=== PATIENT | male | born 1945 | race Caucasian/White ===

== ENCOUNTER 2018-11-21 22:42 | Inpatient (IN) | payer OTHER ==
[~2018-11-21] VITALS: Ht 170.2 cm; Wt 66.2 kg
--- NOTE | 2018-11-21 22:09 | Emergency Room Report ---
History of Present Illness General Chief Complaint: General Complaint Source: Patient Present Illness HPI Patient is a a 72-year-old male brought in by EMS after increased generalized weakness. Patient was noted to have increased BUN and creatinine on laboratory testing done by Dr. Alexandra. Patient was noted to have some increased generalized weakness as well as decreased urine output. 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 Patient denies any alcohol intake. He denies prior history of renal disease. Patient denies orthopnea or chest pain but reports having decreased exercise tolerance and dyspnea with minimal exertion. Allergies: Coded Allergies: No Known Allergies (Unverified , 11/21/18) Patient History Past Medical History: see triage record Reviewed Nursing Documentation: PMH: Agreed; PSxH: Agreed Nursing Documentation-PMH Past Medical History: No History, Except For Review of Systems All Other Systems: negative except mentioned in HPI Physical Exam Vital Signs Date Time Temp Pulse Resp B/P (MAP) Pulse Ox O2 Delivery O2 Flow Rate FiO2 11/21/18 21:51 97.3 84 18 156/78 96 General Appearance: alert, GCS 15, mild distress, Chronically Ill Eyes: bilateral eye EOMI ENT: normal pharynx Neck: full range of motion Respiratory: lungs clear, normal breath sounds Cardiovascular #1: regular rate, rhythm, edema Gastrointestinal: distended, mass - suprapubic mass Genitourinary: other - duplicate urethreal meatus with minimal opening Neurologic: alert, oriented x3, responsive, 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 Differential diagnosis include was not limited to obstructive uropathy, renal failure, hyperkalemia, laboratory error among others. Because of complexity of patient's case laboratory testing and imaging studies were ordered. Patient was noted to have markedly distended bladder. Patient initially was noted to have some hydronephrosis on bedside ultrasound. 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 Patient was noted to have large amount of urine in his bladder. Patient's catheter drained approximately [address] Carpenter placed catheter using urethral dilators. Patient's laboratory testing was notable having uremia as well as metabolic acidosis and markedly elevated creatinine. Patient was noted to have hyperkalemia without any definite EKG changes. CT of the abdomen pelvis showed some continued hydroureter and bladder wall thickening which likely represented chronic outflow obstruction patient was discussed with Dr.. Michael Sosa for renal consultation who recommended 60 g of Kayexalate. Patient was given bicarbonate as well as IV calcium gluconate. Dr. Alexandra GI consult. Patient was admitted to Dr. Dane Vasquez. Laboratory Tests Test 11/21/18 22:25 11/22/18 04:45 11/22/18 08:00 White Blood Count 15.2 K/UL (4.8-10.8) H 14.0 K/UL (4.8-10.8) H Red Blood Count 2.93 M/UL (4.70-6.10) L 2.73 M/UL (4.70-6.10) L Hemoglobin 9.2 G/DL (14.2-18.0) L 8.8 G/DL (14.2-18.0) L Hematocrit 26.8 % (42.0-52.0) L 25.1 % (42.0-52.0) L Mean Corpuscular Volume 91 FL (80-99) 92 FL (80-99) Mean Corpuscular Hemoglobin 31.5 PG (27.0-31.0) H 32.2 PG (27.0-31.0) H Mean Corpuscular Hemoglobin Concent 34.5 G/DL (32.0-36.0) 34.9 G/DL (32.0-36.0) Red Cell Distribution Width 10.2 % (11.6-14.8) L 10.4 % (11.6-14.8) L Platelet Count 271 K/UL (150-450) 251 K/UL (150-450) Mean Platelet Volume 5.0 FL (6.5-10.1) L 4.8 FL (6.5-10.1) L Neutrophils (%) (Auto) % (45.0-75.0) % (45.0-75.0) Lymphocytes (%) (Auto) % (20.0-45.0) % (20.0-45.0) Monocytes (%) (Auto) % (1.0-10.0) % (1.0-10.0) Eosinophils (%) (Auto) % (0.0-3.0) % (0.0-3.0) Basophils (%) (Auto) % (0.0-2.0) % (0.0-2.0) Differential Total Cells Counted 100 Neutrophils % (Manual) 85 % (45-75) H Pending Lymphocytes % (Manual) 5 % (20-45) L Pending Monocytes % (Manual) 7 % (1-10) Eosinophils % (Manual) 2 % (0-3) Basophils % (Manual) 1 % (0-2) Band Neutrophils 0 % (0-8) Platelet Estimate Adequate Pending Platelet Morphology Normal Pending Hypochromasia 1+ Anisocytosis 1+ Prothrombin Time 10.8 SEC (9.30-11.50) Prothrombin Time INR 1.0 (0.9-1.1) PTT 28 SEC (23-33) Urine Color Pale yellow Urine Appearance Clear Urine pH 5 (4.5-8.0) Urine Specific [place] 1.010 (1.005-1.035) Urine Protein 2+ (NEGATIVE) H Urine Glucose (UA) Negative (NEGATIVE) Urine Ketones Negative (NEGATIVE) Urine Blood 1+ (NEGATIVE) H Urine Nitrite Negative (NEGATIVE) Urine Bilirubin Negative (NEGATIVE) Urine Urobilinogen Normal MG/DL (0.0-1.0) Urine Leukocyte Esterase 1+ (NEGATIVE) H Urine RBC 0-2 /HPF (0 - 0) H Urine WBC 0-2 /HPF (0 - 0) Urine Squamous Epithelial Cells None /LPF (NONE/OCC) Urine Bacteria None /HPF (NONE) Sodium Level 131 MMOL/L (136-145) L 135 MMOL/L (136-145) L 136 MMOL/L (136-145) Potassium Level 7.0 MMOL/L (3.5-5.1) *H 6.7 MMOL/L (3.5-5.1) *H 6.0 MMOL/L (3.5-5.1) *H Chloride Level 94 MMOL/L (98-107) L 96 MMOL/L (98-107) L 96 MMOL/L (98-107) L Carbon Dioxide Level 17 MMOL/L (21-32) L 22 MMOL/L (21-32) 20 MMOL/L (21-32) L Anion Gap 20 mmol/L (5-15) H 16 mmol/L (5-15) H 20 mmol/L (5-15) H Blood Urea Nitrogen 231 mg/dL (7-18) H 223 mg/dL (7-18) H 230 mg/dL (7-18) H Creatinine 14.0 MG/DL (0.55-1.30) H 14.1 MG/DL (0.55-1.30) H 14.0 MG/DL (0.55-1.30) H Estimate Glomerular Filtration Rate mL/min (>60) mL/min (>60) mL/min (>60) Glucose Level 125 MG/DL (74-106) H 104 MG/DL (74-106) 137 MG/DL (74-106) H Calcium Level 9.6 MG/DL (8.5-10.1) 9.3 MG/DL (8.5-10.1) 9.2 MG/DL (8.5-10.1) Total Bilirubin 0.4 MG/DL (0.2-1.0) 0.4 MG/DL (0.2-1.0) Aspartate Amino Transferase (AST) 10 U/L (15-37) L 10 U/L (15-37) L Alanine Aminotransferase (ALT) 28 U/L (12-78) 33 U/L (12-78) Alkaline Phosphatase 132 U/L (46-116) H 125 U/L (46-116) H Troponin I 0.535 ng/mL (0.000-0.056) 0.581 ng/mL (0.000-0.056) Total Protein 8.0 G/DL (6.4-8.2) 7.0 G/DL (6.4-8.2) Albumin 3.2 G/DL (3.4-5.0) L 2.8 G/DL (3.4-5.0) L Globulin 4.8 g/dL 4.2 g/dL Albumin/Globulin Ratio 0.7 (1.0-2.7) L 0.7 (1.0-2.7) L Thyroid Stimulating Hormone (TSH) 1.941 uiU/mL (0.358-3.740) 1.545 uiU/mL (0.358-3.740) Triglycerides Level 17 MG/DL (30-150) L Cholesterol Level 83 MG/DL (< 200) LDL Cholesterol 58 mg/dL (<100) HDL Cholesterol 30 MG/DL (40-60) L Cholesterol/HDL Ratio 2.8 (3.3-4.4) L EKG Diagnostic Results Rate: normal Rhythm: NSR ST Segments: no acute changes Last Vital Signs Date Time Temp Pulse Resp B/P (MAP) Pulse Ox O2 Delivery O2 Flow Rate FiO2 11/21/18 21:51 97.3 84 18 156/78 96 Status: improved Disposition: ADMITTED INPATIENT Condition: Stable Mauro Card MD Nov 21, 2018 22:09
[2018-11-21 22:18] VITALS: BP 156/78
--- NOTE | 2018-11-21 22:18 | NUR ---
ED Nurse Note: Patient biba RA 42 from home c/o general weakness. PMD called earlier, patient has a hx of renal failure as well
--- NOTE | 2018-11-21 22:45 | NUR ---
ED Nurse Note: Dr. Card made contact with urologist, urologist will come and evaluate patient's urinary sytem as well as collect urine.
[2018-11-21 22:51] LABS: HEMATOCRIT 26.8 % (42.0-52.0); HEMOGLOBIN 9.2 G/DL (14.2-18.0); MEAN CORPUSCULAR VOLUME 91 FL (80-99); PLATELET COUNT 271 K/UL (150-450); RED BLOOD COUNT 2.93 M/UL (4.70-6.10); RED CELL DISTRIBUTION WIDTH 10.2 % (11.6-14.8); WHITE BLOOD COUNT 15.2 K/UL (4.8-10.8)
[2018-11-21 23:17] LABS: ALANINE AMINOTRANSFERASE 28 U/L (12-78); ALBUMIN 3.2 G/DL (3.4-5.0); ALBUMIN/GLOBULIN RATIO 0.7 (1.0-2.7); ALKALINE PHOSPHATASE 132 U/L (46-116); ANION GAP 20 mmol/L (5-15); ASPARTATE AMINO TRANSFERASE 10 U/L (15-37); BILIRUBIN,TOTAL 0.4 MG/DL (0.2-1.0); BLOOD UREA NITROGEN 231 mg/dL (7-18); CALCIUM 9.6 MG/DL (8.5-10.1); CARBON DIOXIDE 17 MMOL/L (21-32); CHLORIDE 94 MMOL/L (98-107); SODIUM 131 MMOL/L (136-145)
--- NOTE | 2018-11-21 23:30 | NUR ---
ED Nurse Notes: telephone report given to AIDA JEFFRIES.
[2018-11-21] MEDS ORDERED: ZOFRAN4 M3 ORAL (23:33)
[2018-11-21] MEDS ORDERED: AMLODIPINE BESYL5 MG ORAL (23:33)
--- NOTE | 2018-11-21 23:40 | NUR ---
ED Nurse Note: CT COMPLETED
--- NOTE | 2018-11-21 23:48 | NUR ---
ED Nurse Note: RECEIVED PHONE CALL FROM LAB. PER ADJUNCT TRAINER, K+ 7.0 AND TROPONIN IS 0.535. INFORMED ERMD, WILL AWAIT FUTHER ORDERS AND CONTINOUSLY MONITOR PT.
[2018-11-21 23:56] LABS: APPEARANCE,URINE CLEAR; BILIRUBIN, URINE NEGATIVE (NEGATIVE); COLOR,URINE PALE YELLOW; GLUCOSE, URINE (UA) NEGATIVE (NEGATIVE); KETONES,URINE NEGATIVE (NEGATIVE); LEUKOCYTE ESTERASE ,URINE 1+ (NEGATIVE); NITRITE,URINE NEGATIVE (NEGATIVE); PH,URINE 5 (4.5-8.0); PROTEIN,URINE 2+ (NEGATIVE); UROBILINOGEN,URINE NORMAL MG/DL (0.0-1.0)
[2018-11-22] MEDS ORDERED: Sodium Polystyrene Sulfonate 15gm Powder ONE (00:10)
[2018-11-22] MEDS ORDERED: Calcium Gluconate 1gm/10ml vial IVP ONE (00:15)
[2018-11-22] MEDS ORDERED: Sodium Polystyrene Sulfonate 15gm Powder ORAL ONE ×2 (00:15→13:30)
[2018-11-22] MEDS ORDERED: Albuterol ud Inhalation HHN ONE (00:15)
[2018-11-22] MEDS ORDERED: Sodium Bicarbonate 50ml Carp IV ONE (00:15)
--- NOTE | 2018-11-22 00:15 | Consultation ---
DATE OF CONSULTATION: 11/21/2018 UROLOGY CONSULTATION: CONSULTING PHYSICIAN: Leonardo Carpenter M.D. ATTENDING/REFERRING PHYSICIAN: Dr. Mauro Card at emergency department. 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 Briefly, the patient is brought to the hospital by EMS with a history of generalized weakness. He was noted to have an extreme increase in his BUN and creatinine on laboratory testing that was done earlier today. He had an ultrasound done, which revealed evidence of hydronephrosis. The patient has some abnormal urethral anatomy. As such, I was asked to evaluate him and pass the Morfin catheter. 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 The patient has had some gradual incontinence developing over the last several months along with lower extremity swelling. PAST MEDICAL HISTORY: Urethral bifurcation, otherwise unremarkable. PAST SURGICAL HISTORY: None. MEDICATIONS: Please see the chart for current medications administration details. ALLERGIES: No known drug allergies. SOCIAL HISTORY: Unremarkable for tobacco, alcohol, or drug abuse. 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 FAMILY HISTORY: Noncontributory. REVIEW OF SYSTEMS: A 14-system review of systems was essentially unremarkable outside what was described above. PHYSICAL EXAMINATION: GENERAL: The patient is an elderly gentleman, awake, alert, oriented x4, pleasant, no obvious distress. HEENT: NC/AT. EOMI. NECK: Supple. Oropharynx clear. CHEST: Within normal limits. ABDOMEN: Soft, nontender, nondistended. EXTREMITIES: Warm, well perfused. No cyanosis, clubbing, or edema. BACK: No CVA tenderness to percussion. NEUROLOGIC: Grossly nonfocal. GENITOURINARY: Reveals a circumcised male phallus. There are 2 apparent openings on the coronal glans of the urethra, 1 appears to be a distal plate and the other appears to be the true opening. This is quite small in caliber measuring approximately 2 mm in size. There are bilateral descended testes and cord structures with no masses or tenderness to palpation. LABORATORY DATA: White blood cell count 15.2, hematocrit 26.8, platelets 271. PT 10.8, INR 1, PTT 28. Chemistry panel pending. DIAGNOSTIC IMAGING: Renal ultrasound with evidence of hydronephrosis bilaterally. CT scan of the abdomen pelvis ordered and pending. 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 Physical exam reveals a distal urethral plate and small opening as well as a more proximal opening, which appeared to be true urethra. Laboratory data is notable for evidence of renal failure and an updated chemistry panel is pending. Diagnostic imaging reveals hydronephrosis. Today at the bedside, I dilated the patient's urethra gently with no sounds from 12 to 14-Welsh on the proximal opening. Despite the small size, it was fairly elastic and dilated easily. As this was done, it did not appear that there was any distal stricture beyond the meatus. I was then able to pass a 14-Welsh catheter with some difficulty in the patient's bladder. This returned clear yellow urine output. It was inflated and left to gravity drainage. Thank you for allowing me to participate in the care of this nice gentleman. Please do not hesitate to contact me with any questions that you may further have regarding his care. I will be happy to see him with you as needed. Leonardo Carpenter M.D. DR: ARETHA JOB#: [id number] CC:
--- NOTE | 2018-11-22 00:46 | NUR ---
ED Nurse Note: pt transferred with lauren rn and neil emt, pt is on gambling monitor, pt is aox4, vss stable, pt johnson emptied, pt has all belongings daughter is bedside. pt on room air. 100%
--- NOTE | 2018-11-22 01:00 | NUR ---
NURSE NOTES: Received pt. from ED via kel[facility]. Pt. transferred to bed without any incident. [place] pt. to unit, room, and hospital policies. Received report from AIDA Orozco. phototypesetting equipment monitor is in placed, IV site is intact, asymptomatic and patent. Belongings list checked and accounted. Bed is in the lowest position and locked. Call light within reach. No acute distress noted at this time. Will call Dr. Vasquez for admission orders.
[2018-11-22 01:05] VITALS: BP 149/68
--- NOTE | 2018-11-22 03:00 | NUR ---
NURSE NOTES: Received admission orders from Dr. Vasquez. Will note and carry out.
[2018-11-22 04:00] VITALS: BP 139/73
--- NOTE | 2018-11-22 06:30 | NUR ---
NURSE NOTES: Contacted Dr. Sosa for a nephrology consult. Awaiting call back.
[2018-11-22 07:18] LABS: HEMATOCRIT 25.1 % (42.0-52.0); HEMOGLOBIN 8.8 G/DL (14.2-18.0); MEAN CORPUSCULAR VOLUME 92 FL (80-99); PLATELET COUNT 251 K/UL (150-450); RED BLOOD COUNT 2.73 M/UL (4.70-6.10); RED CELL DISTRIBUTION WIDTH 10.4 % (11.6-14.8)
[2018-11-22 07:21] LABS: ALANINE AMINOTRANSFERASE 33 U/L (12-78); ALBUMIN 2.8 G/DL (3.4-5.0); ALBUMIN/GLOBULIN RATIO 0.7 (1.0-2.7); ALKALINE PHOSPHATASE 125 U/L (46-116); ANION GAP 16 mmol/L (5-15); ASPARTATE AMINO TRANSFERASE 10 U/L (15-37); BILIRUBIN,TOTAL 0.4 MG/DL (0.2-1.0); BLOOD UREA NITROGEN 223 mg/dL (7-18); CALCIUM 9.3 MG/DL (8.5-10.1); CARBON DIOXIDE 22 MMOL/L (21-32); CHLORIDE 96 MMOL/L (98-107); CHOLESTEROL 83 MG/DL (< 200); CREATININE 14.1 MG/DL (0.55-1.30); HDL CHOLESTEROL 30 MG/DL (40-60); SODIUM 135 MMOL/L (136-145)
[2018-11-22 07:24] LABS: POTASSIUM 6.7 MMOL/L (3.5-5.1)
[2018-11-22 07:41] LABS: TRIGLYCERIDES 17 MG/DL (30-150)
--- NOTE | 2018-11-22 07:45 | NUR ---
NURSE NOTES: Received patient from AIDA Fenton in bed resting,patient is weak, eat 95% of breakfast, daughter at bedside, denies any pain. No s/s of acute distress noted. Dr. Stokes is with patient. Emptied 1400cc from f/c output is reddish in color. Dr aware. Bed is in lowest position. Call light is within reach. Will continue with the plan of care.
[2018-11-22 08:00] VITALS: BP 146/66
--- NOTE | 2018-11-22 08:33 | NUR ---
HAND-OFF: Report given to AIDA Sandoval.
--- NOTE | 2018-11-22 09:27 | NUR ---
NURSE NOTES: Lab called Troponin is 0.581, aware
[2018-11-22 09:34] LABS: ANION GAP 20 mmol/L (5-15); BLOOD UREA NITROGEN 230 mg/dL (7-18); CALCIUM 9.2 MG/DL (8.5-10.1); CARBON DIOXIDE 20 MMOL/L (21-32); CHLORIDE 96 MMOL/L (98-107); SODIUM 136 MMOL/L (136-145)
--- NOTE | 2018-11-22 09:38 | NUR ---
NURSE NOTES: Lab, Dyn called potassium is 6.0, aware
[2018-11-22] MEDS: Heparin 5000 units/ml inj SUBQ SCH ×2 (09:52→20:42)
--- NOTE | 2018-11-22 10:32 | Diagnostic Imaging Report ---
Indication: Abdominal pain, abnormal renal function tests, lower extremity swelling Technique: Spiral acquisitions obtained through the abdomen and pelvis. No oral contrast utilized, per emergency room physician request No IV contrast utilized, per referring physician request.. Multiplanar reconstructions were generated. Total dose length product 733.93 mGycm. CTDIvol(s) 14.56 mGy. Dose reduction achieved using automated exposure control Comparison: None Findings: There is a right inguinal hernia which appears to be a direct inguinal hernia. The edge of the cecum protrudes into it. This does not appear to result in any strangulation or obstruction, however. The appendix is not definitely identified, but no findings to suggest acute appendicitis are evident. No small bowel distention. No free or loculated intraperitoneal gas or fluid is evident. Distal esophagus, stomach, duodenum are unremarkable. There is moderate to severe right hydronephrosis. There is also moderate to severe right hydroureter, which extends all the way to the ureterovesical junction. There is mild left hydronephrosis and moderate left hydroureter which extends all the way to the ureterovesical junction. The bladder contains a Morfin catheter. Gas bubbles within the bladder are likely related to the Morfin catheterization. The bladder is partially decompressed. The bladder is equivocally somewhat thick walled, although this may be an artifact of lack of distention. The prostate is somewhat enlarged. Lack of IV contrast limits assessment of the renal parenchyma. There is a 1 cm cyst in the left renal interpolar region. No renal or ureteral calculi demonstrated. Lack of IV contrast limits assessment of the solid organs. The liver, gallbladder, bile ducts, pancreas, spleen, adrenals are unremarkable. No retroperitoneal or mesenteric mass or adenopathy. No pelvic mass or adenopathy. The subcutaneous fat is diffusely edematous. The included lung bases demonstrate basilar atelectatic changes. A small air cyst is seen at the left lung base. The heart is enlarged. There is a pectus excavatum deformity which may exaggerate the apparent cardiomegaly, however. The bones demonstrate bilateral L5 spondylolysis, grade 1-2 L5 on S1 spondylolisthesis. Impression: Bilateral hydronephrosis, with hydroureter extending to the ureterovesical junctions, no definite obstructive lesion. Possibly on the basis of chronic bladder outlet obstruction. Morfin catheter within partially decompressed bladder apparent bladder wall thickening, possibly exaggerated by under distention, but raises possibility of cystitis Direct right inguinal hernia, containing the edge of the cecum. 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 The CT scanner at [facility] is accredited by the [employer] and the scans are performed using protocols designed to limit radiation exposure to as low as reasonably achievable to attain images of sufficient resolution adequate for diagnostic evaluation.
--- NOTE | 2018-11-22 11:42 | NUR ---
CASE MANAGEMENT:REVIEW 72 YR OLD MALE BIBA FROM HOME CC; GENERALIZED WEAKNESS SI: ACUTE RENAL FAILURE 97.4 84 18 156/78 96% ON RA WBC+15.2 K+7.0 BUN+231 CR+14.0 TROPONIN(+) 0.535 IS: CT ABD/PELVIS IV CA GLUC ALBUTEROL HHN IV NAHCO3 KAYEXALATE PO : TO TELEMETRY INTERQUAL CRITERIA MET
[2018-11-22 12:00] VITALS: BP 124/64
--- NOTE | 2018-11-22 12:06 | NUR ---
*-* NO INSURANCE INFORMATION IN THE BAR UNABLE TO SEND CLINICALS AND REVIEWS *-*
--- NOTE | 2018-11-22 14:35 | Diagnostic Imaging Report ---
APPROVED REPORT CPT Code: 93525 Present Symptoms Shortness of breath Comments: Screening BILATERAL: Imaging reveals a patent deep venous system bilaterally. There is no evidence of thrombus within the common femoral, superficial femoral, popliteal or tibial segments. The greater saphenous veins are within normal limits. Doppler indicates normal spontaneous flow within these segments.
--- NOTE | 2018-11-22 14:40 | Consultation ---
Consult Note Assessment/Plan Renal consult dictated # [id number] Michael Sosa MD Nov 22, 2018 14:40
--- NOTE | 2018-11-22 15:44 | General Progress Note ---
Assessment/Plan Assessment/Plan Assessment - Anemia - Chronic renal failure - Obstructive uropathy - b/l edema - Duplex negative - Pelvic mass - distended bladder - resolved with johnson - diarrhea Recommendations - Renal diet - follow labs - Fernanda exalate - Monitor labs - check stool OB, Cx - defer GI procedures at this time Subjective Allergies: Coded Allergies: No Known Allergies (Unverified , 11/21/18) Objective Last 24 Hour Vital Signs Date Time Temp Pulse Resp B/P (MAP) Pulse Ox O2 Delivery O2 Flow Rate FiO2 11/22/18 12:00 80 11/22/18 12:00 98.2 80 18 124/64 (84) 97 11/22/18 09:49 89 146/65 11/22/18 09:00 Room Air 11/22/18 08:00 85 11/22/18 08:00 98.6 85 18 146/66 (92) 96 11/22/18 04:00 97.7 73 16 139/73 (95) 97 11/22/18 04:00 78 11/22/18 03:58 Room Air 21 11/22/18 03:58 Room Air 21 11/22/18 03:58 77 20 Room Air 21 11/22/18 01:18 Room Air 11/22/18 01:05 98.1 86 17 149/68 (95) 96 11/22/18 01:05 86 11/22/18 00:46 97.3 89 16 149/74 100 Room Air 11/21/18 22:18 97.3 84 18 156/78 96 11/21/18 22:18 84 18 11/21/18 21:51 97.3 84 18 156/78 96 Intake and Output 11/21/18 11/22/18 19:00 07:00 Intake Total 580 ml Output Total 2040 ml Balance -1460 ml Intake Oral 580 ml Output Urine Total 2040 ml Laboratory Tests 11/21/18 22:25: White Blood Count 15.2H, Red Blood Count 2.93L, Hemoglobin 9.2L, Hematocrit 26.8L, Mean Corpuscular Volume 91, Mean Corpuscular Hemoglobin 31.5H, Mean Corpuscular Hemoglobin Concent 34.5, Red Cell Distribution Width 10.2L, Platelet Count 271, Mean Platelet Volume 5.0L, Neutrophils (%) (Auto) , Lymphocytes (%) (Auto) , Monocytes (%) (Auto) , Eosinophils (%) (Auto) , Basophils (%) (Auto) , Differential Total Cells Counted 100, Neutrophils % ( Manual) 85H, Lymphocytes % (Manual) 5L, Monocytes % (Manual) 7, Eosinophils % ( Manual) 2, Basophils % (Manual) 1, Band Neutrophils 0, Platelet Estimate Adequate, Platelet Morphology Normal, Hypochromasia 1+, Anisocytosis 1+, Prothrombin Time 10.8, Prothromb Time International Ratio 1.0, Activated Partial Thromboplast Time 28, Urine Color Pale yellow, Urine Appearance Clear, Urine pH 5, Urine Specific [place] 1.010, Urine Protein 2+H, Urine Glucose (UA) Negative, Urine Ketones Negative, Urine Blood 1+H, Urine Nitrite Negative, Urine Bilirubin Negative, Urine Urobilinogen Normal, Urine Leukocyte Esterase 1+ H, Urine RBC 0-2H, Urine WBC 0-2, Urine Squamous Epithelial Cells None, Urine Bacteria None, Sodium Level 131L, Potassium Level 7.0*H, Chloride Level 94L, Carbon Dioxide Level 17L, Anion Gap 20H, Blood Urea Nitrogen 231H, Creatinine 14.0H, Estimat Glomerular Filtration Rate , Glucose Level 125H, Calcium Level 9.6, Total Bilirubin 0.4, Aspartate Amino Transf (AST/SGOT) 10L, Alanine Aminotransferase (ALT/SGPT) 28, Alkaline Phosphatase 132H, Troponin I 0.535H, Total Protein 8.0, Albumin 3.2L, Globulin 4.8, Albumin/Globulin Ratio 0.7L, Thyroid Stimulating Hormone (TSH) 1.941 11/22/18 04:45: White Blood Count 14.0H, Red Blood Count 2.73L, Hemoglobin 8.8L, Hematocrit 25.1L, Mean Corpuscular Volume 92, Mean Corpuscular Hemoglobin 32.2H, Mean Corpuscular Hemoglobin Concent 34.9, Red Cell Distribution Width 10.4L, Platelet Count 251, Mean Platelet Volume 4.8L, Neutrophils (%) (Auto) , Lymphocytes (%) (Auto) , Monocytes (%) (Auto) , Eosinophils (%) (Auto) , Basophils (%) (Auto) , Differential Total Cells Counted 100, Neutrophils % ( Manual) 91H, Lymphocytes % (Manual) 6L, Monocytes % (Manual) 3, Eosinophils % ( Manual) 0, Basophils % (Manual) 0, Band Neutrophils 0, Platelet Estimate Adequate, Platelet Morphology Normal, Sodium Level 135L, Potassium Level 6.7*H, Chloride Level 96L, Carbon Dioxide Level 22, Anion Gap 16H, Blood Urea Nitrogen 223H, Creatinine 14.1H, Estimat Glomerular Filtration Rate , Glucose Level 104, Calcium Level 9.3, Total Bilirubin 0.4, Aspartate Amino Transf (AST/SGOT) 10L, Alanine Aminotransferase (ALT/SGPT) 33, Alkaline Phosphatase 125H, Total Protein 7.0, Albumin 2.8L, Globulin 4.2, Albumin/Globulin Ratio 0.7L, Thyroid Stimulating Hormone (TSH) 1.545, Red Blood Cell Morphology Normal, Triglycerides Level 17L, Cholesterol Level 83, LDL Cholesterol 58, HDL Cholesterol 30L, Cholesterol/HDL Ratio 2.8L 11/22/18 08:00: Sodium Level 136, Potassium Level 6.0*H, Chloride Level 96L, Carbon Dioxide Level 20L, Anion Gap 20H, Blood Urea Nitrogen 230H, Creatinine 14.0H, Estimat Glomerular Filtration Rate , Glucose Level 137H, Calcium Level 9.2, Troponin I 0.581H Height (Feet): 5 Height (Inches): 8.00 Weight (Pounds): 170 Yasir Alexandra MD Nov 22, 2018 15:44
[2018-11-22 16:00] VITALS: BP 123/56
--- NOTE | 2018-11-22 16:20 | Cardiology Report ---
APPROVED REPORT EXAM: Two-dimensional and M-mode echocardiogram with Doppler and color Doppler. INDICATION Hypertension/HCVD M-Mode DIMENSIONS IVSd0.9 (0.7-1.1cm)Left Atrium (MM)3.6 (1.6-4.0cm) LVDd5.0 (3.5-5.6cm)Aortic Root3.4 (2.0-3.7cm) PWd1.1 (0.7-1.1cm)Aortic Cusp Exc.2.3 (1.5-2.0cm) LVDs2.9 (2.5-4.0cm) PWs1.2 cm Normal left ventricular chamber size, systolic function and wall motion. Left ventricular ejection fraction estimated to be 65-70 %. Borderline mild left ventricular hypertrophy by 2D. Anterior Echo-free space, may be due to pericardial fat or effusion. Mild bi-atrial enlargement. Right ventricular chamber size is within normal limits. Focal aortic valve sclerosis with adequate cusp excursion. Thickened mitral valve leaflets with normal excursion. Mitral annulus and aortic root calcification. Pulmonic valve not well visualized. Normal tricuspid valve structure. IVC measured at 2.3 cm with slight physiologic collapse, suggestive of increased RA pressure. A color flow and spectral Doppler study was performed and revealed: Mild aortic regurgitation. Trace mitral regurgitation. Mitral diastolic velocities suggest normal left ventricular relaxation. Trace tricuspid regurgitation. Tricuspid systolic velocities suggests peak right ventricular systolic pressure of 21 mmHg Pulmonic regurgitation present.
--- NOTE | 2018-11-22 16:30 | Cardiac Electrophysiology PN ---
Subjective Subjective [id number] Objective Last 24 Hour Vital Signs Date Time Temp Pulse Resp B/P (MAP) Pulse Ox O2 Delivery O2 Flow Rate FiO2 11/22/18 12:00 80 11/22/18 12:00 98.2 80 18 124/64 (84) 97 11/22/18 09:49 89 146/65 11/22/18 09:00 Room Air 11/22/18 08:00 85 11/22/18 08:00 98.6 85 18 146/66 (92) 96 11/22/18 04:00 97.7 73 16 139/73 (95) 97 11/22/18 04:00 78 11/22/18 03:58 Room Air 21 11/22/18 03:58 Room Air 21 11/22/18 03:58 77 20 Room Air 21 11/22/18 01:18 Room Air 11/22/18 01:05 98.1 86 17 149/68 (95) 96 11/22/18 01:05 86 11/22/18 00:46 97.3 89 16 149/74 100 Room Air 11/21/18 22:18 97.3 84 18 156/78 96 11/21/18 22:18 84 18 11/21/18 21:51 97.3 84 18 156/78 96 Intake and Output 11/21/18 11/22/18 19:00 07:00 Intake Total 580 ml Output Total 2040 ml Balance -1460 ml Intake Oral 580 ml Output Urine Total 2040 ml Laboratory Tests Test 11/21/18 22:25 11/22/18 04:45 11/22/18 08:00 White Blood Count 15.2 K/UL (4.8-10.8) H 14.0 K/UL (4.8-10.8) H Red Blood Count 2.93 M/UL (4.70-6.10) L 2.73 M/UL (4.70-6.10) L Hemoglobin 9.2 G/DL (14.2-18.0) L 8.8 G/DL (14.2-18.0) L Hematocrit 26.8 % (42.0-52.0) L 25.1 % (42.0-52.0) L Mean Corpuscular Volume 91 FL (80-99) 92 FL (80-99) Mean Corpuscular Hemoglobin 31.5 PG (27.0-31.0) H 32.2 PG (27.0-31.0) H Mean Corpuscular Hemoglobin Concent 34.5 G/DL (32.0-36.0) 34.9 G/DL (32.0-36.0) Red Cell Distribution Width 10.2 % (11.6-14.8) L 10.4 % (11.6-14.8) L Platelet Count 271 K/UL (150-450) 251 K/UL (150-450) Mean Platelet Volume 5.0 FL (6.5-10.1) L 4.8 FL (6.5-10.1) L Neutrophils (%) (Auto) % (45.0-75.0) % (45.0-75.0) Lymphocytes (%) (Auto) % (20.0-45.0) % (20.0-45.0) Monocytes (%) (Auto) % (1.0-10.0) % (1.0-10.0) Eosinophils (%) (Auto) % (0.0-3.0) % (0.0-3.0) Basophils (%) (Auto) % (0.0-2.0) % (0.0-2.0) Differential Total Cells Counted 100 100 Neutrophils % (Manual) 85 % (45-75) H 91 % (45-75) H Lymphocytes % (Manual) 5 % (20-45) L 6 % (20-45) L Monocytes % (Manual) 7 % (1-10) 3 % (1-10) Eosinophils % (Manual) 2 % (0-3) 0 % (0-3) Basophils % (Manual) 1 % (0-2) 0 % (0-2) Band Neutrophils 0 % (0-8) 0 % (0-8) Platelet Estimate Adequate Adequate Platelet Morphology Normal Normal Hypochromasia 1+ Anisocytosis 1+ Prothrombin Time 10.8 SEC (9.30-11.50) Prothromb Time International Ratio 1.0 (0.9-1.1) Activated Partial Thromboplast Time 28 SEC (23-33) Urine Color Pale yellow Urine Appearance Clear Urine pH 5 (4.5-8.0) Urine Specific [place] 1.010 (1.005-1.035) Urine Protein 2+ (NEGATIVE) H Urine Glucose (UA) Negative (NEGATIVE) Urine Ketones Negative (NEGATIVE) Urine Blood 1+ (NEGATIVE) H Urine Nitrite Negative (NEGATIVE) Urine Bilirubin Negative (NEGATIVE) Urine Urobilinogen Normal MG/DL (0.0-1.0) Urine Leukocyte Esterase 1+ (NEGATIVE) H Urine RBC 0-2 /HPF (0 - 0) H Urine WBC 0-2 /HPF (0 - 0) Urine Squamous Epithelial Cells None /LPF (NONE/OCC) Urine Bacteria None /HPF (NONE) Sodium Level 131 MMOL/L (136-145) L 135 MMOL/L (136-145) L 136 MMOL/L (136-145) Potassium Level 7.0 MMOL/L (3.5-5.1) *H 6.7 MMOL/L (3.5-5.1) *H 6.0 MMOL/L (3.5-5.1) *H Chloride Level 94 MMOL/L (98-107) L 96 MMOL/L (98-107) L 96 MMOL/L (98-107) L Carbon Dioxide Level 17 MMOL/L (21-32) L 22 MMOL/L (21-32) 20 MMOL/L (21-32) L Anion Gap 20 mmol/L (5-15) H 16 mmol/L (5-15) H 20 mmol/L (5-15) H Blood Urea Nitrogen 231 mg/dL (7-18) H 223 mg/dL (7-18) H 230 mg/dL (7-18) H Creatinine 14.0 MG/DL (0.55-1.30) H 14.1 MG/DL (0.55-1.30) H 14.0 MG/DL (0.55-1.30) H Estimat Glomerular Filtration Rate mL/min (>60) mL/min (>60) mL/min (>60) Glucose Level 125 MG/DL (74-106) H 104 MG/DL (74-106) 137 MG/DL (74-106) H Calcium Level 9.6 MG/DL (8.5-10.1) 9.3 MG/DL (8.5-10.1) 9.2 MG/DL (8.5-10.1) Total Bilirubin 0.4 MG/DL (0.2-1.0) 0.4 MG/DL (0.2-1.0) Aspartate Amino Transf (AST/SGOT) 10 U/L (15-37) L 10 U/L (15-37) L Alanine Aminotransferase (ALT/SGPT) 28 U/L (12-78) 33 U/L (12-78) Alkaline Phosphatase 132 U/L (46-116) H 125 U/L (46-116) H Troponin I 0.535 ng/mL (0.000-0.056) 0.581 ng/mL (0.000-0.056) Total Protein 8.0 G/DL (6.4-8.2) 7.0 G/DL (6.4-8.2) Albumin 3.2 G/DL (3.4-5.0) L 2.8 G/DL (3.4-5.0) L Globulin 4.8 g/dL 4.2 g/dL Albumin/Globulin Ratio 0.7 (1.0-2.7) L 0.7 (1.0-2.7) L Thyroid Stimulating Hormone (TSH) 1.941 uiU/mL (0.358-3.740) 1.545 uiU/mL (0.358-3.740) Red Blood Cell Morphology Normal Triglycerides Level 17 MG/DL (30-150) L Cholesterol Level 83 MG/DL (< 200) LDL Cholesterol 58 mg/dL (<100) HDL Cholesterol 30 MG/DL (40-60) L Cholesterol/HDL Ratio 2.8 (3.3-4.4) L David Guerra MD Nov 22, 2018 16:30
--- NOTE | 2018-11-22 17:22 | Cardiology Report ---
APPROVED REPORT EKG Measurement Heart [id number] ND [id number] Normal sinus rhythm Incomplete right bundle branch block Borderline ECG
--- NOTE | 2018-11-22 18:00 | NUR ---
NURSE NOTES: Patient complain of constipation, called Dr. Vasquez for order, awaiting call back.
--- NOTE | 2018-11-22 19:44 | NUR ---
HAND-OFF: Report given to AIDA Ramos.Endorsed plan of care.
[2018-11-22 20:00] VITALS: BP 126/65
--- NOTE | 2018-11-22 20:06 | NUR ---
NURSE NOTES: RECEIVED PATIENT RESTING IN BED AND READING BOOK, NO COMPLAINTS OF PAIN AT THIS TIME. FALL PRECAUTIONS IN PLACE: CALL LIGHT AND BEDSIDE TABLE WITHIN REACH, BED IN LOW POSITION AND BED ALARM ON. DAUGHTER AT BEDSIDE. PLAN OF CARE REVIEWED.
[2018-11-22] MEDS: Metoprolol 25mg tab ORAL SCH (20:41)
--- NOTE | 2018-11-22 21:00 | Consultation ---
DATE OF CONSULTATION: 11/22/2018 NEPHROLOGY CONSULTATION CONSULTING PHYSICIAN: Michael Sosa M.D. REFERRING PHYSICIAN: 1. Dane Vasquez M.D. 2. Hakan Melara M.D. REASON FOR CONSULTATION: Renal failure. 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 Alexandra for abnormal blood test showing significant kidney disease and hyperkalemia. The patient states that he has had problems with urination for many years. He states that he had to put pressure on his bladder to urinate initially and he would then able to urinate, but he never saw a urologist. Also, he is not sure when his last blood test was, may be about two years ago, he was told that his kidney function was normal. He was seen here in the emergency room and was found to have a BUN of 231 with creatinine of 14 with potassium of 7. The patient was found to be in retention. Urologist was called to put a Morfin catheter. Apparently, there was some anatomical abnormality due to urethra with bifurcation, but urologist was able to put a Morfin catheter. The patient had about two liters of urine in his bladder. since then, he has maintained with good urine output. His BUN and creatinine, however, did not improve. His BUN is 223 and creatinine 14.1 as of today and the repeat later was again BUN of 230 and creatinine of 14. Anyway, the patient was given some Kayexalate in the emergency room over 60 g and this morning the potassium was 6.7 and the repeat is 6.0. The patient did not have any EKG changes and so it was decided not to start the patient on dialysis yet. In addition to abnormal blood test, the patient has had symptoms recently including increased leg swelling, difficulty with ambulation, getting short of breath even with light activity, and having palpitations. PAST MEDICAL HISTORY: The patient has had hypertensions, unclear how it was controlled. The patient says that at some point, he was taking medication and then his blood pressure would be okay and he would not take any medications. He denies history of diabetes. He denies any history of heart problems, lung disease, or GI issues. MEDICATIONS ON ADMISSION: The patient was taking amlodipine 5 mg daily and Zofran 4 mg p.r.n. p.o. SOCIAL HISTORY: Remote history of smoking. No history of alcohol abuse. 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 ALLERGIES: No known drug allergies. REVIEW OF SYSTEMS: As above. PHYSICAL EXAMINATION: GENERAL: The patient is a pleasant male, in no acute distress. VITAL SIGNS: Blood pressure is 124/64, pulse is 80, respirations 18, and temperature 98.2 degrees. HEENT: Pale conjunctivae. Anicteric sclerae. NECK: Supple. LUNGS: Clear to auscultation. HEART: S1 and S2 without murmurs or rubs. ABDOMEN: Soft and nontender. EXTREMITIES: Bilateral pedal edema. LABORATORY FINDINGS: The latest chemistry panel shows a sodium of 136, potassium 6, chloride 96, CO2 20, BUN is 230, creatinine 14, blood sugar is 137, and calcium is 9.2. Troponin is elevated at 0.58. CBC shows WBC of 14,000 hematocrit is 25.1, hemoglobin is 8.8, and platelets 251,000. The UA is unremarkable except the 2+ protein. ASSESSMENT: This is a 72-year-old white male, who was admitted with advanced renal failure. He was found to have hyperkalemia as well. He had urine obstruction and after Morfin, there was large amount of urine in the bladder, so certainly the patient has some obstructive uropathy. Because, he has had problems with urination over years and because of the abnormal urethral anatomy, I am assuming that he has had chronic obstruction for many years until he was completely decompensated recently. The good news is he is still making good amount of urine and I would be surprised that his BUN and creatinine stay at these levels, however, very likely the patient has some chronic damage to the kidneys because of the long episode of obstruction. His hyperkalemia has improved with relief of obstruction also with additional Kayexalate, although the potassium is still high. He is also anemic, which very likely is related to his chronic kidney disease. Iron deficiency needs to be ruled out. PLAN: At this point, I would repeat a chemistry panel to see if the BUN and creatinine are coming down. I would hold off on dialysis. Iron panel will be ordered with a.m. labs. The patient will need to be on erythropoietin. Renal ultrasound will be ordered to make sure the patient has two kidneys, also to evaluate the hydronephrosis, also to look at the echogenicity of the kidneys. The PTH will be ordered to make sure the patient does not have any secondary hyperparathyroidism from chronic kidney disease. I had a long discussion with the patient and told him that probably he will have some chronic kidney disease left, but we may be able to avoid dialysis at this point. Thank you very much, Dr. Vasquez and Dr. Melara, for this consultation. Michael Sosa M.D. DR: ONIEL JOB#: [id number] CC: AVERY
--- NOTE | 2018-11-22 22:45 | Consultation ---
DATE OF CONSULTATION: 11/22/2018 CARDIOLOGY CONSULTATION CONSULTING PHYSICIAN: David Guerra M.D. REFERRING PHYSICIAN: Dane Vasquez M.D. REASON FOR CONSULTATION: Bilateral lower extremity edema, shortness of breath, rule out congestive heart failure. HISTORY OF PRESENT ILLNESS: The patient is a 72-year-old gentleman with history of renal failure in the setting of urinary incontinence and some hydronephrosis on ultrasound, was brought to the hospital by paramedics for generalized weakness, shortness of breath, and severe bilateral lower extremity edema as well as extreme increase in BUN and creatinine on laboratory testing that was done earlier. Ultrasound also showed evidence of hydronephrosis. The patient also had severe hyperkalemia. The patient underwent Morfin catheter placement by Dr. Carpenter. The patient has history of congenital urethral malformation. Cardiology consultation was obtained for further evaluation and management. REVIEW OF SYSTEMS: Negative other than what was mentioned in history of present illness. PAST MEDICAL HISTORY: 1. Hypertension. 2. History of chronic renal failure. 3. The patient denies any prior myocardial infarction, coronary artery disease, or congestive heart failure. FAMILY HISTORY: Noncontributory. SOCIAL HISTORY: He lives at home. Does not smoke or drink alcohol. PHYSICAL EXAMINATION: VITAL SIGNS: Blood pressure 124/64, pulse 80, respirations 18, and temperature 98.2 degrees. HEAD AND NECK: Shows no JVD. LUNGS: Clear. CARDIOVASCULAR: Regular S1 and S2 with no gallop or murmur. ABDOMEN: Soft. EXTREMITIES: Bilateral 3+ pitting edema. GENITOURINARY: Morfin in place with bloody drainage. LABORATORY DATA: White count 14, hemoglobin 8.8, hematocrit 25.1, and platelet count 251. Sodium is 136, potassium initially was 7 went down to 6, BUN 230, creatinine 14, and glucose 137. Troponin 0.53, 0.581. ASSESSMENT AND PLAN: 1. Troponin leak. The levels are nonspecific and flat. The patient does not have any chest pain. This is due to the patient's renal failure with creatinine of 14. EKG shows sinus rhythm with no acute ST-T wave abnormalities. He also underwent an echocardiogram that showed ejection fraction of 65%. the patient's swelling and shortness of breath is likely acute renal failure. I will keep the patient on a small dose of aspirin and beta-agueda and discontinue amlodipine that potentially can worsen his lower extremity edema. Lower extremity duplex showed no evidence of DVT. 2. Hyperkalemia. Potassium was 7 and is down to 6. The patient is on sodium bicarbonate and Kayexalate. Further evaluation by Dr. Sosa. The patient may need hemodialysis. 3. Acute on chronic renal failure. Further evaluation by Dr. Sosa. Thank you very much for allowing me to participate in the care of this patient. Please do not hesitate to contact me for any questions regarding my evaluation. David Guerra M.D. DR: BABATUNDE JOB#: [id number] CC:
[2018-11-23] VITALS (7 sets, daily range): BP systolic 118–135; BP diastolic 60–74
--- NOTE | 2018-11-23 | History and Physical Report ---
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 The patient has not been feeling well over the past week. He had laboratories done in his office revealing acute renal failure with a potassium of 7. He was advised to call 911, which brought him to the emergency room here at [facility]. He had an ultrasound done, which revealed evidence of hydronephrosis. Urology was called by the ER physician. He was seen by Dr. Carpenter from Urology, who evaluated the patient and passed a Morfin catheter. In the interim, the patient was treated for his acute hyperkalemia in the emergency room and was admitted to a monitored bed. Renal consultation was requested from Dr. Michael Sosa. PAST MEDICAL HISTORY: Includes a history of inguinal hernia that has not required repair. He has a history of bifurcated urethra and history of hypertension. No hyperlipidemia or diabetes. No previous renal problems. He denies any prostate problems. MEDICATIONS: Please see his reconciled med list. ALLERGIES: None known. SOCIAL HISTORY: He does not smoke. Does not drink any alcohol. Does not use any drugs. 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 FAMILY HISTORY: Noncontributory. REVIEW OF SYSTEMS: A 12-point review of systems reviewed. Negative except for above. He has complained of nausea, episodes of retching over the past week. Feeling weak and fatigued. Decreased urination, which has been going on over the past month he states. He has had decreased appetite as well. PHYSICAL EXAMINATION: GENERAL: He is well developed and well nourished. Currently, in no apparent distress. Seen in the room. CONSTITUTIONAL: Blood pressure is 124/64, temperature 98.2, pulse 80, and saturations 96 to 97 percent on room air. HEENT: Head is normocephalic and atraumatic. Pupils reactive to light. NECK: Supple. LUNGS: Clear. HEART: Regular rate and rhythm. ABDOMEN: Soft. Positive bowel sounds. EXTREMITIES: No clubbing, cyanosis, or edema. He does have a Morfin catheter. PSYCH: Normal mood and affect. NEUROLOGIC: He is alert and oriented. Moves all extremities. LABORATORY DATA: Labs reveal a white count of 15.2, hemoglobin 9.2, hematocrit 26.8, and platelet count 271,000. Repeat laboratories this morning reveal a white count of 14, hemoglobin 8.8, and platelet count 251,000. His initial laboratories revealed a sodium 131, potassium 7.0, BUN of 231, creatinine of 14, and glucose 125. AST of 10 and alkaline phosphatase 132. Troponin 0.535. Total protein 8.0. Albumin 3.2. TSH was normal. His follow-up laboratories after treatment with Kayexalate and catheter reveals a sodium 136, potassium 6.0, BUN of 230, and creatinine 14. His troponin has gone up to 0.581. Urine reveals 2+ protein, 1+ blood, 1+ leukocyte esterase, 0 to 2 rbc, and 0 to [address] of the abdomen and pelvis reveals a right inguinal hernia, which appears to be a direct inguinal hernia. Cecum protrudes out. It did not appear to be strangulated or obstructive. Appendix is not identified. No gas or free intraperitoneal air. There is posymqei-uk-khzclp right hydronephrosis and also uqfclpkw-qt-vwyewm right hydroureter, which extends all the way through the ureterovesicular junction. There is mild left hydroureteronephrosis and moderate left hydroureter that extends all the way to the ureteral vesicular junction. Bladder has been decompressed after the Morfin catheter was placed. It is equivocally somewhat thick walled. The prostate is somewhat enlarged. The heart is enlarged although the patient has pectus excavatum deformity, which may exaggerate apparent cardiomegaly. He has subcutaneous fat which is diffusely edematous. They included lung bases demonstrate basilar atelectatic changes. The bones demonstrate bilateral L5 spondylosis grade 1 LS on S1 spondylolisthesis. In impression, there was no obstructive lesion. He does have bilateral hydro with hydroureter extending through to the vesicular junction. ASSESSMENT AND PLAN: The patient is a pleasant 72-year-old gentleman, who presents with acute renal failure with hyperkalemia, uremic type symptoms, had hydronephrosis severe, and required urological intervention with Morfin placement. His potassium has gone down a little still. BUN and creatinine are still quite elevated. He has been seen by Dr. Sosa. We will monitor for now. Per discussion with Dr. Sosa, hold off on dialysis. He is also anemic. We will check stools for occult blood, iron panel, ferritin, B12, and folic acid. He also has a leukocytosis, which has decreased slightly. We will monitor for now. He is afebrile likely reactive. Although if he does have a fever, we will initiate a fever workup. The patient should be on DVT and ulcer prophylaxis. Dane Vasquez M.D. DR: CATALINA JOB#: [id number] CC:
--- NOTE | 2018-11-23 04:30 | Consultation ---
DATE OF CONSULTATION: 11/22/2018 NOTE: "VERY POOR AUDIO QUALITY" GASTROENTEROLOGY CONSULTATION CONSULTING PHYSICIAN: Yasir Alexandra M.D. REFERRING PHYSICIAN: Dane Vasquez M.D. CHIEF COMPLAINT: I was asked to see this patient by Dr. Dane Vasquez for ongoing GI issues including anemia, diarrhea, and weight loss. 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 He had his blood tested later on in the evening, he was found to be in renal failure with hyperkalemia and therefore, he was sent to the emergency room where he has been admitted. His potassium on admission was 7, but it is better today although somewhat normal. His creatinine seemed to be elevated. During the examination process yesterday, he was found to have a pelvic mass, but after placement of Morfin catheter, there was significant amount of urinary drainage and this mass appeared to be a distended bladder. A CT scan of the abdomen and pelvis was done showing no evidence of a pelvic mass. PAST MEDICAL HISTORY: History of hypertension and history of Meniere disease. PAST SURGICAL HISTORY: Status post basal cell carcinoma removal from skin, history of tonsillectomy, history of undescended testicle surgery at age 9, and history of right knee surgery. MEDICATIONS: Norvasc 5 mg p.o. daily. ALLERGIES: No known drug allergies. FAMILY HISTORY: Positive for breast cancer in mother and sister, coronary artery disease in father and maternal uncle, and Graves disease in mother. 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 He is . He has two children. He is a previous smoker, but stopped in 1979. He drinks 1 to 2 alcoholic beverages nightly, but he discontinued this a few months ago. REVIEW OF SYSTEMS: Otherwise negative. PHYSICAL EXAMINATION: GENERAL: A pleasant elderly white man seen in his room with the daughter at bedside. HEENT: Normocephalic and atraumatic. Sclerae anicteric. Oropharynx clear. NECK: Supple. The patient appeared to be somewhat cachectic. CHEST: Clear to auscultation. CARDIOVASCULAR: Revealed regular rate. ABDOMEN: Soft with good bowel sounds. No pelvic masses were palpable today. EXTREMITIES: Revealed 2 to 3+ edema bilaterally. NEUROLOGIC: Grossly nonfocal. LABORATORY DATA: Noted. ASSESSMENT: This patient presents with anemia and some loose stools on admission who has renal failure which is most likely chronic given the degree of hyperkalemia. The patient's stools have been checked for cultures and ova and parasites as well as occult blood, so the patient's laboratories should be followed very closely. We will have the patient on renal diet and Kayexalate to be given as needed. The patient should undergo endoscopy and colonoscopy earlier today, but I will defer this until the patient's other medical problems have been stabilized. His us is negative at this time for blood clots and his legs should be elevated to help him return of the increased fluid back into circulation. RECOMMENDATIONS: Per above discussion and per orders written in the chart. Thank you for asking me to participate in the care of this patient. Yasir Alexandra M.D. DR: LORNE JOB#: [id number] CC: AVERY
--- NOTE | 2018-11-23 05:21 | NUR ---
NURSE NOTES: FLUSHED F/C WITH 100 NS Q 4 HRS ORDERED ( THREE TIMES DURING SHIFT). F/C DRAINING RED COLOR URINE WITH SMALL CLOTS AT TIMES. PATIENT DENIES PAIN. WILL CONTINUE TO MONITOR.
--- NOTE | 2018-11-23 07:14 | NUR ---
HAND-OFF: Report given to AIDA ZARCO. PATIENT ASLEEP, NO SIGNS OF DISTRESS NOTED.
--- NOTE | 2018-11-23 07:16 | NUR ---
NURSE NOTES: Received patient from AIDA Gaytan in bed sleeping. No s/s of pain noted. No s/s of acute distress noted. Noted f/c intact and draining to gravity with bloody urine, no clots noted. Bed is in lowest position. Call light is within reach. Will continue with the plan of care.
--- NOTE | 2018-11-23 07:34 | NUR ---
CASE MANAGEMENT:REVIEW 11/23/18 SI: ACUTE RENAL FAILURE EVALUATE FOR HYDRONEPHROSIS 98.2 75 18 130/60 100% ON RA YESTERDAY K+6.0...KAYEXALATE GIVEN IS: PROCRIT SQ MWF LOPRESSOR PO Q12 HEPARIN SQ Q12 : TELEMETRY STATUS PLAN PT EVAL F/U ON PENDING LABS FOR TODAY F/U ON RENAL ULTRASOUND
[2018-11-23 08:22] LABS: HEMATOCRIT 26.9 % (42.0-52.0); HEMOGLOBIN 9.2 G/DL (14.2-18.0); MEAN CORPUSCULAR VOLUME 93 FL (80-99); PLATELET COUNT 272 K/UL (150-450); RED CELL DISTRIBUTION WIDTH 10.4 % (11.6-14.8); WHITE BLOOD COUNT 13.6 K/UL (4.8-10.8)
[2018-11-23] MEDS: Metoprolol 25mg tab ORAL SCH ×2 (08:26→21:00)
[2018-11-23] MEDS: Heparin 5000 units/ml inj SUBQ SCH ×2 (08:27→20:59)
[2018-11-23] MEDS: Lactulose 20gm/30ml UDC ORAL SCH ×2 (09:05→18:31)
[2018-11-23 09:17] LABS: ANION GAP 20 mmol/L (5-15); BLOOD UREA NITROGEN 205 mg/dL (7-18); CALCIUM 8.5 MG/DL (8.5-10.1); CARBON DIOXIDE 22 MMOL/L (21-32); CHLORIDE 95 MMOL/L (98-107); CREATININE 12.1 MG/DL (0.55-1.30); PHOSPHORUS 9.2 MG/DL (2.5-4.9); POTASSIUM 4.1 MMOL/L (3.5-5.1); SODIUM 137 MMOL/L (136-145)
--- NOTE | 2018-11-23 10:05 | NUR ---
NURSE NOTES: Patient passed out for about less than 2 seconds, elevated patient's legs, rapid respond called. Patient awoken, became alert and oriented x3 to name, place, and situation. Rapid respond cancelled. Patient was helped move back in the bed, daughter at bedside. Patient is in stable condition. Will notify Dr. Vasquez. Will continue to monitor.
--- NOTE | 2018-11-23 10:06 | NUR ---
Vitals taken BP 132/70, HR 66, R 18, Blood sugar 154. Will continue to monitor
--- NOTE | 2018-11-23 10:18 | Diagnostic Imaging Report ---
Indication: Acute renal failure. Hematuria Technique: Grayscale and duplex Doppler imaging of the kidneys performed. Comparison: None Findings: There is severe hydronephrosis in the right kidney and moderate hydronephrosis in the left kidney probably on the basis of a markedly distended urinary bladder which has a estimated volume of 800 cc on this examination. There is a Morfin catheter present within the bladder lumen. The Morfin catheter is either clamped or nonfunctioning and should be evaluated clinically. The bladder wall is moderately thick likely indicative of chronic cystitis. The right kidney measures 12.9 cm. The left kidney measures 11.3 cm. IMPRESSION: Severe right hydronephrosis and moderate left hydronephrosis likely on the basis of bladder outlet obstruction despite presence of a Morfin catheter. Clinical evaluation is needed.
--- NOTE | 2018-11-23 10:22 | NUR ---
NURSE NOTES: Called Dr. Vasquez and left message with Ms. Maldonado explained what had happened to patient. Awaiting call back.
--- NOTE | 2018-11-23 10:56 | NUR ---
REHAB MED PT NOTE CONSULT RECEIVE, JAY COMPLETED, PATIENT WILL BENEFIT FROM SKILLED PT DURING STAY FOR RETURN TO OF. RECOMMEND HOME WITH SUPERVISION VS SNF. PLAN OF CARE INITIATED. BRUNO LENZ PT DPT Addendum: 11/23/18 at 1056 by BRUNO LENZ PT Amended: Links added.
--- NOTE | 2018-11-23 11:29 | NUR ---
NURSE NOTES: Called Dr. Guerra and left message, awaiting call back.
--- NOTE | 2018-11-23 15:49 | Cardiac Electrophysiology PN ---
Assessment/Plan Assessment/Plan 1. Troponin leak. The levels are nonspecific and flat 0.5, 0.5, 0.2. The patient does not have any chest pain. This is due to the patient's renal failure with creatinine of 14. EKG shows sinus rhythm with no acute ST-T wave abnormalities. Echocardiogram that showed ejection fraction of 65%. On aspirin and beta-agueda Lower extremity duplex showed no evidence of DVT. 2. Hyperkalemia. Potassium was 7 and is down to 4.1. The patient is on sodium bicarbonate and Kayexalate. Further evaluation by Dr. Sosa. The patient may need hemodialysis. 3. Acute on chronic renal failure. Further evaluation by Dr. Sosa. 4. Syncope. ? etiology. Nl EF. No . BP and HR stable. ? Neuro eval 5. High PSA Fu Dr Antonio PETERSON RN and daughter Subjective Subjective Had a syncopal episode while sitting in chair that was witnessed by RN. BP was normal and was in NSR with negative orthostasis. Daughter at bedside Objective Last 24 Hour Vital Signs Date Time Temp Pulse Resp B/P (MAP) Pulse Ox O2 Delivery O2 Flow Rate FiO2 11/23/18 12:00 66 11/23/18 12:00 97.9 66 18 118/68 (85) 96 11/23/18 10:06 66 18 132/70 (90) 96 11/23/18 09:00 Room Air 11/23/18 08:26 79 135/66 11/23/18 08:00 97.7 79 18 135/66 (89) 97 11/23/18 08:00 79 11/23/18 04:00 98.2 78 18 130/60 (83) 100 11/23/18 04:00 75 11/23/18 00:00 97.9 75 18 123/65 (84) 95 11/23/18 00:00 76 11/22/18 21:00 Room Air 11/22/18 20:41 87 126/65 11/22/18 20:00 98.4 87 18 126/65 (85) 96 11/22/18 20:00 84 11/22/18 16:00 78 11/22/18 16:00 98.0 84 18 123/56 (78) 96 Intake and Output 11/22/18 11/23/18 19:00 07:00 Intake Total 240 ml 240 ml Output Total 2800 ml 3900 ml Balance -2560 ml -3660 ml Intake Oral 240 ml 240 ml Output Urine Total 2800 ml 3900 ml Laboratory Tests Test 11/23/18 06:34 White Blood Count 13.6 K/UL (4.8-10.8) H Red Blood Count 2.90 M/UL (4.70-6.10) L Hemoglobin 9.2 G/DL (14.2-18.0) L Hematocrit 26.9 % (42.0-52.0) L Mean Corpuscular Volume 93 FL (80-99) Mean Corpuscular Hemoglobin 31.7 PG (27.0-31.0) H Mean Corpuscular Hemoglobin Concent 34.2 G/DL (32.0-36.0) Red Cell Distribution Width 10.4 % (11.6-14.8) L Platelet Count 272 K/UL (150-450) Mean Platelet Volume 4.9 FL (6.5-10.1) L Neutrophils (%) (Auto) % (45.0-75.0) Lymphocytes (%) (Auto) % (20.0-45.0) Monocytes (%) (Auto) % (1.0-10.0) Eosinophils (%) (Auto) % (0.0-3.0) Basophils (%) (Auto) % (0.0-2.0) Differential Total Cells Counted 100 Neutrophils % (Manual) 92 % (45-75) H Lymphocytes % (Manual) 0 % (20-45) L Monocytes % (Manual) 5 % (1-10) Eosinophils % (Manual) 2 % (0-3) Basophils % (Manual) 1 % (0-2) Band Neutrophils 0 % (0-8) Platelet Estimate Adequate Platelet Morphology Normal Red Blood Cell Morphology Normal Sodium Level 137 MMOL/L (136-145) Potassium Level 4.1 MMOL/L (3.5-5.1) Chloride Level 95 MMOL/L (98-107) L Carbon Dioxide Level 22 MMOL/L (21-32) Anion Gap 20 mmol/L (5-15) H Blood Urea Nitrogen 205 mg/dL (7-18) H Creatinine 12.1 MG/DL (0.55-1.30) H Estimat Glomerular Filtration Rate mL/min (>60) Glucose Level 93 MG/DL (74-106) Hemoglobin A1c 5.6 % (4.3-6.0) Calcium Level 8.5 MG/DL (8.5-10.1) Calcium (Send out) Pending Phosphorus Level 9.2 MG/DL (2.5-4.9) H Troponin I 0.285 ng/mL (0.000-0.056) Pro-B-Type Natriuretic Peptide 2413 pg/mL (0-125) H Prostate Specific Antigen 10.09 ng/mL (0.13-4.0) H Vitamin D 25-Hydroxy Pending 25-Hydroxy Vitamin D2 Pending 25-Hydroxy Vitamin D3 Pending Parathyroid Hormone (Intact) Pending Objective HEAD AND NECK: No JVD. LUNGS: Clear. CARDIOVASCULAR: Regular S1 and S2 with no gallop or murmur. ABDOMEN: Soft. EXTREMITIES: Bilateral 3+ pitting edema. GENITOURINARY: Morfin in place with bloody drainage. David Guerra MD Nov 23, 2018 15:49
--- NOTE | 2018-11-23 17:19 | Cardiology Report ---
APPROVED REPORT EKG Measurement Heart [id number] Normal sinus rhythm Incomplete right bundle branch block Borderline ECG
[2018-11-23] MEDS ORDERED: Meclizine 25mg tab ORAL PRN (18:15)
[2018-11-23] MEDS ORDERED: Isovue-300 100ml vial INJ PRN (18:15)
--- NOTE | 2018-11-23 19:04 | Nephrology Progress Note ---
Assessment/Plan Problem List: (1) Acute on chronic renal failure Assessment: polyuric (2) Urinary retention (3) Hyperkalemia (4) Metabolic acidosis (5) Uremia Plan HD tomorrow PRN Zofran follow labs start IVF discussed with Dr Vasquez and RN Subjective Subjective pt was confused earlier now severe nausea Objective Objective Last 24 Hour Vital Signs Date Time Temp Pulse Resp B/P (MAP) Pulse Ox O2 Delivery O2 Flow Rate FiO2 11/23/18 16:00 69 11/23/18 16:00 97.3 69 18 128/69 (88) 98 11/23/18 12:00 66 11/23/18 12:00 97.9 66 18 118/68 (85) 96 11/23/18 10:06 66 18 132/70 (90) 96 11/23/18 09:00 Room Air 11/23/18 08:26 79 135/66 11/23/18 08:00 97.7 79 18 135/66 (89) 97 11/23/18 08:00 79 11/23/18 04:00 98.2 78 18 130/60 (83) 100 11/23/18 04:00 75 11/23/18 00:00 97.9 75 18 123/65 (84) 95 11/23/18 00:00 76 11/22/18 21:00 Room Air 11/22/18 20:41 87 126/65 11/22/18 20:00 98.4 87 18 126/65 (85) 96 11/22/18 20:00 84 Intake and Output 11/22/18 11/23/18 18:59 06:59 Intake Total 240 ml 240 ml Output Total 2800 ml 3900 ml Balance -2560 ml -3660 ml Intake Oral 240 ml 240 ml Output Urine Total 2800 ml 3900 ml Laboratory Tests 11/23/18 06:34: White Blood Count 13.6H, Red Blood Count 2.90L, Hemoglobin 9.2L, Hematocrit 26.9L, Mean Corpuscular Volume 93, Mean Corpuscular Hemoglobin 31.7H, Mean Corpuscular Hemoglobin Concent 34.2, Red Cell Distribution Width 10.4L, Platelet Count 272, Mean Platelet Volume 4.9L, Neutrophils (%) (Auto) , Lymphocytes (%) (Auto) , Monocytes (%) (Auto) , Eosinophils (%) (Auto) , Basophils (%) (Auto) , Differential Total Cells Counted 100, Neutrophils % ( Manual) 92H, Lymphocytes % (Manual) 0L, Monocytes % (Manual) 5, Eosinophils % ( Manual) 2, Basophils % (Manual) 1, Band Neutrophils 0, Platelet Estimate Adequate, Platelet Morphology Normal, Red Blood Cell Morphology Normal, Sodium Level 137, Potassium Level 4.1, Chloride Level 95L, Carbon Dioxide Level 22, Anion Gap 20H, Blood Urea Nitrogen 205H, Creatinine 12.1H, Estimat Glomerular Filtration Rate , Glucose Level 93, Hemoglobin A1c 5.6, Calcium Level 8.5, Calcium (Send out) [Pending], Phosphorus Level 9.2H, Troponin I 0.285H, Pro-B- Type Natriuretic Peptide 2413H, Prostate Specific Antigen 10.09H, Vitamin D 25- Hydroxy [Pending], 25-Hydroxy Vitamin D2 [Pending], 25-Hydroxy Vitamin D3 [ Pending], Parathyroid Hormone (Intact) [Pending] Height (Feet): 5 Height (Inches): 8.00 Weight (Pounds): 160 Cardiovascular: normal rate Respiratory/Chest: lungs clear Extremities: other - no edema Michael Sosa MD Nov 23, 2018 19:04
--- NOTE | 2018-11-23 19:51 | NUR ---
HAND-OFF: Report given to AIDA Sagastume.Patient is in stable condition.
--- NOTE | 2018-11-23 19:52 | NUR ---
NURSE NOTES: Received report from AIDA Sandoval. Patient in bed awake with no signs of acute distress. AOx4. Respiration even and non labored on room air. No SOB noted. Vitals stable. Bed in lowest position. Call light within reach. All needs attended and met. Will continue plan of care.
[2018-11-23] MEDS: EPOETIN ALFA 2000 UNIT/ML SUBQ SCH (20:59)
[2018-11-23] MEDS ORDERED: Epogen (for ESRD on dialysis) SUBQ SCH (21:00)
[2018-11-23] MEDS: Epoetin Alfa(ESRD on dialysis)3000 units/ml vial SUBQ SCH (21:00)
--- NOTE | 2018-11-23 21:22 | General Progress Note ---
Assessment/Plan Assessment/Plan acute renal failure hyperkalemia obstructive uropathy bph elevated troponin ho htn anemia has johnson, urology fup bun/creatine still high consider dialysis dw Dr Ian Guerra check echo cosider stress testing bp controlled monitor hgb dvt and ulcer prophylaxis Subjective Allergies: Coded Allergies: No Known Allergies (Unverified , 11/21/18) Subjective seen in am feels better no chest pain or sob, no n/v no abodminal pain hasnt had bm Objective Last 24 Hour Vital Signs Date Time Temp Pulse Resp B/P (MAP) Pulse Ox O2 Delivery O2 Flow Rate FiO2 11/23/18 21:00 69 133/74 11/23/18 16:00 69 11/23/18 16:00 97.3 69 18 128/69 (88) 98 11/23/18 12:00 66 11/23/18 12:00 97.9 66 18 118/68 (85) 96 11/23/18 10:06 66 18 132/70 (90) 96 11/23/18 09:00 Room Air 11/23/18 08:26 79 135/66 11/23/18 08:00 97.7 79 18 135/66 (89) 97 11/23/18 08:00 79 11/23/18 04:00 98.2 78 18 130/60 (83) 100 11/23/18 04:00 75 11/23/18 00:00 97.9 75 18 123/65 (84) 95 11/23/18 00:00 76 Intake and Output 11/22/18 11/23/18 18:59 06:59 Intake Total 240 ml 240 ml Output Total 2800 ml 3900 ml Balance -2560 ml -3660 ml Intake Oral 240 ml 240 ml Output Urine Total 2800 ml 3900 ml Laboratory Tests 11/23/18 06:34: White Blood Count 13.6H, Red Blood Count 2.90L, Hemoglobin 9.2L, Hematocrit 26.9L, Mean Corpuscular Volume 93, Mean Corpuscular Hemoglobin 31.7H, Mean Corpuscular Hemoglobin Concent 34.2, Red Cell Distribution Width 10.4L, Platelet Count 272, Mean Platelet Volume 4.9L, Neutrophils (%) (Auto) , Lymphocytes (%) (Auto) , Monocytes (%) (Auto) , Eosinophils (%) (Auto) , Basophils (%) (Auto) , Differential Total Cells Counted 100, Neutrophils % ( Manual) 92H, Lymphocytes % (Manual) 0L, Monocytes % (Manual) 5, Eosinophils % ( Manual) 2, Basophils % (Manual) 1, Band Neutrophils 0, Platelet Estimate Adequate, Platelet Morphology Normal, Red Blood Cell Morphology Normal, Sodium Level 137, Potassium Level 4.1, Chloride Level 95L, Carbon Dioxide Level 22, Anion Gap 20H, Blood Urea Nitrogen 205H, Creatinine 12.1H, Estimat Glomerular Filtration Rate , Glucose Level 93, Hemoglobin A1c 5.6, Calcium Level 8.5, Calcium (Send out) [Pending], Phosphorus Level 9.2H, Troponin I 0.285H, Pro-B- Type Natriuretic Peptide 2413H, Prostate Specific Antigen 10.09H, Vitamin D 25- Hydroxy [Pending], 25-Hydroxy Vitamin D2 [Pending], 25-Hydroxy Vitamin D3 [ Pending], Parathyroid Hormone (Intact) [Pending] Height (Feet): 5 Height (Inches): 8.00 Weight (Pounds): 160 General Appearance: WD/WN, no apparent distress Neck: supple Cardiovascular: normal rate Respiratory/Chest: lungs clear Abdomen: soft Dane Vasquez MD Nov 23, 2018 21:22
--- NOTE | 2018-11-23 22:16 | General Progress Note ---
Assessment/Plan Assessment/Plan Assessment - Anemia - Renal failure - Obstructive uropathy - b/l edema - Duplex negative - PSA =10, ? CAP Recommendations - Renal diet - follow labs - check OB - await urology input Subjective Allergies: Coded Allergies: No Known Allergies (Unverified , 11/21/18) Subjective Feels better nausea improved less dizzy Objective Last 24 Hour Vital Signs Date Time Temp Pulse Resp B/P (MAP) Pulse Ox O2 Delivery O2 Flow Rate FiO2 11/23/18 21:00 69 133/74 11/23/18 16:00 69 11/23/18 16:00 97.3 69 18 128/69 (88) 98 11/23/18 12:00 66 11/23/18 12:00 97.9 66 18 118/68 (85) 96 11/23/18 10:06 66 18 132/70 (90) 96 11/23/18 09:00 Room Air 11/23/18 08:26 79 135/66 11/23/18 08:00 97.7 79 18 135/66 (89) 97 11/23/18 08:00 79 11/23/18 04:00 98.2 78 18 130/60 (83) 100 11/23/18 04:00 75 11/23/18 00:00 97.9 75 18 123/65 (84) 95 11/23/18 00:00 76 Intake and Output 11/22/18 11/23/18 18:59 06:59 Intake Total 240 ml 240 ml Output Total 2800 ml 3900 ml Balance -2560 ml -3660 ml Intake Oral 240 ml 240 ml Output Urine Total 2800 ml 3900 ml Laboratory Tests 11/23/18 06:34: White Blood Count 13.6H, Red Blood Count 2.90L, Hemoglobin 9.2L, Hematocrit 26.9L, Mean Corpuscular Volume 93, Mean Corpuscular Hemoglobin 31.7H, Mean Corpuscular Hemoglobin Concent 34.2, Red Cell Distribution Width 10.4L, Platelet Count 272, Mean Platelet Volume 4.9L, Neutrophils (%) (Auto) , Lymphocytes (%) (Auto) , Monocytes (%) (Auto) , Eosinophils (%) (Auto) , Basophils (%) (Auto) , Differential Total Cells Counted 100, Neutrophils % ( Manual) 92H, Lymphocytes % (Manual) 0L, Monocytes % (Manual) 5, Eosinophils % ( Manual) 2, Basophils % (Manual) 1, Band Neutrophils 0, Platelet Estimate Adequate, Platelet Morphology Normal, Red Blood Cell Morphology Normal, Sodium Level 137, Potassium Level 4.1, Chloride Level 95L, Carbon Dioxide Level 22, Anion Gap 20H, Blood Urea Nitrogen 205H, Creatinine 12.1H, Estimat Glomerular Filtration Rate , Glucose Level 93, Hemoglobin A1c 5.6, Calcium Level 8.5, Calcium (Send out) [Pending], Phosphorus Level 9.2H, Troponin I 0.285H, Pro-B- Type Natriuretic Peptide 2413H, Prostate Specific Antigen 10.09H, Vitamin D 25- Hydroxy [Pending], 25-Hydroxy Vitamin D2 [Pending], 25-Hydroxy Vitamin D3 [ Pending], Parathyroid Hormone (Intact) [Pending] Height (Feet): 5 Height (Inches): 8.00 Weight (Pounds): 160 Objective WDWN NCAT supple CTA RRR Abd soft (++) edema Yasir Alexandra MD Nov 23, 2018 22:16
[2018-11-24] VITALS (10 sets, daily range): BP systolic 114–138; BP diastolic 68–79
[2018-11-24] MEDS ORDERED: Heparin Sod 1000 units/ml 10ml IV PRN (06:00)
[2018-11-24 06:27] LABS: HEMATOCRIT 25.3 % (42.0-52.0); HEMOGLOBIN 8.7 G/DL (14.2-18.0); MEAN CORPUSCULAR VOLUME 93 FL (80-99); PLATELET COUNT 275 K/UL (150-450); RED BLOOD COUNT 2.73 M/UL (4.70-6.10); RED CELL DISTRIBUTION WIDTH 10.2 % (11.6-14.8); WHITE BLOOD COUNT 15.3 K/UL (4.8-10.8)
[2018-11-24] MEDS: Heparin 5000 units/ml inj SUBQ SCH ×3 (07:22→21:46)
[2018-11-24 07:29] LABS: ANION GAP 16 mmol/L (5-15); BLOOD UREA NITROGEN 173 mg/dL (7-18); CALCIUM 8.5 MG/DL (8.5-10.1); CARBON DIOXIDE 24 MMOL/L (21-32); CHLORIDE 99 MMOL/L (98-107); CREATININE 10.1 MG/DL (0.55-1.30); FERRITIN 487 NG/ML (8-388); POTASSIUM 3.1 MMOL/L (3.5-5.1); SODIUM 139 MMOL/L (136-145)
--- NOTE | 2018-11-24 07:43 | NUR ---
HAND-OFF: Report given to AIDA Siddiqui. Patient is stable. No signs of acute distress noted. All needs attended and met.
--- NOTE | 2018-11-24 07:59 | NUR ---
NURSE NOTES: received pt in bed resting comfortably. pt in stable condition, safety precaution in place. will make rounds hourly.
[2018-11-24 08:12] LABS: IRON 119 ug/dL (50-175)
[2018-11-24] MEDS: Lactulose 20gm/30ml UDC ORAL SCH ×2 (09:31→17:45)
[2018-11-24] MEDS: Metoprolol 25mg tab ORAL SCH ×2 (09:32→21:47)
--- NOTE | 2018-11-24 11:04 | Consultation ---
Consult Note Consult Note NEUROLOGY CONSULTATION: Full note dictated #[id number] 72 y/o, RH, CM with PH of HTN for ~ 20 years, motion sickness, paroxysmal positional vertigo, and a near syncopal episode ~ 1 year ago. He has been feeling unwell for ~ 1-2 months. He did some lab tests recently and they revealed he was in renal failure. He thus presented to the [facility] ER on 11/22/18 and was hospitalized. On 11/23/18 he was feeling light headed while sitting up and then suddenly passed out for a brief period of time and had some body jerking. ON EXAM: Mild memory problems. Brisk DTRs with loss of ankle jerks. Unable to sit stand or walk due to postural lightheadedness. IMPRESSION: Light headedness due to electrolyte and fluid imbalance. Episode yesterday was most probably a Matias-Anthony attack. 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 REC: Correct fluid and electrolyte imbalances. ROM exercises in bed and slowly increase activity. EEG. Brain Imaging not available on EMR with try to locate. Janak Chandra M.D., M.S.P.H. Janak Chandra MD Nov 24, 2018 11:03
--- NOTE | 2018-11-24 11:12 | NUR ---
*-* INSURANCE *-* ALL CLINICALS,REVIEWS AND INTERQUAL FAXED TO: ANATOLIY HENDRICKS:NORMA P:[phone] F:[phone] REF# [id number]
--- NOTE | 2018-11-24 11:14 | NUR ---
CASE MANAGEMENT:REVIEW 11/24/18 SI: AC/CHR RENAL FAILURE METABOLIC ACIDOSIS. AMS 98.4 76 20 138/73 97% ON RA WBC+15.6 H/H-8.7/25.3 BUN+173 CR+10.1 TROPONIN(+) 0.195 IS: PROCRIT SQ MWF IVF@75/HR LACTULOSE PO BID LOPRESSOR PO Q12 HEPARIN SQ Q12 : TELEMETRY DCP: PATIENT IS FROM HOME PLAN: EEG DIALYSIS
--- NOTE | 2018-11-24 11:51 | Diagnostic Imaging Report ---
Indications: Syncopal episode, dizziness, vertigo Technique: Spiral acquisitions obtained through the brain. Angled axial and coronal 5 x 5 mm slices were reconstructed. Total dose length product 1428.87 mGycm. CTDI vol(s) 70.38 mGy. Dose reduction achieved using automated exposure control Comparison: None. Findings: There is minimal age-related enlargement of the ventricles and extra-axial CSF spaces. No acute intracranial hemorrhage or edema, mass effect, nor midline shift. Normal moore-white differentiation. Visualized orbits and sinuses are unremarkable. The calvarium is intact. Impression: Negative This agrees with the preliminary interpretation provided overnight by [facility] teleradiology service. The CT scanner at [facility] is accredited by the [employer] and the scans are performed using protocols designed to limit radiation exposure to as low as reasonably achievable to attain images of sufficient resolution adequate for diagnostic evaluation.
--- NOTE | 2018-11-24 11:56 | Diagnostic Imaging Report ---
APPROVED REPORT CPT Code: 85773 Vascular Symptoms Syncope Doppler Spectral Velocity Analysis RightLeft carotid arteries. ECA - Imaging reveals irregular plaque in the external carotid artery. The Doppler signal indicates the degree of stenosis is mild (30-40%) in the external carotid artery. LEFT SIDE: CCA/ICA/ECA- Imaging reveals no significant plaque within the extracranial left carotid arteries. The Doppler spectral flow analysis is within normal limits throughout the left extracranial carotid arteries. VERTEBRAL/SUBCLAVIAN- The vertebral and subclavian arteries are within normal limits, bilaterally.
--- NOTE | 2018-11-24 12:37 | Nephrology Progress Note ---
Assessment/Plan Problem List: (1) Acute on chronic renal failure Assessment: polyuric (2) Urinary retention (3) Hyperkalemia (4) Metabolic acidosis (5) Uremia Plan HD today PRN Zofran follow labs cont IVF Subjective Subjective looks better today Objective Objective Last 24 Hour Vital Signs Date Time Temp Pulse Resp B/P (MAP) Pulse Ox O2 Delivery O2 Flow Rate FiO2 11/24/18 09:32 76 138/73 11/24/18 09:00 Room Air 11/24/18 08:00 98.4 76 20 138/73 (94) 97 11/24/18 04:00 73 11/24/18 04:00 98.2 60 18 127/76 (93) 97 11/24/18 00:00 65 11/24/18 00:00 98.0 65 16 130/72 (91) 97 11/23/18 21:00 69 133/74 11/23/18 21:00 Room Air 11/23/18 20:00 69 11/23/18 20:00 97.9 69 19 133/74 (93) 98 11/23/18 16:00 69 11/23/18 16:00 97.3 69 18 128/69 (88) 98 Intake and Output 11/23/18 11/24/18 19:00 07:00 Intake Total 957.25 ml Output Total 3400 ml 600 ml Balance -3400 ml 357.25 ml IV Total 957.25 ml Output Urine Total 3400 ml 600 ml # Voids 1 # Bowel Movements 1 1 Laboratory Tests 11/23/18 22:00: Stool Occult Blood [Pending] 11/24/18 05:50: White Blood Count 15.3H, Red Blood Count 2.73L, Hemoglobin 8.7L, Hematocrit 25.3L, Mean Corpuscular Volume 93, Mean Corpuscular Hemoglobin 31.9H, Mean Corpuscular Hemoglobin Concent 34.4, Red Cell Distribution Width 10.2L, Platelet Count 275, Mean Platelet Volume 4.9L, Neutrophils (%) (Auto) , Lymphocytes (%) (Auto) , Monocytes (%) (Auto) , Eosinophils (%) (Auto) , Basophils (%) (Auto) , Differential Total Cells Counted 100, Neutrophils % ( Manual) 95H, Lymphocytes % (Manual) 3L, Monocytes % (Manual) 1, Eosinophils % ( Manual) 1, Basophils % (Manual) 0, Band Neutrophils 0, Platelet Estimate Adequate, Platelet Morphology Normal, Hypochromasia 1+, Sodium Level 139, Potassium Level 3.1L, Chloride Level 99, Carbon Dioxide Level 24, Anion Gap 16H , Blood Urea Nitrogen 173H, Creatinine 10.1H, Estimat Glomerular Filtration Rate , Glucose Level 98, Hemoglobin A1c 6.1H, Calcium Level 8.5, Iron Level 119 , Ferritin 487H, Troponin I 0.195H, Pro-B-Type Natriuretic Peptide 1278H, Vitamin B12 Level 1394H, Vitamin D 25-Hydroxy [Pending], 25-Hydroxy Vitamin D2 [ Pending], 25-Hydroxy Vitamin D3 [Pending], Folate 25.3, Thyroid Stimulating Hormone (TSH) 1.419, Rapid Plasma Reagin [Pending] Height (Feet): 5 Height (Inches): 8.00 Weight (Pounds): 160 Cardiovascular: normal rate Respiratory/Chest: lungs clear Abdomen: soft Extremities: moderate edema Michael Sosa MD Nov 24, 2018 12:37
--- NOTE | 2018-11-24 14:00 | NUR ---
RD ASSESSMENT & RECOMMENDATIONS SEE CARE ACTIVITY FOR COMPLETE ASSESSMENT DAILY ESTIMATED NEEDS: Needs based on ARF on CKD + HD/ 72.7kg 25-30 kcals/kg 6016-4748 total kcals 1.2-1.8 g protein/kg 87-131 g total protein 20-22 mL/kg 0790-4739 total fluid mLs NUTRITION DIAGNOSIS: Altered nutrition related lab values R/T ARF on CKD as evidenced by elev BUN (231->173), elev creat (14-10.1), critically elev K upon adm (7.0*-> 3.0 now low), elev phos (9.2), elev BNP (1278). CURRENT DIET: LOW POTASSIUM DIET PO DIET RECOMMENDATIONS: RENAL diet ADDITIONAL RECOMMENDATIONS: * Standing wt post HD for accurate dry CBW * Renal diet education provided on 11/24/18. * Consider phos binders w/ meals * Rec check f/up phos level * Monitor BGs closely, need for carb controlled diet- A1C=6.1
[2018-11-24] MEDS ORDERED: Heparin Sod 1000 units/ml 10ml INJ SCH (14:53)
[2018-11-24] MEDS ORDERED: Lidocaine 1% Plain 30 ml INJ PRN (15:00)
[2018-11-24] MEDS ORDERED: Heparin1,000 units/500ml Premix(Conc:2 units/ml) INJ PRN (15:00)
--- NOTE | 2018-11-24 15:16 | Pre-Procedure Note/Attestation ---
Pre-Procedure Note/Attestation Complete Prior to Procedure Planned Procedure: not applicable Procedure Narrative: Dialysis catheter Indications for Procedure Pre-Operative Diagnosis: renal failure Attestation I attest that I discussed the nature of the procedure; its benefits; risks and complications; and alternatives (and the risks and benefits of such alternatives ), prior to the procedure, with the patient (or the patient's legal business office representative). I attest that, if there was a reasonable possibility of needing a blood transfusion, the patient (or the patient's legal business office representative) was given the [facility] standardized written summary, pursuant to the Hemant Pajaro Blood Safety Act ([place] Health and Safety Code # 1645, as amended). I attest that I re-evaluated the patient just prior to the surgery and that there has been no change in the patient's H&P, except as documented below: Michael Jarvis MD Nov 24, 2018 15:16
--- NOTE | 2018-11-24 15:27 | NUR ---
NURSE NOTES: potassium 3.1 DR. Vasquez made aware. waiting for call back
--- NOTE | 2018-11-24 15:37 | Brief Operative Note ---
Immediate Post Operative Note Operative Note Pre-op Diagnosis: renal failure Procedure: R IJV Cecil Post-op Diagnosis: same as pre-op Surgeon: Krista JARVIS Anesthesia: local Specimen: none Complications: none Condition: stable Fluids: none Implant(s) used?: Yes - 15 cm 3 lumen bard trialysis catheter Michael Jarvis MD Nov 24, 2018 15:37
--- NOTE | 2018-11-24 15:45 | Consultation ---
DATE OF CONSULTATION: 11/24/2018 NEUROLOGY CONSULTATION: CONSULTING PHYSICIAN: Janak Chandra M.D. REFERRING PHYSICIAN: Dane Vasquez M.D. 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 For the last month or 2, he has been feeling generally unwell. This problem continued and as a result of that, he had some blood tests done. The results of the blood tests revealed that he was in severe acute renal failure. He was told to present to the emergency room and on 11/22/2018, he presented to the [facility] emergency room and was hospitalized. He had to be catheterized and now has an indwelling Morfin catheter. His fluid and electrolyte imbalances are being corrected at this point in time. Since he has been here, he has been feeling lightheaded. His lightheadedness is minor if he lays flat, but as soon as he sits, he becomes significantly more lightheaded. Yesterday, he was sitting up, became lightheaded and then passed out. After he had passed out, he apparently exhibited some generalized body jerking movements and his daughter was worried that he was having a seizure. He woke up from the episode quite rapidly and the mind was clear when he woke up. He denies any weakness on one side or the other, numbness on one side or the other, problems with speech, problems with language, problems with vision, or problems with his memory. He however feels that the mind is not as sharp as it normally is. PAST MEDICAL HISTORY: Hypertension, motion sickness, paroxysmal positional vertigo, and near syncopal episode approximately 1 year ago. FAMILY HISTORY: Nothing significant with no family history of neurological illness. PERSONAL HISTORY: Home: He lives alone. 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 Habits: He smoked for approximately 10 years in the past, but stopped smoking numerous years ago. Before he started to feel ill, he was consuming approximately 10 alcoholic drinks in a week. He denies the use of any illicit drugs. MEDICATIONS: Present medications include Zofran p.r.n., heparin for DVT prophylaxis, Epogen, meclizine p.r.n., lactulose, metoprolol, Tylenol p.r.n., and Mylanta p.r.n. PHYSICAL EXAMINATION: GENERAL: He is a well-developed, well-nourished, pleasant gentleman, lying in bed, in no acute distress. VITAL SIGNS: Pulse 76/minute, blood pressure 138/73 mmHg, respirations 20/minute, temperature 98.4 degrees Fahrenheit. HEAD: Normocephalic and atraumatic. EENT: Examination benign. NECK: No neck rigidity was observed. NEUROLOGIC EXAMINATION: MENTAL STATUS EXAMINATION: He was awake and alert. He was oriented to person, place, and time. He was able to recall 3/3 words immediately after 1 minute and after 3 minutes. He was able to remember presidents, Trump, but could not remember Obama. He was then able to remember presidents Trujillo Justen through Trujillo senior. His mathematical skills were good. His visuospatial function was preserved. SPEECH: He had no dysarthria. LANGUAGE: He had no aphasia. CRANIAL NERVE EXAMINATION: II: The visual caal were intact on confrontation testing. III, IV & : The external ocular movements were full and the pupils 3 mm in diameter, equal, round, regular, and reactive to light. V: He had normal facial sensations, and the temporales, masseters, and pterygoids functioned normally. VII: He had normal facial expressions and no facial asymmetry. VIII: He was able to hear well bilaterally and had no nystagmus. IX: The palate moved symmetrically on phonation. X: He had no hoarseness of voice. XI: The sternocleidomastoids and trapezii functioned normally. XII: The tongue was in the midline without any fasciculations or atrophy. MOTOR SYSTEM: The tone was normal in all four extremities. Examination of muscle mass revealed no focal wasting. Examination of power revealed G 5/5 power in all muscle groups tested. SENSORY EXAMINATION: He had intact sensations to pinprick, light touch, and graphesthesia. COORDINATION: He performed well on [id number] and ozsn-[id number] testing. REFLEXES: 2+ and bilaterally symmetrical at the biceps, triceps, and brachioradialis. 3+ at both knees, 0 at both ankles. The plantar responses were flexor bilaterally. STANCE & GAIT: Could not be tested because even when he was made to sit up, he felt lightheaded and quite ill. DIAGNOSTIC IMPRESSION: 1. 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 2. Since he has been in the hospital, he has continued to feel unwell and has had lightheadedness whenever he tries to sit up, stand, and walk. On 1 occasion yesterday, he started to feel lightheaded while sitting up, then passed out for brief period of time, and had some generalized body jerking movements. He rapidly regained consciousness following that. 3. On neurological examination, at this time, he does have mild problems with memory, brisk deep tendon reflexes in the upper extremities with pathologically brisk knee jerks and absent ankle jerks, and an inability to sit stand and walk due to postural lightheadedness. 4. Laboratory data obtained thus far have revealed that his WBC count was elevated to 15,300. He was significantly anemic with a hemoglobin of 8.7 G. His chemistry panel revealed that his potassium was low at 3.1. His BUN was elevated at 173 with a creatinine of 10.1. His proBNP was elevated to 1278. His vitamin B12 level was normal at 1394. His folate level was normal at 25.3. His TSH was normal at 1.42. His INR was normal at 1.0. His urinalysis revealed 1+ leukocyte esterase with 2 red blood cells, and 2 white blood cells per high-power field. 5. He tells me that a CT scan of the brain has been done; however, the results are not available on the patient's electronic medical record. 6. The patient's history, neurological examination, and laboratory data are most consistent with lightheadedness due to fluid and electrolyte imbalance. 7. The episode that the patient had yesterday where he felt lightheaded, then passed out, and had some abnormal body jerking movements was most probably a Matias-Anthony attack and most probably unlikely a seizure. 8. The patient does have some mild cognitive dysfunction, which may be due to an ongoing encephalopathic process. RECOMMENDATIONS: 1. Agree with management thus far. 2. Continue to correct the patient's fluid and electrolyte imbalances. 3. The patient was instructed to perform frequent range of motion exercises while in bed and slowly increase his activity and try to get his head up as much as possible. 4. An EEG will be ordered to evaluate the patient for the degree and type of cerebral dysfunction and to exclude ongoing ictal or interictal phenomena. 5. I shall try to access the patient's brain imaging and review it. 6. The patient will be observed closely and depending on how he fares over the next day or so, further recommendations will be given. Thank you for entrusting me with the care of Dr. Greene. I follow him with you. Janak Chandra M.D., M.S.P.H. DR: DOMINIC JOB#: [id number] AVERY
--- NOTE | 2018-11-24 16:23 | Cardiac Electrophysiology PN ---
Assessment/Plan Assessment/Plan 1. Troponin leak. The levels are nonspecific and flat 0.5, 0.5, 0.2. The patient does not have any chest pain. This is due to the patient's renal failure with creatinine of 14. EKG shows sinus rhythm with no acute ST-T wave abnormalities. Echocardiogram that showed ejection fraction of 65%. On aspirin and beta-agueda Lower extremity duplex showed no evidence of DVT. 2. Hyperkalemia. Potassium was 7 and is down to 4.1. The patient is on sodium bicarbonate and Kayexalate. Further evaluation by Dr. Sosa. Getting hemodialysis. 3. Acute on chronic renal failure. Further evaluation by Dr. Sosa. Had Cecil catheter and will be getting HD today 4. Syncope. ? etiology. Nl EF. No . BP and HR stable. ? Neuro eval 5. High PSA Fu Dr Antonio PETERSON RN Subjective Subjective Had Right IJ HD catheter placement and awaiting HD. Objective Last 24 Hour Vital Signs Date Time Temp Pulse Resp B/P (MAP) Pulse Ox O2 Delivery O2 Flow Rate FiO2 11/24/18 15:45 71 18 132/78 (96) 98 11/24/18 15:40 71 18 129/75 (93) 99 11/24/18 15:35 71 18 127/78 (94) 98 11/24/18 15:30 70 18 126/79 (95) 98 11/24/18 14:57 72 18 11/24/18 12:00 97.7 74 20 130/68 (88) 98 11/24/18 09:32 76 138/73 11/24/18 09:00 Room Air 11/24/18 08:00 98.4 76 20 138/73 (94) 97 11/24/18 04:00 73 11/24/18 04:00 98.2 60 18 127/76 (93) 97 11/24/18 00:00 65 11/24/18 00:00 98.0 65 16 130/72 (91) 97 11/23/18 21:00 69 133/74 11/23/18 21:00 Room Air 11/23/18 20:00 69 11/23/18 20:00 97.9 69 19 133/74 (93) 98 Intake and Output 11/23/18 11/24/18 19:00 07:00 Intake Total 957.25 ml Output Total 3400 ml 600 ml Balance -3400 ml 357.25 ml IV Total 957.25 ml Output Urine Total 3400 ml 600 ml # Voids 1 # Bowel Movements 1 1 Laboratory Tests Test 11/23/18 22:00 11/24/18 05:50 Stool Occult Blood Pending White Blood Count 15.3 K/UL (4.8-10.8) H Red Blood Count 2.73 M/UL (4.70-6.10) L Hemoglobin 8.7 G/DL (14.2-18.0) L Hematocrit 25.3 % (42.0-52.0) L Mean Corpuscular Volume 93 FL (80-99) Mean Corpuscular Hemoglobin 31.9 PG (27.0-31.0) H Mean Corpuscular Hemoglobin Concent 34.4 G/DL (32.0-36.0) Red Cell Distribution Width 10.2 % (11.6-14.8) L Platelet Count 275 K/UL (150-450) Mean Platelet Volume 4.9 FL (6.5-10.1) L Neutrophils (%) (Auto) % (45.0-75.0) Lymphocytes (%) (Auto) % (20.0-45.0) Monocytes (%) (Auto) % (1.0-10.0) Eosinophils (%) (Auto) % (0.0-3.0) Basophils (%) (Auto) % (0.0-2.0) Differential Total Cells Counted 100 Neutrophils % (Manual) 95 % (45-75) H Lymphocytes % (Manual) 3 % (20-45) L Monocytes % (Manual) 1 % (1-10) Eosinophils % (Manual) 1 % (0-3) Basophils % (Manual) 0 % (0-2) Band Neutrophils 0 % (0-8) Platelet Estimate Adequate Platelet Morphology Normal Hypochromasia 1+ Sodium Level 139 MMOL/L (136-145) Potassium Level 3.1 MMOL/L (3.5-5.1) L Chloride Level 99 MMOL/L (98-107) Carbon Dioxide Level 24 MMOL/L (21-32) Anion Gap 16 mmol/L (5-15) H Blood Urea Nitrogen 173 mg/dL (7-18) H Creatinine 10.1 MG/DL (0.55-1.30) H Estimat Glomerular Filtration Rate mL/min (>60) Glucose Level 98 MG/DL (74-106) Hemoglobin A1c 6.1 % (4.3-6.0) H Calcium Level 8.5 MG/DL (8.5-10.1) Iron Level 119 ug/dL (50-175) Ferritin 487 NG/ML (8-388) H Troponin I 0.195 ng/mL (0.000-0.056) Pro-B-Type Natriuretic Peptide 1278 pg/mL (0-125) H Vitamin B12 Level 1394 PG/ML (193-986) H Vitamin D 25-Hydroxy Pending 25-Hydroxy Vitamin D2 Pending 25-Hydroxy Vitamin D3 Pending Folate 25.3 NG/ML (8.6-58.9) Thyroid Stimulating Hormone (TSH) 1.419 uiU/mL (0.358-3.740) Rapid Plasma Reagin Pending Objective HEAD AND NECK: No JVD.Right IJ dialysis catheter in place LUNGS: Clear. CARDIOVASCULAR: Regular S1 and S2 with no gallop or murmur. ABDOMEN: Soft. EXTREMITIES: Bilateral 3+ pitting edema. GENITOURINARY: Morfin in place with bloody drainage. David Guerra MD Nov 24, 2018 16:23
--- NOTE | 2018-11-24 17:07 | Diagnostic Imaging Report ---
Indication:Needs dialysis access Technique: Procedural timeout performed. Informed consent obtained prior to commencement of the procedure.. Ultrasound confirms patent compressible right internal jugular vein. Total sterile technique, including sterile probe cover and sterile gel, sterile gloves, hand hygiene, hat, mask, sterile gown, large sterile drape, and preparation with 2% chlorhexidine utilized.Local anesthesia with 1% lidocaine. Under real-time ultrasound guidance, puncture right internal jugular vein using 21-gauge micropuncture needle, passage 0.018 guidewire, insertion 4 Indian micropuncture introducer, passage 0.035 guidewire, over which was passed serial dilators and then a 15 cm long triple-lumen temporary dialysis catheter, under fluoroscopic supervision. Completion stored digital radiograph obtained, demonstrating catheter tip position at the mid superior vena cava The patient tolerated the procedure well, without immediate complication. Fluoroscopy time 23.2 seconds Dose Area Product [id number] mGycm2 Total number of images one Impression: Successful placement of right jugular temporary dialysis catheter, as described.
--- NOTE | 2018-11-24 19:22 | General Progress Note ---
Assessment/Plan Assessment/Plan Assessment - Anemia - Renal failure - Obstructive uropathy - b/l edema - Duplex negative - PSA =10, ? CAP Recommendations - Renal diet - Zofran PRN - RD eval - follow labs - check OB - urology second opinion called - Dr Wise Subjective Allergies: Coded Allergies: No Known Allergies (Unverified , 11/21/18) Subjective Feels better nausea improved had an episode of near syncope last night Objective Last 24 Hour Vital Signs Date Time Temp Pulse Resp B/P (MAP) Pulse Ox O2 Delivery O2 Flow Rate FiO2 11/24/18 16:00 69 11/24/18 15:45 71 18 132/78 (96) 98 11/24/18 15:40 71 18 129/75 (93) 99 11/24/18 15:35 71 18 127/78 (94) 98 11/24/18 15:30 70 18 126/79 (95) 98 11/24/18 14:57 72 18 11/24/18 12:00 72 11/24/18 12:00 97.7 74 20 130/68 (88) 98 11/24/18 09:32 76 138/73 11/24/18 09:00 Room Air 11/24/18 08:00 98.4 76 20 138/73 (94) 97 11/24/18 08:00 76 11/24/18 04:00 73 11/24/18 04:00 98.2 60 18 127/76 (93) 97 11/24/18 00:00 65 11/24/18 00:00 98.0 65 16 130/72 (91) 97 11/23/18 21:00 69 133/74 11/23/18 21:00 Room Air 11/23/18 20:00 69 11/23/18 20:00 97.9 69 19 133/74 (93) 98 Intake and Output 11/23/18 11/24/18 19:00 07:00 Intake Total 957.25 ml Output Total 3400 ml 600 ml Balance -3400 ml 357.25 ml IV Total 957.25 ml Output Urine Total 3400 ml 600 ml # Voids 1 # Bowel Movements 1 1 Laboratory Tests 11/23/18 22:00: Stool Occult Blood [Pending] 11/24/18 05:50: White Blood Count 15.3H, Red Blood Count 2.73L, Hemoglobin 8.7L, Hematocrit 25.3L, Mean Corpuscular Volume 93, Mean Corpuscular Hemoglobin 31.9H, Mean Corpuscular Hemoglobin Concent 34.4, Red Cell Distribution Width 10.2L, Platelet Count 275, Mean Platelet Volume 4.9L, Neutrophils (%) (Auto) , Lymphocytes (%) (Auto) , Monocytes (%) (Auto) , Eosinophils (%) (Auto) , Basophils (%) (Auto) , Differential Total Cells Counted 100, Neutrophils % ( Manual) 95H, Lymphocytes % (Manual) 3L, Monocytes % (Manual) 1, Eosinophils % ( Manual) 1, Basophils % (Manual) 0, Band Neutrophils 0, Platelet Estimate Adequate, Platelet Morphology Normal, Hypochromasia 1+, Sodium Level 139, Potassium Level 3.1L, Chloride Level 99, Carbon Dioxide Level 24, Anion Gap 16H , Blood Urea Nitrogen 173H, Creatinine 10.1H, Estimat Glomerular Filtration Rate , Glucose Level 98, Hemoglobin A1c 6.1H, Calcium Level 8.5, Iron Level 119 , Ferritin 487H, Troponin I 0.195H, Pro-B-Type Natriuretic Peptide 1278H, Vitamin B12 Level 1394H, Vitamin D 25-Hydroxy [Pending], 25-Hydroxy Vitamin D2 [ Pending], 25-Hydroxy Vitamin D3 [Pending], Folate 25.3, Thyroid Stimulating Hormone (TSH) 1.419, Rapid Plasma Reagin [Pending] Height (Feet): 5 Height (Inches): 8.00 Weight (Pounds): 160 Objective WDWN NCAT supple CTA RRR Abd soft (+) edema Yasir Alexandra MD Nov 24, 2018 19:22
--- NOTE | 2018-11-24 19:43 | NUR ---
HAND-OFF: Report given to ELISA PARRA.
[2018-11-24] MEDS: Tamsulosin 0.4mg cap ORAL SCH (23:00)
--- NOTE | 2018-11-24 23:28 | General Progress Note ---
Assessment/Plan Assessment/Plan acute renal failure hyperkalemia obstructive uropathy bph elevated troponin ho htn anemia confustion encephalopathy likiely secondary to uremia vomiting likely secondary to uremia short syncopal episode leukocytosis has johnson, urology fup, janey Stokes who will notify Dr Goldberg bun/creatine still high plan for dialysis today janey Guerra check echo consider stress testing ct of head noted neurolgy evaluation bp controlled monitor labs dvt and ulcer prophylaxis Subjective Allergies: Coded Allergies: No Known Allergies (Unverified , 11/21/18) Subjective seen in am epsidoes of confusion yesterday pos vomiting as well, had short syncopa episode as well today better Objective Last 24 Hour Vital Signs Date Time Temp Pulse Resp B/P (MAP) Pulse Ox O2 Delivery O2 Flow Rate FiO2 11/24/18 21:47 74 114/70 11/24/18 16:00 69 11/24/18 15:45 71 18 132/78 (96) 98 11/24/18 15:40 71 18 129/75 (93) 99 11/24/18 15:35 71 18 127/78 (94) 98 11/24/18 15:30 70 18 126/79 (95) 98 11/24/18 14:57 72 18 11/24/18 12:00 72 11/24/18 12:00 97.7 74 20 130/68 (88) 98 11/24/18 09:32 76 138/73 11/24/18 09:00 Room Air 11/24/18 08:00 98.4 76 20 138/73 (94) 97 11/24/18 08:00 76 11/24/18 04:00 73 11/24/18 04:00 98.2 60 18 127/76 (93) 97 11/24/18 00:00 65 11/24/18 00:00 98.0 65 16 130/72 (91) 97 Intake and Output 11/23/18 11/24/18 19:00 07:00 Intake Total 957.25 ml Output Total 3400 ml 600 ml Balance -3400 ml 357.25 ml IV Total 957.25 ml Output Urine Total 3400 ml 600 ml # Voids 1 # Bowel Movements 1 1 Laboratory Tests 11/24/18 05:50: White Blood Count 15.3H, Red Blood Count 2.73L, Hemoglobin 8.7L, Hematocrit 25.3L, Mean Corpuscular Volume 93, Mean Corpuscular Hemoglobin 31.9H, Mean Corpuscular Hemoglobin Concent 34.4, Red Cell Distribution Width 10.2L, Platelet Count 275, Mean Platelet Volume 4.9L, Neutrophils (%) (Auto) , Lymphocytes (%) (Auto) , Monocytes (%) (Auto) , Eosinophils (%) (Auto) , Basophils (%) (Auto) , Differential Total Cells Counted 100, Neutrophils % ( Manual) 95H, Lymphocytes % (Manual) 3L, Monocytes % (Manual) 1, Eosinophils % ( Manual) 1, Basophils % (Manual) 0, Band Neutrophils 0, Platelet Estimate Adequate, Platelet Morphology Normal, Hypochromasia 1+, Sodium Level 139, Potassium Level 3.1L, Chloride Level 99, Carbon Dioxide Level 24, Anion Gap 16H , Blood Urea Nitrogen 173H, Creatinine 10.1H, Estimat Glomerular Filtration Rate , Glucose Level 98, Hemoglobin A1c 6.1H, Calcium Level 8.5, Iron Level 119 , Ferritin 487H, Troponin I 0.195H, Pro-B-Type Natriuretic Peptide 1278H, Vitamin B12 Level 1394H, Vitamin D 25-Hydroxy [Pending], 25-Hydroxy Vitamin D2 [ Pending], 25-Hydroxy Vitamin D3 [Pending], Folate 25.3, Thyroid Stimulating Hormone (TSH) 1.419, Rapid Plasma Reagin [Pending] Height (Feet): 5 Height (Inches): 8.00 Weight (Pounds): 160 General Appearance: WD/WN, no apparent distress Neck: supple Cardiovascular: regular rhythm Respiratory/Chest: lungs clear Abdomen: soft Dane Vasquez MD Nov 24, 2018 23:28
[2018-11-25] VITALS (7 sets, daily range): BP systolic 113–125; BP diastolic 62–74
--- NOTE | 2018-11-25 00:15 | Consultation ---
DATE OF CONSULTATION: 11/24/2018 CONSULTING PHYSICIAN: Geraldo Wise M.D. REFERRING PHYSICIAN: Yasir Alexandra M.D. REASON FOR CONSULTATION: For evaluation of multiple urologic issues. This is a second opinion urology evaluation. HISTORY OF PRESENT ILLNESS: This is a 72-year-old male. He came to the emergency room three days ago because of weakness. He was noted to be in renal failure. He was noted to be in urinary retention with bilateral hydronephrosis and his kidney failure could be postobstructive. 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 Dr. Carpenter had seen the patient and was able to gently dilate the patient's urethral meatus and a 14-Martiniquais Morfin catheter was placed and has been draining fairly well. There was some mild hematuria noted. The patient's renal function has not improved significantly. He has been on hemodialysis. The patient denies any previous urologic surgery or intervention. PAST MEDICAL HISTORY: Significant for above. No other known history. PAST SURGICAL HISTORY: None. MEDICATIONS: Current medications here in the hospital, the patient is on subcutaneous heparin, Epogen, Antivert, lactulose, metoprolol, Tylenol, and Mylanta. ALLERGIES: No known drug allergies. 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 FAMILY HISTORY: Noncontributory. REVIEW OF SYSTEMS: As above. PHYSICAL EXAMINATION: GENERAL: An elderly male, in no acute distress. VITAL SIGNS: Temperature is 97.7 and blood pressure 130/68. HEENT: Normocephalic. NECK: Supple. ABDOMEN: Soft. GENITOURINARY: Normal-appearing phallus. There is a 14-Martiniquais [address] in place. Urine is slightly blood tinged. RECTAL: Reveals a firm prostate about 30 g. EXTREMITIES: No clubbing or cyanosis. LABORATORY DATA: His admission urinalysis showed 0 to 2 rbc's, 1+ leukocyte esterase, and 2+ protein. His white count is 15.3, hemoglobin 8.7, and platelets 275. BUN at the time of admission was 231. Most recent BUN is 173. His creatinine at the time of admission was 14.0. The most recent one today is 10.1. DIAGNOSTIC IMAGING STUDIES: The patient had a CT scan of the abdomen and pelvis at the time of admission and there was evidence of bilateral hydronephrosis with hydroureter extending to the ureterovesical junction. There appeared to be Morfin catheter in the bladder. There was mention of a direct right inguinal hernia. This was on the . Subsequently, the patient had a renal ultrasound the next day and there was mention of persistent hydronephrosis. IMPRESSION: 1. Urinary retention history. 2. Benign prostatic hypertrophy. 3. Possible neurogenic bladder. 4. Hematuria. 5. Renal failure, which appears to be acute on chronic. 6. Hydronephrosis. 7. Proteinuria. 8. Meatal stenosis and stricture history. 9. Inguinal hernia. PLAN AND DISCUSSION: Again as noted above, Morfin catheter is in place. I did personally hand irrigate the Morfin. Position is satisfactory. It is patent. There is very minimal clots. There is no active bleeding. He does have renal failure, which appears to be obstructive in nature and I presume that this is mostly chronic because it has not improved significantly Morfin catheter drainage. At this time, I would recommend Morfin catheter indwelling and hand irrigated as needed. I will also add tamsulosin and finasteride empirically. The patient is to be dialyzed as needed per Nephrology. Again, I would recommend to keep the Morfin indwelling until his renal function has stabilized at which time we can consider a voiding trial. Thank you for this consultation. Geraldo Wise M.D. DR: ARELIS JOB#: [id number] CC:
[2018-11-25 07:24] LABS: HEMATOCRIT 25.9 % (42.0-52.0); MEAN CORPUSCULAR VOLUME 92 FL (80-99); PLATELET COUNT 268 K/UL (150-450); RED BLOOD COUNT 2.81 M/UL (4.70-6.10); RED CELL DISTRIBUTION WIDTH 10.3 % (11.6-14.8)
--- NOTE | 2018-11-25 07:51 | NUR ---
HAND-OFF: Report given to Nelson PARRA.
[2018-11-25 07:53] LABS: ALANINE AMINOTRANSFERASE 38 U/L (12-78); ALBUMIN 2.3 G/DL (3.4-5.0); ALBUMIN/GLOBULIN RATIO 0.6 (1.0-2.7); ALKALINE PHOSPHATASE 96 U/L (46-116); ANION GAP 13 mmol/L (5-15); ASPARTATE AMINO TRANSFERASE 21 U/L (15-37); BILIRUBIN,TOTAL 0.3 MG/DL (0.2-1.0); BLOOD UREA NITROGEN 97 mg/dL (7-18); CALCIUM 8.1 MG/DL (8.5-10.1); CARBON DIOXIDE 26 MMOL/L (21-32); CHLORIDE 102 MMOL/L (98-107); CREATININE 6.4 MG/DL (0.55-1.30); POTASSIUM 3.4 MMOL/L (3.5-5.1); SODIUM 141 MMOL/L (136-145)
--- NOTE | 2018-11-25 08:00 | NUR ---
NURSE NOTES: Pt awake/alert in bed, breathing easily on room air, denies SOB and denies pain at this time. Vital signs stable with SR @ 75 on monitor. IV access left wrist with NS running at 75 ml/hr. Morfin cath in place, patent and draining clear cesia urine into collection bag at foot of bed. Pt's son is rooming in. Bed left in low position, side rails up x 2 and call light left near pt's hand.
[2018-11-25] MEDS: Heparin 5000 units/ml inj SUBQ SCH ×2 (08:59→20:40)
[2018-11-25] MEDS: Metoprolol 25mg tab ORAL SCH ×2 (08:59→20:34)
[2018-11-25] MEDS: Lactulose 20gm/30ml UDC ORAL SCH ×2 (09:00→18:00)
--- NOTE | 2018-11-25 09:25 | Urology Progress Note ---
Assessment/Plan Assessment/Plan 1. Urinary retention history. 2. Benign prostatic hypertrophy. 3. Possible neurogenic bladder. 4. Hematuria. 5. Renal failure, which appears to be acute on chronic. 6. Hydronephrosis. 7. Proteinuria. 8. Meatal stenosis and stricture history. 9. Inguinal hernia. monitor clinically johnson hand irrigated and do PRN HD per nephrology flomax and proscar added cysto later voiding trial at some point? Subjective Allergies: Coded Allergies: No Known Allergies (Unverified , 11/21/18) Subjective all noted, feels fair Objective Last 24 Hour Vital Signs Date Time Temp Pulse Resp B/P (MAP) Pulse Ox O2 Delivery O2 Flow Rate FiO2 11/25/18 08:59 73 118/71 11/25/18 04:00 73 11/25/18 04:00 98.5 74 18 118/71 (87) 97 11/25/18 00:00 70 11/25/18 00:00 98.2 74 18 123/74 (90) 97 11/24/18 21:47 74 114/70 11/24/18 21:00 Room Air 11/24/18 20:00 98.6 74 18 114/70 (85) 96 11/24/18 20:00 75 11/24/18 16:00 69 11/24/18 15:45 71 18 132/78 (96) 98 11/24/18 15:40 71 18 129/75 (93) 99 11/24/18 15:35 71 18 127/78 (94) 98 11/24/18 15:30 70 18 126/79 (95) 98 11/24/18 14:57 72 18 11/24/18 12:00 72 11/24/18 12:00 97.7 74 20 130/68 (88) 98 11/24/18 09:32 76 138/73 Intake and Output 11/24/18 11/25/18 19:00 07:00 Output Total 0 ml Balance 0 ml Output Urine Total 0 ml # Bowel Movements 1 1 Microbiology Date/Time Source Procedure Growth Status 11/23/18 19:00 Blood Blood Culture - Preliminary Streptococcus Species Resulted Current Medications Medications (Trade) Dose Ordered Sig/Debbie Route PRN Reason Start Time Stop Time Status Last Admin Dose Admin Acetaminophen (Tylenol) 650 mg Q6H PRN ORAL Mild Pain/Temp > 100.5 11/22/18 03:15 12/22/18 03:14 Al Hydroxide/Mg Hydroxide (Mylanta) 30 ml Q6H PRN ORAL GERD 11/22/18 03:15 12/22/18 03:14 Docusate Sodium (Colace) 100 mg TWICE A DAY ORAL 11/25/18 09:00 12/25/18 08:59 Epoetin Tommy (Epoetin Tommy(ESRD on dialysis)) 2,000 unit WED-WED-WED SUBQ 11/23/18 21:00 12/23/18 20:59 11/23/18 20:59 Epoetin Tommy (Epoetin Tommy(ESRD on dialysis)) 3,000 unit WED-WED-WED SUBQ 11/23/18 21:00 12/23/18 20:59 11/23/18 21:00 Finasteride (Proscar) 5 mg DAILY ORAL 11/25/18 09:00 12/25/18 08:59 11/25/18 08:54 Heparin Sodium (Porcine) (Heparin 5000 units/ml) 5,000 units EVERY 12 HOURS SUBQ 11/22/18 09:00 12/22/18 08:59 11/25/18 08:59 Iopamidol (Isovue-300 100ml) 100 ml NOW PRN INJ Radiology Procedure 11/23/18 18:15 11/25/18 18:10 Lactulose (Cephulac) 30 gm BID ORAL 11/23/18 09:00 12/23/18 08:59 11/24/18 09:31 Meclizine HCl (Antivert) 25 mg TIDPRN PRN ORAL for dizziness 11/23/18 18:15 12/23/18 18:14 Metoprolol Tartrate (Lopressor) 25 mg Q12HR ORAL 11/22/18 21:00 12/22/18 20:59 11/25/18 08:59 Ondansetron HCl (Zofran) 4 mg Q6H PRN IVP Nausea & Vomiting 11/24/18 09:30 12/24/18 09:29 11/24/18 14:51 Sodium Chloride 1,000 ml @ 75 mls/hr [id number] IV 11/23/18 18:15 12/23/18 18:14 11/24/18 09:31 Tamsulosin HCl (Flomax) 0.4 mg BEDTIME ORAL 11/24/18 23:00 12/24/18 22:59 11/24/18 23:00 Laboratory Tests 11/25/18 06:00: White Blood Count 16.0H, Red Blood Count 2.81L, Hemoglobin 9.0L, Hematocrit 25.9L, Mean Corpuscular Volume 92, Mean Corpuscular Hemoglobin 32.1H, Mean Corpuscular Hemoglobin Concent 34.7, Red Cell Distribution Width 10.3L, Platelet Count 268, Mean Platelet Volume 5.5L, Neutrophils (%) (Auto) , Lymphocytes (%) (Auto) , Monocytes (%) (Auto) , Eosinophils (%) (Auto) , Basophils (%) (Auto) , Neutrophils % (Manual) [Pending], Lymphocytes % (Manual) [Pending], Platelet Estimate [Pending], Platelet Morphology [Pending], Sodium Level 141, Potassium Level 3.4L, Chloride Level 102, Carbon Dioxide Level 26, Anion Gap 13, Blood Urea Nitrogen 97#H, Creatinine 6.4H, Estimat Glomerular Filtration Rate , Glucose Level 97, Calcium Level 8.1L, Total Bilirubin 0.3, Aspartate Amino Transf (AST/SGOT) 21, Alanine Aminotransferase (ALT/SGPT) 38, Alkaline Phosphatase 96, Troponin I 0.768H, Pro-B-Type Natriuretic Peptide 745H , Total Protein 6.3L, Albumin 2.3L, Globulin 4.0, Albumin/Globulin Ratio 0.6L Height (Feet): 5 Height (Inches): 8.00 Weight (Pounds): 160 Objective exam stable, urine clearing Geraldo Wise MD Nov 25, 2018 09:25
[2018-11-25] MEDS: Docusate 100mg cap ORAL SCH ×2 (09:32→18:05)
--- NOTE | 2018-11-25 12:30 | NUR ---
CASE MANAGEMENT:REVIEW 11/25/18 SI: AC/CHR RENAL FAILURE. BACTEREMIA HYDRONEPHROSIS. BPH. OBSTRUCTIVE UROPATHY 98.5 73 18 118/71 97% ON RA WBC+16.0 BUN+97 CR+6.4 TROPONIN(+) 0.768 IS: PROSCAR PO QD PROCRIT SQ MWF IVF@75/HR LACTULOSE PO BID LOPRESSOR PO Q12 HEPARIN SQ Q12 : TELEMETRY DCP: PATIENT IS FROM HOME PLAN: S/P MALENA MARSHALL PLACED YESTERDAY
--- NOTE | 2018-11-25 13:13 | Diagnostic Imaging Report ---
Indication: Shortness of Technique: One view of the chest Comparison: none Findings: The heart is borderline enlarged. Lungs and pleural spaces are clear. There is a right jugular temporary dialysis catheter in good position. Impression: No acute process Borderline cardiomegaly
--- NOTE | 2018-11-25 14:04 | Cardiac Electrophysiology PN ---
Assessment/Plan Assessment/Plan 1. Troponin leak. The levels are nonspecific and flat 0.5, 0.5, 0.2. Denies any chest pain. This is due to the patient's renal failure with creatinine of 14. EKG shows sinus rhythm with no acute ST-T wave abnormalities. Echocardiogram EF 65%. On aspirin and beta-agueda Lower extremity duplex showed no evidence of DVT. 2. Hyperkalemia. Potassium was 7 and is down to 4.1. The patient is on sodium bicarbonate and Kayexalate. On HD by Dr. Sosa. 3. Acute on chronic renal failure. Further evaluation by Dr. Sosa. Had Cecil catheter getting HD now 4. Syncope. ? etiology. Nl EF. No . BP and HR stable. ? Neuro eval 5. High PSA Fu Dr Antonio PETERSON RN Subjective Subjective Had Right IJ HD catheter placement and had HD yesterday.Another HD pending today Objective Last 24 Hour Vital Signs Date Time Temp Pulse Resp B/P (MAP) Pulse Ox O2 Delivery O2 Flow Rate FiO2 11/25/18 12:50 98.7 77 18 125/62 (83) 97 11/25/18 12:00 97.9 68 18 116/65 (82) 96 11/25/18 11:48 70 11/25/18 08:59 73 118/71 11/25/18 08:00 98.7 77 18 125/62 (83) 97 11/25/18 07:56 82 11/25/18 04:00 73 11/25/18 04:00 98.5 74 18 118/71 (87) 97 11/25/18 00:00 70 11/25/18 00:00 98.2 74 18 123/74 (90) 97 11/24/18 21:47 74 114/70 11/24/18 21:00 Room Air 11/24/18 20:00 98.6 74 18 114/70 (85) 96 11/24/18 20:00 75 11/24/18 16:00 69 11/24/18 15:45 71 18 132/78 (96) 98 11/24/18 15:40 71 18 129/75 (93) 99 11/24/18 15:35 71 18 127/78 (94) 98 11/24/18 15:30 70 18 126/79 (95) 98 11/24/18 14:57 72 18 Intake and Output 11/24/18 11/25/18 19:00 07:00 Output Total 0 ml Balance 0 ml Output Urine Total 0 ml # Bowel Movements 1 1 Laboratory Tests Test 11/25/18 06:00 White Blood Count 16.0 K/UL (4.8-10.8) H Red Blood Count 2.81 M/UL (4.70-6.10) L Hemoglobin 9.0 G/DL (14.2-18.0) L Hematocrit 25.9 % (42.0-52.0) L Mean Corpuscular Volume 92 FL (80-99) Mean Corpuscular Hemoglobin 32.1 PG (27.0-31.0) H Mean Corpuscular Hemoglobin Concent 34.7 G/DL (32.0-36.0) Red Cell Distribution Width 10.3 % (11.6-14.8) L Platelet Count 268 K/UL (150-450) Mean Platelet Volume 5.5 FL (6.5-10.1) L Neutrophils (%) (Auto) % (45.0-75.0) Lymphocytes (%) (Auto) % (20.0-45.0) Monocytes (%) (Auto) % (1.0-10.0) Eosinophils (%) (Auto) % (0.0-3.0) Basophils (%) (Auto) % (0.0-2.0) Differential Total Cells Counted 100 Neutrophils % (Manual) 92 % (45-75) H Lymphocytes % (Manual) 4 % (20-45) L Monocytes % (Manual) 4 % (1-10) Eosinophils % (Manual) 0 % (0-3) Basophils % (Manual) 0 % (0-2) Band Neutrophils 0 % (0-8) Platelet Estimate Adequate Platelet Morphology Normal Red Blood Cell Morphology Normal Sodium Level 141 MMOL/L (136-145) Potassium Level 3.4 MMOL/L (3.5-5.1) L Chloride Level 102 MMOL/L (98-107) Carbon Dioxide Level 26 MMOL/L (21-32) Anion Gap 13 mmol/L (5-15) Blood Urea Nitrogen 97 mg/dL (7-18) #H Creatinine 6.4 MG/DL (0.55-1.30) H Estimat Glomerular Filtration Rate mL/min (>60) Glucose Level 97 MG/DL (74-106) Calcium Level 8.1 MG/DL (8.5-10.1) L Total Bilirubin 0.3 MG/DL (0.2-1.0) Aspartate Amino Transf (AST/SGOT) 21 U/L (15-37) Alanine Aminotransferase (ALT/SGPT) 38 U/L (12-78) Alkaline Phosphatase 96 U/L (46-116) Troponin I 0.768 ng/mL (0.000-0.056) Pro-B-Type Natriuretic Peptide 745 pg/mL (0-125) H Total Protein 6.3 G/DL (6.4-8.2) L Albumin 2.3 G/DL (3.4-5.0) L Globulin 4.0 g/dL Albumin/Globulin Ratio 0.6 (1.0-2.7) L Microbiology Date/Time Source Procedure Growth Status 11/23/18 19:00 Blood Blood Culture - Preliminary Streptococcus Species Resulted 11/23/18 18:45 Blood Blood Culture - Preliminary Streptococcus Species Resulted Objective HEAD AND NECK: No JVD.Right IJ dialysis catheter in place LUNGS: Clear. CARDIOVASCULAR: Regular S1 and S2 with no gallop or murmur. ABDOMEN: Soft. EXTREMITIES: Bilateral 3+ pitting edema. GENITOURINARY: Morfin in place with bloody drainage. David Guerra MD Nov 25, 2018 14:04
--- NOTE | 2018-11-25 15:42 | Neurology Progress Note ---
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 The mind feels significantly clear. He has been less lightheaded but has not sat stood or walked yet. He has had no further episodes of loss of consciousness. His cognitive function seems to have improved. His motor function is also better. He did have hemodialysis yesterday and tolerated it well. He denies any new neurological symptoms. He specifically denies any weakness on one side or the other, numbness on one side or the other, problems with speech problems with language problems with vision problems with memory. Review of Systems Neuro Review of Systems Benign. Objective Physical Exam Last Vital Signs Date Time Temp Pulse Resp B/P (MAP) Pulse Ox O2 Delivery O2 Flow Rate FiO2 11/25/18 12:50 98.7 77 18 125/62 (83) 97 11/24/18 21:00 Room Air 11/22/18 03:58 21 Laboratory Tests Test 11/25/18 06:00 White Blood Count 16.0 K/UL (4.8-10.8) H Red Blood Count 2.81 M/UL (4.70-6.10) L Hemoglobin 9.0 G/DL (14.2-18.0) L Hematocrit 25.9 % (42.0-52.0) L Mean Corpuscular Volume 92 FL (80-99) Mean Corpuscular Hemoglobin 32.1 PG (27.0-31.0) H Mean Corpuscular Hemoglobin Concent 34.7 G/DL (32.0-36.0) Red Cell Distribution Width 10.3 % (11.6-14.8) L Platelet Count 268 K/UL (150-450) Mean Platelet Volume 5.5 FL (6.5-10.1) L Neutrophils (%) (Auto) % (45.0-75.0) Lymphocytes (%) (Auto) % (20.0-45.0) Monocytes (%) (Auto) % (1.0-10.0) Eosinophils (%) (Auto) % (0.0-3.0) Basophils (%) (Auto) % (0.0-2.0) Differential Total Cells Counted 100 Neutrophils % (Manual) 92 % (45-75) H Lymphocytes % (Manual) 4 % (20-45) L Monocytes % (Manual) 4 % (1-10) Eosinophils % (Manual) 0 % (0-3) Basophils % (Manual) 0 % (0-2) Band Neutrophils 0 % (0-8) Platelet Estimate Adequate Platelet Morphology Normal Red Blood Cell Morphology Normal Sodium Level 141 MMOL/L (136-145) Potassium Level 3.4 MMOL/L (3.5-5.1) L Chloride Level 102 MMOL/L (98-107) Carbon Dioxide Level 26 MMOL/L (21-32) Anion Gap 13 mmol/L (5-15) Blood Urea Nitrogen 97 mg/dL (7-18) #H Creatinine 6.4 MG/DL (0.55-1.30) H Estimat Glomerular Filtration Rate mL/min (>60) Glucose Level 97 MG/DL (74-106) Calcium Level 8.1 MG/DL (8.5-10.1) L Total Bilirubin 0.3 MG/DL (0.2-1.0) Aspartate Amino Transf (AST/SGOT) 21 U/L (15-37) Alanine Aminotransferase (ALT/SGPT) 38 U/L (12-78) Alkaline Phosphatase 96 U/L (46-116) Troponin I 0.768 ng/mL (0.000-0.056) Pro-B-Type Natriuretic Peptide 745 pg/mL (0-125) H Total Protein 6.3 G/DL (6.4-8.2) L Albumin 2.3 G/DL (3.4-5.0) L Globulin 4.0 g/dL Albumin/Globulin Ratio 0.6 (1.0-2.7) L Neurologic Exam Objective PHYSICAL EXAMINATION: GENERAL: He is a well-developed, well-nourished, pleasant gentleman, lying in bed, in no acute distress. HEAD: Normocephalic and atraumatic. EENT: Examination benign. NECK: No neck rigidity was observed. NEUROLOGIC EXAMINATION: MENTAL STATUS EXAMINATION: He was awake and alert. He was oriented to person, place, and time. He was able to recall 3/3 words immediately after 1 minute and after 3 minutes on the second trial. He was able to remember presidents, Trump through Trujillo senior. His mathematical skills were good. His visuospatial function was preserved. SPEECH: He had no dysarthria. LANGUAGE: He had no aphasia. CRANIAL NERVE EXAMINATION: II: The visual caal were intact on confrontation testing. III, IV & : The external ocular movements were full and the pupils 3 mm in diameter, equal, round, regular, and reactive to light. V: He had normal facial sensations, and the temporales, masseters, and pterygoids functioned normally. VII: He had normal facial expressions and no facial asymmetry. VIII: He was able to hear well bilaterally and had no nystagmus. IX: The palate moved symmetrically on phonation. X: He had no hoarseness of voice. XI: The sternocleidomastoids and trapezii functioned normally. XII: The tongue was in the midline without any fasciculations or atrophy. MOTOR SYSTEM: The tone was normal in all four extremities. Examination of muscle mass revealed no focal wasting. Examination of power revealed G 5/5 power in all muscle groups tested. SENSORY EXAMINATION: He had intact sensations to pinprick, light touch, and graphesthesia. COORDINATION: He performed well on [id number]-[id number]-vnnn and [id number] testing. REFLEXES: 2+ and bilaterally symmetrical at the biceps, triceps, and brachioradialis. 2++ at both knees, 0 at both ankles. The plantar responses were flexor bilaterally. STANCE: He stood up with support on both sides. GAIT: He took a few steps with support on both sides. Impression/Recommendations Diagnostic Impression 1. 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 2. Since he has been in the hospital, he has continued to feel unwell and has had lightheadedness whenever he tries to sit up, stand, and walk. On 1 occasion on 11/23/18, he started to feel lightheaded while sitting up, then passed out for brief period of time, and had some generalized body jerking movements. He rapidly regained consciousness following that. 3. He feels relatively well. The mind feels significantly clearer. He has been less lightheaded but has not sat stood or walked yet. He has had no further episodes of loss of consciousness. His cognitive function seems to have improved. His motor function is also better. He did have hemodialysis yesterday and tolerated it well. He denies any new neurological symptoms. 4. On neurological examination, at this time, he does have mild problems with memory, brisk deep tendon reflexes in the knees and absent ankle jerks, and needs support to sit stand and walk. 5. Laboratory data on my initial evaluation revealed that his WBC count was elevated to 15,300. He was significantly anemic with a hemoglobin of 8.7 G. His chemistry panel revealed that his potassium was low at 3.1. His BUN was elevated at 173 with a creatinine of 10.1. His proBNP was elevated to 1278. His vitamin B12 level was normal at 1394. His folate level was normal at 25.3. His TSH was normal at 1.42. His INR was normal at 1.0. His urinalysis revealed 1+ leukocyte esterase with 2 red blood cells, and 2 white blood cells per high-power field. 6. The CT of the brain reveals no acute pathology. 7. EEG done on 11/24/2018 revealed triphasic waveforms with an anterior to posterior gradient but normal background and no interictal or ictal phenomena. These findings are consistent with a mild metabolic encephalopathy. 8. The patient's history, neurological examination, laboratory data, imaging studies and EEG are most consistent with lightheadedness due to fluid and electrolyte imbalance. 9. The episode that the patient had 11/23/18 where he felt lightheaded, then passed out, and had some abnormal body jerking movements was most probably a Matias-Anthony attack. 10. The patient does have some mild cognitive dysfunction, which is due to an ongoing metabolic encephalopathic process. Recommendations 1. Agree with management thus far. 2. Continue to correct the patient's fluid and electrolyte imbalances. 3. Frequent range of motion exercises. 4. Out of bed in chair. 5. Observe closely. Janak Chandra M.D., M.S.P.H. Janak Chandra MD Nov 25, 2018 15:42
--- NOTE | 2018-11-25 16:34 | Nephrology Progress Note ---
Assessment/Plan Problem List: (1) Acute on chronic renal failure Assessment: polyuric (2) Urinary retention (3) Hyperkalemia (4) Metabolic acidosis (5) Uremia Plan HD tomorrow follow labs cont IVF Subjective Subjective feels better Objective Objective Last 24 Hour Vital Signs Date Time Temp Pulse Resp B/P (MAP) Pulse Ox O2 Delivery O2 Flow Rate FiO2 11/25/18 12:50 98.7 77 18 125/62 (83) 97 11/25/18 12:00 97.9 68 18 116/65 (82) 96 11/25/18 11:48 70 11/25/18 08:59 73 118/71 11/25/18 08:00 98.7 77 18 125/62 (83) 97 11/25/18 07:56 82 11/25/18 04:00 73 11/25/18 04:00 98.5 74 18 118/71 (87) 97 11/25/18 00:00 70 11/25/18 00:00 98.2 74 18 123/74 (90) 97 11/24/18 21:47 74 114/70 11/24/18 21:00 Room Air 11/24/18 20:00 98.6 74 18 114/70 (85) 96 11/24/18 20:00 75 Intake and Output 11/24/18 11/25/18 19:00 07:00 Output Total 0 ml Balance 0 ml Output Urine Total 0 ml # Bowel Movements 1 1 Laboratory Tests 11/25/18 06:00: White Blood Count 16.0H, Red Blood Count 2.81L, Hemoglobin 9.0L, Hematocrit 25.9L, Mean Corpuscular Volume 92, Mean Corpuscular Hemoglobin 32.1H, Mean Corpuscular Hemoglobin Concent 34.7, Red Cell Distribution Width 10.3L, Platelet Count 268, Mean Platelet Volume 5.5L, Neutrophils (%) (Auto) , Lymphocytes (%) (Auto) , Monocytes (%) (Auto) , Eosinophils (%) (Auto) , Basophils (%) (Auto) , Differential Total Cells Counted 100, Neutrophils % ( Manual) 92H, Lymphocytes % (Manual) 4L, Monocytes % (Manual) 4, Eosinophils % ( Manual) 0, Basophils % (Manual) 0, Band Neutrophils 0, Platelet Estimate Adequate, Platelet Morphology Normal, Red Blood Cell Morphology Normal, Sodium Level 141, Potassium Level 3.4L, Chloride Level 102, Carbon Dioxide Level 26, Anion Gap 13, Blood Urea Nitrogen 97#H, Creatinine 6.4H, Estimat Glomerular Filtration Rate , Glucose Level 97, Calcium Level 8.1L, Total Bilirubin 0.3, Aspartate Amino Transf (AST/SGOT) 21, Alanine Aminotransferase (ALT/SGPT) 38, Alkaline Phosphatase 96, Troponin I 0.768H, Pro-B-Type Natriuretic Peptide 745H , Total Protein 6.3L, Albumin 2.3L, Globulin 4.0, Albumin/Globulin Ratio 0.6L Height (Feet): 5 Height (Inches): 8.00 Weight (Pounds): 160 Cardiovascular: normal rate Respiratory/Chest: lungs clear Extremities: other - n o edema Michael Sosa MD Nov 25, 2018 16:34
[2018-11-25] MEDS ORDERED: Heparin Sod 1000 units/ml 10ml IV PRN (17:00)
--- NOTE | 2018-11-25 19:30 | NUR ---
NURSE NOTES: Received report from AIDA Damon. Patient awake, alert and verbally responsive. No SOB, no acute distress, denies any pain nor any discomfort at this time. IV site on L wrist #18, patent and intact, connected to NS at 75 cc/hr. F/C intact and patent with [id number] output. Son present at bedside. Instructed to press call light for any assistance, verbalized understanding. Will continue plan of care.
--- NOTE | 2018-11-25 20:15 | Electroencephalogram ---
DATE OF PROCEDURE: 11/24/2018 EEG report REQUESTING PHYSICIAN: Dane Vasquez M.D. HISTORY: This EEG was performed on a 72-year-old gentleman with a history of hypertension, motion sickness, an episode of near-syncope, positional vertigo, and recently acute renal failure. The patient had an episode where he lost consciousness for brief period of time associated with some abnormal body jerking movements. The purpose of this EEG was to evaluate the patient for the degree and type of cerebral dysfunction and to exclude ongoing ictal or interictal phenomena. TECHNICAL NOTE: This EEG was performed on a [employer] with electrodes placed on the scalp according to the International 10-20 system. Tgelb-[id number] and fofjx-mx-uvx montages were used. The EEG was technically satisfactory and was performed in the awake, drowsy, and sleep states. OBSERVATIONS: In the best-awake state, the background activity consisted of 8.5-9 Hz posteriorly predominant, well-developed, alpha waveforms, which attenuated on eye opening. Drowsiness was characterized by dissolution of the alpha rhythm and appearance of slowed frequencies in the 6-7 Hz theta range. During drowsiness, a few interspersed triphasic waveforms were also seen. Stage II sleep was characterized by further slowing of the background in the delta and theta range, the presence of vertex waves, and 14 Hz sleep spindles. Hyperventilation was performed for 3 minutes with an adequate effort and produced a normal hyperventilation response. No focal abnormalities or epileptiform discharges were seen. IMPRESSION: This is an abnormal EEG characterized by triphasic waveforms seen in the drowsy state. COMMENT: This study is consistent with mild metabolic encephalopathy. Janak Chandra M.D., M.S.P.H. DR: Velasquez JOB#: [id number] AVERY
[2018-11-25] MEDS: Tamsulosin 0.4mg cap ORAL SCH (20:34)
--- NOTE | 2018-11-25 20:42 | General Progress Note ---
Assessment/Plan Assessment/Plan acute renal failure hyperkalemia obstructive uropathy bph elevated troponin ho htn anemia confustion encephalopathy likiely secondary to uremia vomiting likely secondary to uremia short syncopal episode leukocytosis has johnson, urolgy fup bun/creatine still high got dialyized echo noted consider stress testing ct of head noted neurolgy evaluation appreciated bp controlled monitor labs dvt and ulcer prophylaxis ambulate Subjective Allergies: Coded Allergies: No Known Allergies (Unverified , 11/21/18) Subjective seen in am got dialysis,feel miuch better more alert no chest painor sob Objective Last 24 Hour Vital Signs Date Time Temp Pulse Resp B/P (MAP) Pulse Ox O2 Delivery O2 Flow Rate FiO2 11/25/18 20:34 80 120/62 11/25/18 16:00 77 11/25/18 16:00 98.9 78 19 113/69 (84) 97 11/25/18 12:50 98.7 77 18 125/62 (83) 97 11/25/18 12:00 97.9 68 18 116/65 (82) 96 11/25/18 11:48 70 11/25/18 09:00 Room Air 11/25/18 08:59 73 118/71 11/25/18 08:00 98.7 77 18 125/62 (83) 97 11/25/18 07:56 82 11/25/18 04:00 73 11/25/18 04:00 98.5 74 18 118/71 (87) 97 11/25/18 00:00 70 11/25/18 00:00 98.2 74 18 123/74 (90) 97 11/24/18 21:47 74 114/70 11/24/18 21:00 Room Air Intake and Output 11/24/18 11/25/18 19:00 07:00 Output Total 0 ml Balance 0 ml Output Urine Total 0 ml # Bowel Movements 1 1 Laboratory Tests 11/25/18 06:00: White Blood Count 16.0H, Red Blood Count 2.81L, Hemoglobin 9.0L, Hematocrit 25.9L, Mean Corpuscular Volume 92, Mean Corpuscular Hemoglobin 32.1H, Mean Corpuscular Hemoglobin Concent 34.7, Red Cell Distribution Width 10.3L, Platelet Count 268, Mean Platelet Volume 5.5L, Neutrophils (%) (Auto) , Lymphocytes (%) (Auto) , Monocytes (%) (Auto) , Eosinophils (%) (Auto) , Basophils (%) (Auto) , Differential Total Cells Counted 100, Neutrophils % ( Manual) 92H, Lymphocytes % (Manual) 4L, Monocytes % (Manual) 4, Eosinophils % ( Manual) 0, Basophils % (Manual) 0, Band Neutrophils 0, Platelet Estimate Adequate, Platelet Morphology Normal, Red Blood Cell Morphology Normal, Sodium Level 141, Potassium Level 3.4L, Chloride Level 102, Carbon Dioxide Level 26, Anion Gap 13, Blood Urea Nitrogen 97#H, Creatinine 6.4H, Estimat Glomerular Filtration Rate , Glucose Level 97, Calcium Level 8.1L, Total Bilirubin 0.3, Aspartate Amino Transf (AST/SGOT) 21, Alanine Aminotransferase (ALT/SGPT) 38, Alkaline Phosphatase 96, Troponin I 0.768H, Pro-B-Type Natriuretic Peptide 745H , Total Protein 6.3L, Albumin 2.3L, Globulin 4.0, Albumin/Globulin Ratio 0.6L Height (Feet): 5 Height (Inches): 8.00 Weight (Pounds): 160 General Appearance: no apparent distress Neck: supple Cardiovascular: normal rate Respiratory/Chest: lungs clear Abdomen: normal bowel sounds, soft Objective richt chest dilaysis Dane Malik MD Nov 25, 2018 20:42
[2018-11-25] MEDS: EPOETIN ALFA 2000 UNIT/ML SUBQ SCH (21:03)
[2018-11-25] MEDS: Epoetin Alfa(ESRD on dialysis)3000 units/ml vial SUBQ SCH (21:03)
--- NOTE | 2018-11-25 22:06 | General Progress Note ---
Assessment/Plan Assessment/Plan Assessment - Anemia - Renal failure - Obstructive uropathy - b/l edema - Duplex negative - PSA =10, ? CAP Recommendations - Renal diet - Zofran PRN - RD eval - follow labs - check OB - I will return to see patient Mon Subjective Allergies: Coded Allergies: No Known Allergies (Unverified , 11/21/18) Subjective Feels better nausea improved getting stronger Objective Last 24 Hour Vital Signs Date Time Temp Pulse Resp B/P (MAP) Pulse Ox O2 Delivery O2 Flow Rate FiO2 11/25/18 21:00 Room Air 11/25/18 20:34 80 120/62 11/25/18 20:00 85 11/25/18 20:00 97.9 85 19 120/62 (81) 97 11/25/18 16:00 77 11/25/18 16:00 98.9 78 19 113/69 (84) 97 11/25/18 12:50 98.7 77 18 125/62 (83) 97 11/25/18 12:00 97.9 68 18 116/65 (82) 96 11/25/18 11:48 70 11/25/18 09:00 Room Air 11/25/18 08:59 73 118/71 11/25/18 08:00 98.7 77 18 125/62 (83) 97 11/25/18 07:56 82 11/25/18 04:00 73 11/25/18 04:00 98.5 74 18 118/71 (87) 97 11/25/18 00:00 70 11/25/18 00:00 98.2 74 18 123/74 (90) 97 Intake and Output 11/24/18 11/25/18 19:00 07:00 Output Total 0 ml Balance 0 ml Output Urine Total 0 ml # Bowel Movements 1 1 Laboratory Tests 11/25/18 06:00: White Blood Count 16.0H, Red Blood Count 2.81L, Hemoglobin 9.0L, Hematocrit 25.9L, Mean Corpuscular Volume 92, Mean Corpuscular Hemoglobin 32.1H, Mean Corpuscular Hemoglobin Concent 34.7, Red Cell Distribution Width 10.3L, Platelet Count 268, Mean Platelet Volume 5.5L, Neutrophils (%) (Auto) , Lymphocytes (%) (Auto) , Monocytes (%) (Auto) , Eosinophils (%) (Auto) , Basophils (%) (Auto) , Differential Total Cells Counted 100, Neutrophils % ( Manual) 92H, Lymphocytes % (Manual) 4L, Monocytes % (Manual) 4, Eosinophils % ( Manual) 0, Basophils % (Manual) 0, Band Neutrophils 0, Platelet Estimate Adequate, Platelet Morphology Normal, Red Blood Cell Morphology Normal, Sodium Level 141, Potassium Level 3.4L, Chloride Level 102, Carbon Dioxide Level 26, Anion Gap 13, Blood Urea Nitrogen 97#H, Creatinine 6.4H, Estimat Glomerular Filtration Rate , Glucose Level 97, Calcium Level 8.1L, Total Bilirubin 0.3, Aspartate Amino Transf (AST/SGOT) 21, Alanine Aminotransferase (ALT/SGPT) 38, Alkaline Phosphatase 96, Troponin I 0.768H, Pro-B-Type Natriuretic Peptide 745H , Total Protein 6.3L, Albumin 2.3L, Globulin 4.0, Albumin/Globulin Ratio 0.6L Height (Feet): 5 Height (Inches): 8.00 Weight (Pounds): 160 Objective WDWN NCAT supple CTA RRR Abd soft (+) edema Yasir Alexandra MD Nov 25, 2018 22:06
[2018-11-26] VITALS: BP 115/67
--- NOTE | 2018-11-26 02:14 | NUR ---
NURSE NOTES: Pt asleep, breathing even and unlabored, no s/sx of pain nor any discomfort at this time. Remains sinus rhythm at environmental lawyer. Bed at lowest position, call light within reach. Will continue to monitor.
[2018-11-26 04:00] VITALS: BP 122/65
--- NOTE | 2018-11-26 07:06 | NUR ---
HAND-OFF: Report given to AIDA Rodriguez. Endorsed plan of care. Addendum: 11/26/18 at 0713 by INGRID LLAMAS RN Called [facility], dialysis today confirmed but not sure what time.
--- NOTE | 2018-11-26 07:28 | NUR ---
NURSE NOTES: pt awake alert, no distress. no sob. call light within reach. bed in lowest position, locked johnson patent and intact, yellow urine.
--- NOTE | 2018-11-26 07:48 | General Progress Note ---
Assessment/Plan Assessment/Plan Assessment - Anemia - Renal failure - Obstructive uropathy - b/l edema - Duplex negative - PSA =10, ? CAP Recommendations - Renal diet - Zofran PRN - RD eval - follow labs - OB positive X1 will repeat -protonix daily Subjective Allergies: Coded Allergies: No Known Allergies (Unverified , 11/21/18) Objective Last 24 Hour Vital Signs Date Time Temp Pulse Resp B/P (MAP) Pulse Ox O2 Delivery O2 Flow Rate FiO2 11/26/18 04:00 73 11/26/18 04:00 97.7 73 19 122/65 (84) 97 11/26/18 00:00 74 11/26/18 00:00 98.1 74 19 115/67 (83) 99 11/25/18 21:00 Room Air 11/25/18 20:34 80 120/62 11/25/18 20:00 85 11/25/18 20:00 97.9 85 19 120/62 (81) 97 11/25/18 16:00 77 11/25/18 16:00 98.9 78 19 113/69 (84) 97 11/25/18 12:50 98.7 77 18 125/62 (83) 97 11/25/18 12:00 97.9 68 18 116/65 (82) 96 11/25/18 11:48 70 11/25/18 09:00 Room Air 11/25/18 08:59 73 118/71 11/25/18 08:00 98.7 77 18 125/62 (83) 97 11/25/18 07:56 82 Intake and Output 11/25/18 11/26/18 18:59 06:59 Intake Total 450 ml 1064 ml Output Total 3700 ml 1400 ml Balance -3250 ml -336 ml Intake Oral 450 ml 240 ml IV Total 824 ml Output Urine Total 3700 ml 1400 ml # Bowel Movements 1 Height (Feet): 5 Height (Inches): 8.00 Weight (Pounds): 160 General Appearance: no apparent distress EENT: normal ENT inspection Neck: supple Cardiovascular: normal rate Respiratory/Chest: decreased breath sounds Abdomen: normal bowel sounds, non tender, soft Extremities: non-tender Brian Goldberg MD Nov 26, 2018 07:48
[2018-11-26 08:00] VITALS: BP 132/75
[2018-11-26] MEDS: Docusate 100mg cap ORAL SCH ×2 (08:16→17:08)
[2018-11-26] MEDS: Lactulose 20gm/30ml UDC ORAL SCH (08:16)
[2018-11-26] MEDS: Heparin 5000 units/ml inj SUBQ SCH ×2 (08:16→20:30)
[2018-11-26] MEDS: Metoprolol 25mg tab ORAL SCH ×2 (08:26→20:29)
--- NOTE | 2018-11-26 10:40 | Urology Progress Note ---
Assessment/Plan Assessment/Plan 1. Urinary retention history. 2. Benign prostatic hypertrophy. 3. Possible neurogenic bladder. 4. Hematuria. 5. Renal failure, which appears to be acute on chronic. 6. Hydronephrosis. 7. Proteinuria. 8. Meatal stenosis and stricture history. 9. Inguinal hernia. monitor clinically johnson hand irrigated and do PRN HD per nephrology monitor renal fxn closely flomax and proscar added cysto later voiding trial at some point? d/w pt and his daughter extensively Subjective Allergies: Coded Allergies: No Known Allergies (Unverified , 11/21/18) Subjective all noted, feels fair Objective Last 24 Hour Vital Signs Date Time Temp Pulse Resp B/P (MAP) Pulse Ox O2 Delivery O2 Flow Rate FiO2 11/26/18 08:30 Room Air 11/26/18 08:26 76 132/75 11/26/18 08:00 97.7 76 19 132/75 (94) 97 11/26/18 07:56 77 11/26/18 04:00 73 11/26/18 04:00 97.7 73 19 122/65 (84) 97 11/26/18 00:00 74 11/26/18 00:00 98.1 74 19 115/67 (83) 99 11/25/18 21:00 Room Air 11/25/18 20:34 80 120/62 11/25/18 20:00 85 11/25/18 20:00 97.9 85 19 120/62 (81) 97 11/25/18 16:00 77 11/25/18 16:00 98.9 78 19 113/69 (84) 97 11/25/18 12:50 98.7 77 18 125/62 (83) 97 11/25/18 12:00 97.9 68 18 116/65 (82) 96 11/25/18 11:48 70 Intake and Output 11/25/18 11/26/18 19:00 07:00 Intake Total 450 ml 1139 ml Output Total 3700 ml 1400 ml Balance -3250 ml -261 ml Intake Oral 450 ml 240 ml IV Total 899 ml Output Urine Total 3700 ml 1400 ml # Bowel Movements 1 Microbiology Date/Time Source Procedure Growth Status 11/23/18 19:00 Blood Blood Culture - Final Enterococcus Faecalis Complete Current Medications Medications (Trade) Dose Ordered Sig/Debbie Route PRN Reason Start Time Stop Time Status Last Admin Dose Admin Acetaminophen (Tylenol) 650 mg Q6H PRN ORAL Mild Pain/Temp > 100.5 11/22/18 03:15 12/22/18 03:14 Al Hydroxide/Mg Hydroxide (Mylanta) 30 ml Q6H PRN ORAL GERD 11/22/18 03:15 12/22/18 03:14 Docusate Sodium (Colace) 100 mg TWICE A DAY ORAL 11/25/18 09:00 12/25/18 08:59 11/26/18 08:16 Epoetin Tommy (Epoetin Tommy(ESRD on dialysis)) 2,000 unit WED-WED-WED SUBQ 11/23/18 21:00 12/23/18 20:59 11/25/18 21:03 Epoetin Tommy (Epoetin Tommy(ESRD on dialysis)) 3,000 unit WED- SUBQ 11/23/18 21:00 12/23/18 20:59 11/25/18 21:03 Finasteride (Proscar) 5 mg DAILY ORAL 11/25/18 09:00 12/25/18 08:59 11/26/18 08:16 Heparin Sodium (Porcine) (Heparin 5000 units/ml) 5,000 units EVERY 12 HOURS SUBQ 11/22/18 09:00 12/22/18 08:59 11/25/18 08:59 Heparin Sodium (Porcine) (Heparin Sod 1000 units/ml 10ml) 500 unit ONCE PRN IV for HD use 11/25/18 17:00 11/26/18 18:00 Lactulose (Cephulac) 30 gm BID ORAL 11/23/18 09:00 12/23/18 08:59 11/24/18 09:31 Meclizine HCl (Antivert) 25 mg TIDPRN PRN ORAL for dizziness 11/23/18 18:15 12/23/18 18:14 Metoprolol Tartrate (Lopressor) 25 mg Q12HR ORAL 11/22/18 21:00 12/22/18 20:59 11/25/18 20:34 Ondansetron HCl (Zofran) 4 mg Q6H PRN IVP Nausea & Vomiting 11/24/18 09:30 12/24/18 09:29 11/25/18 20:49 Pantoprazole (Protonix) 40 mg DAILY ORAL 11/26/18 09:00 12/26/18 08:59 11/26/18 08:16 Sodium Chloride 1,000 ml @ 75 mls/hr [id number] IV 11/23/18 18:15 12/23/18 18:14 11/25/18 23:21 Tamsulosin HCl (Flomax) 0.4 mg BEDTIME ORAL 11/24/18 23:00 12/24/18 22:59 11/25/18 20:34 Height (Feet): 5 Height (Inches): 8.00 Weight (Pounds): 160 Objective exam stable, urine clearing Geraldo Wise MD Nov 26, 2018 10:40
[2018-11-26 12:00] VITALS: BP 123/63
[2018-11-26] MEDS: Milk of Magnesia 30ml Ud ORAL PRN ×2 (13:15→21:59)
--- NOTE | 2018-11-26 13:30 | Neurology Progress Note ---
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 The mind is less clear today. He has been less lightheaded when he sits. However when he stood and walked yesterday he felt nauseous. He has had no further episodes of loss of consciousness. His cognitive function seems to have improved. His motor function is also better. He is being prepared for hemodialysis now. He denies any new neurological symptoms. He specifically denies any weakness on one side or the other, numbness on one side or the other, problems with speech problems with language problems with vision problems with memory. Review of Systems Neuro Review of Systems Benign. Objective Physical Exam Last Vital Signs Date Time Temp Pulse Resp B/P (MAP) Pulse Ox O2 Delivery O2 Flow Rate FiO2 11/26/18 12:00 97.7 75 19 123/63 (83) 97 11/26/18 08:30 Room Air 11/22/18 03:58 21 Neurologic Exam Objective PHYSICAL EXAMINATION: GENERAL: He is a well-developed, well-nourished, pleasant gentleman, lying in bed, in no acute distress. HEAD: Normocephalic and atraumatic. EENT: Examination benign. NECK: No neck rigidity was observed. NEUROLOGIC EXAMINATION: MENTAL STATUS EXAMINATION: He was awake and alert. He was oriented to person, place, and time. He was able to recall 3/3 words immediately after 1 minute and after 3 minutes. He was able to remember presidents, Trump through Trujillo senior. His mathematical skills were good. His visuospatial function was preserved. SPEECH: He had no dysarthria. LANGUAGE: He had no aphasia. CRANIAL NERVE EXAMINATION: II: The visual caal were intact on confrontation testing. III, IV & : The external ocular movements were full and the pupils 3 mm in diameter, equal, round, regular, and reactive to light. V: He had normal facial sensations, and the temporales, masseters, and pterygoids functioned normally. VII: He had normal facial expressions and no facial asymmetry. VIII: He was able to hear well bilaterally and had no nystagmus. IX: The palate moved symmetrically on phonation. X: He had no hoarseness of voice. XI: The sternocleidomastoids and trapezii functioned normally. XII: The tongue was in the midline without any fasciculations or atrophy. MOTOR SYSTEM: The tone was normal in all four extremities. Examination of muscle mass revealed no focal wasting. Examination of power revealed G 5/5 power in all muscle groups tested. SENSORY EXAMINATION: He had intact sensations to pinprick, light touch, and graphesthesia. COORDINATION: He performed well on [id number] and [id number]-ug-cdpr testing. REFLEXES: 2+ and bilaterally symmetrical at the biceps, triceps, and brachioradialis. 2++ at both knees, 0 at both ankles. The plantar responses were flexor bilaterally. STANCE & GAIT: Were deferred. Impression/Recommendations Diagnostic Impression 1. Dane Galena is a 72-year-old, right-handed, gentleman, who does have a past history of hypertension, motion sickness, paroxysmal positional vertigo, and a near syncopal episode approximately a year ago who has been feeling unwell for the last 1 to 2 months and was thus hospitalized on 11/22/2018 when laboratory data revealed that he was in renal failure. 2. Since he has been in the hospital, he has continued to feel unwell and has had lightheadedness whenever he tries to sit up, stand, and walk. On 1 occasion on 11/23/18, he started to feel lightheaded while sitting up, then passed out for brief period of time, and had some generalized body jerking movements. He rapidly regained consciousness following that. 3. He feels relatively well. The mind is less clear today. He has been less lightheaded when he sits. However when he stood and walked yesterday he felt nauseous. He has had no further episodes of loss of consciousness. His cognitive function seems to have improved. His motor function is also better. He is being prepared for hemodialysis now. He denies any new neurological symptoms. 4. On neurological examination, at this time, his memory has normalized however he has mils slowing of cerebration. He has brisk deep tendon reflexes at the knees and absent ankle jerks, and needs support to sit stand and walk. 5. Laboratory data on my initial evaluation revealed that his WBC count was elevated to 15,300. He was significantly anemic with a hemoglobin of 8.7 G. His chemistry panel revealed that his potassium was low at 3.1. His BUN was elevated at 173 with a creatinine of 10.1. His proBNP was elevated to 1278. His vitamin B12 level was normal at 1394. His folate level was normal at 25.3. His TSH was normal at 1.42. His INR was normal at 1.0. His urinalysis revealed 1+ leukocyte esterase with 2 red blood cells, and 2 white blood cells per high-power field. 6. The CT of the brain reveals no acute pathology. 7. EEG done on 11/24/2018 revealed triphasic waveforms with an anterior to posterior gradient but normal background and no interictal or ictal phenomena. These findings are consistent with a mild metabolic encephalopathy. 8. The patient's history, neurological examination, laboratory data, imaging studies and EEG are most consistent with lightheadedness due to fluid and electrolyte imbalance. 9. The episode that the patient had 11/23/18 where he felt lightheaded, then passed out, and had some abnormal body jerking movements was most probably a Matias-Anthony attack. 10. The patient does have some mild cognitive dysfunction, which is due to an ongoing metabolic encephalopathic process. Recommendations 1. Agree with management thus far. 2. Continue to correct the patient's fluid and electrolyte imbalances. 3. Frequent range of motion exercises. 4. Out of bed in chair. 5. Mobilize with PT and multiple daily walks. 6. Observe closely. Janak Chandra M.D., M.S.P.H. Janak Chandra MD Nov 26, 2018 13:29
--- NOTE | 2018-11-26 14:33 | NUR ---
PT Note Attempted to see patient for PT tx but patient is currently receiving dialysis.
--- NOTE | 2018-11-26 14:41 | NUR ---
NURSE NOTES: pt awake alert, no distress. caregiver at bedside. call light within reach. bed in lowest position, locked
--- NOTE | 2018-11-26 14:46 | Nephrology Progress Note ---
Assessment/Plan Problem List: (1) Acute on chronic renal failure (2) Urinary retention (3) Hyperkalemia (4) Metabolic acidosis (5) Uremia Plan HD as tolerated follow labs DC IVF Subjective Subjective seen on dialysis Objective Objective Last 24 Hour Vital Signs Date Time Temp Pulse Resp B/P (MAP) Pulse Ox O2 Delivery O2 Flow Rate FiO2 11/26/18 12:00 97.7 75 19 123/63 (83) 97 11/26/18 11:51 72 11/26/18 08:30 Room Air 11/26/18 08:26 76 132/75 11/26/18 08:00 97.7 76 19 132/75 (94) 97 11/26/18 07:56 77 11/26/18 04:00 73 11/26/18 04:00 97.7 73 19 122/65 (84) 97 11/26/18 00:00 74 11/26/18 00:00 98.1 74 19 115/67 (83) 99 11/25/18 21:00 Room Air 11/25/18 20:34 80 120/62 11/25/18 20:00 85 11/25/18 20:00 97.9 85 19 120/62 (81) 97 11/25/18 16:00 77 11/25/18 16:00 98.9 78 19 113/69 (84) 97 Intake and Output 11/25/18 11/26/18 19:00 07:00 Intake Total 450 ml 1139 ml Output Total 3700 ml 1400 ml Balance -3250 ml -261 ml Intake Oral 450 ml 240 ml IV Total 899 ml Output Urine Total 3700 ml 1400 ml # Bowel Movements 1 Height (Feet): 5 Height (Inches): 8.00 Weight (Pounds): 160 Cardiovascular: normal rate Respiratory/Chest: lungs clear Extremities: other - no edema Michael Sosa MD Nov 26, 2018 14:46
--- NOTE | 2018-11-26 15:19 | Cardiac Electrophysiology PN ---
Assessment/Plan Assessment/Plan 1. Troponin leak. The levels are nonspecific and flat 0.5, 0.5, 0.2. Denies any chest pain. This is due to the patient's renal failure with creatinine of 14. EKG shows sinus rhythm with no acute ST-T wave abnormalities. Echocardiogram EF 65%. On aspirin and beta-agueda Lower extremity duplex showed no evidence of DVT. 2. Recurrent atrial flutter on 11/24 and 11/25/18. Both terminated spontaneously On Metoprolol 25 bid. ? group home anticoagulation 3. Hyperkalemia. Potassium was 7 and is down to 4.1. The patient is on sodium bicarbonate and Kayexalate. On HD by Dr. Sosa. 4. Acute on chronic renal failure. Further evaluation by Dr. Sosa. Had Cecil catheter getting second HD now 5. Syncope. ? etiology. Nl EF. No . Could be due to atrial flutter with RVR ? Neuro eval 56. High PSA Fu Dr Antonio PETERSON RN Subjective Subjective Getting another HD today. No CP or SOB. Had transient atrial fib with RVR 150s on 11/25/18 at 3 pm Objective Last 24 Hour Vital Signs Date Time Temp Pulse Resp B/P (MAP) Pulse Ox O2 Delivery O2 Flow Rate FiO2 11/26/18 12:00 97.7 75 19 123/63 (83) 97 11/26/18 11:51 72 11/26/18 08:30 Room Air 11/26/18 08:26 76 132/75 11/26/18 08:00 97.7 76 19 132/75 (94) 97 11/26/18 07:56 77 11/26/18 04:00 73 11/26/18 04:00 97.7 73 19 122/65 (84) 97 11/26/18 00:00 74 11/26/18 00:00 98.1 74 19 115/67 (83) 99 11/25/18 21:00 Room Air 11/25/18 20:34 80 120/62 11/25/18 20:00 85 11/25/18 20:00 97.9 85 19 120/62 (81) 97 11/25/18 16:00 77 11/25/18 16:00 98.9 78 19 113/69 (84) 97 Intake and Output 11/25/18 11/26/18 19:00 07:00 Intake Total 450 ml 1139 ml Output Total 3700 ml 1400 ml Balance -3250 ml -261 ml Intake Oral 450 ml 240 ml IV Total 899 ml Output Urine Total 3700 ml 1400 ml # Bowel Movements 1 Microbiology Date/Time Source Procedure Growth Status 11/23/18 19:00 Blood Blood Culture - Final Enterococcus Faecalis Complete 11/23/18 18:45 Blood Blood Culture - Final Enterococcus Faecalis Complete Objective HEAD AND NECK: No JVD.Right IJ dialysis catheter in place LUNGS: Clear. CARDIOVASCULAR: Regular S1 and S2 with no gallop or murmur. ABDOMEN: Soft. EXTREMITIES: Bilateral 3+ pitting edema. GENITOURINARY: Morfin in place with bloody drainage. David Guerra MD Nov 26, 2018 15:19
[2018-11-26 16:00] VITALS: BP 120/63
[2018-11-26 16:34] LABS: HEMOGLOBIN 9.1 G/DL (14.2-18.0); MEAN CORPUSCULAR VOLUME 92 FL (80-99); PLATELET COUNT 288 K/UL (150-450); RED BLOOD COUNT 2.82 M/UL (4.70-6.10); RED CELL DISTRIBUTION WIDTH 10.2 % (11.6-14.8); WHITE BLOOD COUNT 21.1 K/UL (4.8-10.8)
[2018-11-26 17:26] LABS: ANION GAP 11 mmol/L (5-15); BLOOD UREA NITROGEN 37 mg/dL (7-18); CALCIUM 8.2 MG/DL (8.5-10.1); CARBON DIOXIDE 32 MMOL/L (21-32); CHLORIDE 102 MMOL/L (98-107); CREATININE 2.6 MG/DL (0.55-1.30); POTASSIUM 3.3 MMOL/L (3.5-5.1); SODIUM 145 MMOL/L (136-145)
--- NOTE | 2018-11-26 18:13 | General Progress Note ---
Assessment/Plan Assessment/Plan acute renal failure hyperkalemia obstructive uropathy bph elevated troponin ho htn anemia confustion encephalopathy likiely secondary to uremia vomiting likely secondary to uremia short syncopal episode leukocytosis has johnson, urolgy fup bun/creatine still high getting dialyuzed today echo noted consider stress testing ct of head noted neurolgy evaluation appreciated bp controlled monitor labs dvt and ulcer prophylaxis ambulate PT Subjective Allergies: Coded Allergies: No Known Allergies (Unverified , 11/21/18) Subjective seen in am co felt nauseated pos BM no abdominal pain no chest painor sob, feels weak Objective Last 24 Hour Vital Signs Date Time Temp Pulse Resp B/P (MAP) Pulse Ox O2 Delivery O2 Flow Rate FiO2 11/26/18 16:00 97.7 84 19 120/63 (82) 97 11/26/18 16:00 81 11/26/18 12:00 97.7 75 19 123/63 (83) 97 11/26/18 11:51 72 11/26/18 08:30 Room Air 11/26/18 08:26 76 132/75 11/26/18 08:00 97.7 76 19 132/75 (94) 97 11/26/18 07:56 77 11/26/18 04:00 73 11/26/18 04:00 97.7 73 19 122/65 (84) 97 11/26/18 00:00 74 11/26/18 00:00 98.1 74 19 115/67 (83) 99 11/25/18 21:00 Room Air 11/25/18 20:34 80 120/62 11/25/18 20:00 85 11/25/18 20:00 97.9 85 19 120/62 (81) 97 Intake and Output 11/25/18 11/26/18 19:00 07:00 Intake Total 450 ml 1139 ml Output Total 3700 ml 1400 ml Balance -3250 ml -261 ml Intake Oral 450 ml 240 ml IV Total 899 ml Output Urine Total 3700 ml 1400 ml # Bowel Movements 1 Laboratory Tests 11/26/18 16:15: White Blood Count 21.1H, Red Blood Count 2.82L, Hemoglobin 9.1L, Hematocrit 26.0L, Mean Corpuscular Volume 92, Mean Corpuscular Hemoglobin 32.3H, Mean Corpuscular Hemoglobin Concent 35.1, Red Cell Distribution Width 10.2L, Platelet Count 288, Mean Platelet Volume 5.1L, Neutrophils (%) (Auto) , Lymphocytes (%) (Auto) , Monocytes (%) (Auto) , Eosinophils (%) (Auto) , Basophils (%) (Auto) , Differential Total Cells Counted 100, Neutrophils % ( Manual) 91H, Lymphocytes % (Manual) 2L, Monocytes % (Manual) 5, Eosinophils % ( Manual) 1, Basophils % (Manual) 1, Band Neutrophils 0, Platelet Estimate Adequate, Platelet Morphology Normal, Red Blood Cell Morphology Normal 11/26/18 16:27: Sodium Level 145, Potassium Level 3.3L, Chloride Level 102, Carbon Dioxide Level 32, Anion Gap 11, Blood Urea Nitrogen 37H, Creatinine 2.6#H, Estimat Glomerular Filtration Rate , Glucose Level 97, Calcium Level 8.2L Height (Feet): 5 Height (Inches): 8.00 Weight (Pounds): 160 General Appearance: WD/WN Neck: supple Cardiovascular: normal rate Respiratory/Chest: lungs clear Abdomen: soft Objective right dilaysis Dane Malik MD Nov 26, 2018 18:13
--- NOTE | 2018-11-26 18:30 | NUR ---
NURSE NOTES: paged Dr Pedro shepherd low k level today 3.3 Addendum: 11/26/18 at 1848 by PAYAL PETER RN Dr Vasquez called back re k level, no new orders.
--- NOTE | 2018-11-26 19:15 | NUR ---
HAND-OFF: Report given to CORDELL PARRA.
--- NOTE | 2018-11-26 19:16 | NUR ---
NURSE NOTES: Left msg to Dr Fisher re consult for blood culture results. initially received vanco per pharmacy to dose by Dr Vasquez , but also wanted ID consult
--- NOTE | 2018-11-26 19:17 | NUR ---
received pt from AIDA gutierrez. Addendum: 11/27/18 at 0042 by GUY LEON RN NURSE NOTES: Received pt from AIDA gutierrez.
--- NOTE | 2018-11-26 19:30 | NUR ---
NURSE NOTES: Received report from AIDA Rodriguez. Pt is resting in bed. In no acute distress. Bed in lowest position, call light within reach. Will continue plan of care.
[2018-11-26 20:00] VITALS: BP 106/62
[2018-11-26] MEDS ORDERED: Vancomycin 1.25gm Premix IVPB SCH (20:00)
[2018-11-26] MEDS: Tamsulosin 0.4mg cap ORAL SCH (20:30)
--- NOTE | 2018-11-26 22:45 | Infectious Diseases Prog Note ---
Assessment/Plan Problems: (1) Sepsis due to Enterococcus with acute renal failure and metabolic encephalopathy Assessment & Plan: source most likely tract with obstruction , may need also to rule out GI malignancy (colon CA) . continue vancomycin renally dosed as per pharmacy for now , MAY SWITCH TO DAPTOMYCIN to avoid nephrotoxicity . will obtain blood culture x2. add meropenem empirically to cover for sepsis . recommend MURPHY to rule out endocarditis . may need to remove HD catheter since it was placed after he was bacteremic (2) Hydronephrosis Assessment & Plan: most likely the source of his bacteremia with enterococcus faecalis , with worsening renal failure , suspect enlarged prostate , with elevated PSA rule out prostate CA , recommend oncology work up and possible prostatectomy once clinically stable (3) Acute on chronic renal failure Assessment & Plan: required HD , catheter need to be removed since it was placed while bacteremic , D/W renal and PCP (4) Acute encephalopathy Assessment & Plan: suspect metabolic and toxic , monitor mental status, avoid nephrotoxics , neurology is following , may need MRI of the brain Subjective Allergies: Coded Allergies: No Known Allergies (Unverified , 11/21/18) Objective Vital Signs Last 24 Hour Vital Signs Date Time Temp Pulse Resp B/P (MAP) Pulse Ox O2 Delivery O2 Flow Rate FiO2 11/26/18 20:29 86 122/86 11/26/18 16:00 97.7 84 19 120/63 (82) 97 11/26/18 16:00 81 11/26/18 12:00 97.7 75 19 123/63 (83) 97 11/26/18 11:51 72 11/26/18 08:30 Room Air 11/26/18 08:26 76 132/75 11/26/18 08:00 97.7 76 19 132/75 (94) 97 11/26/18 07:56 77 11/26/18 04:00 73 11/26/18 04:00 97.7 73 19 122/65 (84) 97 11/26/18 00:00 74 11/26/18 00:00 98.1 74 19 115/67 (83) 99 Height (Feet): 5 Height (Inches): 8.00 Weight (Pounds): 160 Laboratory Tests Test 11/26/18 16:15 11/26/18 16:27 White Blood Count 21.1 K/UL (4.8-10.8) H Red Blood Count 2.82 M/UL (4.70-6.10) L Hemoglobin 9.1 G/DL (14.2-18.0) L Hematocrit 26.0 % (42.0-52.0) L Mean Corpuscular Volume 92 FL (80-99) Mean Corpuscular Hemoglobin 32.3 PG (27.0-31.0) H Mean Corpuscular Hemoglobin Concent 35.1 G/DL (32.0-36.0) Red Cell Distribution Width 10.2 % (11.6-14.8) L Platelet Count 288 K/UL (150-450) Mean Platelet Volume 5.1 FL (6.5-10.1) L Neutrophils (%) (Auto) % (45.0-75.0) Lymphocytes (%) (Auto) % (20.0-45.0) Monocytes (%) (Auto) % (1.0-10.0) Eosinophils (%) (Auto) % (0.0-3.0) Basophils (%) (Auto) % (0.0-2.0) Differential Total Cells Counted 100 Neutrophils % (Manual) 91 % (45-75) H Lymphocytes % (Manual) 2 % (20-45) L Monocytes % (Manual) 5 % (1-10) Eosinophils % (Manual) 1 % (0-3) Basophils % (Manual) 1 % (0-2) Band Neutrophils 0 % (0-8) Platelet Estimate Adequate Platelet Morphology Normal Red Blood Cell Morphology Normal Sodium Level 145 MMOL/L (136-145) Potassium Level 3.3 MMOL/L (3.5-5.1) L Chloride Level 102 MMOL/L (98-107) Carbon Dioxide Level 32 MMOL/L (21-32) Anion Gap 11 mmol/L (5-15) Blood Urea Nitrogen 37 mg/dL (7-18) H Creatinine 2.6 MG/DL (0.55-1.30) #H Estimat Glomerular Filtration Rate mL/min (>60) Glucose Level 97 MG/DL (74-106) Calcium Level 8.2 MG/DL (8.5-10.1) L Current Medications Medications (Trade) Dose Ordered Sig/Debbie Route PRN Reason Start Time Stop Time Status Last Admin Dose Admin Acetaminophen (Tylenol) 650 mg Q6H PRN ORAL Mild Pain/Temp > 100.5 11/22/18 03:15 12/22/18 03:14 Al Hydroxide/Mg Hydroxide (Mylanta) 30 ml Q6H PRN ORAL GERD 11/22/18 03:15 12/22/18 03:14 Docusate Sodium (Colace) 100 mg TWICE A DAY ORAL 11/25/18 09:00 12/25/18 08:59 11/26/18 17:08 Epoetin Tommy (Epoetin Tommy(ESRD on dialysis)) 2,000 unit WED-WED-WED SUBQ 11/23/18 21:00 12/23/18 20:59 11/25/18 21:03 Epoetin Tommy (Epoetin Tommy(ESRD on dialysis)) 3,000 unit WED- SUBQ 11/23/18 21:00 12/23/18 20:59 11/25/18 21:03 Finasteride (Proscar) 5 mg DAILY ORAL 11/25/18 09:00 12/25/18 08:59 11/26/18 08:16 Heparin Sodium (Porcine) (Heparin 5000 units/ml) 5,000 units EVERY 12 HOURS SUBQ 11/22/18 09:00 12/22/18 08:59 11/26/18 20:30 Magnesium Hydroxide (Mom) 30 ml BIDPRN PRN ORAL Constipation 11/26/18 12:45 12/26/18 12:44 11/26/18 21:59 Meclizine HCl (Antivert) 25 mg TIDPRN PRN ORAL for dizziness 11/23/18 18:15 12/23/18 18:14 Metoprolol Tartrate (Lopressor) 25 mg Q12HR ORAL 11/22/18 21:00 12/22/18 20:59 11/26/18 20:29 Ondansetron HCl (Zofran) 4 mg Q6H PRN IVP Nausea & Vomiting 11/24/18 09:30 12/24/18 09:29 11/25/18 20:49 Pantoprazole (Protonix) 40 mg DAILY ORAL 11/26/18 09:00 12/26/18 08:59 11/26/18 08:16 Sodium Chloride 1,000 ml @ 75 mls/hr [id number] IV 11/23/18 18:15 12/23/18 18:14 11/26/18 13:15 Tamsulosin HCl (Flomax) 0.4 mg BEDTIME ORAL 11/24/18 23:00 12/24/18 22:59 11/26/18 20:30 Vancomycin HCl (Vanco rx to dose) 1 ea DAILY PRN MISC per rx protocol 11/26/18 18:18 12/26/18 18:17 Mckinley Fisher M.D. Nov 26, 2018 22:45
[2018-11-26] MEDS: Meropenem 500 MG in NS 55 ML IVPB SCH (23:58)
[2018-11-27] VITALS: BP 128/58
[2018-11-27 04:00] VITALS: BP 153/91
--- NOTE | 2018-11-27 07:15 | NUR ---
HAND-OFF: Report given to AIDA Rodriguez.
--- NOTE | 2018-11-27 07:18 | NUR ---
NURSE NOTES: Pt awake alert, no distress. call light within reach. bed in lowest position, locked. will continue to monitor
[2018-11-27 08:00] VITALS: BP 133/70
[2018-11-27] MEDS: Docusate 100mg cap ORAL SCH ×2 (08:11→17:11)
[2018-11-27] MEDS: Metoprolol 25mg tab ORAL SCH ×2 (08:11→21:18)
[2018-11-27] MEDS: Heparin 5000 units/ml inj SUBQ SCH ×2 (08:13→21:13)
[2018-11-27] MEDS ORDERED: Meropenem 500 MG in NS 55 ML IVPB SCH (09:00)
[2018-11-27 09:26] LABS: HEMATOCRIT 25.5 % (42.0-52.0); HEMOGLOBIN 8.7 G/DL (14.2-18.0); MEAN CORPUSCULAR VOLUME 94 FL (80-99); PLATELET COUNT 302 K/UL (150-450); RED BLOOD COUNT 2.72 M/UL (4.70-6.10); RED CELL DISTRIBUTION WIDTH 10.3 % (11.6-14.8); WHITE BLOOD COUNT 19.5 K/UL (4.8-10.8)
[2018-11-27 09:40] LABS: ANION GAP 9 mmol/L (5-15); BLOOD UREA NITROGEN 45 mg/dL (7-18); CALCIUM 8.3 MG/DL (8.5-10.1); CARBON DIOXIDE 30 MMOL/L (21-32); CHLORIDE 101 MMOL/L (98-107); CREATININE 4.1 MG/DL (0.55-1.30); POTASSIUM 4.1 MMOL/L (3.5-5.1); SODIUM 140 MMOL/L (136-145)
--- NOTE | 2018-11-27 09:46 | Urology Progress Note ---
Assessment/Plan Assessment/Plan 1. Urinary retention history. 2. Benign prostatic hypertrophy. 3. Possible neurogenic bladder. 4. Hematuria. 5. Renal failure, which appears to be acute on chronic, improving. 6. Hydronephrosis. 7. Proteinuria. 8. Meatal stenosis and stricture history. 9. Inguinal hernia. monitor clinically johnson hand irrigated and do PRN HD as needed per nephrology monitor renal fxn closely flomax and proscar added cysto later voiding trial at some point? reimage kidneys later d/w pt and his daughter extensively Subjective Allergies: Coded Allergies: No Known Allergies (Unverified , 11/21/18) Subjective all noted, feels fair Objective Last 24 Hour Vital Signs Date Time Temp Pulse Resp B/P (MAP) Pulse Ox O2 Delivery O2 Flow Rate FiO2 11/27/18 09:17 Room Air 11/27/18 08:11 80 133/70 11/27/18 08:00 98.4 80 18 133/70 (91) 97 11/27/18 04:00 82 11/27/18 04:00 98.4 82 18 153/91 (111) 97 11/27/18 00:00 98.9 82 18 128/58 (81) 95 11/27/18 00:00 82 11/26/18 21:00 Room Air 11/26/18 20:29 86 122/86 11/26/18 20:00 89 11/26/18 20:00 101.3 89 18 106/62 (77) 96 11/26/18 16:00 97.7 84 19 120/63 (82) 97 11/26/18 16:00 81 11/26/18 12:00 97.7 75 19 123/63 (83) 97 11/26/18 11:51 72 Intake and Output 11/26/18 11/27/18 18:59 06:59 Intake Total 1650 ml 1823.750 ml Output Total 2400 ml 600 ml Balance -750 ml 1223.750 ml Intake Oral 750 ml IV Total 900 ml 1103.750 ml Other 720 ml Output Urine Total 2400 ml 600 ml Microbiology Date/Time Source Procedure Growth Status 11/23/18 19:00 Blood Blood Culture - Final Enterococcus Faecalis Complete 11/23/18 15:00 Stool Stool Culture - Preliminary NORMAL FECAL JOSESITO. Resulted Current Medications Medications (Trade) Dose Ordered Sig/Debbie Route PRN Reason Start Time Stop Time Status Last Admin Dose Admin Acetaminophen (Tylenol) 650 mg Q6H PRN ORAL Mild Pain/Temp > 100.5 11/22/18 03:15 12/22/18 03:14 Al Hydroxide/Mg Hydroxide (Mylanta) 30 ml Q6H PRN ORAL GERD 11/22/18 03:15 12/22/18 03:14 Docusate Sodium (Colace) 100 mg TWICE A DAY ORAL 11/25/18 09:00 12/25/18 08:59 11/27/18 08:11 Epoetin Tommy (Epoetin Tommy(ESRD on dialysis)) 2,000 unit WED-WED-WED SUBQ 11/23/18 21:00 12/23/18 20:59 11/25/18 21:03 Epoetin Tommy (Epoetin Tommy(ESRD on dialysis)) 3,000 unit WED- SUBQ 11/23/18 21:00 12/23/18 20:59 11/25/18 21:03 Finasteride (Proscar) 5 mg DAILY ORAL 11/25/18 09:00 12/25/18 08:59 11/27/18 08:11 Heparin Sodium (Porcine) (Heparin 5000 units/ml) 5,000 units EVERY 12 HOURS SUBQ 11/22/18 09:00 12/22/18 08:59 11/27/18 08:13 Magnesium Hydroxide (Mom) 30 ml BIDPRN PRN ORAL Constipation 11/26/18 12:45 12/26/18 12:44 11/26/18 21:59 Meclizine HCl (Antivert) 25 mg TIDPRN PRN ORAL for dizziness 11/23/18 18:15 12/23/18 18:14 Meropenem 500 mg/ Sodium Chloride 55 ml @ 110 mls/hr Q12H IVPB 11/26/18 23:00 12/01/18 22:59 11/26/18 23:58 Metoprolol Tartrate (Lopressor) 25 mg Q12HR ORAL 11/22/18 21:00 12/22/18 20:59 11/27/18 08:11 Ondansetron HCl (Zofran) 4 mg Q6H PRN IVP Nausea & Vomiting 11/24/18 09:30 12/24/18 09:29 11/26/18 23:02 Pantoprazole (Protonix) 40 mg DAILY ORAL 11/26/18 09:00 12/26/18 08:59 11/27/18 08:14 Sodium Chloride 1,000 ml @ 75 mls/hr [id number] IV 11/23/18 18:15 12/23/18 18:14 11/27/18 05:56 Tamsulosin HCl (Flomax) 0.4 mg BEDTIME ORAL 11/24/18 23:00 12/24/18 22:59 11/26/18 20:30 Vancomycin HCl (Vanco rx to dose) 1 ea DAILY PRN MISC per rx protocol 11/26/18 18:18 12/26/18 18:17 Laboratory Tests 11/26/18 16:15: White Blood Count 21.1H, Red Blood Count 2.82L, Hemoglobin 9.1L, Hematocrit 26.0L, Mean Corpuscular Volume 92, Mean Corpuscular Hemoglobin 32.3H, Mean Corpuscular Hemoglobin Concent 35.1, Red Cell Distribution Width 10.2L, Platelet Count 288, Mean Platelet Volume 5.1L, Neutrophils (%) (Auto) , Lymphocytes (%) (Auto) , Monocytes (%) (Auto) , Eosinophils (%) (Auto) , Basophils (%) (Auto) , Differential Total Cells Counted 100, Neutrophils % ( Manual) 91H, Lymphocytes % (Manual) 2L, Monocytes % (Manual) 5, Eosinophils % ( Manual) 1, Basophils % (Manual) 1, Band Neutrophils 0, Platelet Estimate Adequate, Platelet Morphology Normal, Red Blood Cell Morphology Normal 11/26/18 16:27: Sodium Level 145, Potassium Level 3.3L, Chloride Level 102, Carbon Dioxide Level 32, Anion Gap 11, Blood Urea Nitrogen 37H, Creatinine 2.6#H, Estimat Glomerular Filtration Rate , Glucose Level 97, Calcium Level 8.2L 11/27/18 08:05: White Blood Count 19.5H, Red Blood Count 2.72L, Hemoglobin 8.7L, Hematocrit 25.5L, Mean Corpuscular Volume 94, Mean Corpuscular Hemoglobin 31.9H, Mean Corpuscular Hemoglobin Concent 33.9, Red Cell Distribution Width 10.3L, Platelet Count 302, Mean Platelet Volume 5.5L, Neutrophils (%) (Auto) , Lymphocytes (%) (Auto) , Monocytes (%) (Auto) , Eosinophils (%) (Auto) , Basophils (%) (Auto) , Neutrophils % (Manual) [Pending], Lymphocytes % (Manual) [Pending], Platelet Estimate [Pending], Sodium Level 140, Potassium Level 4.1, Chloride Level 101, Carbon Dioxide Level 30, Anion Gap 9, Blood Urea Nitrogen 45H, Creatinine 4.1#H, Estimat Glomerular Filtration Rate , Glucose Level 160H, Calcium Level 8.3L, Magnesium Level [Pending] Height (Feet): 5 Height (Inches): 8.00 Weight (Pounds): 160 Objective exam stable, urine clearing Geraldo Wise MD Nov 27, 2018 09:46
--- NOTE | 2018-11-27 09:57 | NUR ---
CASE MANAGEMENT:REVIEW 11/26/2018 SI: AC/CHR RENAL FAILURE. BACTEREMIA HYDRONEPHROSIS. BPH. OBSTRUCTIVE UROPATHY T 101.3 HR 89 RR 18 B/P 106/62 SATS 96% ON RA WBC 21.1 K 3.3 BUN 37 CR 2.6 CA 8.2 IS: PROSCAR PO QD PROCRIT SUBQ MWF IVF@75 mL/HR LACTULOSE PO BID LOPRESSOR PO Q12H HEPARIN SUBQ Q12H : TELEMETRY DCP: PATIENT IS FROM HOME 11/27/2018 SI: AC/CHR RENAL FAILURE. BACTEREMIA HYDRONEPHROSIS. BPH. OBSTRUCTIVE UROPATHY T 98.4 HR 80 RR 18 B/P 133/70 SATS 97% ON RA WBC 19.5 BUN 45 CR 4.1 GLU 160 IS: PROSCAR PO QD PROCRIT SUBQ MWF IVF@75 mL/HR LACTULOSE PO BID LOPRESSOR PO Q12H HEPARIN SUBQ Q12H : TELEMETRY DCP: PATIENT IS FROM HOME
[2018-11-27] MEDS: Meropenem 500 MG in NS 55 ML IVPB SCH ×2 (09:58→22:36)
--- NOTE | 2018-11-27 10:08 | NUR ---
NURSE NOTES: left msg to Dr Sosa re mg level
--- NOTE | 2018-11-27 10:33 | General Progress Note ---
Assessment/Plan Assessment/Plan Assessment - Anemia - Renal failure - Obstructive uropathy - b/l edema - Duplex negative - PSA =10, ? CAP Recommendations - Renal diet - Zofran PRN - RD eval - follow labs - OB positive X1 will repeat -protonix daily Subjective Allergies: Coded Allergies: No Known Allergies (Unverified , 11/21/18) Objective Last 24 Hour Vital Signs Date Time Temp Pulse Resp B/P (MAP) Pulse Ox O2 Delivery O2 Flow Rate FiO2 11/27/18 09:17 Room Air 11/27/18 08:11 80 133/70 11/27/18 08:00 98.4 80 18 133/70 (91) 97 11/27/18 04:00 82 11/27/18 04:00 98.4 82 18 153/91 (111) 97 11/27/18 00:00 98.9 82 18 128/58 (81) 95 11/27/18 00:00 82 11/26/18 21:00 Room Air 11/26/18 20:29 86 122/86 11/26/18 20:00 89 11/26/18 20:00 101.3 89 18 106/62 (77) 96 11/26/18 16:00 97.7 84 19 120/63 (82) 97 11/26/18 16:00 81 11/26/18 12:00 97.7 75 19 123/63 (83) 97 11/26/18 11:51 72 Intake and Output 11/26/18 11/27/18 18:59 06:59 Intake Total 1650 ml 1823.750 ml Output Total 2400 ml 600 ml Balance -750 ml 1223.750 ml Intake Oral 750 ml IV Total 900 ml 1103.750 ml Other 720 ml Output Urine Total 2400 ml 600 ml Laboratory Tests 11/26/18 16:15: White Blood Count 21.1H, Red Blood Count 2.82L, Hemoglobin 9.1L, Hematocrit 26.0L, Mean Corpuscular Volume 92, Mean Corpuscular Hemoglobin 32.3H, Mean Corpuscular Hemoglobin Concent 35.1, Red Cell Distribution Width 10.2L, Platelet Count 288, Mean Platelet Volume 5.1L, Neutrophils (%) (Auto) , Lymphocytes (%) (Auto) , Monocytes (%) (Auto) , Eosinophils (%) (Auto) , Basophils (%) (Auto) , Differential Total Cells Counted 100, Neutrophils % ( Manual) 91H, Lymphocytes % (Manual) 2L, Monocytes % (Manual) 5, Eosinophils % ( Manual) 1, Basophils % (Manual) 1, Band Neutrophils 0, Platelet Estimate Adequate, Platelet Morphology Normal, Red Blood Cell Morphology Normal 11/26/18 16:27: Sodium Level 145, Potassium Level 3.3L, Chloride Level 102, Carbon Dioxide Level 32, Anion Gap 11, Blood Urea Nitrogen 37H, Creatinine 2.6#H, Estimat Glomerular Filtration Rate , Glucose Level 97, Calcium Level 8.2L 11/27/18 08:05: White Blood Count 19.5H, Red Blood Count 2.72L, Hemoglobin 8.7L, Hematocrit 25.5L, Mean Corpuscular Volume 94, Mean Corpuscular Hemoglobin 31.9H, Mean Corpuscular Hemoglobin Concent 33.9, Red Cell Distribution Width 10.3L, Platelet Count 302, Mean Platelet Volume 5.5L, Neutrophils (%) (Auto) , Lymphocytes (%) (Auto) , Monocytes (%) (Auto) , Eosinophils (%) (Auto) , Basophils (%) (Auto) , Differential Total Cells Counted 100, Neutrophils % ( Manual) 89H, Lymphocytes % (Manual) 5L, Monocytes % (Manual) 6, Eosinophils % ( Manual) 0, Basophils % (Manual) 0, Band Neutrophils 0, Platelet Estimate Adequate, Platelet Morphology Normal, Red Blood Cell Morphology Normal, Sodium Level 140, Potassium Level 4.1, Chloride Level 101, Carbon Dioxide Level 30, Anion Gap 9, Blood Urea Nitrogen 45H, Creatinine 4.1#H, Estimat Glomerular Filtration Rate , Glucose Level 160H, Calcium Level 8.3L, Magnesium Level 1.6L Height (Feet): 5 Height (Inches): 8.00 Weight (Pounds): 160 General Appearance: alert EENT: normal ENT inspection Neck: supple Cardiovascular: normal rate Respiratory/Chest: decreased breath sounds Abdomen: normal bowel sounds, non tender, soft Extremities: non-tender Brian Goldberg MD Nov 27, 2018 10:33
[2018-11-27] MEDS ORDERED: Tubing IV Secondary IV ONE (11:25)
--- NOTE | 2018-11-27 11:48 | Nephrology Progress Note ---
Assessment/Plan Problem List: (1) Acute on chronic renal failure (2) Urinary retention (3) Hyperkalemia (4) Metabolic acidosis (5) Uremia (6) Bacteremia due to Enterococcus Plan Dc Catheter abxs Discussed with Dr Vasquez and Dr Fisher follow labs off HD Subjective Subjective feels better Objective Objective Last 24 Hour Vital Signs Date Time Temp Pulse Resp B/P (MAP) Pulse Ox O2 Delivery O2 Flow Rate FiO2 11/27/18 09:17 Room Air 11/27/18 08:11 80 133/70 11/27/18 08:00 98.4 80 18 133/70 (91) 97 11/27/18 07:57 92 11/27/18 04:00 82 11/27/18 04:00 98.4 82 18 153/91 (111) 97 11/27/18 00:00 98.9 82 18 128/58 (81) 95 11/27/18 00:00 82 11/26/18 21:00 Room Air 11/26/18 20:29 86 122/86 11/26/18 20:00 89 11/26/18 20:00 101.3 89 18 106/62 (77) 96 11/26/18 16:00 97.7 84 19 120/63 (82) 97 11/26/18 16:00 81 11/26/18 12:00 97.7 75 19 123/63 (83) 97 11/26/18 11:51 72 Intake and Output 11/26/18 11/27/18 18:59 06:59 Intake Total 1650 ml 1823.750 ml Output Total 2400 ml 600 ml Balance -750 ml 1223.750 ml Intake Oral 750 ml IV Total 900 ml 1103.750 ml Other 720 ml Output Urine Total 2400 ml 600 ml Laboratory Tests 11/26/18 16:15: White Blood Count 21.1H, Red Blood Count 2.82L, Hemoglobin 9.1L, Hematocrit 26.0L, Mean Corpuscular Volume 92, Mean Corpuscular Hemoglobin 32.3H, Mean Corpuscular Hemoglobin Concent 35.1, Red Cell Distribution Width 10.2L, Platelet Count 288, Mean Platelet Volume 5.1L, Neutrophils (%) (Auto) , Lymphocytes (%) (Auto) , Monocytes (%) (Auto) , Eosinophils (%) (Auto) , Basophils (%) (Auto) , Differential Total Cells Counted 100, Neutrophils % ( Manual) 91H, Lymphocytes % (Manual) 2L, Monocytes % (Manual) 5, Eosinophils % ( Manual) 1, Basophils % (Manual) 1, Band Neutrophils 0, Platelet Estimate Adequate, Platelet Morphology Normal, Red Blood Cell Morphology Normal 11/26/18 16:27: Sodium Level 145, Potassium Level 3.3L, Chloride Level 102, Carbon Dioxide Level 32, Anion Gap 11, Blood Urea Nitrogen 37H, Creatinine 2.6#H, Estimat Glomerular Filtration Rate , Glucose Level 97, Calcium Level 8.2L 11/27/18 08:05: White Blood Count 19.5H, Red Blood Count 2.72L, Hemoglobin 8.7L, Hematocrit 25.5L, Mean Corpuscular Volume 94, Mean Corpuscular Hemoglobin 31.9H, Mean Corpuscular Hemoglobin Concent 33.9, Red Cell Distribution Width 10.3L, Platelet Count 302, Mean Platelet Volume 5.5L, Neutrophils (%) (Auto) , Lymphocytes (%) (Auto) , Monocytes (%) (Auto) , Eosinophils (%) (Auto) , Basophils (%) (Auto) , Differential Total Cells Counted 100, Neutrophils % ( Manual) 89H, Lymphocytes % (Manual) 5L, Monocytes % (Manual) 6, Eosinophils % ( Manual) 0, Basophils % (Manual) 0, Band Neutrophils 0, Platelet Estimate Adequate, Platelet Morphology Normal, Red Blood Cell Morphology Normal, Sodium Level 140, Potassium Level 4.1, Chloride Level 101, Carbon Dioxide Level 30, Anion Gap 9, Blood Urea Nitrogen 45H, Creatinine 4.1#H, Estimat Glomerular Filtration Rate , Glucose Level 160H, Calcium Level 8.3L, Magnesium Level 1.6L Height (Feet): 5 Height (Inches): 8.00 Weight (Pounds): 160 Cardiovascular: normal rate Respiratory/Chest: lungs clear Extremities: trace edema Michael Sosa MD Nov 27, 2018 11:48
[2018-11-27 12:00] VITALS: BP 95/51
[2018-11-27 13:19] LABS: ALANINE AMINOTRANSFERASE 114 U/L (12-78); ALBUMIN 2.2 G/DL (3.4-5.0); ALKALINE PHOSPHATASE 124 U/L (46-116); ASPARTATE AMINO TRANSFERASE 61 U/L (15-37); BILIRUBIN,DIRECT < 0.1 MG/DL (0.0-0.3); BILIRUBIN,TOTAL 0.3 MG/DL (0.2-1.0); CREATINE KINASE 39 U/L (26-308)
[2018-11-27] MEDS: DAPTOmycin 700 MG in NS 55 ML IV SCH (14:04)
--- NOTE | 2018-11-27 14:55 | Consultation ---
History of Present Illness General Date patient seen: Nov 26, 2018 Chief Complaint: sepsis, leukocytosis with organs failure Referring physician: carolee flaherty MD Reason for Consultation: sepsis with enterococcus bacteremia Present Illness HPI This is a 72-year-old male with no past medical history Was brought in to [facility] emergency room for generalized weakness patient was noted to have elevated BUN and creatinine on his lab test which was done by his PCP and he had decreased urine output patient was well known to have a urology problem in the past and he had bifid urethra his symptom has been gradually getting worse with the swelling in his lower extremity over the last couple of months no orthopnea or dyspnea no chest pain but decreased exercise tolerance with minimal exertion. Patient was admitted to the hospital and was started on IV fluid for hydration he did not show any improvement in his BUN and creatinine and he continued to retain fluids patient had a hemodialysis catheter placed and he was started on hemodialysis to improve his volume status and to correct his metabolic abnormalities. A blood culture was obtained on November 21 the results of which showed growth of enterococcus faecalis both sets sensitive to vancomycin so he was started on vancomycin renally dosed as per pharmacy by his primary care physician and infectious disease consultation was requested for antibiotics treatment and further management Allergies: Coded Allergies: No Known Allergies (Unverified , 11/21/18) Medication History Scheduled Amlodipine Besylate* (Amlodipine Besylate*), 5 MG ORAL DAILY, (Reported) Scheduled PRN Ondansetron* (Zofran*), 4 MG ORAL Q6H PRN for Nausea & Vomiting, (Reported) Patient History History Provided By: Patient Healthcare decision maker Resuscitation status Full Code Advanced Directive on File Past Medical/Surgical History Past Medical/Surgical History: (1) Urinary retention (2) Prostate enlargement (3) Renal failure, chronic Review of Systems Constitutional: Reports: weakness Eye: Reports: no symptoms ENT: Reports: no symptoms Respiratory: Reports: no symptoms Cardiovascular: Reports: no symptoms Gastrointestinal: Reports: no symptoms Genitourinary: Reports: dysuria, frequency, pain, retention Musculoskeletal: Reports: no symptoms Skin: Reports: no symptoms Psychiatric: Reports: no symptoms Neurological: Reports: no symptoms Endocrine: Reports: no symptoms Hematologic/Lymphatic: Reports: no symptoms Physical Exam General Appearance: WD/WN, no apparent distress, alert, lethargic, cachetic Lines, tubes and drains: dialysis access HEENT: normocephalic, atraumatic, anicteric, mucous membranes moist, PERRL Neck: non-tender, normal alignment, supple, normal inspection Respiratory/Chest: chest wall non-tender, lungs clear, normal breath sounds, no respiratory distress, no accessory muscle use Cardiovascular/Chest: normal peripheral pulses, normal rate, regular rhythm, no gallop/murmur, no JVD Abdomen: normal bowel sounds, non tender, soft, no organomegaly, no mass, abnormal bowel sounds Genitourinary/Rectal: normal genital exam Extremities: normal range of motion, non-tender, normal inspection, no calf tenderness, normal capillary refill Skin Exam: normal pigmentation, warm/dry Neurologic: plate former II-XII grossly normal, no motor/sensory deficits, alert, oriented x 3, responsive Musculoskeletal: normal muscle bulk, no effusion Last 24 Hour Vital Signs Date Time Temp Pulse Resp B/P (MAP) Pulse Ox O2 Delivery O2 Flow Rate FiO2 11/27/18 12:00 99.1 78 18 95/51 (66) 97 11/27/18 11:58 77 11/27/18 09:17 Room Air 11/27/18 08:11 80 133/70 11/27/18 08:00 98.4 80 18 133/70 (91) 97 11/27/18 07:57 92 11/27/18 04:00 82 11/27/18 04:00 98.4 82 18 153/91 (111) 97 11/27/18 00:00 98.9 82 18 128/58 (81) 95 11/27/18 00:00 82 11/26/18 21:00 Room Air 11/26/18 20:29 86 122/86 11/26/18 20:00 89 11/26/18 20:00 101.3 89 18 106/62 (77) 96 11/26/18 16:00 97.7 84 19 120/63 (82) 97 11/26/18 16:00 81 Intake and Output 11/26/18 11/27/18 19:00 07:00 Intake Total 1575 ml 1823.750 ml Output Total 2400 ml 600 ml Balance -825 ml 1223.750 ml Intake Oral 750 ml IV Total 825 ml 1103.750 ml Other 720 ml Output Urine Total 2400 ml 600 ml Laboratory Tests Test 11/26/18 16:15 11/26/18 16:27 11/27/18 08:05 White Blood Count 21.1 K/UL (4.8-10.8) H 19.5 K/UL (4.8-10.8) H Red Blood Count 2.82 M/UL (4.70-6.10) L 2.72 M/UL (4.70-6.10) L Hemoglobin 9.1 G/DL (14.2-18.0) L 8.7 G/DL (14.2-18.0) L Hematocrit 26.0 % (42.0-52.0) L 25.5 % (42.0-52.0) L Mean Corpuscular Volume 92 FL (80-99) 94 FL (80-99) Mean Corpuscular Hemoglobin 32.3 PG (27.0-31.0) H 31.9 PG (27.0-31.0) H Mean Corpuscular Hemoglobin Concent 35.1 G/DL (32.0-36.0) 33.9 G/DL (32.0-36.0) Red Cell Distribution Width 10.2 % (11.6-14.8) L 10.3 % (11.6-14.8) L Platelet Count 288 K/UL (150-450) 302 K/UL (150-450) Mean Platelet Volume 5.1 FL (6.5-10.1) L 5.5 FL (6.5-10.1) L Neutrophils (%) (Auto) % (45.0-75.0) % (45.0-75.0) Lymphocytes (%) (Auto) % (20.0-45.0) % (20.0-45.0) Monocytes (%) (Auto) % (1.0-10.0) % (1.0-10.0) Eosinophils (%) (Auto) % (0.0-3.0) % (0.0-3.0) Basophils (%) (Auto) % (0.0-2.0) % (0.0-2.0) Differential Total Cells Counted 100 100 Neutrophils % (Manual) 91 % (45-75) H 89 % (45-75) H Lymphocytes % (Manual) 2 % (20-45) L 5 % (20-45) L Monocytes % (Manual) 5 % (1-10) 6 % (1-10) Eosinophils % (Manual) 1 % (0-3) 0 % (0-3) Basophils % (Manual) 1 % (0-2) 0 % (0-2) Band Neutrophils 0 % (0-8) 0 % (0-8) Platelet Estimate Adequate Adequate Platelet Morphology Normal Normal Red Blood Cell Morphology Normal Normal Sodium Level 145 MMOL/L (136-145) 140 MMOL/L (136-145) Potassium Level 3.3 MMOL/L (3.5-5.1) L 4.1 MMOL/L (3.5-5.1) Chloride Level 102 MMOL/L (98-107) 101 MMOL/L (98-107) Carbon Dioxide Level 32 MMOL/L (21-32) 30 MMOL/L (21-32) Anion Gap 11 mmol/L (5-15) 9 mmol/L (5-15) Blood Urea Nitrogen 37 mg/dL (7-18) H 45 mg/dL (7-18) H Creatinine 2.6 MG/DL (0.55-1.30) #H 4.1 MG/DL (0.55-1.30) #H Estimat Glomerular Filtration Rate mL/min (>60) mL/min (>60) Glucose Level 97 MG/DL (74-106) 160 MG/DL (74-106) H Calcium Level 8.2 MG/DL (8.5-10.1) L 8.3 MG/DL (8.5-10.1) L Magnesium Level 1.6 MG/DL (1.8-2.4) L Total Bilirubin 0.3 MG/DL (0.2-1.0) Direct Bilirubin < 0.1 MG/DL (0.0-0.3) Aspartate Amino Transf (AST/SGOT) 61 U/L (15-37) H Alanine Aminotransferase (ALT/SGPT) 114 U/L (12-78) H Alkaline Phosphatase 124 U/L (46-116) H Total Creatine Kinase 39 U/L (26-308) Total Protein 6.5 G/DL (6.4-8.2) Albumin 2.2 G/DL (3.4-5.0) L Height (Feet): 5 Height (Inches): 8.00 Weight (Pounds): 160 Medications Current Medications Medications (Trade) Dose Ordered Sig/Debbie Route PRN Reason Start Time Stop Time Status Last Admin Dose Admin Acetaminophen (Tylenol) 650 mg Q6H PRN ORAL Mild Pain/Temp > 100.5 11/22/18 03:15 12/22/18 03:14 Al Hydroxide/Mg Hydroxide (Mylanta) 30 ml Q6H PRN ORAL GERD 11/22/18 03:15 12/22/18 03:14 Daptomycin 700 mg/ Sodium Chloride 55 ml @ 100 mls/hr Q48H IV 11/27/18 14:00 12/04/18 13:59 11/27/18 14:04 Docusate Sodium (Colace) 100 mg TWICE A DAY ORAL 11/25/18 09:00 12/25/18 08:59 11/27/18 08:11 Epoetin Tommy (Epoetin Tommy(ESRD on dialysis)) 2,000 unit WED-WED-WED SUBQ 11/23/18 21:00 12/23/18 20:59 11/25/18 21:03 Epoetin Tommy (Epoetin Tommy(ESRD on dialysis)) 3,000 unit WED-WED-WED SUBQ 11/23/18 21:00 12/23/18 20:59 11/25/18 21:03 Finasteride (Proscar) 5 mg DAILY ORAL 11/25/18 09:00 12/25/18 08:59 11/27/18 08:11 Heparin Sodium (Porcine) (Heparin 5000 units/ml) 5,000 units EVERY 12 HOURS SUBQ 11/22/18 09:00 12/22/18 08:59 11/27/18 08:13 Magnesium Hydroxide (Mom) 30 ml BIDPRN PRN ORAL Constipation 11/26/18 12:45 12/26/18 12:44 11/26/18 21:59 Meclizine HCl (Antivert) 25 mg TIDPRN PRN ORAL for dizziness 11/23/18 18:15 12/23/18 18:14 Meropenem 500 mg/ Sodium Chloride 55 ml @ 110 mls/hr Q12H IVPB 11/26/18 23:00 12/01/18 22:59 11/27/18 09:58 Metoprolol Tartrate (Lopressor) 25 mg Q12HR ORAL 11/22/18 21:00 12/22/18 20:59 11/27/18 08:11 Ondansetron HCl (Zofran) 4 mg Q6H PRN IVP Nausea & Vomiting 11/24/18 09:30 12/24/18 09:29 11/26/18 23:02 Pantoprazole (Protonix) 40 mg DAILY ORAL 11/26/18 09:00 12/26/18 08:59 11/27/18 08:14 Sodium Chloride 1,000 ml @ 75 mls/hr [id number] IV 11/23/18 18:15 12/23/18 18:14 11/27/18 05:56 Tamsulosin HCl (Flomax) 0.4 mg BEDTIME ORAL 11/24/18 23:00 12/24/18 22:59 11/26/18 20:30 Assessment/Plan Problem List: (1) Sepsis due to Enterococcus with acute renal failure and metabolic encephalopathy Assessment & Plan: source most likely tract with obstruction , may need also to rule out GI malignancy (colon CA) . continue vancomycin renally dosed as per pharmacy for now , MAY SWITCH TO DAPTOMYCIN to avoid nephrotoxicity . will obtain blood culture x2. add meropenem empirically to cover for sepsis . recommend MURPHY to rule out endocarditis . may need to remove HD catheter since it was placed after he was bacteremic ICD Codes: A41.81 - Sepsis due to Enterococcus; R65.20 - Severe sepsis without septic shock; G93.41 - Metabolic encephalopathy; N17.9 - Acute kidney failure, unspecified SNOMED: 48302538, 08047072, 454062423, [id number] (2) Hydronephrosis Assessment & Plan: most likely the source of his bacteremia with enterococcus faecalis , with worsening renal failure , suspect enlarged prostate , with elevated PSA rule out prostate CA , recommend oncology work up and possible prostatectomy once clinically stable ICD Codes: N13.30 - Unspecified hydronephrosis SNOMED: 45444846 (3) Acute on chronic renal failure Assessment & Plan: required HD , catheter need to be removed since it was placed while bacteremic , D/W renal and PCP ICD Codes: N17.9 - Acute kidney failure, unspecified; N18.9 - Chronic kidney disease, unspecified SNOMED: 800284752 (4) Acute encephalopathy Assessment & Plan: suspect metabolic and toxic , monitor mental status, avoid nephrotoxics , neurology is following , may need MRI of the brain ICD Codes: G93.40 - Encephalopathy, unspecified SNOMED: 27887312, 636550583 (5) Prostate enlargement Assessment & Plan: with elevated PSA, rule out malignant process, recommend rectal US to evaluate the prostate and for possible biopsy to rule out malignancy . ICD Codes: N40.0 - Benign prostatic hyperplasia without lower urinary tract symptoms SNOMED: 161429987 Mckinley Fisher M.D. Nov 27, 2018 14:55
--- NOTE | 2018-11-27 15:29 | NUR ---
NURSE NOTES: per Dr Sosa isabel cath to be removed by interventional radiology (IR) pt awake alert, aware of need to remove isabel cath no distress no sob. daughter at bedside. call light within reach.
[2018-11-27 16:21] VITALS: BP 106/64
[2018-11-27] MEDS ORDERED: Magnesium Citrate Liq Btl ORAL SCH (17:00)
--- NOTE | 2018-11-27 19:15 | NUR ---
HAND-OFF: Report given to CORDELL PARRA.
--- NOTE | 2018-11-27 19:16 | NUR ---
NURSE NOTES: Received pt from AIDA Rodriguez. Patient awake and resting in bed. IV line intact and patent. Bed in lowest position, call light within reach. Will continue with plan of care.
--- NOTE | 2018-11-27 19:26 | Neurology Progress Note ---
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 The mind is clearer today. He has been less lightheaded when he sits. He was up in the chair for a few hours. He also walked ~ 50 feet today. He has had no further episodes of loss of consciousness. His cognitive function has improved. His motor function is also better. He denies any new neurological symptoms. He specifically denies any weakness on one side or the other, numbness on one side or the other, problems with speech problems with language problems with vision problems with memory. Review of Systems Neuro Review of Systems Benign. Objective Physical Exam Last Vital Signs Date Time Temp Pulse Resp B/P (MAP) Pulse Ox O2 Delivery O2 Flow Rate FiO2 11/27/18 16:21 99.7 80 18 106/64 (78) 97 11/27/18 09:17 Room Air 11/22/18 03:58 21 Laboratory Tests Test 11/27/18 08:05 White Blood Count 19.5 K/UL (4.8-10.8) H Red Blood Count 2.72 M/UL (4.70-6.10) L Hemoglobin 8.7 G/DL (14.2-18.0) L Hematocrit 25.5 % (42.0-52.0) L Mean Corpuscular Volume 94 FL (80-99) Mean Corpuscular Hemoglobin 31.9 PG (27.0-31.0) H Mean Corpuscular Hemoglobin Concent 33.9 G/DL (32.0-36.0) Red Cell Distribution Width 10.3 % (11.6-14.8) L Platelet Count 302 K/UL (150-450) Mean Platelet Volume 5.5 FL (6.5-10.1) L Neutrophils (%) (Auto) % (45.0-75.0) Lymphocytes (%) (Auto) % (20.0-45.0) Monocytes (%) (Auto) % (1.0-10.0) Eosinophils (%) (Auto) % (0.0-3.0) Basophils (%) (Auto) % (0.0-2.0) Differential Total Cells Counted 100 Neutrophils % (Manual) 89 % (45-75) H Lymphocytes % (Manual) 5 % (20-45) L Monocytes % (Manual) 6 % (1-10) Eosinophils % (Manual) 0 % (0-3) Basophils % (Manual) 0 % (0-2) Band Neutrophils 0 % (0-8) Platelet Estimate Adequate Platelet Morphology Normal Red Blood Cell Morphology Normal Sodium Level 140 MMOL/L (136-145) Potassium Level 4.1 MMOL/L (3.5-5.1) Chloride Level 101 MMOL/L (98-107) Carbon Dioxide Level 30 MMOL/L (21-32) Anion Gap 9 mmol/L (5-15) Blood Urea Nitrogen 45 mg/dL (7-18) H Creatinine 4.1 MG/DL (0.55-1.30) #H Estimat Glomerular Filtration Rate mL/min (>60) Glucose Level 160 MG/DL (74-106) H Calcium Level 8.3 MG/DL (8.5-10.1) L Magnesium Level 1.6 MG/DL (1.8-2.4) L Total Bilirubin 0.3 MG/DL (0.2-1.0) Direct Bilirubin < 0.1 MG/DL (0.0-0.3) Aspartate Amino Transf (AST/SGOT) 61 U/L (15-37) H Alanine Aminotransferase (ALT/SGPT) 114 U/L (12-78) H Alkaline Phosphatase 124 U/L (46-116) H Total Creatine Kinase 39 U/L (26-308) Total Protein 6.5 G/DL (6.4-8.2) Albumin 2.2 G/DL (3.4-5.0) L Neurologic Exam Objective PHYSICAL EXAMINATION: GENERAL: He is a well-developed, well-nourished, pleasant gentleman, lying in bed, in no acute distress. HEAD: Normocephalic and atraumatic. EENT: Examination benign. NECK: No neck rigidity was observed. NEUROLOGIC EXAMINATION: MENTAL STATUS EXAMINATION: He was awake and alert. He was oriented to person, place, and time. He was able to recall 3/3 words immediately after 1 minute and after 3 minutes. He was able to remember presidents, Trump through Trujillo senior. His mathematical skills were good. His visuospatial function was preserved. SPEECH: He had no dysarthria. LANGUAGE: He had no aphasia. CRANIAL NERVE EXAMINATION: II: The visual caal were intact on confrontation testing. III, IV & : The external ocular movements were full and the pupils 3 mm in diameter, equal, round, regular, and reactive to light. V: He had normal facial sensations, and the temporales, masseters, and pterygoids functioned normally. VII: He had normal facial expressions and no facial asymmetry. VIII: He was able to hear well bilaterally and had no nystagmus. IX: The palate moved symmetrically on phonation. X: He had no hoarseness of voice. XI: The sternocleidomastoids and trapezii functioned normally. XII: The tongue was in the midline without any fasciculations or atrophy. MOTOR SYSTEM: The tone was normal in all four extremities. Examination of muscle mass revealed no focal wasting. Examination of power revealed G 5/5 power in all muscle groups tested. SENSORY EXAMINATION: He had intact sensations to pinprick, light touch, and graphesthesia. COORDINATION: He performed well on [id number] and [id number] testing. REFLEXES: 2+ and bilaterally symmetrical at the biceps, triceps, and brachioradialis. 2++ at both knees, 0 at both ankles. The plantar responses were flexor bilaterally. STANCE & GAIT: Were deferred. Impression/Recommendations Diagnostic Impression 1. 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 2. Since he has been in the hospital, he has continued to feel unwell and has had lightheadedness whenever he tries to sit up, stand, and walk. On 1 occasion on 11/23/18, he started to feel lightheaded while sitting up, then passed out for brief period of time, and had some generalized body jerking movements. He rapidly regained consciousness following that. 3. He feels relatively well. The mind is clearer today. He has been less lightheaded when he sits. He was up in the chair for a few hours. He also walked ~ 50 feet today. He has had no further episodes of loss of consciousness. His cognitive function has improved. His motor function is also better. He denies any new neurological symptoms. 4. On neurological examination, at this time, his memory has normalized however he has mild slowing of cerebration. He has brisk deep tendon reflexes at the knees and absent ankle jerks, and needs support to sit stand and walk. 5. Laboratory data on my initial evaluation revealed that his WBC count was elevated to 15,300. He was significantly anemic with a hemoglobin of 8.7 G. His chemistry panel revealed that his potassium was low at 3.1. His BUN was elevated at 173 with a creatinine of 10.1. His proBNP was elevated to 1278. His vitamin B12 level was normal at 1394. His folate level was normal at 25.3. His TSH was normal at 1.42. His INR was normal at 1.0. His urinalysis revealed 1+ leukocyte esterase with 2 red blood cells, and 2 white blood cells per high-power field. 6. The CT of the brain reveals no acute pathology. 7. EEG done on 11/24/2018 revealed triphasic waveforms with an anterior to posterior gradient but normal background and no interictal or ictal phenomena. These findings are consistent with a mild metabolic encephalopathy. 8. The patient's history, neurological examination, laboratory data, imaging studies and EEG are most consistent with lightheadedness due to fluid and electrolyte imbalance. 9. The episode that the patient had 11/23/18 where he felt lightheaded, then passed out, and had some abnormal body jerking movements was most probably a Matias-Anthony attack. 10. The patient does have some mild cognitive dysfunction, which is due to an ongoing metabolic encephalopathic process. Recommendations 1. Continue present management. 2. Continue to correct the patient's fluid and electrolyte imbalances. 3. Frequent range of motion exercises. 4. Out of bed in chair. 5. Mobilize with PT and multiple daily walks. 6. Observe closely. Janak Chandra M.D., M.S.P.Sharif. Janak Chandra MD Nov 27, 2018 19:26
[2018-11-27 20:00] VITALS: BP 115/65
[2018-11-27] MEDS: Tamsulosin 0.4mg cap ORAL SCH (21:13)
[2018-11-28] VITALS: BP 114/61
--- NOTE | 2018-11-28 00:08 | General Progress Note ---
Assessment/Plan Assessment/Plan sepsis acute renal failure hyperkalemia obstructive uropathy bph elevated troponin ho htn anemia confustion encephalopathy likiely secondary to uremia resolved vomiting likely secondary to uremia short syncopal episode leukocytosis constiaption abx per ID will likely need dialysis cathter revmoved consider MURPHY dw Dr Fisher and Dr Sosa has johnson, urolgy fup bun/creatine still high echo noted ct of head noted neurolgy evaluation appreciated bp controlled monitor labs dvt and ulcer prophylaxis ambulate PT magcitrate for consitapiton, didnt like lactulose Subjective Allergies: Coded Allergies: No Known Allergies (Unverified , 11/21/18) Subjective this note reflect visit 11/27 with patient seen morro no nausea constipated no abdominal pain no chest painor sob, feels better Objective Last 24 Hour Vital Signs Date Time Temp Pulse Resp B/P (MAP) Pulse Ox O2 Delivery O2 Flow Rate FiO2 11/27/18 21:18 85 117/63 11/27/18 20:00 88 11/27/18 20:00 99.2 88 18 115/65 (82) 97 11/27/18 16:21 99.7 80 18 106/64 (78) 97 11/27/18 15:35 80 11/27/18 12:00 99.1 78 18 95/51 (66) 97 11/27/18 11:58 77 11/27/18 09:17 Room Air 11/27/18 08:11 80 133/70 11/27/18 08:00 98.4 80 18 133/70 (91) 97 11/27/18 07:57 92 11/27/18 04:00 82 11/27/18 04:00 98.4 82 18 153/91 (111) 97 Intake and Output 11/27/18 11/28/18 19:00 07:00 Intake Total 1805 ml Output Total 2300 ml Balance -495 ml Intake Oral 1120 ml IV Total 685 ml Output Urine Total 2300 ml Laboratory Tests 11/27/18 08:05: White Blood Count 19.5H, Red Blood Count 2.72L, Hemoglobin 8.7L, Hematocrit 25.5L, Mean Corpuscular Volume 94, Mean Corpuscular Hemoglobin 31.9H, Mean Corpuscular Hemoglobin Concent 33.9, Red Cell Distribution Width 10.3L, Platelet Count 302, Mean Platelet Volume 5.5L, Neutrophils (%) (Auto) , Lymphocytes (%) (Auto) , Monocytes (%) (Auto) , Eosinophils (%) (Auto) , Basophils (%) (Auto) , Differential Total Cells Counted 100, Neutrophils % ( Manual) 89H, Lymphocytes % (Manual) 5L, Monocytes % (Manual) 6, Eosinophils % ( Manual) 0, Basophils % (Manual) 0, Band Neutrophils 0, Platelet Estimate Adequate, Platelet Morphology Normal, Red Blood Cell Morphology Normal, Sodium Level 140, Potassium Level 4.1, Chloride Level 101, Carbon Dioxide Level 30, Anion Gap 9, Blood Urea Nitrogen 45H, Creatinine 4.1#H, Estimat Glomerular Filtration Rate , Glucose Level 160H, Calcium Level 8.3L, Magnesium Level 1.6L, Total Bilirubin 0.3, Direct Bilirubin < 0.1, Aspartate Amino Transf (AST/SGOT) 61H, Alanine Aminotransferase (ALT/SGPT) 114H, Alkaline Phosphatase 124H, Total Creatine Kinase 39, Total Protein 6.5, Albumin 2.2L Height (Feet): 5 Height (Inches): 8.00 Weight (Pounds): 160 General Appearance: WD/WN, no apparent distress Neck: supple Cardiovascular: normal rate Respiratory/Chest: lungs clear Abdomen: soft Objective right dilaysis Dane Malik MD Nov 28, 2018 00:08
[2018-11-28 04:50] VITALS: BP 125/69
--- NOTE | 2018-11-28 07:20 | NUR ---
HAND-OFF: Report given to AIDA Morejon.
--- NOTE | 2018-11-28 07:59 | NUR ---
NURSE NOTES: Patient sitting in semi-[place]'s position, awake and alert x 4, bed in lowest position, call light within reach, no c/o pain, no SOB, in no apparent distress.
[2018-11-28 08:00] VITALS: BP 127/71
[2018-11-28 08:43] LABS: HEMATOCRIT 23.6 % (42.0-52.0); HEMOGLOBIN 8.1 G/DL (14.2-18.0); MEAN CORPUSCULAR VOLUME 94 FL (80-99); PLATELET COUNT 319 K/UL (150-450); RED BLOOD COUNT 2.51 M/UL (4.70-6.10); RED CELL DISTRIBUTION WIDTH 10.8 % (11.6-14.8)
[2018-11-28] MEDS: Docusate 100mg cap ORAL SCH ×2 (08:51→18:50)
[2018-11-28] MEDS: Metoprolol 25mg tab ORAL SCH ×2 (08:52→21:18)
[2018-11-28 09:00] LABS: ANION GAP 9 mmol/L (5-15); BLOOD UREA NITROGEN 58 mg/dL (7-18); CALCIUM 8.1 MG/DL (8.5-10.1); CARBON DIOXIDE 27 MMOL/L (21-32); CHLORIDE 102 MMOL/L (98-107); CREATININE 4.4 MG/DL (0.55-1.30); POTASSIUM 3.9 MMOL/L (3.5-5.1); SODIUM 138 MMOL/L (136-145)
[2018-11-28] MEDS: Heparin 5000 units/ml inj SUBQ SCH ×2 (09:00→21:00)
--- NOTE | 2018-11-28 09:31 | Urology Progress Note ---
Assessment/Plan Assessment/Plan 1. Urinary retention history. 2. Benign prostatic hypertrophy. 3. Possible neurogenic bladder. 4. Hematuria. 5. Renal failure, which appears to be acute on chronic, improving. 6. Hydronephrosis. 7. Proteinuria. 8. Meatal stenosis and stricture history. 9. Inguinal hernia. monitor clinically johnson hand irrigated and do PRN HD as needed per nephrology monitor renal fxn closely flomax and proscar added cysto later voiding trial at some point? reimage kidneys later Subjective Allergies: Coded Allergies: No Known Allergies (Unverified , 11/21/18) Subjective all noted, feels fair Objective Last 24 Hour Vital Signs Date Time Temp Pulse Resp B/P (MAP) Pulse Ox O2 Delivery O2 Flow Rate FiO2 11/28/18 08:52 80 127/71 11/28/18 08:00 98.0 80 20 127/71 (89) 98 11/28/18 04:50 98.1 75 20 125/69 (87) 98 11/28/18 04:00 75 11/28/18 00:00 75 11/28/18 00:00 98.3 80 20 114/61 (78) 96 11/27/18 21:18 85 117/63 11/27/18 21:00 Room Air 11/27/18 20:00 88 11/27/18 20:00 99.2 88 18 115/65 (82) 97 11/27/18 16:21 99.7 80 18 106/64 (78) 97 11/27/18 15:35 80 11/27/18 12:00 99.1 78 18 95/51 (66) 97 11/27/18 11:58 77 Intake and Output 11/27/18 11/28/18 18:59 06:59 Intake Total 1805 ml 1085.0 ml Output Total 2300 ml 1900 ml Balance -495 ml -815.0 ml Intake Oral 1120 ml 700 ml IV Total 685 ml 385.0 ml Output Urine Total 2300 ml 1900 ml Microbiology Date/Time Source Procedure Growth Status 11/26/18 22:56 Blood Blood Culture - Preliminary NO GROWTH AFTER 24 HOURS Resulted 11/23/18 15:00 Stool Stool Culture - Preliminary NO SALMONELLA,SHIGELLA,OR CAMPYLOBACT... Resulted Current Medications Medications (Trade) Dose Ordered Sig/Debbie Route PRN Reason Start Time Stop Time Status Last Admin Dose Admin Acetaminophen (Tylenol) 650 mg Q6H PRN ORAL Mild Pain/Temp > 100.5 11/22/18 03:15 12/22/18 03:14 Al Hydroxide/Mg Hydroxide (Mylanta) 30 ml Q6H PRN ORAL GERD 11/22/18 03:15 12/22/18 03:14 Daptomycin 700 mg/ Sodium Chloride 55 ml @ 100 mls/hr Q48H IV 11/27/18 14:00 12/04/18 13:59 11/27/18 14:04 Docusate Sodium (Colace) 100 mg TWICE A DAY ORAL 11/25/18 09:00 12/25/18 08:59 11/28/18 08:51 Epoetin Tommy (Epoetin Tommy(ESRD on dialysis)) 2,000 unit WED-WED-WED SUBQ 11/23/18 21:00 12/23/18 20:59 11/25/18 21:03 Epoetin Tommy (Epoetin Tommy(ESRD on dialysis)) 3,000 unit WED- SUBQ 11/23/18 21:00 12/23/18 20:59 11/25/18 21:03 Finasteride (Proscar) 5 mg DAILY ORAL 11/25/18 09:00 12/25/18 08:59 11/28/18 08:52 Heparin Sodium (Porcine) (Heparin 5000 units/ml) 5,000 units EVERY 12 HOURS SUBQ 11/22/18 09:00 12/22/18 08:59 11/27/18 21:13 Magnesium Hydroxide (Mom) 30 ml BIDPRN PRN ORAL Constipation 11/26/18 12:45 12/26/18 12:44 11/26/18 21:59 Meclizine HCl (Antivert) 25 mg TIDPRN PRN ORAL for dizziness 11/23/18 18:15 12/23/18 18:14 Meropenem 500 mg/ Sodium Chloride 55 ml @ 110 mls/hr Q12H IVPB 11/26/18 23:00 12/01/18 22:59 11/27/18 22:36 Metoprolol Tartrate (Lopressor) 25 mg Q12HR ORAL 11/22/18 21:00 12/22/18 20:59 11/28/18 08:52 Ondansetron HCl (Zofran) 4 mg Q6H PRN IVP Nausea & Vomiting 11/24/18 09:30 12/24/18 09:29 11/26/18 23:02 Pantoprazole (Protonix) 40 mg DAILY ORAL 11/26/18 09:00 12/26/18 08:59 11/28/18 08:52 Sodium Chloride 1,000 ml @ 75 mls/hr [id number] IV 11/23/18 18:15 12/23/18 18:14 11/27/18 22:37 Tamsulosin HCl (Flomax) 0.4 mg BEDTIME ORAL 11/24/18 23:00 12/24/18 22:59 11/27/18 21:13 Laboratory Tests 11/28/18 07:15: White Blood Count 17.0H, Red Blood Count 2.51L, Hemoglobin 8.1L, Hematocrit 23.6L, Mean Corpuscular Volume 94, Mean Corpuscular Hemoglobin 32.0H, Mean Corpuscular Hemoglobin Concent 34.1, Red Cell Distribution Width 10.8L, Platelet Count 319, Mean Platelet Volume 5.4L, Neutrophils (%) (Auto) , Lymphocytes (%) (Auto) , Monocytes (%) (Auto) , Eosinophils (%) (Auto) , Basophils (%) (Auto) , Neutrophils % (Manual) [Pending], Lymphocytes % (Manual) [Pending], Platelet Estimate [Pending], Platelet Morphology [Pending], Sodium Level 138, Potassium Level 3.9, Chloride Level 102, Carbon Dioxide Level 27, Anion Gap 9, Blood Urea Nitrogen 58H, Creatinine 4.4H, Estimat Glomerular Filtration Rate , Glucose Level 92, Calcium Level 8.1L, Random Vancomycin Level 10.5 Height (Feet): 5 Height (Inches): 8.00 Weight (Pounds): 160 Objective exam stable, urine clearing, has some debris Geraldo Wise MD Nov 28, 2018 09:31
--- NOTE | 2018-11-28 09:49 | NUR ---
NURSE NOTES: Magnesium citrate removed from patient's bedside.
--- NOTE | 2018-11-28 11:01 | NUR ---
*-* INSURANCE *-* UPDATED CLINICALS AND REVIEW FAXED TO: ANATOLIY HENDRICKS:NORMA P:[phone] F:[phone] REF# [id number]
[2018-11-28] MEDS: Meropenem 500 MG in NS 55 ML IVPB SCH (11:16)
[2018-11-28 12:00] VITALS: BP 107/56
--- NOTE | 2018-11-28 12:20 | Nephrology Progress Note ---
Assessment/Plan Problem List: (1) Acute on chronic renal failure Assessment: S creatinine not much changed. off HD (2) Urinary retention (3) Hyperkalemia Assessment: ok (4) Metabolic acidosis (5) Uremia (6) Bacteremia due to Enterococcus Plan Dc Catheter abxs IVF follow labs off HD Subjective Subjective no nausea today Objective Objective Last 24 Hour Vital Signs Date Time Temp Pulse Resp B/P (MAP) Pulse Ox O2 Delivery O2 Flow Rate FiO2 11/28/18 09:00 Room Air 11/28/18 08:52 80 127/71 11/28/18 08:00 86 11/28/18 08:00 98.0 80 20 127/71 (89) 98 11/28/18 04:50 98.1 75 20 125/69 (87) 98 11/28/18 04:00 75 11/28/18 00:00 75 11/28/18 00:00 98.3 80 20 114/61 (78) 96 11/27/18 21:18 85 117/63 11/27/18 21:00 Room Air 11/27/18 20:00 88 11/27/18 20:00 99.2 88 18 115/65 (82) 97 11/27/18 16:21 99.7 80 18 106/64 (78) 97 11/27/18 15:35 80 Intake and Output 11/27/18 11/28/18 18:59 06:59 Intake Total 1805 ml 1085.0 ml Output Total 2300 ml 1900 ml Balance -495 ml -815.0 ml Intake Oral 1120 ml 700 ml IV Total 685 ml 385.0 ml Output Urine Total 2300 ml 1900 ml Laboratory Tests 11/28/18 07:15: White Blood Count 17.0H, Red Blood Count 2.51L, Hemoglobin 8.1L, Hematocrit 23.6L, Mean Corpuscular Volume 94, Mean Corpuscular Hemoglobin 32.0H, Mean Corpuscular Hemoglobin Concent 34.1, Red Cell Distribution Width 10.8L, Platelet Count 319, Mean Platelet Volume 5.4L, Neutrophils (%) (Auto) , Lymphocytes (%) (Auto) , Monocytes (%) (Auto) , Eosinophils (%) (Auto) , Basophils (%) (Auto) , Neutrophils % (Manual) [Pending], Lymphocytes % (Manual) [Pending], Platelet Estimate [Pending], Platelet Morphology [Pending], Sodium Level 138, Potassium Level 3.9, Chloride Level 102, Carbon Dioxide Level 27, Anion Gap 9, Blood Urea Nitrogen 58H, Creatinine 4.4H, Estimat Glomerular Filtration Rate , Glucose Level 92, Calcium Level 8.1L, Random Vancomycin Level 10.5 Height (Feet): 5 Height (Inches): 8.00 Weight (Pounds): 160 Cardiovascular: normal rate Respiratory/Chest: lungs clear Michael Sosa MD Nov 28, 2018 12:20
--- NOTE | 2018-11-28 15:27 | Infectious Diseases Prog Note ---
Assessment/Plan Problems: (1) Sepsis due to Enterococcus with acute renal failure and metabolic encephalopathy Assessment & Plan: source most likely tract with obstruction , may need also to rule out GI malignancy (colon CA) . continue daptomycin renally dosed as per pharmacy to avoid nephrotoxicity . repeated blood culture x2 on 11/26 is NTD . will stop meropenem empirically . HD catheter to be removed today and tip to be sent for culture , since it was placed after he was bacteremic (2) Hydronephrosis Assessment & Plan: with obstructive uropathy most likely the source of his bacteremia with enterococcus faecalis , with worsening renal failure , suspect enlarged prostate , with elevated PSA, rule out prostate CA , recommend oncology work up and possible prostatectomy once clinically stable (3) Acute on chronic renal failure Assessment & Plan: now improving , required HD , his HD catheter need to be removed since it was placed while bacteremic , avoid nephrotoxicity (4) Acute encephalopathy Assessment & Plan: suspect metabolic and toxic , improving , monitor mental status, avoid nephrotoxics , neurology is following Subjective Constitutional: Reports: no symptoms HEENT: Reports: no symptoms Respiratory: Reports: no symptoms Breasts: Reports: no symptoms Cardiovascular: Reports: no symptoms Gastrointestinal/Abdominal: Reports: no symptoms Genitourinary: Reports: no symptoms Neurologic: Reports: weakness Psychiatric: Reports: no symptoms Skin: Reports: no symptoms Endocrine: Reports: no symptoms Hematologic: Reports: no symptoms Musculoskeletal: Reports: pain, stiffness, other - when he opens his mouth or eat Allergies: Coded Allergies: No Known Allergies (Unverified , 11/21/18) Subjective He was feeling better , no fever or chills no cough or SOB, no diarrhea, has discomfort at the right IJ HD catheter site Objective Vital Signs Last 24 Hour Vital Signs Date Time Temp Pulse Resp B/P (MAP) Pulse Ox O2 Delivery O2 Flow Rate FiO2 11/28/18 09:00 Room Air 11/28/18 08:52 80 127/71 11/28/18 08:00 86 11/28/18 08:00 98.0 80 20 127/71 (89) 98 11/28/18 04:50 98.1 75 20 125/69 (87) 98 11/28/18 04:00 75 11/28/18 00:00 75 11/28/18 00:00 98.3 80 20 114/61 (78) 96 11/27/18 21:18 85 117/63 11/27/18 21:00 Room Air 11/27/18 20:00 88 11/27/18 20:00 99.2 88 18 115/65 (82) 97 11/27/18 16:21 99.7 80 18 106/64 (78) 97 11/27/18 15:35 80 Height (Feet): 5 Height (Inches): 8.00 Weight (Pounds): 160 General Appearance: WD/WN, no acute distress, cachetic HEENT: normocephalic, atraumatic, anicteric, mucous membranes moist, PERRL, pharynx normal, supple, no JVD Respiratory/Chest: chest wall non-tender, lungs clear, normal breath sounds, no respiratory distress, no accessory muscle use Cardiovascular: normal peripheral pulses, normal rate, regular rhythm, no gallop/murmur, no JVD Abdomen: normal bowel sounds, soft, non tender, no organomegaly, non distended , no mass, no scars Extremities: no cyanosis, no clubbing Skin: no rash, no lesions, no ulcers Neurologic/Psychiatric: flight 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-XII grossly normal, no motor/sensory deficits, alert, oriented x 3, responsive Lymphatic: no neck adenopathy, no groin adenopathy Musculoskeletal: normal muscle bulk, no effusion Microbiology Date/Time Source Procedure Growth Status 11/26/18 22:56 Blood Blood Culture - Preliminary NO GROWTH AFTER 24 HOURS Resulted 11/26/18 22:50 Blood Blood Culture - Preliminary NO GROWTH AFTER 24 HOURS Resulted Laboratory Tests Test 11/28/18 07:15 White Blood Count 17.0 K/UL (4.8-10.8) H Red Blood Count 2.51 M/UL (4.70-6.10) L Hemoglobin 8.1 G/DL (14.2-18.0) L Hematocrit 23.6 % (42.0-52.0) L Mean Corpuscular Volume 94 FL (80-99) Mean Corpuscular Hemoglobin 32.0 PG (27.0-31.0) H Mean Corpuscular Hemoglobin Concent 34.1 G/DL (32.0-36.0) Red Cell Distribution Width 10.8 % (11.6-14.8) L Platelet Count 319 K/UL (150-450) Mean Platelet Volume 5.4 FL (6.5-10.1) L Neutrophils (%) (Auto) % (45.0-75.0) Lymphocytes (%) (Auto) % (20.0-45.0) Monocytes (%) (Auto) % (1.0-10.0) Eosinophils (%) (Auto) % (0.0-3.0) Basophils (%) (Auto) % (0.0-2.0) Differential Total Cells Counted 100 Neutrophils % (Manual) 90 % (45-75) H Lymphocytes % (Manual) 4 % (20-45) L Monocytes % (Manual) 5 % (1-10) Eosinophils % (Manual) 1 % (0-3) Basophils % (Manual) 0 % (0-2) Band Neutrophils 0 % (0-8) Platelet Estimate Adequate Platelet Morphology Normal Red Blood Cell Morphology Normal Sodium Level 138 MMOL/L (136-145) Potassium Level 3.9 MMOL/L (3.5-5.1) Chloride Level 102 MMOL/L (98-107) Carbon Dioxide Level 27 MMOL/L (21-32) Anion Gap 9 mmol/L (5-15) Blood Urea Nitrogen 58 mg/dL (7-18) H Creatinine 4.4 MG/DL (0.55-1.30) H Estimat Glomerular Filtration Rate mL/min (>60) Glucose Level 92 MG/DL (74-106) Calcium Level 8.1 MG/DL (8.5-10.1) L Random Vancomycin Level 10.5 ug/mL Current Medications Medications (Trade) Dose Ordered Sig/Debbie Route PRN Reason Start Time Stop Time Status Last Admin Dose Admin Acetaminophen (Tylenol) 650 mg Q6H PRN ORAL Mild Pain/Temp > 100.5 11/22/18 03:15 12/22/18 03:14 Al Hydroxide/Mg Hydroxide (Mylanta) 30 ml Q6H PRN ORAL GERD 11/22/18 03:15 12/22/18 03:14 Bisacodyl (Dulcolax) 10 mg ONCE RECTAL 11/28/18 18:00 11/28/18 20:00 Daptomycin 700 mg/ Sodium Chloride 55 ml @ 100 mls/hr Q48H IV 11/27/18 14:00 12/04/18 13:59 11/27/18 14:04 Docusate Sodium (Colace) 100 mg TWICE A DAY ORAL 11/25/18 09:00 12/25/18 08:59 11/28/18 08:51 Epoetin Tommy (Epoetin Tommy(ESRD on dialysis)) 2,000 unit WED- SUBQ 11/23/18 21:00 12/23/18 20:59 11/25/18 21:03 Epoetin Tommy (Epoetin Tommy(ESRD on dialysis)) 3,000 unit SUBQ 11/23/18 21:00 12/23/18 20:59 11/25/18 21:03 Finasteride (Proscar) 5 mg DAILY ORAL 11/25/18 09:00 12/25/18 08:59 11/28/18 08:52 Heparin Sodium (Porcine) (Heparin 5000 units/ml) 5,000 units EVERY 12 HOURS SUBQ 11/22/18 09:00 12/22/18 08:59 11/27/18 21:13 Magnesium Hydroxide (Mom) 30 ml BIDPRN PRN ORAL Constipation 11/26/18 12:45 12/26/18 12:44 11/26/18 21:59 Meclizine HCl (Antivert) 25 mg TIDPRN PRN ORAL for dizziness 11/23/18 18:15 12/23/18 18:14 Metoprolol Tartrate (Lopressor) 25 mg Q12HR ORAL 11/22/18 21:00 12/22/18 20:59 11/28/18 08:52 Ondansetron HCl (Zofran) 4 mg Q6H PRN IVP Nausea & Vomiting 11/24/18 09:30 12/24/18 09:29 11/26/18 23:02 Pantoprazole (Protonix) 40 mg DAILY ORAL 11/26/18 09:00 12/26/18 08:59 11/28/18 08:52 Sodium Chloride 1,000 ml @ 75 mls/hr [id number] IV 11/23/18 18:15 12/23/18 18:14 11/27/18 22:37 Tamsulosin HCl (Flomax) 0.4 mg BEDTIME ORAL 11/24/18 23:00 12/24/18 22:59 11/27/18 21:13 Mckinley Fisher M.D. Nov 28, 2018 15:27
--- NOTE | 2018-11-28 15:42 | NUR ---
DISCHARGE PLANNING PATIENT HAS BEEN REFERRED TO [facility] PER MD'S ORDER [facility] T: [phone] F: [phone] AWAITING RESPONSE
--- NOTE | 2018-11-28 15:43 | Cardiac Electrophysiology PN ---
Assessment/Plan Assessment/Plan 1. Troponin leak. The levels are nonspecific and flat 0.5, 0.5, 0.2. Denies any chest pain. This is due to the patient's renal failure with creatinine of 14. EKG shows sinus rhythm with no acute ST-T wave abnormalities. Echocardiogram EF 65%. On aspirin and beta-agueda Lower extremity duplex showed no evidence of DVT. 2. Recurrent atrial flutter on 11/24 and 11/25/18. Both terminated spontaneously On Metoprolol 25 bid. ? nursing home anticoagulation 3. Hyperkalemia. Potassium was 7 and is down to 4.1. S/P sodium bicarbonate and Kayexalate. On HD by Dr. Sosa. 4. Acute on chronic renal failure. Further evaluation by Dr. Sosa. Had Cecil catheter for HD. Celine to be removed today. No further 5. Syncope. ? etiology. Nl EF. No . Could be due to atrial flutter with RVR ? Neuro eval 6. High PSA Fu Dr Alvarez 7. Sepsis, source most likely tract , may need also to rule out GI malignancy. On daptomycin. Repeated blood culture x2 on 11/26 is NTD . HD catheter to be removed today and tip to be sent for culture , since it was placed after he was bacteremic per Dr Phillip PETERSON RN Subjective Subjective No CP or SOB. Had transient atrial fib with RVR 150s on 11/25/18 at 3 pm. Objective Last 24 Hour Vital Signs Date Time Temp Pulse Resp B/P (MAP) Pulse Ox O2 Delivery O2 Flow Rate FiO2 11/28/18 09:00 Room Air 11/28/18 08:52 80 127/71 11/28/18 08:00 86 11/28/18 08:00 98.0 80 20 127/71 (89) 98 11/28/18 04:50 98.1 75 20 125/69 (87) 98 11/28/18 04:00 75 11/28/18 00:00 75 11/28/18 00:00 98.3 80 20 114/61 (78) 96 11/27/18 21:18 85 117/63 11/27/18 21:00 Room Air 11/27/18 20:00 88 11/27/18 20:00 99.2 88 18 115/65 (82) 97 11/27/18 16:21 99.7 80 18 106/64 (78) 97 11/27/18 15:35 80 Intake and Output 11/27/18 11/28/18 18:59 06:59 Intake Total 1805 ml 1085.0 ml Output Total 2300 ml 1900 ml Balance -495 ml -815.0 ml Intake Oral 1120 ml 700 ml IV Total 685 ml 385.0 ml Output Urine Total 2300 ml 1900 ml Laboratory Tests Test 11/28/18 07:15 White Blood Count 17.0 K/UL (4.8-10.8) H Red Blood Count 2.51 M/UL (4.70-6.10) L Hemoglobin 8.1 G/DL (14.2-18.0) L Hematocrit 23.6 % (42.0-52.0) L Mean Corpuscular Volume 94 FL (80-99) Mean Corpuscular Hemoglobin 32.0 PG (27.0-31.0) H Mean Corpuscular Hemoglobin Concent 34.1 G/DL (32.0-36.0) Red Cell Distribution Width 10.8 % (11.6-14.8) L Platelet Count 319 K/UL (150-450) Mean Platelet Volume 5.4 FL (6.5-10.1) L Neutrophils (%) (Auto) % (45.0-75.0) Lymphocytes (%) (Auto) % (20.0-45.0) Monocytes (%) (Auto) % (1.0-10.0) Eosinophils (%) (Auto) % (0.0-3.0) Basophils (%) (Auto) % (0.0-2.0) Differential Total Cells Counted 100 Neutrophils % (Manual) 90 % (45-75) H Lymphocytes % (Manual) 4 % (20-45) L Monocytes % (Manual) 5 % (1-10) Eosinophils % (Manual) 1 % (0-3) Basophils % (Manual) 0 % (0-2) Band Neutrophils 0 % (0-8) Platelet Estimate Adequate Platelet Morphology Normal Red Blood Cell Morphology Normal Sodium Level 138 MMOL/L (136-145) Potassium Level 3.9 MMOL/L (3.5-5.1) Chloride Level 102 MMOL/L (98-107) Carbon Dioxide Level 27 MMOL/L (21-32) Anion Gap 9 mmol/L (5-15) Blood Urea Nitrogen 58 mg/dL (7-18) H Creatinine 4.4 MG/DL (0.55-1.30) H Estimat Glomerular Filtration Rate mL/min (>60) Glucose Level 92 MG/DL (74-106) Calcium Level 8.1 MG/DL (8.5-10.1) L Random Vancomycin Level 10.5 ug/mL Microbiology Date/Time Source Procedure Growth Status 11/26/18 22:56 Blood Blood Culture - Preliminary NO GROWTH AFTER 24 HOURS Resulted 11/26/18 22:50 Blood Blood Culture - Preliminary NO GROWTH AFTER 24 HOURS Resulted Objective HEAD AND NECK: No JVD.Right IJ dialysis catheter in place LUNGS: Clear. CARDIOVASCULAR: Regular S1 and S2 with no gallop or murmur. ABDOMEN: Soft. EXTREMITIES: Bilateral 3+ pitting edema. GENITOURINARY: Morfin in place with bloody drainage. David Guerra MD Nov 28, 2018 15:43
--- NOTE | 2018-11-28 15:44 | NUR ---
CASE MANAGEMENT:REVIEW 11/28/18 SI: AC/CHR RENAL FAILURE. BACTEREMIA HYDRONEPHROSIS. BPH. OBSTRUCTIVE UROPATHY 98.0 80 20 127/71 98% ON RA WBC+ 17.0 H/H-8.1/23.6 BUN+58 CR+4.4 IS: DAPTOMYCIN Q48 PROTONIX PO QD PROSCAR PO QD COLACE PO BID FLOMAX PO QHS PROCRIT SQ MWF IVF@75/HR LOPRESSOR PO Q12 : TELEMETRY STATUS PLAN: REFER TO ARU FOR INTENSE REHAB
[2018-11-28 16:00] VITALS: BP 108/55
--- NOTE | 2018-11-28 19:01 | General Progress Note ---
Assessment/Plan Assessment/Plan Assessment - Anemia - Renal failure - Obstructive uropathy - b/l edema - Duplex negative - PSA =10, ? CAP Recommendations - Renal diet - Zofran PRN - RD eval - follow labs - check OB - EGD/Colon - ? at end of stay or as outpatient Subjective Allergies: Coded Allergies: No Known Allergies (Unverified , 11/21/18) Subjective Feels better nausea improved getting stronger Advised needs to undergo EGD/Colon, once all acute issues resolved Objective Last 24 Hour Vital Signs Date Time Temp Pulse Resp B/P (MAP) Pulse Ox O2 Delivery O2 Flow Rate FiO2 11/28/18 16:00 79 11/28/18 16:00 98.1 84 18 108/55 (72) 96 11/28/18 12:00 97.6 79 16 107/56 (73) 97 11/28/18 12:00 77 11/28/18 09:00 Room Air 11/28/18 08:52 80 127/71 11/28/18 08:00 86 11/28/18 08:00 98.0 80 20 127/71 (89) 98 11/28/18 04:50 98.1 75 20 125/69 (87) 98 11/28/18 04:00 75 11/28/18 00:00 75 11/28/18 00:00 98.3 80 20 114/61 (78) 96 11/27/18 21:18 85 117/63 11/27/18 21:00 Room Air 11/27/18 20:00 88 11/27/18 20:00 99.2 88 18 115/65 (82) 97 Intake and Output 11/27/18 11/28/18 19:00 07:00 Intake Total 1805 ml 1610.0 ml Output Total 2300 ml 1900 ml Balance -495 ml -290.0 ml Intake Oral 1120 ml 700 ml IV Total 685 ml 910.0 ml Output Urine Total 2300 ml 1900 ml Laboratory Tests 11/28/18 07:15: White Blood Count 17.0H, Red Blood Count 2.51L, Hemoglobin 8.1L, Hematocrit 23.6L, Mean Corpuscular Volume 94, Mean Corpuscular Hemoglobin 32.0H, Mean Corpuscular Hemoglobin Concent 34.1, Red Cell Distribution Width 10.8L, Platelet Count 319, Mean Platelet Volume 5.4L, Neutrophils (%) (Auto) , Lymphocytes (%) (Auto) , Monocytes (%) (Auto) , Eosinophils (%) (Auto) , Basophils (%) (Auto) , Differential Total Cells Counted 100, Neutrophils % ( Manual) 90H, Lymphocytes % (Manual) 4L, Monocytes % (Manual) 5, Eosinophils % ( Manual) 1, Basophils % (Manual) 0, Band Neutrophils 0, Platelet Estimate Adequate, Platelet Morphology Normal, Red Blood Cell Morphology Normal, Sodium Level 138, Potassium Level 3.9, Chloride Level 102, Carbon Dioxide Level 27, Anion Gap 9, Blood Urea Nitrogen 58H, Creatinine 4.4H, Estimat Glomerular Filtration Rate , Glucose Level 92, Calcium Level 8.1L, Random Vancomycin Level 10.5 Height (Feet): 5 Height (Inches): 8.00 Weight (Pounds): 160 Objective WDWN NCAT supple CTA RRR Abd soft (+) edema Yasir Alexandra MD Nov 28, 2018 19:01
--- NOTE | 2018-11-28 19:20 | NUR ---
HAND-OFF: Report given to Annia Hall RN. Patient in semi-[place]'s position, awake, alert to name, confused, bed in lowest position, call light within reach, nasal cannula in place, purewick in place. Addendum: 11/28/18 at 1933 by SARAH MENSAH RN Error, wrong patient.
--- NOTE | 2018-11-28 19:45 | NUR ---
NURSE NOTES: Report received from AIDA Morejon. Pt A/Ox4. supervisor propellant charge loading shows SR. Pt on RA. O2 saturation WNL. Shows no signs of cardiac or respiratory distress. Pt to be NPO tomorrow after midnight for Abd US. Morfin catheter present and draining appropriately. No skin issues noted. Son at beside. Will continue to monitor and with patients plan of care. Call light within patients reach.
--- NOTE | 2018-11-28 19:51 | NUR ---
NURSE NOTES: Left message on voicemail [phone] regarding removal of right IJ. Called back on extension [phone], voicemail picked up. Notified Jennifer, Charge Nurse. Endorsing Megan Sánchez RN to notify Fiber Technician.
--- NOTE | 2018-11-28 19:51 | NUR ---
HAND-OFF: Report given to Edilia Sánchez. Patient sitting up in bed, awake and alert, on room air, in no apparent distress, bed in lowest position, call light within reach, son at bedside, no c/o pain, no SOB, Morfin catheter in place.
[2018-11-28 20:00] VITALS: BP 120/59
[2018-11-28] MEDS: Epoetin Alfa(ESRD on dialysis)3000 units/ml vial SUBQ SCH (21:16)
[2018-11-28] MEDS: EPOETIN ALFA 2000 UNIT/ML SUBQ SCH (21:17)
[2018-11-28] MEDS: Tamsulosin 0.4mg cap ORAL SCH (21:18)
--- NOTE | 2018-11-28 21:24 | Neurology Progress Note ---
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 He did not have a very productive day today. He only had PT for a few minutes. He is still kept in bed all day. The mind continues to be clearer. He did not walk today. He has had no further episodes of loss of consciousness. His cognitive function has improved. His motor function is also better. He denies any new neurological symptoms. He specifically denies any weakness on one side or the other, numbness on one side or the other, problems with speech problems with language problems with vision problems with memory. Review of Systems Neuro Review of Systems Benign. Objective Physical Exam Last Vital Signs Date Time Temp Pulse Resp B/P (MAP) Pulse Ox O2 Delivery O2 Flow Rate FiO2 11/28/18 16:00 79 11/28/18 16:00 98.1 18 108/55 (72) 96 11/28/18 09:00 Room Air 11/22/18 03:58 21 Laboratory Tests Test 11/28/18 07:15 White Blood Count 17.0 K/UL (4.8-10.8) H Red Blood Count 2.51 M/UL (4.70-6.10) L Hemoglobin 8.1 G/DL (14.2-18.0) L Hematocrit 23.6 % (42.0-52.0) L Mean Corpuscular Volume 94 FL (80-99) Mean Corpuscular Hemoglobin 32.0 PG (27.0-31.0) H Mean Corpuscular Hemoglobin Concent 34.1 G/DL (32.0-36.0) Red Cell Distribution Width 10.8 % (11.6-14.8) L Platelet Count 319 K/UL (150-450) Mean Platelet Volume 5.4 FL (6.5-10.1) L Neutrophils (%) (Auto) % (45.0-75.0) Lymphocytes (%) (Auto) % (20.0-45.0) Monocytes (%) (Auto) % (1.0-10.0) Eosinophils (%) (Auto) % (0.0-3.0) Basophils (%) (Auto) % (0.0-2.0) Differential Total Cells Counted 100 Neutrophils % (Manual) 90 % (45-75) H Lymphocytes % (Manual) 4 % (20-45) L Monocytes % (Manual) 5 % (1-10) Eosinophils % (Manual) 1 % (0-3) Basophils % (Manual) 0 % (0-2) Band Neutrophils 0 % (0-8) Platelet Estimate Adequate Platelet Morphology Normal Red Blood Cell Morphology Normal Sodium Level 138 MMOL/L (136-145) Potassium Level 3.9 MMOL/L (3.5-5.1) Chloride Level 102 MMOL/L (98-107) Carbon Dioxide Level 27 MMOL/L (21-32) Anion Gap 9 mmol/L (5-15) Blood Urea Nitrogen 58 mg/dL (7-18) H Creatinine 4.4 MG/DL (0.55-1.30) H Estimat Glomerular Filtration Rate mL/min (>60) Glucose Level 92 MG/DL (74-106) Calcium Level 8.1 MG/DL (8.5-10.1) L Random Vancomycin Level 10.5 ug/mL Neurologic Exam Objective PHYSICAL EXAMINATION: GENERAL: He is a well-developed, well-nourished, pleasant gentleman, lying in bed, in no acute distress. HEAD: Normocephalic and atraumatic. EENT: Examination benign. NECK: No neck rigidity was observed. NEUROLOGIC EXAMINATION: MENTAL STATUS EXAMINATION: He was awake and alert. He was oriented to person, place, and time. He was able to recall 3/3 words immediately after 1 minute and after 3 minutes. He was able to remember presidents, Trump through Trujillo senior. His mathematical skills were good. His visuospatial function was preserved. SPEECH: He had no dysarthria. LANGUAGE: He had no aphasia. CRANIAL NERVE EXAMINATION: II: The visual caal were intact on confrontation testing. III, IV & : The external ocular movements were full and the pupils 3 mm in diameter, equal, round, regular, and reactive to light. V: He had normal facial sensations, and the temporales, masseters, and pterygoids functioned normally. VII: He had normal facial expressions and no facial asymmetry. VIII: He was able to hear well bilaterally and had no nystagmus. IX: The palate moved symmetrically on phonation. X: He had no hoarseness of voice. XI: The sternocleidomastoids and trapezii functioned normally. XII: The tongue was in the midline without any fasciculations or atrophy. MOTOR SYSTEM: The tone was normal in all four extremities. Examination of muscle mass revealed no focal wasting. Examination of power revealed G 5/5 power in all muscle groups tested. SENSORY EXAMINATION: He had intact sensations to pinprick, light touch, and graphesthesia. COORDINATION: He performed well on xtdext-we-ukyf and zhtj-wt-wivt testing. REFLEXES: 2+ and bilaterally symmetrical at the biceps, triceps, and brachioradialis. 2++ at both knees, 0 at both ankles. The plantar responses were flexor bilaterally. STANCE & GAIT: Were deferred. Impression/Recommendations Diagnostic Impression 1. Dane Jc is a 72-year-old, right-handed, gentleman, who does have a past history of hypertension, motion sickness, paroxysmal positional vertigo, and a near syncopal episode approximately a year ago who has been feeling unwell for the last 1 to 2 months and was thus hospitalized on 11/22/2018 when laboratory data revealed that he was in renal failure. 2. Since he has been in the hospital, he has continued to feel unwell and has had lightheadedness whenever he tries to sit up, stand, and walk. On 1 occasion on 11/23/18, he started to feel lightheaded while sitting up, then passed out for brief period of time, and had some generalized body jerking movements. He rapidly regained consciousness following that. 3. He feels unwell. He did not have a very productive day. He only had PT for a few minutes. He is still kept in bed all day. The mind continues to be clearer. He did not walk today. He has had no further episodes of loss of consciousness. His cognitive function has improved. His motor function is also better. He denies any new neurological symptoms. 4. On neurological examination, at this time, he has mild slowing of cerebration. He has brisk deep tendon reflexes at the knees and absent ankle jerks, and needs support to sit stand and walk. 5. Laboratory data on my initial evaluation revealed that his WBC count was elevated to 15,300. He was significantly anemic with a hemoglobin of 8.7 G. His chemistry panel revealed that his potassium was low at 3.1. His BUN was elevated at 173 with a creatinine of 10.1. His proBNP was elevated to 1278. His vitamin B12 level was normal at 1394. His folate level was normal at 25.3. His TSH was normal at 1.42. His INR was normal at 1.0. His urinalysis revealed 1+ leukocyte esterase with 2 red blood cells, and 2 white blood cells per high-power field. 6. The CT of the brain reveals no acute pathology. 7. EEG done on 11/24/2018 revealed triphasic waveforms with an anterior to posterior gradient but normal background and no interictal or ictal phenomena. These findings are consistent with a mild metabolic encephalopathy. 8. The patient's history, neurological examination, laboratory data, imaging studies and EEG are most consistent with lightheadedness due to fluid and electrolyte imbalance. 9. The episode that the patient had on 11/23/18 where he felt lightheaded, then passed out, and had some abnormal body jerking movements was most probably a Matias-Anthony attack. 10. The patient does have some mild cognitive dysfunction, which is due to an ongoing metabolic encephalopathic process. Recommendations 1. Continue present management. 2. Continue to correct the patient's fluid and electrolyte imbalances. 3. Frequent range of motion exercises - patient instructed. 4. Out of bed in chair for all meals. 5. Mobilize with PT and multiple daily walks. 6. Observe closely. Janak Chandra M.D., M.S.P.H. Janak Chandra MD Nov 28, 2018 21:24
--- NOTE | 2018-11-28 23:38 | General Progress Note ---
Assessment/Plan Assessment/Plan sepsis acute renal failure hyperkalemia obstructive uropathy bph elevated troponin ho htn anemia confustion encephalopathy likiely secondary to uremia resolved vomiting likely secondary to uremia short syncopal episode leukocytosis constiaption abx per ID will likely need dialysis cathter removed to be done today consider MURPHY dw Dr Fisher and Dr Sosa has johnson, urolgy fup making good urine infoley, monitor renal parameters echo noted ct of head noted neurolgy evaluation appreciated bp controlled monitor labs dvt and ulcer prophylaxis ambulate PT stool softners and laxatives Subjective Allergies: Coded Allergies: No Known Allergies (Unverified , 11/21/18) Subjective seen in amm no nausea constipated no abdominal pain no chest painor sob, feels better Objective Last 24 Hour Vital Signs Date Time Temp Pulse Resp B/P (MAP) Pulse Ox O2 Delivery O2 Flow Rate FiO2 11/28/18 21:18 85 120/59 11/28/18 21:00 Room Air 11/28/18 20:00 98.0 85 18 120/59 (79) 96 11/28/18 20:00 83 11/28/18 16:00 79 11/28/18 16:00 98.1 84 18 108/55 (72) 96 11/28/18 12:00 97.6 79 16 107/56 (73) 97 11/28/18 12:00 77 11/28/18 09:00 Room Air 11/28/18 08:52 80 127/71 11/28/18 08:00 86 11/28/18 08:00 98.0 80 20 127/71 (89) 98 11/28/18 04:50 98.1 75 20 125/69 (87) 98 11/28/18 04:00 75 11/28/18 00:00 75 11/28/18 00:00 98.3 80 20 114/61 (78) 96 Intake and Output 11/27/18 11/28/18 19:00 07:00 Intake Total 1805 ml 1610.0 ml Output Total 2300 ml 1900 ml Balance -495 ml -290.0 ml Intake Oral 1120 ml 700 ml IV Total 685 ml 910.0 ml Output Urine Total 2300 ml 1900 ml Laboratory Tests 11/28/18 07:15: White Blood Count 17.0H, Red Blood Count 2.51L, Hemoglobin 8.1L, Hematocrit 23.6L, Mean Corpuscular Volume 94, Mean Corpuscular Hemoglobin 32.0H, Mean Corpuscular Hemoglobin Concent 34.1, Red Cell Distribution Width 10.8L, Platelet Count 319, Mean Platelet Volume 5.4L, Neutrophils (%) (Auto) , Lymphocytes (%) (Auto) , Monocytes (%) (Auto) , Eosinophils (%) (Auto) , Basophils (%) (Auto) , Differential Total Cells Counted 100, Neutrophils % ( Manual) 90H, Lymphocytes % (Manual) 4L, Monocytes % (Manual) 5, Eosinophils % ( Manual) 1, Basophils % (Manual) 0, Band Neutrophils 0, Platelet Estimate Adequate, Platelet Morphology Normal, Red Blood Cell Morphology Normal, Sodium Level 138, Potassium Level 3.9, Chloride Level 102, Carbon Dioxide Level 27, Anion Gap 9, Blood Urea Nitrogen 58H, Creatinine 4.4H, Estimat Glomerular Filtration Rate , Glucose Level 92, Calcium Level 8.1L, Random Vancomycin Level 10.5 Height (Feet): 5 Height (Inches): 8.00 Weight (Pounds): 160 General Appearance: WD/WN, no apparent distress Neck: supple Cardiovascular: normal rate Respiratory/Chest: lungs clear Abdomen: soft Objective right dilaysis Dane Malik MD Nov 28, 2018 23:37
[2018-11-29] VITALS: BP 131/75
[2018-11-29 04:00] VITALS: BP 144/77
[2018-11-29 07:16] LABS: ALANINE AMINOTRANSFERASE 69 U/L (12-78); ALBUMIN 1.9 G/DL (3.4-5.0); ALBUMIN/GLOBULIN RATIO 0.5 (1.0-2.7); ALKALINE PHOSPHATASE 111 U/L (46-116); ANION GAP 9 mmol/L (5-15); ASPARTATE AMINO TRANSFERASE 23 U/L (15-37); BILIRUBIN,TOTAL 0.3 MG/DL (0.2-1.0); BLOOD UREA NITROGEN 60 mg/dL (7-18); CALCIUM 8.3 MG/DL (8.5-10.1); CARBON DIOXIDE 26 MMOL/L (21-32); CHLORIDE 102 MMOL/L (98-107); CREATININE 4.3 MG/DL (0.55-1.30); POTASSIUM 3.8 MMOL/L (3.5-5.1); SODIUM 137 MMOL/L (136-145)
[2018-11-29 07:23] LABS: CREATINE KINASE 35 U/L (26-308)
[2018-11-29 07:34] LABS: % IRON SATURATION 9 % (15-50); IRON 13 ug/dL (50-175); TOTAL IRON BINDING CAPACITY 140 ug/dL (250-450)
--- NOTE | 2018-11-29 07:46 | Urology Progress Note ---
Assessment/Plan Assessment/Plan 1. Urinary retention history. 2. Benign prostatic hypertrophy. 3. Possible neurogenic bladder. 4. Hematuria. 5. Renal failure, which appears to be acute on chronic, improved. 6. Hydronephrosis. 7. Proteinuria. 8. Meatal stenosis and stricture history. 9. Inguinal hernia. monitor clinically johnson hand irrigated and do PRN HD as needed per nephrology monitor renal fxn closely, seems to have stabilized removal of dialysis cath per Dr. Sosa flomax and proscar added cysto later voiding trial at some point? reimage kidneys later Subjective Allergies: Coded Allergies: No Known Allergies (Unverified , 11/21/18) Subjective all noted, feels fair Objective Last 24 Hour Vital Signs Date Time Temp Pulse Resp B/P (MAP) Pulse Ox O2 Delivery O2 Flow Rate FiO2 11/29/18 04:00 97.3 76 18 144/77 (99) 98 11/29/18 04:00 83 11/29/18 00:00 73 11/29/18 00:00 98.9 79 18 131/75 (93) 97 11/28/18 21:18 85 120/59 11/28/18 21:00 Room Air 11/28/18 20:00 98.0 85 18 120/59 (79) 96 11/28/18 20:00 83 11/28/18 16:00 79 11/28/18 16:00 98.1 84 18 108/55 (72) 96 11/28/18 12:00 97.6 79 16 107/56 (73) 97 11/28/18 12:00 77 11/28/18 09:00 Room Air 11/28/18 08:52 80 127/71 11/28/18 08:00 86 11/28/18 08:00 98.0 80 20 127/71 (89) 98 Intake and Output 11/28/18 11/29/18 19:00 07:00 Intake Total 1555 ml 300 ml Output Total 1500 ml 2000 ml Balance 55 ml -1700 ml Intake Oral 600 ml 300 ml IV Total 955 ml Output Urine Total 1500 ml 2000 ml # Bowel Movements 1 Microbiology Date/Time Source Procedure Growth Status 11/26/18 22:56 Blood Blood Culture - Preliminary Gram Positive Cocci Resulted 11/23/18 15:00 Stool Ova and Parasites - Final Complete 11/23/18 15:00 Stool Ova and Parasite Result 1 - Final Complete Current Medications Medications (Trade) Dose Ordered Sig/Debbie Route PRN Reason Start Time Stop Time Status Last Admin Dose Admin Acetaminophen (Tylenol) 650 mg Q6H PRN ORAL Mild Pain/Temp > 100.5 11/22/18 03:15 12/22/18 03:14 Al Hydroxide/Mg Hydroxide (Mylanta) 30 ml Q6H PRN ORAL GERD 11/22/18 03:15 12/22/18 03:14 Daptomycin 700 mg/ Sodium Chloride 55 ml @ 100 mls/hr Q48H IV 11/27/18 14:00 12/04/18 13:59 11/27/18 14:04 Docusate Sodium (Colace) 100 mg TWICE A DAY ORAL 11/25/18 09:00 12/25/18 08:59 11/28/18 18:50 Epoetin Tommy (Epoetin Tommy(ESRD on dialysis)) 2,000 unit WED-WED-WED SUBQ 11/23/18 21:00 12/23/18 20:59 11/28/18 21:17 Epoetin Tommy (Epoetin Tommy(ESRD on dialysis)) 3,000 unit WED-WED-WED SUBQ 11/23/18 21:00 12/23/18 20:59 11/28/18 21:16 Finasteride (Proscar) 5 mg DAILY ORAL 11/25/18 09:00 12/25/18 08:59 11/28/18 08:52 Heparin Sodium (Porcine) (Heparin 5000 units/ml) 5,000 units EVERY 12 HOURS SUBQ 11/22/18 09:00 12/22/18 08:59 11/27/18 21:13 Magnesium Hydroxide (Mom) 30 ml BIDPRN PRN ORAL Constipation 11/26/18 12:45 12/26/18 12:44 11/26/18 21:59 Meclizine HCl (Antivert) 25 mg TIDPRN PRN ORAL for dizziness 11/23/18 18:15 12/23/18 18:14 Metoprolol Tartrate (Lopressor) 25 mg Q12HR ORAL 11/22/18 21:00 12/22/18 20:59 11/28/18 21:18 Ondansetron HCl (Zofran) 4 mg Q6H PRN IVP Nausea & Vomiting 11/24/18 09:30 12/24/18 09:29 11/26/18 23:02 Pantoprazole (Protonix) 40 mg DAILY ORAL 11/26/18 09:00 12/26/18 08:59 11/28/18 08:52 Sodium Chloride 1,000 ml @ 75 mls/hr [id number] IV 11/23/18 18:15 12/23/18 18:14 11/28/18 18:50 Tamsulosin HCl (Flomax) 0.4 mg BEDTIME ORAL 11/24/18 23:00 12/24/18 22:59 11/28/18 21:18 Laboratory Tests 11/29/18 06:15: Sodium Level 137, Potassium Level 3.8, Chloride Level 102, Carbon Dioxide Level 26, Anion Gap 9, Blood Urea Nitrogen 60H, Creatinine 4.3H, Estimat Glomerular Filtration Rate , Glucose Level 97, Calcium Level 8.3L, Iron Level 13L, Total Iron Binding Capacity 140L, Percent Iron Saturation 9L, Unsaturated Iron Binding 127, Total Bilirubin 0.3, Aspartate Amino Transf (AST/SGOT) 23, Alanine Aminotransferase (ALT/SGPT) 69, Alkaline Phosphatase 111, Total Creatine Kinase 35, Total Protein 6.1L, Albumin 1.9L, Globulin 4.2, Albumin/Globulin Ratio 0.5L Height (Feet): 5 Height (Inches): 8.00 Weight (Pounds): 160 Objective exam stable, urine clearing, has some debris Geraldo Wise MD Nov 29, 2018 07:46
[2018-11-29 08:00] VITALS: BP 125/70
--- NOTE | 2018-11-29 08:21 | NUR ---
NURSE NOTES: Left message on voicemail of Dr. Michael Sosa to report that Interventional Radiology does not remove Dallin Catheters; Rebecca, RN, Charge Nurse notified. Rebecca, RN, Charge Nurse is contacting the dialysis company. Will continue to monitor patient.
--- NOTE | 2018-11-29 08:39 | NUR ---
NURSE NOTES: Telephoned Dr. Luis F Worthington to remove right IJ Cecil catheter and he will be in to remove the Cecil catheter.
[2018-11-29] MEDS: Heparin 5000 units/ml inj SUBQ SCH ×2 (09:00→21:37)
[2018-11-29] MEDS: Docusate 100mg cap ORAL SCH ×2 (10:04→18:42)
[2018-11-29] MEDS: Metoprolol 25mg tab ORAL SCH ×2 (10:04→21:34)
--- NOTE | 2018-11-29 10:54 | Diagnostic Imaging Report ---
Indication: Abnormal liver function tests and renal function tests Technique: Haskins-scale and duplex images of the upper abdomen were obtained. Doppler interrogation of the pancreatic and hepatic vessels Comparison: Reference made to renal ultrasound 11/22/2018, abdomen pelvis CT 11/21/2018 Findings: Gallbladder is unremarkable, without stones, wall thickening, nor pericholecystic fluid. Sonographic Olivas's sign is negative. Common bile duct measures 5 mm in diameter. No intrahepatic biliary ductal dilatation. Liver demonstrates normal echogenicity, no focal abnormality. Portal vein and hepatic veins are patent. Pancreas is unremarkable. Spleen is unremarkable. Left kidney measures 9.6 cm in length. Right kidney measures 12.8 cm length. Both kidneys demonstrate normal echogenicity. Right kidney demonstrates mild hydronephrosis. The degree of hydronephrosis is markedly decreased from the previous sonogram right kidney demonstrates multiple small cysts. The left kidney also demonstrates small cysts. . Non-aneurysmal abdominal aorta . The bladder is empty, contains a Morfin catheter Impression: Mild right hydronephrosis, persistent but improved from prior study of 11/22/2018 Empty bladder with Morfin catheter Negative for gallstones or dilated ducts Incidental finding bilateral renal cysts
--- NOTE | 2018-11-29 11:46 | NUR ---
CASE MANAGEMENT:REVIEW 11/29/18 SI: AC/CHR RENAL FAILURE. BACTEREMIA HYDRONEPHROSIS. BPH. OBSTRUCTIVE UROPATHY 97.7 78 18 125/70 96% ON RA BUN+60 CR+4.3 IS: DAPTOMYCIN Q48 PROTONIX PO QD PROSCAR PO QD COLACE PO BID FLOMAX PO QHS PROCRIT SQ MWF IVF@75/HR LOPRESSOR PO Q12 : TELEMETRY STATUS PLAN: DISCHARGE PLANNING PATIENT HAS BEEN REFERRED TO [facility] ~ THEY HAVE ACCEPTED ~ AWAITING AUTH FROM [facility]
--- NOTE | 2018-11-29 11:48 | NUR ---
DISCHARGE PLANNING PATIENT HAS BE[facility] [place] AND THEY HAVE ACCEPTED PENDING AUTHRORIZATION FROM [facility]. LEFT MESSAGE FOR [facility] DETAIL MANAGER AND WAITING FOR A RESPONSE Addendum: 11/29/18 at 1522 by QUIN CORONADO LVN LVN RECEIVED CALL FROM [facility] DETAIL MANAGER WHO STATED SHE IS STILL WORKING ON AUTHORIZATION FOR [facility] AND SHE WILL CALL US TOMORROW WITH A DETERMINATION
[2018-11-29 12:00] VITALS: BP 124/65
--- NOTE | 2018-11-29 12:22 | Consultation ---
History of Present Illness General Date patient seen: Nov 29, 2018 Reason for Hospitalization: General Complaint Present Illness HPI This is a 72-year-old male currently admitted to the [facility] for medical care and management who was identified to have elevated renal function requiring urgent right internal jugular hemodialysis catheter placement and ongoing hemodialysis. Since patient's renal function has improved and he currently does not require ongoing dialysis at this time. Surgery was called to evaluate and assist with removal of catheter and evaluation of site. Patient states that he is having some discomfort in his right jaw when he swallows and this is a new finding. Denies any nausea vomiting fever chills. Patient seen, patient examined, chart reviewed. Allergies: Coded Allergies: No Known Allergies (Unverified , 11/21/18) Medication History Scheduled Amlodipine Besylate* (Amlodipine Besylate*), 5 MG ORAL DAILY, (Reported) Scheduled PRN Ondansetron* (Zofran*), 4 MG ORAL Q6H PRN for Nausea & Vomiting, (Reported) Patient History History Provided By: Patient, Medical Record, PMD Healthcare decision maker Resuscitation status Full Code Advanced Directive on File Past Medical/Surgical History Past Medical/Surgical History: (1) Prostate enlargement (2) Renal failure (3) Renal failure, chronic (4) Prostate enlargement (5) Acute renal failure (6) Hydronephrosis (7) Urinary retention (8) Hyperkalemia (9) Metabolic acidosis (10) Acute on chronic renal failure (11) Uremia (12) Sepsis due to Enterococcus with acute renal failure and metabolic encephalopathy (13) Bacteremia due to Enterococcus (14) Acute encephalopathy (15) Generalized weakness (16) Secondary hyperparathyroidism of renal origin Review of Systems Review of Symptoms General ROS: no weight loss or fever Psychological ROS: no depression or mood changes, no memory loss Ophthalmic ROS: no visual changes or eye irritation ENT ROS: no nasal congestion, hearing loss, dizziness Allergy and Immunology ROS: no allergic symptoms or urticaria Hematological and Lymphatic ROS: no swollen glands, unusual bleeding or bruising Endocrine ROS: no polyuria, polydipsia, weight changes, temperature intolerance Respiratory ROS: no cough, shortness of breath, or wheezing Cardiovascular ROS: no chest pain or dyspnea on exertion Gastrointestinal ROS: denies abdominal pain, bright red blood in stool. Musculoskeletal ROS: no myalgias or arthralgias Neurological ROS: no TIA or stroke symptoms Dermatological ROS: no new or changing skin lesions, rashes or pruritis Physical Exam Physical Exam General appearance: alert, cooperative, no distress, appears stated age Head: Normocephalic, without obvious abnormality, atraumatic Eyes: conjunctivae/corneas clear. PERRL, EOM's intact. Fundi benign Throat: Lips, mucosa, and tongue normal. Teeth and gums normal Neck: supple, symmetrical, trachea midline, no adenopathy, thyroid: not enlarged, symmetric, no tenderness/mass/nodules, no carotid bruit and no JVD Lungs: clear to auscultation bilaterally Heart: regular rate and rhythm, S1, S2 normal, no murmur, click, rub or gallop Abdomen: soft, non-tender. Bowel sounds normal. No masses, no organomegaly Extremities: extremities normal, atraumatic, no cyanosis or edema Pulses: 2+ and symmetric Skin: Skin color, texture, turgor normal. No rashes or lesions Neurologic: Grossly normal Last 24 Hour Vital Signs Date Time Temp Pulse Resp B/P (MAP) Pulse Ox O2 Delivery O2 Flow Rate FiO2 11/29/18 10:04 78 125/70 11/29/18 09:00 Room Air 11/29/18 08:00 97.7 78 18 125/70 (88) 96 11/29/18 08:00 72 11/29/18 04:00 97.3 76 18 144/77 (99) 98 11/29/18 04:00 83 11/29/18 00:00 73 11/29/18 00:00 98.9 79 18 131/75 (93) 97 11/28/18 21:18 85 120/59 11/28/18 21:00 Room Air 11/28/18 20:00 98.0 85 18 120/59 (79) 96 11/28/18 20:00 83 11/28/18 16:00 79 11/28/18 16:00 98.1 84 18 108/55 (72) 96 Intake and Output 11/28/18 11/29/18 18:59 06:59 Intake Total 2080 ml 300 ml Output Total 1500 ml 2000 ml Balance 580 ml -1700 ml Intake Oral 600 ml 300 ml IV Total 1480 ml Output Urine Total 1500 ml 2000 ml # Bowel Movements 1 Laboratory Tests Test 11/29/18 06:15 Sodium Level 137 MMOL/L (136-145) Potassium Level 3.8 MMOL/L (3.5-5.1) Chloride Level 102 MMOL/L (98-107) Carbon Dioxide Level 26 MMOL/L (21-32) Anion Gap 9 mmol/L (5-15) Blood Urea Nitrogen 60 mg/dL (7-18) H Creatinine 4.3 MG/DL (0.55-1.30) H Estimat Glomerular Filtration Rate mL/min (>60) Glucose Level 97 MG/DL (74-106) Calcium Level 8.3 MG/DL (8.5-10.1) L Iron Level 13 ug/dL (50-175) L Total Iron Binding Capacity 140 ug/dL (250-450) L Percent Iron Saturation 9 % (15-50) L Unsaturated Iron Binding 127 ug/dL (112-346) Total Bilirubin 0.3 MG/DL (0.2-1.0) Aspartate Amino Transf (AST/SGOT) 23 U/L (15-37) Alanine Aminotransferase (ALT/SGPT) 69 U/L (12-78) Alkaline Phosphatase 111 U/L (46-116) Total Creatine Kinase 35 U/L (26-308) Total Protein 6.1 G/DL (6.4-8.2) L Albumin 1.9 G/DL (3.4-5.0) L Globulin 4.2 g/dL Albumin/Globulin Ratio 0.5 (1.0-2.7) L Height (Feet): 5 Height (Inches): 8.00 Weight (Pounds): 160 Medications Current Medications Medications (Trade) Dose Ordered Sig/Debbie Route PRN Reason Start Time Stop Time Status Last Admin Dose Admin Acetaminophen (Tylenol) 650 mg Q6H PRN ORAL Mild Pain/Temp > 100.5 11/22/18 03:15 12/22/18 03:14 Al Hydroxide/Mg Hydroxide (Mylanta) 30 ml Q6H PRN ORAL GERD 11/22/18 03:15 12/22/18 03:14 Daptomycin 700 mg/ Sodium Chloride 55 ml @ 100 mls/hr Q48H IV 11/27/18 14:00 12/04/18 13:59 11/27/18 14:04 Docusate Sodium (Colace) 100 mg TWICE A DAY ORAL 11/25/18 09:00 12/25/18 08:59 11/29/18 10:04 Epoetin Tommy (Epoetin Tommy(ESRD on dialysis)) 2,000 unit WED-WED-WED SUBQ 11/23/18 21:00 12/23/18 20:59 11/28/18 21:17 Epoetin Tommy (Epoetin Tommy(ESRD on dialysis)) 3,000 unit WED-WED-WED SUBQ 11/23/18 21:00 12/23/18 20:59 11/28/18 21:16 Finasteride (Proscar) 5 mg DAILY ORAL 11/25/18 09:00 12/25/18 08:59 11/29/18 10:04 Heparin Sodium (Porcine) (Heparin 5000 units/ml) 5,000 units EVERY 12 HOURS SUBQ 11/22/18 09:00 12/22/18 08:59 11/27/18 21:13 Magnesium Hydroxide (Mom) 30 ml BIDPRN PRN ORAL Constipation 11/26/18 12:45 12/26/18 12:44 11/26/18 21:59 Meclizine HCl (Antivert) 25 mg TIDPRN PRN ORAL for dizziness 11/23/18 18:15 12/23/18 18:14 Metoprolol Tartrate (Lopressor) 25 mg Q12HR ORAL 11/22/18 21:00 12/22/18 20:59 11/29/18 10:04 Ondansetron HCl (Zofran) 4 mg Q6H PRN IVP Nausea & Vomiting 11/24/18 09:30 12/24/18 09:29 11/26/18 23:02 Pantoprazole (Protonix) 40 mg DAILY ORAL 11/26/18 09:00 12/26/18 08:59 11/29/18 10:04 Sodium Chloride 1,000 ml @ 75 mls/hr [id number] IV 11/23/18 18:15 12/23/18 18:14 11/29/18 10:05 Tamsulosin HCl (Flomax) 0.4 mg BEDTIME ORAL 11/24/18 23:00 12/24/18 22:59 11/28/18 21:18 Assessment/Plan Problem List: (1) Acute renal failure ICD Codes: N17.9 - Acute kidney failure, unspecified SNOMED: 67212471 (2) Metabolic acidosis ICD Codes: E87.2 - Acidosis SNOMED: 82364179 Assessment/Plan Right IJ HD cath noted. line without signs of infection. Line removed at bedside without complication Pressure held for 10 minutes Dressing applied will monitor. keep dressings for 24-48 hrs will monitor to see if improved swallowing / discomfort thank you Luis F Worthington Nov 29, 2018 12:22
[2018-11-29] MEDS: DAPTOmycin 700 MG in NS 55 ML IV SCH (15:08)
[2018-11-29 16:00] VITALS: BP_SYST 119; BP_SYST 127; BP_DIAS 66; BP_DIAS 74
--- NOTE | 2018-11-29 16:26 | Infectious Diseases Prog Note ---
Assessment/Plan Problems: (1) Sepsis due to Enterococcus with acute renal failure and metabolic encephalopathy Assessment & Plan: source most likely tract with obstruction , may need also to rule out GI malignancy (colon CA) . continue daptomycin renally dosed as per pharmacy for now to avoid nephrotoxicity . repeated blood culture on 11/26 is still positive since he was just started on vancomycin on that day . his HD catheter was removed today since it was placed after he was bacteremic with enterococcus. will repeat another blood culture tomorrow to confirm clearance since his catheter was removed today. will monitor CK level weekly while on daptomycin . will need two weeks of iv antibiotics for his bacteremia (2) Hydronephrosis Assessment & Plan: most likely the source of his bacteremia with enterococcus faecalis , with worsening renal failure , suspect enlarged prostate , with elevated PSA rule out prostate CA , recommend oncology work up with rectal US to rule out prostatic mass , and possible prostatectomy once clinically stable (3) Acute on chronic renal failure Assessment & Plan: improving, now making good urine , required HD , his HD catheter was removed since it was placed while bacteremic . will wait for 48 hours on antibiotics before placing any new catheter if he needs any in the future (4) Acute encephalopathy Assessment & Plan: improving, suspect metabolic and toxic , monitor mental status, avoid nephrotoxics , neurology is following (5) Prostate enlargement Assessment & Plan: with elevated PSA, rule out malignant process, recommend rectal US to evaluate the prostate and for possible biopsy to rule out malignancy . Subjective Constitutional: Reports: no symptoms HEENT: Reports: no symptoms Respiratory: Reports: no symptoms Breasts: Reports: no symptoms Cardiovascular: Reports: no symptoms Gastrointestinal/Abdominal: Reports: no symptoms Genitourinary: Reports: no symptoms Neurologic: Reports: weakness Psychiatric: Reports: no symptoms Skin: Reports: no symptoms Endocrine: Reports: no symptoms Hematologic: Reports: no symptoms Musculoskeletal: Reports: no symptoms Allergies: Coded Allergies: No Known Allergies (Unverified , 11/21/18) Subjective He was feeling better , with less discomfort at the right IJ HD catheter site since it was removed today by surgery. no cough or SOB, no neck pain or hematoma , no fever or chills Objective Vital Signs Last 24 Hour Vital Signs Date Time Temp Pulse Resp B/P (MAP) Pulse Ox O2 Delivery O2 Flow Rate FiO2 11/29/18 12:00 97.8 71 16 124/65 (84) 98 11/29/18 12:00 73 11/29/18 10:04 78 125/70 11/29/18 09:00 Room Air 11/29/18 08:00 97.7 78 18 125/70 (88) 96 11/29/18 08:00 72 11/29/18 04:00 97.3 76 18 144/77 (99) 98 11/29/18 04:00 83 11/29/18 00:00 73 11/29/18 00:00 98.9 79 18 131/75 (93) 97 11/28/18 21:18 85 120/59 11/28/18 21:00 Room Air 11/28/18 20:00 98.0 85 18 120/59 (79) 96 11/28/18 20:00 83 Height (Feet): 5 Height (Inches): 8.00 Weight (Pounds): 160 General Appearance: WD/WN, no acute distress HEENT: normocephalic, atraumatic, anicteric, mucous membranes moist, PERRL, EOMI, pharynx normal, supple, no JVD Respiratory/Chest: chest wall non-tender, lungs clear, normal breath sounds, no respiratory distress, no accessory muscle use Cardiovascular: normal peripheral pulses, normal rate, regular rhythm, no gallop/murmur, no JVD Abdomen: normal bowel sounds, soft, non tender, no organomegaly, non distended , no mass, no scars Extremities: no cyanosis, no clubbing Skin: no rash, no lesions, no ulcers Neurologic/Psychiatric: alert, oriented x 3, responsive Lymphatic: no neck adenopathy, no groin adenopathy Musculoskeletal: normal muscle bulk, no effusion Microbiology Date/Time Source Procedure Growth Status 11/26/18 22:56 Blood Blood Culture - Preliminary Gram Positive Cocci Resulted 11/26/18 22:50 Blood Blood Culture - Preliminary Gram Positive Cocci Resulted Laboratory Tests Test 11/29/18 06:15 Sodium Level 137 MMOL/L (136-145) Potassium Level 3.8 MMOL/L (3.5-5.1) Chloride Level 102 MMOL/L (98-107) Carbon Dioxide Level 26 MMOL/L (21-32) Anion Gap 9 mmol/L (5-15) Blood Urea Nitrogen 60 mg/dL (7-18) H Creatinine 4.3 MG/DL (0.55-1.30) H Estimat Glomerular Filtration Rate mL/min (>60) Glucose Level 97 MG/DL (74-106) Calcium Level 8.3 MG/DL (8.5-10.1) L Iron Level 13 ug/dL (50-175) L Total Iron Binding Capacity 140 ug/dL (250-450) L Percent Iron Saturation 9 % (15-50) L Unsaturated Iron Binding 127 ug/dL (112-346) Total Bilirubin 0.3 MG/DL (0.2-1.0) Aspartate Amino Transf (AST/SGOT) 23 U/L (15-37) Alanine Aminotransferase (ALT/SGPT) 69 U/L (12-78) Alkaline Phosphatase 111 U/L (46-116) Total Creatine Kinase 35 U/L (26-308) Total Protein 6.1 G/DL (6.4-8.2) L Albumin 1.9 G/DL (3.4-5.0) L Globulin 4.2 g/dL Albumin/Globulin Ratio 0.5 (1.0-2.7) L Current Medications Medications (Trade) Dose Ordered Sig/Debbie Route PRN Reason Start Time Stop Time Status Last Admin Dose Admin Acetaminophen (Tylenol) 650 mg Q6H PRN ORAL Mild Pain/Temp > 100.5 11/22/18 03:15 12/22/18 03:14 Al Hydroxide/Mg Hydroxide (Mylanta) 30 ml Q6H PRN ORAL GERD 11/22/18 03:15 12/22/18 03:14 Daptomycin 700 mg/ Sodium Chloride 55 ml @ 100 mls/hr Q48H IV 11/27/18 14:00 12/04/18 13:59 11/29/18 15:08 Docusate Sodium (Colace) 100 mg TWICE A DAY ORAL 11/25/18 09:00 12/25/18 08:59 11/29/18 10:04 Epoetin Tommy (Epoetin Tommy(ESRD on dialysis)) 2,000 unit -WED SUBQ 11/23/18 21:00 12/23/18 20:59 11/28/18 21:17 Epoetin Tommy (Epoetin Tommy(ESRD on dialysis)) 3,000 unit SUBQ 11/23/18 21:00 12/23/18 20:59 11/28/18 21:16 Finasteride (Proscar) 5 mg DAILY ORAL 11/25/18 09:00 12/25/18 08:59 11/29/18 10:04 Heparin Sodium (Porcine) (Heparin 5000 units/ml) 5,000 units EVERY 12 HOURS SUBQ 11/22/18 09:00 12/22/18 08:59 11/27/18 21:13 Magnesium Hydroxide (Mom) 30 ml BIDPRN PRN ORAL Constipation 11/26/18 12:45 12/26/18 12:44 11/26/18 21:59 Meclizine HCl (Antivert) 25 mg TIDPRN PRN ORAL for dizziness 11/23/18 18:15 12/23/18 18:14 Metoprolol Tartrate (Lopressor) 25 mg Q12HR ORAL 11/22/18 21:00 12/22/18 20:59 11/29/18 10:04 Ondansetron HCl (Zofran) 4 mg Q6H PRN IVP Nausea & Vomiting 11/24/18 09:30 12/24/18 09:29 11/26/18 23:02 Pantoprazole (Protonix) 40 mg DAILY ORAL 11/26/18 09:00 12/26/18 08:59 11/29/18 10:04 Sodium Chloride 1,000 ml @ 75 mls/hr [id number] IV 11/23/18 18:15 12/23/18 18:14 11/29/18 10:05 Tamsulosin HCl (Flomax) 0.4 mg BEDTIME ORAL 11/24/18 23:00 12/24/18 22:59 11/28/18 21:18 Mckinley Fisher M.D. Nov 29, 2018 16:26
--- NOTE | 2018-11-29 17:05 | Neurology Progress Note ---
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 He is sitting up in a chair today watching a Movie. His dialysis catheter was removed this morning. His appetite is better. He only had PT for a few minutes. He did not walk today. The mind continues to be clearer. He has had no further episodes of loss of consciousness. His cognitive function has improved. His motor function is also better. He denies any new neurological symptoms. He specifically denies any weakness on one side or the other, numbness on one side or the other, problems with speech problems with language problems with vision problems with memory. Review of Systems Neuro Review of Systems Benign. Objective Physical Exam Last Vital Signs Date Time Temp Pulse Resp B/P (MAP) Pulse Ox O2 Delivery O2 Flow Rate FiO2 11/29/18 16:00 97.1 71 16 127/66 (86) 98 11/29/18 09:00 Room Air 11/22/18 03:58 21 Laboratory Tests Test 11/29/18 06:15 Sodium Level 137 MMOL/L (136-145) Potassium Level 3.8 MMOL/L (3.5-5.1) Chloride Level 102 MMOL/L (98-107) Carbon Dioxide Level 26 MMOL/L (21-32) Anion Gap 9 mmol/L (5-15) Blood Urea Nitrogen 60 mg/dL (7-18) H Creatinine 4.3 MG/DL (0.55-1.30) H Estimat Glomerular Filtration Rate mL/min (>60) Glucose Level 97 MG/DL (74-106) Calcium Level 8.3 MG/DL (8.5-10.1) L Iron Level 13 ug/dL (50-175) L Total Iron Binding Capacity 140 ug/dL (250-450) L Percent Iron Saturation 9 % (15-50) L Unsaturated Iron Binding 127 ug/dL (112-346) Total Bilirubin 0.3 MG/DL (0.2-1.0) Aspartate Amino Transf (AST/SGOT) 23 U/L (15-37) Alanine Aminotransferase (ALT/SGPT) 69 U/L (12-78) Alkaline Phosphatase 111 U/L (46-116) Total Creatine Kinase 35 U/L (26-308) Total Protein 6.1 G/DL (6.4-8.2) L Albumin 1.9 G/DL (3.4-5.0) L Globulin 4.2 g/dL Albumin/Globulin Ratio 0.5 (1.0-2.7) L Neurologic Exam Objective PHYSICAL EXAMINATION: GENERAL: He is a well-developed, well-nourished, pleasant gentleman, lying in bed, in no acute distress. HEAD: Normocephalic and atraumatic. EENT: Examination benign. NECK: No neck rigidity was observed. NEUROLOGIC EXAMINATION: MENTAL STATUS EXAMINATION: He was awake and alert. He was oriented to person, place, and time. He was able to recall 3/3 words immediately after 1 minute and after 3 minutes. He was able to remember presidents, Trump through Trujillo senior. His mathematical skills were good. His visuospatial function was preserved. SPEECH: He had no dysarthria. LANGUAGE: He had no aphasia. CRANIAL NERVE EXAMINATION: II: The visual caal were intact on confrontation testing. III, IV & : The external ocular movements were full and the pupils 3 mm in diameter, equal, round, regular, and reactive to light. V: He had normal facial sensations, and the temporales, masseters, and pterygoids functioned normally. VII: He had normal facial expressions and no facial asymmetry. VIII: He was able to hear well bilaterally and had no nystagmus. IX: The palate moved symmetrically on phonation. X: He had no hoarseness of voice. XI: The sternocleidomastoids and trapezii functioned normally. XII: The tongue was in the midline without any fasciculations or atrophy. MOTOR SYSTEM: The tone was normal in all four extremities. Examination of muscle mass revealed no focal wasting. Examination of power revealed G 5/5 power in all muscle groups tested. SENSORY EXAMINATION: He had intact sensations to pinprick, light touch, and graphesthesia. COORDINATION: He performed well on idnyzh-mc-zurr and rbbx-gj-dgjf testing. REFLEXES: 2+ and bilaterally symmetrical at the biceps, triceps, and brachioradialis. 2++ at both knees, Trace+ at both ankles. The plantar responses were flexor bilaterally. STANCE: He stood up with support on one side. GAIT: He took a few steps with support on one side. Impression/Recommendations Diagnostic Impression 1. 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 2. Since he has been in the hospital, he has continued to feel unwell and has had lightheadedness whenever he tries to sit up, stand, and walk. On 1 occasion on 11/23/18, he started to feel lightheaded while sitting up, then passed out for brief period of time, and had some generalized body jerking movements. He rapidly regained consciousness following that. 3. He feels better today. He is sitting up in a chair watching a Movie. His dialysis catheter was removed this morning. His appetite is better. He only had PT for a few minutes. He did not walk today. The mind continues to be clearer. He has had no further episodes of loss of consciousness. His cognitive function has improved. His motor function is also better. He denies any new neurological symptoms. 4. On neurological examination, at this time, he has mild slowing of cerebration. He has brisk deep tendon reflexes at the knees and trace ankle jerks, and needs support to sit stand and walk. 5. Laboratory data on my initial evaluation revealed that his WBC count was elevated to 15,300. He was significantly anemic with a hemoglobin of 8.7 G. His chemistry panel revealed that his potassium was low at 3.1. His BUN was elevated at 173 with a creatinine of 10.1. His proBNP was elevated to 1278. His vitamin B12 level was normal at 1394. His folate level was normal at 25.3. His TSH was normal at 1.42. His INR was normal at 1.0. His urinalysis revealed 1+ leukocyte esterase with 2 red blood cells, and 2 white blood cells per high-power field. 6. The CT of the brain reveals no acute pathology. 7. EEG done on 11/24/2018 revealed triphasic waveforms with an anterior to posterior gradient but normal background and no interictal or ictal phenomena. These findings are consistent with a mild metabolic encephalopathy. 8. The patient's history, neurological examination, laboratory data, imaging studies and EEG are most consistent with lightheadedness due to fluid and electrolyte imbalance. 9. The episode that the patient had on 11/23/18 where he felt lightheaded, then passed out, and had some abnormal body jerking movements was most probably a Matias-Anthony attack. 10. The patient does have some mild cognitive dysfunction, which is due to an ongoing metabolic encephalopathic process. Recommendations 1. Continue present management. 2. Continue to correct the patient's fluid and electrolyte imbalances. 3. Frequent range of motion exercises - patient instructed. 4. Out of bed in chair for all meals. 5. Mobilize with PT and multiple daily walks. 6. Observe closely. Janak Chandra M.D., M.S.P.H. Janak Chandra MD Nov 29, 2018 17:05
--- NOTE | 2018-11-29 17:53 | Cardiac Electrophysiology PN ---
Assessment/Plan Assessment/Plan 1. Troponin leak. The levels are nonspecific and flat 0.5, 0.5, 0.2. Denies any chest pain. This is due to the patient's renal failure with creatinine of 14. EKG shows sinus rhythm with no acute ST-T wave abnormalities. Echocardiogram EF 65%. On aspirin and beta-agueda Lower extremity duplex showed no evidence of DVT. 2. Recurrent atrial flutter on 11/24 and 11/25/18. Both terminated spontaneously On Metoprolol 25 bid. ? correction anticoagulation 3. Hyperkalemia. Potassium was 7 and is down to 4.1. S/P sodium bicarbonate and Kayexalate. Had HD 4. Acute on chronic renal failure. Further evaluation by Dr. Sosa. Cecil catheter removed . No further HD scheduled 5. Syncope. ? etiology. Nl EF. No . Could be due to atrial flutter with RVR ? Neuro eval 6. High PSA Fu Dr Alvarez 7. Sepsis, source most likely tract , may need also to rule out GI malignancy. On daptomycin. Repeated blood culture x2 on 11/26 is NTD . HD was removed today and tip sent for culture , since it was placed after he was bacteremic per Dr Phillip PETERSON RN Subjective Subjective No CP or SOB. Right IJ dialysis line was removed Objective Last 24 Hour Vital Signs Date Time Temp Pulse Resp B/P (MAP) Pulse Ox O2 Delivery O2 Flow Rate FiO2 11/29/18 16:00 95.7 81 16 119/74 (89) 96 11/29/18 12:00 97.8 71 16 124/65 (84) 98 11/29/18 12:00 73 11/29/18 10:04 78 125/70 11/29/18 09:00 Room Air 11/29/18 08:00 97.7 78 18 125/70 (88) 96 11/29/18 08:00 72 11/29/18 04:00 97.3 76 18 144/77 (99) 98 11/29/18 04:00 83 11/29/18 00:00 73 11/29/18 00:00 98.9 79 18 131/75 (93) 97 11/28/18 21:18 85 120/59 11/28/18 21:00 Room Air 11/28/18 20:00 98.0 85 18 120/59 (79) 96 11/28/18 20:00 83 Intake and Output 11/28/18 11/29/18 18:59 06:59 Intake Total 2080 ml 300 ml Output Total 1500 ml 2000 ml Balance 580 ml -1700 ml Intake Oral 600 ml 300 ml IV Total 1480 ml Output Urine Total 1500 ml 2000 ml # Bowel Movements 1 Laboratory Tests Test 11/29/18 06:15 Sodium Level 137 MMOL/L (136-145) Potassium Level 3.8 MMOL/L (3.5-5.1) Chloride Level 102 MMOL/L (98-107) Carbon Dioxide Level 26 MMOL/L (21-32) Anion Gap 9 mmol/L (5-15) Blood Urea Nitrogen 60 mg/dL (7-18) H Creatinine 4.3 MG/DL (0.55-1.30) H Estimat Glomerular Filtration Rate mL/min (>60) Glucose Level 97 MG/DL (74-106) Calcium Level 8.3 MG/DL (8.5-10.1) L Iron Level 13 ug/dL (50-175) L Total Iron Binding Capacity 140 ug/dL (250-450) L Percent Iron Saturation 9 % (15-50) L Unsaturated Iron Binding 127 ug/dL (112-346) Total Bilirubin 0.3 MG/DL (0.2-1.0) Aspartate Amino Transf (AST/SGOT) 23 U/L (15-37) Alanine Aminotransferase (ALT/SGPT) 69 U/L (12-78) Alkaline Phosphatase 111 U/L (46-116) Total Creatine Kinase 35 U/L (26-308) Total Protein 6.1 G/DL (6.4-8.2) L Albumin 1.9 G/DL (3.4-5.0) L Globulin 4.2 g/dL Albumin/Globulin Ratio 0.5 (1.0-2.7) L Microbiology Date/Time Source Procedure Growth Status 11/26/18 22:56 Blood Blood Culture - Preliminary Gram Positive Cocci Resulted 11/26/18 22:50 Blood Blood Culture - Preliminary Gram Positive Cocci Resulted Objective HEAD AND NECK: No JVD.Right IJ dialysis catheter removed LUNGS: Clear. CARDIOVASCULAR: Regular S1 and S2 with no gallop or murmur. ABDOMEN: Soft. EXTREMITIES: Bilateral 2+ pitting edema. David Guerra MD Nov 29, 2018 17:53
[2018-11-29] MEDS: Milk of Magnesia 30ml Ud ORAL PRN (18:50)
--- NOTE | 2018-11-29 19:09 | Nephrology Progress Note ---
Assessment/Plan Problem List: (1) Acute on chronic renal failure Assessment: S creatinine not much changed. off HD (2) Urinary retention (3) Hyperkalemia Assessment: ok (4) Metabolic acidosis (5) Uremia (6) Bacteremia due to Enterococcus (7) Anemia (8) Iron deficiency Plan catheter was removed abxs IVF follow labs off HD Add IV Iron cont Epogen discussed with dr Vasquez and RN Subjective Subjective catheter was removed Objective Objective Last 24 Hour Vital Signs Date Time Temp Pulse Resp B/P (MAP) Pulse Ox O2 Delivery O2 Flow Rate FiO2 11/29/18 16:00 95.7 81 16 119/74 (89) 96 11/29/18 12:00 97.8 71 16 124/65 (84) 98 11/29/18 12:00 73 11/29/18 10:04 78 125/70 11/29/18 09:00 Room Air 11/29/18 08:00 97.7 78 18 125/70 (88) 96 11/29/18 08:00 72 11/29/18 04:00 97.3 76 18 144/77 (99) 98 11/29/18 04:00 83 11/29/18 00:00 73 11/29/18 00:00 98.9 79 18 131/75 (93) 97 11/28/18 21:18 85 120/59 11/28/18 21:00 Room Air 11/28/18 20:00 98.0 85 18 120/59 (79) 96 11/28/18 20:00 83 Intake and Output 11/28/18 11/29/18 19:00 07:00 Intake Total 1555 ml 300 ml Output Total 1500 ml 2000 ml Balance 55 ml -1700 ml Intake Oral 600 ml 300 ml IV Total 955 ml Output Urine Total 1500 ml 2000 ml # Bowel Movements 1 Laboratory Tests 11/29/18 06:15: Sodium Level 137, Potassium Level 3.8, Chloride Level 102, Carbon Dioxide Level 26, Anion Gap 9, Blood Urea Nitrogen 60H, Creatinine 4.3H, Estimat Glomerular Filtration Rate , Glucose Level 97, Calcium Level 8.3L, Iron Level 13L, Total Iron Binding Capacity 140L, Percent Iron Saturation 9L, Unsaturated Iron Binding 127, Total Bilirubin 0.3, Aspartate Amino Transf (AST/SGOT) 23, Alanine Aminotransferase (ALT/SGPT) 69, Alkaline Phosphatase 111, Total Creatine Kinase 35, Total Protein 6.1L, Albumin 1.9L, Globulin 4.2, Albumin/Globulin Ratio 0.5L Height (Feet): 5 Height (Inches): 8.00 Weight (Pounds): 160 Cardiovascular: normal rate Respiratory/Chest: lungs clear Extremities: trace edema, other Michael Sosa MD Nov 29, 2018 19:09
--- NOTE | 2018-11-29 19:50 | NUR ---
NURSE NOTES: RECEIVED PATIENT RESTING IN BED, EATING DINNER, NO COMPLAINTS OF PAIN AT THIS TIME. FALL PRECAUTIONS IN PLACE: CALL LIGHT AND BEDSIDE TABLE WITHIN REACH, BED IN LOW POSITION. SON AT BEDSIDE. PLAN OF CARE REVIEWED.
--- NOTE | 2018-11-29 19:53 | General Progress Note ---
Assessment/Plan Assessment/Plan Assessment - Anemia - Renal failure - Obstructive uropathy - b/l edema - Duplex negative - PSA =10, ? CAP - abnormal LFT --> now normal Recommendations - Renal diet - Zofran PRN - RD eval - follow labs - check OB --> (+) - EGD/Colon - ? at end of stay or as outpatient Subjective Allergies: Coded Allergies: No Known Allergies (Unverified , 11/21/18) Subjective Feels OK central line removed Advised needs to undergo EGD/Colon, once all acute issues resolved Objective Last 24 Hour Vital Signs Date Time Temp Pulse Resp B/P (MAP) Pulse Ox O2 Delivery O2 Flow Rate FiO2 11/29/18 16:00 95.7 81 16 119/74 (89) 96 11/29/18 12:00 97.8 71 16 124/65 (84) 98 11/29/18 12:00 73 11/29/18 10:04 78 125/70 11/29/18 09:00 Room Air 11/29/18 08:00 97.7 78 18 125/70 (88) 96 11/29/18 08:00 72 11/29/18 04:00 97.3 76 18 144/77 (99) 98 11/29/18 04:00 83 11/29/18 00:00 73 11/29/18 00:00 98.9 79 18 131/75 (93) 97 11/28/18 21:18 85 120/59 11/28/18 21:00 Room Air 11/28/18 20:00 98.0 85 18 120/59 (79) 96 11/28/18 20:00 83 Intake and Output 11/28/18 11/29/18 19:00 07:00 Intake Total 1555 ml 300 ml Output Total 1500 ml 2000 ml Balance 55 ml -1700 ml Intake Oral 600 ml 300 ml IV Total 955 ml Output Urine Total 1500 ml 2000 ml # Bowel Movements 1 Laboratory Tests 11/29/18 06:15: Sodium Level 137, Potassium Level 3.8, Chloride Level 102, Carbon Dioxide Level 26, Anion Gap 9, Blood Urea Nitrogen 60H, Creatinine 4.3H, Estimat Glomerular Filtration Rate , Glucose Level 97, Calcium Level 8.3L, Iron Level 13L, Total Iron Binding Capacity 140L, Percent Iron Saturation 9L, Unsaturated Iron Binding 127, Total Bilirubin 0.3, Aspartate Amino Transf (AST/SGOT) 23, Alanine Aminotransferase (ALT/SGPT) 69, Alkaline Phosphatase 111, Total Creatine Kinase 35, Total Protein 6.1L, Albumin 1.9L, Globulin 4.2, Albumin/Globulin Ratio 0.5L Height (Feet): 5 Height (Inches): 8.00 Weight (Pounds): 160 Objective WDWN NCAT supple CTA RRR Abd soft (+) edema Yasir Alexandra MD Nov 29, 2018 19:53
[2018-11-29 20:00] VITALS: BP 116/58
[2018-11-29] MEDS: Tamsulosin 0.4mg cap ORAL SCH (21:34)
[2018-11-29] MEDS: Iron Sucrose 100 MG in NS 55 ML IV SCH (21:35)
--- NOTE | 2018-11-29 21:59 | General Progress Note ---
Assessment/Plan Assessment/Plan sepsis acute renal failure hyperkalemia obstructive uropathy bph elevated troponin ho htn anemia confustion encephalopathy likiely secondary to uremia resolved vomiting likely secondary to uremia short syncopal episode leukocytosis constiaption abx per ID dw Dr Sosa, dialysis cath stiill there apparently radiology per Dr Sosa doesnt remove them, I have asked Dr Jack Worthington, from General surgery to remove consider MURPHY dw Dr Fisher and Dr Sosa has johnson, urolgy fup making good urine infoley, monitor renal parameters echo noted ct of head noted neurolgy evaluation appreciated bp controlled monitor labs dvt and ulcer prophylaxis ambulate PT stool softners and laxatives ambulate Subjective Allergies: Coded Allergies: No Known Allergies (Unverified , 11/21/18) Subjective seen in am no nausea constipated no abdominal pain no chest pain or sob, ansious still awaiting dialysis cath removal, i did dw Dr Sosa Objective Last 24 Hour Vital Signs Date Time Temp Pulse Resp B/P (MAP) Pulse Ox O2 Delivery O2 Flow Rate FiO2 11/29/18 21:34 74 116/58 11/29/18 16:00 82 11/29/18 16:00 95.7 81 16 119/74 (89) 96 11/29/18 12:00 97.8 71 16 124/65 (84) 98 11/29/18 12:00 73 11/29/18 10:04 78 125/70 11/29/18 09:00 Room Air 11/29/18 08:00 97.7 78 18 125/70 (88) 96 11/29/18 08:00 72 11/29/18 04:00 97.3 76 18 144/77 (99) 98 11/29/18 04:00 83 11/29/18 00:00 73 11/29/18 00:00 98.9 79 18 131/75 (93) 97 Intake and Output 11/28/18 11/29/18 18:59 06:59 Intake Total 2080 ml 300 ml Output Total 1500 ml 2000 ml Balance 580 ml -1700 ml Intake Oral 600 ml 300 ml IV Total 1480 ml Output Urine Total 1500 ml 2000 ml # Bowel Movements 1 Laboratory Tests 11/29/18 06:15: Sodium Level 137, Potassium Level 3.8, Chloride Level 102, Carbon Dioxide Level 26, Anion Gap 9, Blood Urea Nitrogen 60H, Creatinine 4.3H, Estimat Glomerular Filtration Rate , Glucose Level 97, Calcium Level 8.3L, Iron Level 13L, Total Iron Binding Capacity 140L, Percent Iron Saturation 9L, Unsaturated Iron Binding 127, Total Bilirubin 0.3, Aspartate Amino Transf (AST/SGOT) 23, Alanine Aminotransferase (ALT/SGPT) 69, Alkaline Phosphatase 111, Total Creatine Kinase 35, Total Protein 6.1L, Albumin 1.9L, Globulin 4.2, Albumin/Globulin Ratio 0.5L Height (Feet): 5 Height (Inches): 8.00 Weight (Pounds): 160 General Appearance: WD/WN, no apparent distress Neck: supple Cardiovascular: normal rate Respiratory/Chest: lungs clear Objective right dilaysis Dane Malik MD Nov 29, 2018 21:59
[2018-11-30] VITALS: BP 116/68
[2018-11-30 04:00] VITALS: BP 124/72
[2018-11-30 07:33] LABS: BASOPHILS % (AUTO) 0.8 % (0.0-2.0); EOSINOPHILS % (AUTO) 3.6 % (0.0-3.0); HEMATOCRIT 23.8 % (42.0-52.0); LYMPHOCYTES % (AUTO) 5.7 % (20.0-45.0); MEAN CORPUSCULAR VOLUME 93 FL (80-99); MONOCYTES % (AUTO) 8.4 % (1.0-10.0); NEUTROPHILS % (AUTO) 81.5 % (45.0-75.0); PLATELET COUNT 358 K/UL (150-450); RED BLOOD COUNT 2.55 M/UL (4.70-6.10); RED CELL DISTRIBUTION WIDTH 10.6 % (11.6-14.8); WHITE BLOOD COUNT 11.7 K/UL (4.8-10.8)
--- NOTE | 2018-11-30 07:36 | NUR ---
HAND-OFF: Report given to Roberto HALL RN. PATIENT ASLEEP, NO SIGNS OF DISTRESS NOTED.
--- NOTE | 2018-11-30 07:37 | NUR ---
NURSE NOTES: Received patient from [facility] Gay[facility]. Patient VS stable at this time with no sign of acute distress. Patient sleeping at this time. Patient on room air at this time. Patient showing SR on the monitor. Patient has johnson 14 lithuanian at this time for urine retention. Patient has a left wrist 18G PIV that is running NS at 75mL/hr. Patient bed in low position with bed alarm on and call light in reach at this time. [facility] follow up with catalytic case operator [facility].
[2018-11-30 07:46] LABS: ANION GAP 10 mmol/L (5-15); BLOOD UREA NITROGEN 66 mg/dL (7-18); CALCIUM 8.6 MG/DL (8.5-10.1); CARBON DIOXIDE 24 MMOL/L (21-32); CHLORIDE 104 MMOL/L (98-107); CREATININE 4.2 MG/DL (0.55-1.30); SODIUM 138 MMOL/L (136-145)
--- NOTE | 2018-11-30 07:50 | Urology Progress Note ---
Assessment/Plan Assessment/Plan 1. Urinary retention history. 2. Benign prostatic hypertrophy. 3. Possible neurogenic bladder. 4. Hematuria. 5. Renal failure, which appears to be acute on chronic, improved. 6. Hydronephrosis, improved with Johnson. 7. Proteinuria. 8. Meatal stenosis and stricture history. 9. Inguinal hernia. monitor clinically johnson hand irrigated and do PRN off HD for now monitor renal fxn closely, seems to have stabilized flomax and proscar added cysto later voiding trial at some point? Subjective Allergies: Coded Allergies: No Known Allergies (Unverified , 11/21/18) Subjective all noted, feels fair, HD cath removed Objective Last 24 Hour Vital Signs Date Time Temp Pulse Resp B/P (MAP) Pulse Ox O2 Delivery O2 Flow Rate FiO2 11/30/18 04:00 97.7 63 18 124/72 (89) 98 11/30/18 04:00 63 11/30/18 00:00 68 11/30/18 00:00 97.5 69 18 116/68 (84) 97 11/29/18 21:34 74 116/58 11/29/18 21:00 Room Air 11/29/18 20:00 78 11/29/18 20:00 97.9 74 18 116/58 (77) 96 11/29/18 16:00 82 11/29/18 16:00 95.7 81 16 119/74 (89) 96 11/29/18 12:00 97.8 71 16 124/65 (84) 98 11/29/18 12:00 73 11/29/18 10:04 78 125/70 11/29/18 09:00 Room Air 11/29/18 08:00 97.7 78 18 125/70 (88) 96 11/29/18 08:00 72 Intake and Output 11/29/18 11/30/18 19:00 07:00 Intake Total 1277 ml 1005 ml Output Total 2000 ml 900 ml Balance -723 ml 105 ml Intake Oral 360 ml 120 ml IV Total 917 ml 885 ml Output Urine Total 2000 ml 900 ml Microbiology Date/Time Source Procedure Growth Status 11/26/18 22:56 Blood Blood Culture - Final Enterococcus Faecalis Complete 11/23/18 15:00 Stool Ova and Parasites - Final Complete 11/23/18 15:00 Stool Ova and Parasite Result 1 - Final Complete Current Medications Medications (Trade) Dose Ordered Sig/Debbie Route PRN Reason Start Time Stop Time Status Last Admin Dose Admin Acetaminophen (Tylenol) 650 mg Q6H PRN ORAL Mild Pain/Temp > 100.5 11/22/18 03:15 12/22/18 03:14 11/30/18 01:31 Al Hydroxide/Mg Hydroxide (Mylanta) 30 ml Q6H PRN ORAL GERD 11/22/18 03:15 12/22/18 03:14 Daptomycin 700 mg/ Sodium Chloride 55 ml @ 100 mls/hr Q48H IV 11/27/18 14:00 12/04/18 13:59 11/29/18 15:08 Docusate Sodium (Colace) 100 mg TWICE A DAY ORAL 11/25/18 09:00 12/25/18 08:59 11/29/18 18:42 Epoetin Tommy (Epoetin Tommy(ESRD on dialysis)) 2,000 unit WED-WED-WED SUBQ 11/23/18 21:00 12/23/18 20:59 11/28/18 21:17 Epoetin Tommy (Epoetin Tommy(ESRD on dialysis)) 3,000 unit WED-WED-WED SUBQ 11/23/18 21:00 12/23/18 20:59 11/28/18 21:16 Finasteride (Proscar) 5 mg DAILY ORAL 11/25/18 09:00 12/25/18 08:59 11/29/18 10:04 Heparin Sodium (Porcine) (Heparin 5000 units/ml) 5,000 units EVERY 12 HOURS SUBQ 11/22/18 09:00 12/22/18 08:59 11/29/18 21:37 Iron Sucrose 100 mg/Sodium Chloride 60 ml @ 240 mls/hr BEDTIME IV 11/29/18 21:00 12/03/18 21:14 11/29/18 21:35 Magnesium Hydroxide (Mom) 30 ml BIDPRN PRN ORAL Constipation 11/26/18 12:45 12/26/18 12:44 11/29/18 18:50 Meclizine HCl (Antivert) 25 mg TIDPRN PRN ORAL for dizziness 11/23/18 18:15 12/23/18 18:14 Metoprolol Tartrate (Lopressor) 25 mg Q12HR ORAL 11/22/18 21:00 12/22/18 20:59 11/29/18 21:34 Ondansetron HCl (Zofran) 4 mg Q6H PRN IVP Nausea & Vomiting 11/24/18 09:30 12/24/18 09:29 11/26/18 23:02 Pantoprazole (Protonix) 40 mg DAILY ORAL 11/26/18 09:00 12/26/18 08:59 11/29/18 10:04 Sodium Chloride 1,000 ml @ 75 mls/hr [id number] IV 11/23/18 18:15 12/23/18 18:14 11/29/18 21:33 Tamsulosin HCl (Flomax) 0.4 mg BEDTIME ORAL 11/24/18 23:00 12/24/18 22:59 11/29/18 21:34 Laboratory Tests 11/30/18 06:48: White Blood Count 11.7H, Red Blood Count 2.55L, Hemoglobin 8.0L, Hematocrit 23.8L, Mean Corpuscular Volume 93, Mean Corpuscular Hemoglobin 31.4H, Mean Corpuscular Hemoglobin Concent 33.7, Red Cell Distribution Width 10.6L, Platelet Count 358, Mean Platelet Volume 5.2L, Neutrophils (%) (Auto) 81.5H, Lymphocytes (%) (Auto) 5.7L, Monocytes (%) (Auto) 8.4, Eosinophils (%) (Auto) 3.6H, Basophils (%) (Auto) 0.8, Sodium Level 138, Potassium Level 4.0, Chloride Level 104, Carbon Dioxide Level 24, Anion Gap 10, Blood Urea Nitrogen 66H, Creatinine 4.2H, Estimat Glomerular Filtration Rate , Glucose Level 91, Calcium Level 8.6 Height (Feet): 5 Height (Inches): 8.00 Weight (Pounds): 160 Objective exam stable, urine clearing, has some debris abdominal u/s (11/29) noted Geraldo Wise MD Nov 30, 2018 07:50
[2018-11-30 08:00] VITALS: BP 127/68
[2018-11-30] MEDS ORDERED: Bisacodyl EC 5mg tab ORAL PRN ×2 (09:15→14:15)
[2018-11-30] MEDS: Docusate 100mg cap ORAL SCH ×2 (09:22→18:06)
[2018-11-30] MEDS: Metoprolol 25mg tab ORAL SCH ×2 (09:23→21:53)
[2018-11-30] MEDS: Heparin 5000 units/ml inj SUBQ SCH ×2 (09:25→22:01)
[2018-11-30 12:00] VITALS: BP_SYST 119; BP_DIAS 63; BP_DIAS 64
--- NOTE | 2018-11-30 12:30 | NUR ---
NURSE NOTES: Patient sitting up in a chair eating lunch.
--- NOTE | 2018-11-30 13:28 | Surgery Progress Note ---
Surgery Progress Note Subjective Additional Comments no acute events. stable. comfortable. catheter site clean Objective Last 24 Hour Vital Signs Date Time Temp Pulse Resp B/P (MAP) Pulse Ox O2 Delivery O2 Flow Rate FiO2 11/30/18 09:23 68 127/68 11/30/18 04:00 97.7 63 18 124/72 (89) 98 11/30/18 04:00 63 11/30/18 00:00 68 11/30/18 00:00 97.5 69 18 116/68 (84) 97 11/29/18 21:34 74 116/58 11/29/18 21:00 Room Air 11/29/18 20:00 78 11/29/18 20:00 97.9 74 18 116/58 (77) 96 11/29/18 16:00 82 11/29/18 16:00 95.7 81 16 119/74 (89) 96 I&O Intake and Output 11/29/18 11/30/18 19:00 07:00 Intake Total 1277 ml 1005 ml Output Total 2000 ml 900 ml Balance -723 ml 105 ml Intake Oral 360 ml 120 ml IV Total 917 ml 885 ml Output Urine Total 2000 ml 900 ml Dressing: dry Wound: clean Drains: none Cardiovascular: RSR Respiratory: clear Abdomen: soft, present bowel sounds Extremities: no cyanosis Laboratory Tests Test 11/30/18 06:48 White Blood Count 11.7 K/UL (4.8-10.8) H Red Blood Count 2.55 M/UL (4.70-6.10) L Hemoglobin 8.0 G/DL (14.2-18.0) L Hematocrit 23.8 % (42.0-52.0) L Mean Corpuscular Volume 93 FL (80-99) Mean Corpuscular Hemoglobin 31.4 PG (27.0-31.0) H Mean Corpuscular Hemoglobin Concent 33.7 G/DL (32.0-36.0) Red Cell Distribution Width 10.6 % (11.6-14.8) L Platelet Count 358 K/UL (150-450) Mean Platelet Volume 5.2 FL (6.5-10.1) L Neutrophils (%) (Auto) 81.5 % (45.0-75.0) H Lymphocytes (%) (Auto) 5.7 % (20.0-45.0) L Monocytes (%) (Auto) 8.4 % (1.0-10.0) Eosinophils (%) (Auto) 3.6 % (0.0-3.0) H Basophils (%) (Auto) 0.8 % (0.0-2.0) Sodium Level 138 MMOL/L (136-145) Potassium Level 4.0 MMOL/L (3.5-5.1) Chloride Level 104 MMOL/L (98-107) Carbon Dioxide Level 24 MMOL/L (21-32) Anion Gap 10 mmol/L (5-15) Blood Urea Nitrogen 66 mg/dL (7-18) H Creatinine 4.2 MG/DL (0.55-1.30) H Estimat Glomerular Filtration Rate mL/min (>60) Glucose Level 91 MG/DL (74-106) Calcium Level 8.6 MG/DL (8.5-10.1) Plan Problems: (1) Acute renal failure (2) Metabolic acidosis Additional Comments s/p removal of right IJ HD cath stable wound c/d/i no hematoma dressings removed okay to keep open to air will sign off. thank you Luis F Worthington Nov 30, 2018 13:28
--- NOTE | 2018-11-30 14:46 | Nephrology Progress Note ---
Assessment/Plan Problem List: (1) Acute on chronic renal failure Assessment: S creatinine not much changed. off HD (2) Urinary retention (3) Hyperkalemia Assessment: ok (4) Metabolic acidosis (5) Uremia (6) Bacteremia due to Enterococcus (7) Anemia (8) Iron deficiency Plan abxs DC IVF follow labs off HD IV Iron cont Epogen discussed with dr Vasquez and RN Subjective Subjective No nausea weak Objective Objective Last 24 Hour Vital Signs Date Time Temp Pulse Resp B/P (MAP) Pulse Ox O2 Delivery O2 Flow Rate FiO2 11/30/18 09:23 68 127/68 11/30/18 04:00 97.7 63 18 124/72 (89) 98 11/30/18 04:00 63 11/30/18 00:00 68 11/30/18 00:00 97.5 69 18 116/68 (84) 97 11/29/18 21:34 74 116/58 11/29/18 21:00 Room Air 11/29/18 20:00 78 11/29/18 20:00 97.9 74 18 116/58 (77) 96 11/29/18 16:00 82 11/29/18 16:00 95.7 81 16 119/74 (89) 96 Intake and Output 11/29/18 11/30/18 19:00 07:00 Intake Total 1277 ml 1005 ml Output Total 2000 ml 900 ml Balance -723 ml 105 ml Intake Oral 360 ml 120 ml IV Total 917 ml 885 ml Output Urine Total 2000 ml 900 ml Laboratory Tests 11/30/18 06:48: White Blood Count 11.7H, Red Blood Count 2.55L, Hemoglobin 8.0L, Hematocrit 23.8L, Mean Corpuscular Volume 93, Mean Corpuscular Hemoglobin 31.4H, Mean Corpuscular Hemoglobin Concent 33.7, Red Cell Distribution Width 10.6L, Platelet Count 358, Mean Platelet Volume 5.2L, Neutrophils (%) (Auto) 81.5H, Lymphocytes (%) (Auto) 5.7L, Monocytes (%) (Auto) 8.4, Eosinophils (%) (Auto) 3.6H, Basophils (%) (Auto) 0.8, Sodium Level 138, Potassium Level 4.0, Chloride Level 104, Carbon Dioxide Level 24, Anion Gap 10, Blood Urea Nitrogen 66H, Creatinine 4.2H, Estimat Glomerular Filtration Rate , Glucose Level 91, Calcium Level 8.6 Height (Feet): 5 Height (Inches): 8.00 Weight (Pounds): 160 Cardiovascular: normal rate Respiratory/Chest: lungs clear Extremities: moderate edema Michael Sosa MD Nov 30, 2018 14:46
--- NOTE | 2018-11-30 15:09 | NUR ---
CASE MANAGEMENT:REVIEW 11/30/18 SI: AC/CHR RENAL FAILURE. BACTEREMIA HYDRONEPHROSIS. BPH. OBSTRUCTIVE UROPATHY 97.5 69 18 116/68 97% on ra WBC+11.7 H/H-8.0/23.8 BUN+66 CR+4.2 IS: IV VENOFER QHS DAPTOMYCIN Q48 PROTONIX PO QD PROSCAR PO QD COLACE PO BID FLOMAX PO QHS PROCRIT SQ MWF IVF@75/HR LOPRESSOR PO Q12 : TELEMETRY STATUS PLAN: DISCHARGE PLANNING [facility] HAS ACCEPTED PATIENT [employer] HAS DENIED TRANSFER TO [facility].PER [employer] CLOCK ASSEMBLER THEY WILL ARRANGE A PEER TO PEER REVIEW WITH DR KNIGHT
--- NOTE | 2018-11-30 15:15 | NUR ---
RD ASSESSMENT & RECOMMENDATIONS SEE CARE ACTIVITY FOR COMPLETE ASSESSMENT DAILY ESTIMATED NEEDS: Needs based on ARF on CKD, now off HD/ 72.7kg 25-30 kcals/kg 6320-6640 total kcals 0.7-0.9 g protein/kg 50-65 g total protein 20-22 mL/kg 0527-9555 total fluid mLs NUTRITION DIAGNOSIS: Altered nutrition related lab values R/T ARF on CKD as evidenced by elev BUN (231->66), elev creat (14->4.2), critically elev K upon adm (7.0*-> now wnl), elev phos upon adm (9.2) not updated, elev BNP (1278->745). CURRENT DIET:LOW POTASSIUM DIET PO DIET RECOMMENDATIONS: Maintain Low K + LOW NA + 60g protein restriction ADDITIONAL RECOMMENDATIONS: * Standing wt for accurate CBW * Renal diet education provided on 11/24/18. * Rec check f/up phos level (9.2 upon adm) * Monitor BGs closely, need for carb controlled diet- A1C=6.1 * Monitor renal fxn and lytes closely- renal fxn improving at this time
--- NOTE | 2018-11-30 15:31 | NUR ---
*-* INSURANCE *-* UPDATED CLINICALS AND REVIEW FAXED TO: ANATOLIY HENDRICKS:NORMA P:[phone] F:[phone] REF# [id number]
--- NOTE | 2018-11-30 15:32 | NUR ---
DISCHARGE PLANNING SPOKE WITH MOLDING LINE OPERATOR AT [facility] ([place] WHO STATED SHE TRANSFER TO [facility] HAS BEEN DENIED AND A PEER TO PEER MD CONVERSATION WILL BE ARRANGED. THIS MOLDING LINE OPERATOR TRIED TO PROVIDE DR KNIGHT'S CELL NUMBER TO [facility] MOLDING LINE OPERATOR BUT SHE WOULD NOT ACCEPT AND STATED THEY HAVE THEIR OWN SYSTEM WHEN IT COMES TO PEER TO PEER
[2018-11-30 16:00] VITALS: BP 116/68
--- NOTE | 2018-11-30 16:46 | Infectious Diseases Prog Note ---
Assessment/Plan Problems: (1) Sepsis due to Enterococcus with acute renal failure and metabolic encephalopathy Assessment & Plan: source most likely tract with obstruction , may need also to rule out GI malignancy (colon CA) . continue daptomycin renally dosed as per pharmacy for now to avoid nephrotoxicity . repeated blood culture on 11/26 is still positive since he was just started on vancomycin on that day . his HD catheter was removed on 11/29 since it was placed after he was bacteremic with enterococcus. will repeat another blood culture today to confirm clearance since his catheter was removed . will monitor CK level weekly while on daptomycin . will need two weeks of iv antibiotics for his bacteremia starting from the clearance date (2) Hydronephrosis Assessment & Plan: most likely the source of his bacteremia with enterococcus faecalis , with worsening renal failure , suspect enlarged prostate , with elevated PSA rule out prostate CA , recommend oncology work up with rectal US to rule out prostatic mass , and possible prostatectomy once clinically stable (3) Acute on chronic renal failure Assessment & Plan: improving, now making good urine , required HD , his HD catheter was removed since it was placed while bacteremic . will wait for 48 hours on antibiotics before placing any new catheter if he needs any in the future, and if his repeated blood culture today remains negative (4) Acute encephalopathy Assessment & Plan: improving, suspect metabolic and toxic , monitor mental status, avoid nephrotoxics , neurology is following (5) Prostate enlargement Assessment & Plan: with elevated PSA, rule out malignant process, recommend rectal US to evaluate the prostate and for possible biopsy to rule out malignancy . (6) Generalized weakness Assessment & Plan: recommend rehabilitation and PT Subjective Constitutional: Reports: no symptoms HEENT: Reports: no symptoms Respiratory: Reports: no symptoms Breasts: Reports: no symptoms Cardiovascular: Reports: no symptoms Gastrointestinal/Abdominal: Reports: no symptoms Genitourinary: Reports: no symptoms Neurologic: Reports: weakness Psychiatric: Reports: no symptoms Skin: Reports: no symptoms Endocrine: Reports: no symptoms Hematologic: Reports: no symptoms Musculoskeletal: Reports: no symptoms Allergies: Coded Allergies: No Known Allergies (Unverified , 11/21/18) Subjective He was feeling better , with less discomfort at the right IJ HD catheter site since it was removed , and less jaw pain . no cough or SOB, no neck pain or hematoma, no fever or chills , no diarrhea Objective Vital Signs Last 24 Hour Vital Signs Date Time Temp Pulse Resp B/P (MAP) Pulse Ox O2 Delivery O2 Flow Rate FiO2 11/30/18 09:23 68 127/68 11/30/18 04:00 97.7 63 18 124/72 (89) 98 11/30/18 04:00 63 11/30/18 00:00 68 11/30/18 00:00 97.5 69 18 116/68 (84) 97 11/29/18 21:34 74 116/58 11/29/18 21:00 Room Air 11/29/18 20:00 78 11/29/18 20:00 97.9 74 18 116/58 (77) 96 Height (Feet): 5 Height (Inches): 8.00 Weight (Pounds): 160 General Appearance: no acute distress, cachetic HEENT: normocephalic, atraumatic, anicteric, mucous membranes moist, PERRL Respiratory/Chest: chest wall non-tender, lungs clear, normal breath sounds, no respiratory distress, no accessory muscle use Cardiovascular: normal peripheral pulses, normal rate, regular rhythm, no gallop/murmur, no JVD Abdomen: normal bowel sounds, soft, non tender, no organomegaly, non distended , no mass, no scars Extremities: no cyanosis, no clubbing Skin: no rash, no lesions, no ulcers Neurologic/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: 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, no motor/sensory deficits, alert, oriented x 3, responsive Lymphatic: no neck adenopathy, no groin adenopathy Musculoskeletal: normal muscle bulk, no effusion Laboratory Tests Test 11/30/18 06:48 White Blood Count 11.7 K/UL (4.8-10.8) H Red Blood Count 2.55 M/UL (4.70-6.10) L Hemoglobin 8.0 G/DL (14.2-18.0) L Hematocrit 23.8 % (42.0-52.0) L Mean Corpuscular Volume 93 FL (80-99) Mean Corpuscular Hemoglobin 31.4 PG (27.0-31.0) H Mean Corpuscular Hemoglobin Concent 33.7 G/DL (32.0-36.0) Red Cell Distribution Width 10.6 % (11.6-14.8) L Platelet Count 358 K/UL (150-450) Mean Platelet Volume 5.2 FL (6.5-10.1) L Neutrophils (%) (Auto) 81.5 % (45.0-75.0) H Lymphocytes (%) (Auto) 5.7 % (20.0-45.0) L Monocytes (%) (Auto) 8.4 % (1.0-10.0) Eosinophils (%) (Auto) 3.6 % (0.0-3.0) H Basophils (%) (Auto) 0.8 % (0.0-2.0) Sodium Level 138 MMOL/L (136-145) Potassium Level 4.0 MMOL/L (3.5-5.1) Chloride Level 104 MMOL/L (98-107) Carbon Dioxide Level 24 MMOL/L (21-32) Anion Gap 10 mmol/L (5-15) Blood Urea Nitrogen 66 mg/dL (7-18) H Creatinine 4.2 MG/DL (0.55-1.30) H Estimat Glomerular Filtration Rate mL/min (>60) Glucose Level 91 MG/DL (74-106) Calcium Level 8.6 MG/DL (8.5-10.1) Current Medications Medications (Trade) Dose Ordered Sig/Debbie Route PRN Reason Start Time Stop Time Status Last Admin Dose Admin Acetaminophen (Tylenol) 650 mg Q6H PRN ORAL Mild Pain/Temp > 100.5 11/22/18 03:15 12/22/18 03:14 11/30/18 11:07 Al Hydroxide/Mg Hydroxide (Mylanta) 30 ml Q6H PRN ORAL GERD 11/22/18 03:15 12/22/18 03:14 Bisacodyl (Dulcolax) 10 mg DAILYPRN PRN RECTAL Constipation 11/30/18 14:30 12/30/18 14:29 11/30/18 14:29 Daptomycin 700 mg/ Sodium Chloride 55 ml @ 100 mls/hr Q48H IV 11/27/18 14:00 12/04/18 13:59 11/29/18 15:08 Docusate Sodium (Colace) 100 mg TWICE A DAY ORAL 11/25/18 09:00 12/25/18 08:59 11/30/18 09:22 Epoetin Tommy (Epoetin Tommy(ESRD on dialysis)) 2,000 unit WED-WED-WED SUBQ 11/23/18 21:00 12/23/18 20:59 11/28/18 21:17 Epoetin Tommy (Epoetin Tommy(ESRD on dialysis)) 3,000 unit WED- SUBQ 11/23/18 21:00 12/23/18 20:59 11/28/18 21:16 Finasteride (Proscar) 5 mg DAILY ORAL 11/25/18 09:00 12/25/18 08:59 11/30/18 09:22 Heparin Sodium (Porcine) (Heparin 5000 units/ml) 5,000 units EVERY 12 HOURS SUBQ 11/22/18 09:00 12/22/18 08:59 11/30/18 09:25 Iron Sucrose 100 mg/Sodium Chloride 60 ml @ 240 mls/hr BEDTIME IV 11/29/18 21:00 12/03/18 21:14 11/29/18 21:35 Magnesium Hydroxide (Mom) 30 ml BIDPRN PRN ORAL Constipation 11/26/18 12:45 12/26/18 12:44 11/29/18 18:50 Meclizine HCl (Antivert) 25 mg TIDPRN PRN ORAL for dizziness 11/23/18 18:15 12/23/18 18:14 Metoprolol Tartrate (Lopressor) 25 mg Q12HR ORAL 11/22/18 21:00 12/22/18 20:59 11/30/18 09:23 Ondansetron HCl (Zofran) 4 mg Q6H PRN IVP Nausea & Vomiting 11/24/18 09:30 12/24/18 09:29 11/26/18 23:02 Pantoprazole (Protonix) 40 mg DAILY ORAL 11/26/18 09:00 12/26/18 08:59 11/30/18 09:22 Tamsulosin HCl (Flomax) 0.4 mg BEDTIME ORAL 11/24/18 23:00 12/24/18 22:59 11/29/18 21:34 Zolpidem Tartrate (Ambien) 5 mg HSPRN PRN ORAL Insomnia 11/30/18 21:00 12/07/18 20:59 Mckinley Fisher M.D. Nov 30, 2018 16:46
--- NOTE | 2018-11-30 17:00 | NUR ---
NURSE NOTES: Patient spoke with porter sample case regarding [facility].
--- NOTE | 2018-11-30 17:11 | Cardiac Electrophysiology PN ---
Assessment/Plan Assessment/Plan 1. Troponin leak. The levels are nonspecific and flat 0.5, 0.5, 0.2. Denies any chest pain. This is due to the patient's renal failure EKG shows sinus rhythm with no acute ST-T wave abnormalities. Echocardiogram EF 65%. On aspirin and beta-agueda Lower extremity duplex showed no evidence of DVT. 2. Recurrent atrial flutter on 11/24 and 11/25/18. Both terminated spontaneously On Metoprolol 25 bid. ? detention anticoagulation 3. Hyperkalemia. Potassium was 7 and is down to 4.1. S/P sodium bicarbonate and Kayexalate. Had HD 4. Acute on chronic renal failure. Further evaluation by Dr. Sosa. Cecil catheter removed . No further HD scheduled 5. Syncope. ? etiology. Nl EF. No . Could be due to atrial flutter with RVR 6. High PSA Fu Dr Alvarez 7. Sepsis, source most likely tract , may need also to rule out GI malignancy. On daptomycin. Repeated blood culture x2 on 11/26 is NTD . HD was removed today and tip sent for culture , since it was placed after he was bacteremic per Dr Phillip PETERSON RN Subjective Subjective No CP or SOB. Right IJ dialysis line was removed yesterday. No events Objective Last 24 Hour Vital Signs Date Time Temp Pulse Resp B/P (MAP) Pulse Ox O2 Delivery O2 Flow Rate FiO2 11/30/18 09:23 68 127/68 11/30/18 04:00 97.7 63 18 124/72 (89) 98 11/30/18 04:00 63 11/30/18 00:00 68 11/30/18 00:00 97.5 69 18 116/68 (84) 97 11/29/18 21:34 74 116/58 11/29/18 21:00 Room Air 11/29/18 20:00 78 11/29/18 20:00 97.9 74 18 116/58 (77) 96 Intake and Output 11/29/18 11/30/18 18:59 06:59 Intake Total 1202 ml 1005 ml Output Total 2000 ml 900 ml Balance -798 ml 105 ml Intake Oral 360 ml 120 ml IV Total 842 ml 885 ml Output Urine Total 2000 ml 900 ml Laboratory Tests Test 11/30/18 06:48 White Blood Count 11.7 K/UL (4.8-10.8) H Red Blood Count 2.55 M/UL (4.70-6.10) L Hemoglobin 8.0 G/DL (14.2-18.0) L Hematocrit 23.8 % (42.0-52.0) L Mean Corpuscular Volume 93 FL (80-99) Mean Corpuscular Hemoglobin 31.4 PG (27.0-31.0) H Mean Corpuscular Hemoglobin Concent 33.7 G/DL (32.0-36.0) Red Cell Distribution Width 10.6 % (11.6-14.8) L Platelet Count 358 K/UL (150-450) Mean Platelet Volume 5.2 FL (6.5-10.1) L Neutrophils (%) (Auto) 81.5 % (45.0-75.0) H Lymphocytes (%) (Auto) 5.7 % (20.0-45.0) L Monocytes (%) (Auto) 8.4 % (1.0-10.0) Eosinophils (%) (Auto) 3.6 % (0.0-3.0) H Basophils (%) (Auto) 0.8 % (0.0-2.0) Sodium Level 138 MMOL/L (136-145) Potassium Level 4.0 MMOL/L (3.5-5.1) Chloride Level 104 MMOL/L (98-107) Carbon Dioxide Level 24 MMOL/L (21-32) Anion Gap 10 mmol/L (5-15) Blood Urea Nitrogen 66 mg/dL (7-18) H Creatinine 4.2 MG/DL (0.55-1.30) H Estimat Glomerular Filtration Rate mL/min (>60) Glucose Level 91 MG/DL (74-106) Calcium Level 8.6 MG/DL (8.5-10.1) Objective HEAD AND NECK: No JVD. Right IJ dialysis catheter removed LUNGS: Clear. CARDIOVASCULAR: Regular S1 and S2 with no gallop or murmur. ABDOMEN: Soft. EXTREMITIES: Bilateral 2+ pitting edema. David Guerra MD Nov 30, 2018 17:11
--- NOTE | 2018-11-30 17:41 | General Progress Note ---
Assessment/Plan Assessment/Plan Assessment - Anemia - Renal failure - Obstructive uropathy - b/l edema - Duplex negative - PSA =10, ? CAP - abnormal LFT --> now normal Recommendations - Renal diet - Zofran PRN - follow labs - check OB --> (+) - EGD/Colon - as outpatient ? Subjective Allergies: Coded Allergies: No Known Allergies (Unverified , 11/21/18) Subjective Feels OK no abdominal complaints agreed to undergo EGD/Colon as outpatient, once all acute issues resolved Objective Last 24 Hour Vital Signs Date Time Temp Pulse Resp B/P (MAP) Pulse Ox O2 Delivery O2 Flow Rate FiO2 11/30/18 09:23 68 127/68 11/30/18 04:00 97.7 63 18 124/72 (89) 98 11/30/18 04:00 63 11/30/18 00:00 68 11/30/18 00:00 97.5 69 18 116/68 (84) 97 11/29/18 21:34 74 116/58 11/29/18 21:00 Room Air 11/29/18 20:00 78 11/29/18 20:00 97.9 74 18 116/58 (77) 96 Intake and Output 11/29/18 11/30/18 18:59 06:59 Intake Total 1202 ml 1005 ml Output Total 2000 ml 900 ml Balance -798 ml 105 ml Intake Oral 360 ml 120 ml IV Total 842 ml 885 ml Output Urine Total 2000 ml 900 ml Laboratory Tests 11/30/18 06:48: White Blood Count 11.7H, Red Blood Count 2.55L, Hemoglobin 8.0L, Hematocrit 23.8L, Mean Corpuscular Volume 93, Mean Corpuscular Hemoglobin 31.4H, Mean Corpuscular Hemoglobin Concent 33.7, Red Cell Distribution Width 10.6L, Platelet Count 358, Mean Platelet Volume 5.2L, Neutrophils (%) (Auto) 81.5H, Lymphocytes (%) (Auto) 5.7L, Monocytes (%) (Auto) 8.4, Eosinophils (%) (Auto) 3.6H, Basophils (%) (Auto) 0.8, Sodium Level 138, Potassium Level 4.0, Chloride Level 104, Carbon Dioxide Level 24, Anion Gap 10, Blood Urea Nitrogen 66H, Creatinine 4.2H, Estimat Glomerular Filtration Rate , Glucose Level 91, Calcium Level 8.6 Height (Feet): 5 Height (Inches): 8.00 Weight (Pounds): 160 Objective WDWN NCAT supple CTA RRR Abd soft (+) edema Yasir Alexandra MD Nov 30, 2018 17:41
--- NOTE | 2018-11-30 17:43 | Neurology Progress Note ---
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 He was sitting up in a chair earlier but is in bed now. He has not walked today. He has also had no PT today. Plans are to watch him off dialysis. His appetite is better. The mind continues to be clearer. He has had no further episodes of loss of consciousness. His cognitive function has improved. His motor function is also better. He denies any new neurological symptoms. He specifically denies any weakness on one side or the other, numbness on one side or the other, problems with speech problems with language problems with vision problems with memory. He does have right neck tightness and a right temporal headache with problems opening his mouth wide. Review of Systems Neuro Review of Systems Benign. Objective Physical Exam Last Vital Signs Date Time Temp Pulse Resp B/P (MAP) Pulse Ox O2 Delivery O2 Flow Rate FiO2 11/30/18 09:23 68 127/68 11/30/18 04:00 97.7 18 98 11/29/18 21:00 Room Air 11/22/18 03:58 21 Laboratory Tests Test 11/30/18 06:48 White Blood Count 11.7 K/UL (4.8-10.8) H Red Blood Count 2.55 M/UL (4.70-6.10) L Hemoglobin 8.0 G/DL (14.2-18.0) L Hematocrit 23.8 % (42.0-52.0) L Mean Corpuscular Volume 93 FL (80-99) Mean Corpuscular Hemoglobin 31.4 PG (27.0-31.0) H Mean Corpuscular Hemoglobin Concent 33.7 G/DL (32.0-36.0) Red Cell Distribution Width 10.6 % (11.6-14.8) L Platelet Count 358 K/UL (150-450) Mean Platelet Volume 5.2 FL (6.5-10.1) L Neutrophils (%) (Auto) 81.5 % (45.0-75.0) H Lymphocytes (%) (Auto) 5.7 % (20.0-45.0) L Monocytes (%) (Auto) 8.4 % (1.0-10.0) Eosinophils (%) (Auto) 3.6 % (0.0-3.0) H Basophils (%) (Auto) 0.8 % (0.0-2.0) Sodium Level 138 MMOL/L (136-145) Potassium Level 4.0 MMOL/L (3.5-5.1) Chloride Level 104 MMOL/L (98-107) Carbon Dioxide Level 24 MMOL/L (21-32) Anion Gap 10 mmol/L (5-15) Blood Urea Nitrogen 66 mg/dL (7-18) H Creatinine 4.2 MG/DL (0.55-1.30) H Estimat Glomerular Filtration Rate mL/min (>60) Glucose Level 91 MG/DL (74-106) Calcium Level 8.6 MG/DL (8.5-10.1) Neurologic Exam Objective PHYSICAL EXAMINATION: GENERAL: He is a well-developed, well-nourished, pleasant gentleman, lying in bed, in no acute distress. HEAD: Normocephalic and atraumatic. EENT: Examination benign. NECK: No neck rigidity was observed. NEUROLOGIC EXAMINATION: MENTAL STATUS EXAMINATION: He was awake and alert. He was oriented to person, place, and time. He was able to recall 3/3 words immediately after 1 minute and after 3 minutes. He was able to remember presidents, Trump through Trujillo senior. His mathematical skills were good. His visuospatial function was preserved. SPEECH: He had no dysarthria. LANGUAGE: He had no aphasia. CRANIAL NERVE EXAMINATION: II: The visual caal were intact on confrontation testing. III, IV & : The external ocular movements were full and the pupils 3 mm in diameter, equal, round, regular, and reactive to light. V: He had normal facial sensations, and the temporales, masseters, and pterygoids functioned normally. VII: He had normal facial expressions and no facial asymmetry. VIII: He was able to hear well bilaterally and had no nystagmus. IX: The palate moved symmetrically on phonation. X: He had no hoarseness of voice. XI: The sternocleidomastoids and trapezii functioned normally. XII: The tongue was in the midline without any fasciculations or atrophy. MOTOR SYSTEM: The tone was normal in all four extremities. Examination of muscle mass revealed no focal wasting. Examination of power revealed G 5/5 power in all muscle groups tested. SENSORY EXAMINATION: He had intact sensations to pinprick, light touch, and graphesthesia. COORDINATION: He performed well on [id number] and [id number] testing. REFLEXES: 2+ and bilaterally symmetrical at the biceps, triceps, and brachioradialis. 2++ at both knees, Trace+ at both ankles. The plantar responses were flexor bilaterally. STANCE: He stood up with contact guard. GAIT: He walked well with contact guard. Impression/Recommendations Diagnostic Impression 1. 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 2. Since he has been in the hospital, he has continued to feel unwell and has had lightheadedness whenever he tries to sit up, stand, and walk. On 1 occasion on 11/23/18, he started to feel lightheaded while sitting up, then passed out for brief period of time, and had some generalized body jerking movements. He rapidly regained consciousness following that. 3. He feels better. He was sitting up in a chair earlier but is in bed now. He has not walked today. He has also had no PT today. Plans are to watch him off dialysis. His appetite is better. The mind continues to be clearer. He has had no further episodes of loss of consciousness. His cognitive function has improved. His motor function is also better. He denies any new neurological symptoms. 4. On neurological examination, at this time, he has mild slowing of cerebration. He has brisk deep tendon reflexes at the knees and trace ankle jerks, and needs contact guard to stand and walk. 5. Laboratory data on my initial evaluation revealed that his WBC count was elevated to 15,300. He was significantly anemic with a hemoglobin of 8.7 G. His chemistry panel revealed that his potassium was low at 3.1. His BUN was elevated at 173 with a creatinine of 10.1. His proBNP was elevated to 1278. His vitamin B12 level was normal at 1394. His folate level was normal at 25.3. His TSH was normal at 1.42. His INR was normal at 1.0. His urinalysis revealed 1+ leukocyte esterase with 2 red blood cells, and 2 white blood cells per high-power field. 6. The CT of the brain reveals no acute pathology. 7. EEG done on 11/24/2018 revealed triphasic waveforms with an anterior to posterior gradient but normal background and no interictal or ictal phenomena. These findings are consistent with a mild metabolic encephalopathy. 8. The patient's history, neurological examination, laboratory data, imaging studies and EEG are most consistent with lightheadedness due to fluid and electrolyte imbalance. 9. The episode that the patient had on 11/23/18 where he felt lightheaded, then passed out, and had some abnormal body jerking movements was most probably a Matias-Anthony attack. 10. The patient does have mild cognitive dysfunction, which is due to an ongoing metabolic encephalopathic process. 11. He has developed right sided neck pain, discomfort and spasm with right temporalis pain. Recommendations 1. Continue present management. 2. Flexeril 10 mg q HS x 3-4 days. 3. Continue to correct the patient's fluid and electrolyte imbalances. 4. Frequent range of motion exercises - patient instructed. 5. Out of bed in chair for all meals. 6. Mobilize with PT and multiple daily walks. 7. Observe closely. Janak Chandra M.D., M.S.P.H. Janak Chandra MD Nov 30, 2018 17:43
--- NOTE | 2018-11-30 19:20 | NUR ---
HAND-OFF: Report given to AIDA Alvarez. Patient VS stable at this time with no sign of acute distress. Endorsed to follow up with case management regarding transfer and physical therapy regarding getting the patient up and walking more.
--- NOTE | 2018-11-30 19:30 | NUR ---
NURSE NOTES: Report received from Genesis Terry RN. Pt is resting in bed in stable condition. Pt is awake, alert, and oriented x4. Pt is on room air and breathing is even and unlabored. No acute distress noted. IV site is noted to be red and tender, will change IV site JULIO. Morfin noted to be patent and draining to gravity. Bed in lowest position with brake engaged, side rails up x3, and bed alarm on. Call light and side table placed within reach. Will continue to monitor.
[2018-11-30 20:00] VITALS: BP 113/59
--- NOTE | 2018-11-30 20:00 | NUR ---
NURSE NOTES: IV site changed to R FA #[id number]. Other IV site removed.
--- NOTE | 2018-11-30 21:48 | General Progress Note ---
Assessment/Plan Assessment/Plan sepsis acute renal failure hyperkalemia obstructive uropathy bph elevated troponin ho htn anemia confusion encephalopathy likiely secondary to uremia resolved vomiting likely secondary to uremia short syncopal episode leukocytosis constiaption abx per ID dw Dr Fisher and Dr Sosa has johnson, urology fup making good urine infoley, monitor renal parameters echo noted ct of head noted neurolgy evaluation appreciated bp controlled monitor labs dvt and ulcer prophylaxis ambulate PT stool softners and laxatives ambulate may benefit from [facility] for rehab dw casemanagment/social services specialist Subjective Allergies: Coded Allergies: No Known Allergies (Unverified , 11/21/18) Subjective seen in am cathter removed yesterday, pos bm no n/v feels weak asking to have more PT Objective Last 24 Hour Vital Signs Date Time Temp Pulse Resp B/P (MAP) Pulse Ox O2 Delivery O2 Flow Rate FiO2 11/30/18 16:00 68 11/30/18 16:00 97.1 64 19 116/68 (84) 97 11/30/18 12:00 97.2 66 19 119/63 (81) 97 11/30/18 12:00 67 11/30/18 09:23 68 127/68 11/30/18 09:00 Room Air 11/30/18 08:00 64 11/30/18 08:00 98.4 68 19 127/68 (87) 98 11/30/18 04:00 97.7 63 18 124/72 (89) 98 11/30/18 04:00 63 11/30/18 00:00 68 11/30/18 00:00 97.5 69 18 116/68 (84) 97 Intake and Output 11/29/18 11/30/18 18:59 06:59 Intake Total 1202 ml 1005 ml Output Total 2000 ml 900 ml Balance -798 ml 105 ml Intake Oral 360 ml 120 ml IV Total 842 ml 885 ml Output Urine Total 2000 ml 900 ml Laboratory Tests 11/30/18 06:48: White Blood Count 11.7H, Red Blood Count 2.55L, Hemoglobin 8.0L, Hematocrit 23.8L, Mean Corpuscular Volume 93, Mean Corpuscular Hemoglobin 31.4H, Mean Corpuscular Hemoglobin Concent 33.7, Red Cell Distribution Width 10.6L, Platelet Count 358, Mean Platelet Volume 5.2L, Neutrophils (%) (Auto) 81.5H, Lymphocytes (%) (Auto) 5.7L, Monocytes (%) (Auto) 8.4, Eosinophils (%) (Auto) 3.6H, Basophils (%) (Auto) 0.8, Sodium Level 138, Potassium Level 4.0, Chloride Level 104, Carbon Dioxide Level 24, Anion Gap 10, Blood Urea Nitrogen 66H, Creatinine 4.2H, Estimat Glomerular Filtration Rate , Glucose Level 91, Calcium Level 8.6 Height (Feet): 5 Height (Inches): 8.00 Weight (Pounds): 159 General Appearance: WD/WN, no apparent distress Neck: supple Cardiovascular: normal rate Respiratory/Chest: lungs clear Abdomen: soft Edema: no edema noted Arm (L), no edema noted Arm (R), no edema noted Leg (L), no edema noted Leg (R), no edema noted Pedal (L), no edema noted Pedal (R), no edema noted Generalized Neurologic: alert Dane Vasquez MD Nov 30, 2018 21:48
[2018-11-30] MEDS: Tamsulosin 0.4mg cap ORAL SCH (21:52)
[2018-11-30] MEDS: Epoetin Alfa(ESRD on dialysis)3000 units/ml vial SUBQ SCH (21:54)
[2018-11-30] MEDS: Cyclobenzaprine 10mg Tab ORAL SCH (21:54)
[2018-11-30] MEDS: Iron Sucrose 100 MG in NS 55 ML IV SCH (21:54)
[2018-11-30] MEDS: EPOETIN ALFA 2000 UNIT/ML SUBQ SCH (21:54)
[2018-11-30] MEDS: Zolpidem 5mg tab ORAL PRN (22:02)
[2018-12-01] VITALS: BP 119/68
[2018-12-01 04:00] VITALS: BP 122/76
[2018-12-01 07:11] LABS: HEMATOCRIT 23.3 % (42.0-52.0); HEMOGLOBIN 7.9 G/DL (14.2-18.0); MEAN CORPUSCULAR VOLUME 92 FL (80-99); PLATELET COUNT 373 K/UL (150-450); RED BLOOD COUNT 2.53 M/UL (4.70-6.10); RED CELL DISTRIBUTION WIDTH 10.5 % (11.6-14.8); WHITE BLOOD COUNT 9.8 K/UL (4.8-10.8)
[2018-12-01 07:31] LABS: ALANINE AMINOTRANSFERASE 56 U/L (12-78); ALBUMIN 2.1 G/DL (3.4-5.0); ALBUMIN/GLOBULIN RATIO 0.5 (1.0-2.7); ALKALINE PHOSPHATASE 118 U/L (46-116); ANION GAP 10 mmol/L (5-15); ASPARTATE AMINO TRANSFERASE 26 U/L (15-37); BILIRUBIN,TOTAL 0.2 MG/DL (0.2-1.0); BLOOD UREA NITROGEN 67 mg/dL (7-18); CARBON DIOXIDE 25 MMOL/L (21-32); CHLORIDE 103 MMOL/L (98-107); CREATININE 4.2 MG/DL (0.55-1.30); SODIUM 138 MMOL/L (136-145)
--- NOTE | 2018-12-01 07:43 | NUR ---
HAND-OFF: Report given to Carlos PARRA. Pt is resting in bed in stable condition. No acute distress noted. Endorsed plan of care.
--- NOTE | 2018-12-01 07:57 | NUR ---
NURSE NOTES: Pt in bed eating breakfast, HOB in fowlers, bed in low position, call light at bedside, bed locked position, pt calm and cooperative, pt states he does get pain when he chews and night nurse just gave Tylenol for pain, current pain level is 3, bed alarm on, OB stool was collected by previous nurse, pt on room air, no s/s of distress or sob noted. Pt possible discharge to [facility].
[2018-12-01 08:00] VITALS: BP 124/61
[2018-12-01] MEDS: Metoprolol 25mg tab ORAL SCH ×2 (10:08→20:42)
[2018-12-01] MEDS: Docusate 100mg cap ORAL SCH ×2 (10:08→17:42)
[2018-12-01] MEDS: Heparin 5000 units/ml inj SUBQ SCH ×2 (10:11→20:35)
--- NOTE | 2018-12-01 10:27 | NUR ---
CASE MANAGEMENT:REVIEW 12/01/18 SI: AC/CHR RENAL FAILURE. BACTEREMIA HYDRONEPHROSIS. BPH. OBSTRUCTIVE UROPATHY 97.5 82 18 124/61 98% ON RA H/H-7.9/23.3 BUN+67 CR+4.2 IS: IV VENOFER QHS IV DAPTOMYCIN Q48 PROTONIX PO QD FLOMAX PO QHS PROCRIT SQ MWF : TELEMETRY STATUS PLAN: REFERRED AND ACCEPTED AT [facility]. PEER TO PEER CONVERSATION HAS BEEN FACILITATED. DR ALLEN TO CALL DR KNIGHT TODAY
--- NOTE | 2018-12-01 10:30 | NUR ---
PT PROGRESS NOTE: Patient has been receiving skilled inpatient PT treatment since 11/23/18. Patient demonstrating gradual improvements in mobility status and ambulation endurance. Currently patient requires SBA and FWW for transfers and is able to ambulate 100 ft with FWW and CGA. On initial evaluation patient required min assist for transfers and was able to ambulate 5 ft with min assist and FWW. Patient may benefit from short term Rehab to maximize mobility & return to PLOF.
--- NOTE | 2018-12-01 10:37 | Urology Progress Note ---
Assessment/Plan Assessment/Plan 1. Urinary retention history. 2. Benign prostatic hypertrophy. 3. Possible neurogenic bladder. 4. Hematuria. 5. Renal failure, which appears to be acute on chronic, improved. 6. Hydronephrosis, improved with Johnson. 7. Proteinuria. 8. Meatal stenosis and stricture history. 9. Inguinal hernia. monitor clinically johnson hand irrigated and do PRN off HD for now monitor renal fxn closely, seems to have stabilized flomax and proscar added cysto later voiding trial at some point? Subjective Allergies: Coded Allergies: No Known Allergies (Unverified , 11/21/18) Subjective all noted, feels fair Objective Last 24 Hour Vital Signs Date Time Temp Pulse Resp B/P (MAP) Pulse Ox O2 Delivery O2 Flow Rate FiO2 12/01/18 10:08 82 124/61 12/01/18 08:23 Room Air 12/01/18 08:00 97.5 82 18 124/61 (82) 98 12/01/18 04:00 97.0 74 20 122/76 (91) 98 12/01/18 04:00 69 12/01/18 01:13 98.0 12/01/18 00:00 63 12/01/18 00:00 98.0 62 20 119/68 (85) 98 11/30/18 21:53 74 113/59 11/30/18 21:00 Room Air 11/30/18 20:00 97.5 74 20 113/59 (77) 98 11/30/18 16:00 68 11/30/18 16:00 97.1 64 19 116/68 (84) 97 11/30/18 12:00 97.2 66 19 119/63 (81) 97 11/30/18 12:00 67 Intake and Output 11/30/18 12/01/18 19:00 07:00 Intake Total 1175 ml Output Total 1700 ml 2100 ml Balance -525 ml -2100 ml Intake Oral 720 ml IV Total 455 ml Output Urine Total 1700 ml 2100 ml # Voids 1 # Bowel Movements 1 1 Microbiology Date/Time Source Procedure Growth Status 11/26/18 22:56 Blood Blood Culture - Final Enterococcus Faecalis Complete 11/23/18 15:00 Stool Ova and Parasites - Final Complete 11/23/18 15:00 Stool Ova and Parasite Result 1 - Final Complete Current Medications Medications (Trade) Dose Ordered Sig/Debbie Route PRN Reason Start Time Stop Time Status Last Admin Dose Admin Acetaminophen (Tylenol) 650 mg Q6H PRN ORAL Mild Pain/Temp > 100.5 11/22/18 03:15 12/22/18 03:14 12/01/18 07:01 Al Hydroxide/Mg Hydroxide (Mylanta) 30 ml Q6H PRN ORAL GERD 11/22/18 03:15 12/22/18 03:14 Bisacodyl (Dulcolax) 10 mg DAILYPRN PRN RECTAL Constipation 11/30/18 14:30 12/30/18 14:29 11/30/18 14:29 Cyclobenzaprine HCl (Flexeril) 10 mg BEDTIME ORAL 11/30/18 21:00 12/30/18 20:59 11/30/18 21:54 Daptomycin 700 mg/ Sodium Chloride 55 ml @ 100 mls/hr Q48H IV 11/27/18 14:00 12/04/18 13:59 11/29/18 15:08 Docusate Sodium (Colace) 100 mg TWICE A DAY ORAL 11/25/18 09:00 12/25/18 08:59 12/01/18 10:08 Epoetin Tommy (Epoetin Tommy(ESRD on dialysis)) 2,000 unit WED-WED-WED SUBQ 11/23/18 21:00 12/23/18 20:59 11/30/18 21:54 Epoetin Tommy (Epoetin Tommy(ESRD on dialysis)) 3,000 unit WED-WED-WED SUBQ 11/23/18 21:00 12/23/18 20:59 11/30/18 21:54 Finasteride (Proscar) 5 mg DAILY ORAL 11/25/18 09:00 12/25/18 08:59 12/01/18 10:10 Heparin Sodium (Porcine) (Heparin 5000 units/ml) 5,000 units EVERY 12 HOURS SUBQ 11/22/18 09:00 12/22/18 08:59 11/30/18 22:01 Iron Sucrose 100 mg/Sodium Chloride 60 ml @ 240 mls/hr BEDTIME IV 11/29/18 21:00 12/03/18 21:14 11/30/18 21:54 Magnesium Hydroxide (Mom) 30 ml BIDPRN PRN ORAL Constipation 11/26/18 12:45 12/26/18 12:44 11/29/18 18:50 Meclizine HCl (Antivert) 25 mg TIDPRN PRN ORAL for dizziness 11/23/18 18:15 12/23/18 18:14 Metoprolol Tartrate (Lopressor) 25 mg Q12HR ORAL 11/22/18 21:00 12/22/18 20:59 12/01/18 10:08 Ondansetron HCl (Zofran) 4 mg Q6H PRN IVP Nausea & Vomiting 11/24/18 09:30 12/24/18 09:29 11/26/18 23:02 Pantoprazole (Protonix) 40 mg DAILY ORAL 11/26/18 09:00 12/26/18 08:59 12/01/18 10:08 Tamsulosin HCl (Flomax) 0.4 mg BEDTIME ORAL 11/24/18 23:00 12/24/18 22:59 11/30/18 21:52 Zolpidem Tartrate (Ambien) 5 mg HSPRN PRN ORAL Insomnia 11/30/18 21:00 12/07/18 20:59 11/30/18 22:02 Laboratory Tests 11/30/18 21:30: Stool Occult Blood Negative 12/01/18 06:15: White Blood Count 9.8, Red Blood Count 2.53L, Hemoglobin 7.9L, Hematocrit 23.3L , Mean Corpuscular Volume 92, Mean Corpuscular Hemoglobin 31.2H, Mean Corpuscular Hemoglobin Concent 33.8, Red Cell Distribution Width 10.5L, Platelet Count 373, Mean Platelet Volume 5.2L, Neutrophils (%) (Auto) , Lymphocytes (%) (Auto) , Monocytes (%) (Auto) , Eosinophils (%) (Auto) , Basophils (%) (Auto) , Differential Total Cells Counted 100, Neutrophils % ( Manual) 77H, Lymphocytes % (Manual) 11L, Monocytes % (Manual) 8, Eosinophils % ( Manual) 4H, Basophils % (Manual) 0, Band Neutrophils 0, Platelet Estimate Adequate, Platelet Morphology Normal, Anisocytosis 1+, Sodium Level 138, Potassium Level 4.0, Chloride Level 103, Carbon Dioxide Level 25, Anion Gap 10, Blood Urea Nitrogen 67H, Creatinine 4.2H, Estimat Glomerular Filtration Rate , Glucose Level 90, Calcium Level 9.0, Total Bilirubin 0.2, Aspartate Amino Transf (AST/SGOT) 26, Alanine Aminotransferase (ALT/SGPT) 56, Alkaline Phosphatase 118H, Total Protein 6.3L, Albumin 2.1L, Globulin 4.2, Albumin/ Globulin Ratio 0.5L Height (Feet): 5 Height (Inches): 8.00 Weight (Pounds): 159 Objective exam stable, urine clearing, has some debris abdominal u/s (3/5) noted Geraldo Wise MD Dec 01, 2018 10:37
--- NOTE | 2018-12-01 10:46 | NUR ---
DISCHARGE PLANNING THIS SOFA INSPECTOR CALLED [phone] OPT 4 TO ARRANGE A PEER TO PEER CONVERSATION BETWEEN DR KNIGHT AND ANATOLIY ALLEN CASE REF #[id number] DR ALLEN WILL CALL DR KNIGHT TODAY AT 12;30 UPDATED PATIENT'S DAUGHTERWILBUR T: [phone]
--- NOTE | 2018-12-01 10:59 | NUR ---
NURSE NOTES: left a message to dr zarco regarding patients hgb level of 7.9. awaits callback and new order as of this time.
--- NOTE | 2018-12-01 11:30 | Neurology Progress Note ---
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 He was sitting up in a chair when I went to see him. He walked with PT today but felt unsteady on his feet. His appetite is better. The mind continues to be clearer. He has had no further episodes of loss of consciousness. His cognitive function has improved. His motor function is also better. He denies any new neurological symptoms. He specifically denies any weakness on one side or the other, numbness on one side or the other, problems with speech problems with language problems with vision problems with memory. The right neck tightness and a right temporal headache are better. Review of Systems Neuro Review of Systems Benign. Objective Physical Exam Last Vital Signs Date Time Temp Pulse Resp B/P (MAP) Pulse Ox O2 Delivery O2 Flow Rate FiO2 12/01/18 10:08 82 124/61 12/01/18 08:23 Room Air 12/01/18 08:00 97.5 18 98 Laboratory Tests Test 11/30/18 21:30 12/01/18 06:15 Stool Occult Blood Negative (NEGATIVE) White Blood Count 9.8 K/UL (4.8-10.8) Red Blood Count 2.53 M/UL (4.70-6.10) L Hemoglobin 7.9 G/DL (14.2-18.0) L Hematocrit 23.3 % (42.0-52.0) L Mean Corpuscular Volume 92 FL (80-99) Mean Corpuscular Hemoglobin 31.2 PG (27.0-31.0) H Mean Corpuscular Hemoglobin Concent 33.8 G/DL (32.0-36.0) Red Cell Distribution Width 10.5 % (11.6-14.8) L Platelet Count 373 K/UL (150-450) Mean Platelet Volume 5.2 FL (6.5-10.1) L Neutrophils (%) (Auto) % (45.0-75.0) Lymphocytes (%) (Auto) % (20.0-45.0) Monocytes (%) (Auto) % (1.0-10.0) Eosinophils (%) (Auto) % (0.0-3.0) Basophils (%) (Auto) % (0.0-2.0) Differential Total Cells Counted 100 Neutrophils % (Manual) 77 % (45-75) H Lymphocytes % (Manual) 11 % (20-45) L Monocytes % (Manual) 8 % (1-10) Eosinophils % (Manual) 4 % (0-3) H Basophils % (Manual) 0 % (0-2) Band Neutrophils 0 % (0-8) Platelet Estimate Adequate Platelet Morphology Normal Anisocytosis 1+ Sodium Level 138 MMOL/L (136-145) Potassium Level 4.0 MMOL/L (3.5-5.1) Chloride Level 103 MMOL/L (98-107) Carbon Dioxide Level 25 MMOL/L (21-32) Anion Gap 10 mmol/L (5-15) Blood Urea Nitrogen 67 mg/dL (7-18) H Creatinine 4.2 MG/DL (0.55-1.30) H Estimat Glomerular Filtration Rate mL/min (>60) Glucose Level 90 MG/DL (74-106) Calcium Level 9.0 MG/DL (8.5-10.1) Total Bilirubin 0.2 MG/DL (0.2-1.0) Aspartate Amino Transf (AST/SGOT) 26 U/L (15-37) Alanine Aminotransferase (ALT/SGPT) 56 U/L (12-78) Alkaline Phosphatase 118 U/L (46-116) H Total Protein 6.3 G/DL (6.4-8.2) L Albumin 2.1 G/DL (3.4-5.0) L Globulin 4.2 g/dL Albumin/Globulin Ratio 0.5 (1.0-2.7) L Neurologic Exam Objective PHYSICAL EXAMINATION: GENERAL: He is a well-developed, well-nourished, pleasant gentleman, lying in bed, in no acute distress. HEAD: Normocephalic and atraumatic. EENT: Examination benign. NECK: No neck rigidity was observed. NEUROLOGIC EXAMINATION: MENTAL STATUS EXAMINATION: He was awake and alert. He was oriented to person, place, and time. He was able to recall 3/3 words immediately after 1 minute and after 3 minutes. He was able to remember presidents, Trump through Trujillo senior. His mathematical skills were good. His visuospatial function was preserved. SPEECH: He had no dysarthria. LANGUAGE: He had no aphasia. CRANIAL NERVE EXAMINATION: II: The visual caal were intact on confrontation testing. III, IV & : The external ocular movements were full and the pupils 3 mm in diameter, equal, round, regular, and reactive to light. V: He had normal facial sensations, and the temporales, masseters, and pterygoids functioned normally. VII: He had normal facial expressions and no facial asymmetry. VIII: He was able to hear well bilaterally and had no nystagmus. IX: The palate moved symmetrically on phonation. X: He had no hoarseness of voice. XI: The sternocleidomastoids and trapezii functioned normally. XII: The tongue was in the midline without any fasciculations or atrophy. MOTOR SYSTEM: The tone was normal in all four extremities. Examination of muscle mass revealed no focal wasting. Examination of power revealed G 5/5 power in all muscle groups tested. SENSORY EXAMINATION: He had intact sensations to pinprick, light touch, and graphesthesia. COORDINATION: He performed well on [id number] and kate-kx-lwal testing. REFLEXES: 2+ and bilaterally symmetrical at the biceps, triceps, and brachioradialis. 2++ at both knees, Trace+ at both ankles. The plantar responses were flexor bilaterally. STANCE: He stood up with contact guard. GAIT: He walked well with contact guard. Impression/Recommendations Diagnostic Impression 1. 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 2. Since he has been in the hospital, he has continued to feel unwell and has had lightheadedness whenever he tries to sit up, stand, and walk. On 1 occasion on 11/23/18, he started to feel lightheaded while sitting up, then passed out for brief period of time, and had some generalized body jerking movements. He rapidly regained consciousness following that. 3. He feels feels better. He was sitting up in a chair when I went to see him. He walked with PT today but felt unsteady on his feet. His appetite is better. The mind continues to be clearer. He has had no further episodes of loss of consciousness. His cognitive function has improved. His motor function is also better. He denies any new neurological symptoms. The right neck tightness and a right temporal headache are better. 4. On neurological examination, at this time, he has mild slowing of cerebration. He has brisk deep tendon reflexes at the knees and trace ankle jerks, and needs contact guard to stand and walk. 5. Laboratory data on my initial evaluation revealed that his WBC count was elevated to 15,300. He was significantly anemic with a hemoglobin of 8.7 G. His chemistry panel revealed that his potassium was low at 3.1. His BUN was elevated at 173 with a creatinine of 10.1. His proBNP was elevated to 1278. His vitamin B12 level was normal at 1394. His folate level was normal at 25.3. His TSH was normal at 1.42. His INR was normal at 1.0. His urinalysis revealed 1+ leukocyte esterase with 2 red blood cells, and 2 white blood cells per high-power field. 6. The CT of the brain reveals no acute pathology. 7. EEG done on 11/24/2018 revealed triphasic waveforms with an anterior to posterior gradient but normal background and no interictal or ictal phenomena. These findings are consistent with a mild metabolic encephalopathy. 8. The patient's history, neurological examination, laboratory data, imaging studies and EEG are most consistent with lightheadedness due to fluid and electrolyte imbalance. 9. The episode that the patient had on 11/23/18 where he felt lightheaded, then passed out, and had some abnormal body jerking movements was most probably a Matias-Anthony attack. 10. The patient does have mild cognitive dysfunction, which is due to an ongoing metabolic encephalopathic process. 11. The right sided neck pain, discomfort and spasm with right temporalis pain has improved. Recommendations 1. Continue present management. 2. Continue Flexeril 10 mg q HS of a few more days. 3. Continue to correct the patient's fluid and electrolyte imbalances. 4. Frequent range of motion exercises - patient instructed. 5. Out of bed in chair for all meals. 6. Mobilize with PT and multiple daily walks. 7. The patient will benefit significantly from a brief course of acute rehabilitation so that he can regain his independence. 8. Observe. Janak Chandra M.D., M.S.P.H. Janak Chandra MD Dec 01, 2018 11:30
[2018-12-01 12:00] VITALS: BP 102/65
[2018-12-01 12:14] LABS: % IRON SATURATION 35 % (15-50); IRON 58 ug/dL (50-175); TOTAL IRON BINDING CAPACITY 165 ug/dL (250-450)
[2018-12-01 12:15] LABS: FERRITIN 561 NG/ML (8-388)
--- NOTE | 2018-12-01 12:15 | Nephrology Progress Note ---
Assessment/Plan Problem List: (1) Acute on chronic renal failure Assessment: S creatinine not much changed. off HD (2) Urinary retention (3) Hyperkalemia Assessment: ok (4) Metabolic acidosis (5) Uremia (6) Bacteremia due to Enterococcus (7) Anemia Assessment: worse (8) Iron deficiency Plan abxs follow labs off HD IV Iron cont Epogen Subjective Subjective feels ok Objective Objective Last 24 Hour Vital Signs Date Time Temp Pulse Resp B/P (MAP) Pulse Ox O2 Delivery O2 Flow Rate FiO2 12/01/18 10:08 82 124/61 12/01/18 08:23 Room Air 12/01/18 08:00 97.5 82 18 124/61 (82) 98 12/01/18 08:00 75 12/01/18 04:00 97.0 74 20 122/76 (91) 98 12/01/18 04:00 69 12/01/18 01:13 98.0 12/01/18 00:00 63 12/01/18 00:00 98.0 62 20 119/68 (85) 98 11/30/18 21:53 74 113/59 11/30/18 21:00 Room Air 11/30/18 20:00 97.5 74 20 113/59 (77) 98 11/30/18 16:00 68 11/30/18 16:00 97.1 64 19 116/68 (84) 97 Intake and Output 11/30/18 12/01/18 19:00 07:00 Intake Total 1175 ml Output Total 1700 ml 2100 ml Balance -525 ml -2100 ml Intake Oral 720 ml IV Total 455 ml Output Urine Total 1700 ml 2100 ml # Voids 1 # Bowel Movements 1 1 Laboratory Tests 11/30/18 21:30: Stool Occult Blood Negative 12/01/18 06:15: White Blood Count 9.8, Red Blood Count 2.53L, Hemoglobin 7.9L, Hematocrit 23.3L , Mean Corpuscular Volume 92, Mean Corpuscular Hemoglobin 31.2H, Mean Corpuscular Hemoglobin Concent 33.8, Red Cell Distribution Width 10.5L, Platelet Count 373, Mean Platelet Volume 5.2L, Neutrophils (%) (Auto) , Lymphocytes (%) (Auto) , Monocytes (%) (Auto) , Eosinophils (%) (Auto) , Basophils (%) (Auto) , Differential Total Cells Counted 100, Neutrophils % ( Manual) 77H, Lymphocytes % (Manual) 11L, Monocytes % (Manual) 8, Eosinophils % ( Manual) 4H, Basophils % (Manual) 0, Band Neutrophils 0, Platelet Estimate Adequate, Platelet Morphology Normal, Anisocytosis 1+, Sodium Level 138, Potassium Level 4.0, Chloride Level 103, Carbon Dioxide Level 25, Anion Gap 10, Blood Urea Nitrogen 67H, Creatinine 4.2H, Estimat Glomerular Filtration Rate , Glucose Level 90, Calcium Level 9.0, Iron Level [Pending], Unsaturated Iron Binding [Pending], Ferritin [Pending], Total Bilirubin 0.2, Aspartate Amino Transf (AST/SGOT) 26, Alanine Aminotransferase (ALT/SGPT) 56, Alkaline Phosphatase 118H, Total Protein 6.3L, Albumin 2.1L, Globulin 4.2, Albumin/ Globulin Ratio 0.5L Height (Feet): 5 Height (Inches): 8.00 Weight (Pounds): 159 Cardiovascular: normal rate Respiratory/Chest: lungs clear Extremities: moderate edema Michael oSsa MD Dec 01, 2018 12:15
--- NOTE | 2018-12-01 12:44 | NUR ---
NURSE NOTES: per dr zarco, clarify with dr lacy if OK to MS. Dr Lacy was informed and stated "After I see him". will take note and carry out.
[2018-12-01] MEDS ORDERED: Nulytely 4L ORAL ONE (13:00)
--- NOTE | 2018-12-01 13:00 | NUR ---
NURSE NOTES: received patient report from prosper contreras
--- NOTE | 2018-12-01 13:15 | NUR ---
HAND-OFF: Report given to Jennifer Coronado.
[2018-12-01] MEDS: DAPTOmycin 700 MG in NS 55 ML IV SCH (14:02)
[2018-12-01 16:00] VITALS: BP 122/76
--- NOTE | 2018-12-01 16:21 | Cardiac Electrophysiology PN ---
Assessment/Plan Assessment/Plan 1. Troponin leak. The levels are nonspecific and flat 0.5, 0.5, 0.2. Denies any chest pain. This is due to the patient's renal failure EKG shows sinus rhythm with no acute ST-T wave abnormalities. Echocardiogram EF 65%. On aspirin and Lopressor 2. Recurrent atrial flutter on 11/24 and 11/25/18. Both terminated spontaneously On Metoprolol 25 bid. ? 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 Hyperkalemia. Potassium was 7 and is down to 4.1. S/P sodium bicarbonate and Kayexalate. Had HD 4. Acute on chronic renal failure. Further evaluation by Dr. Sosa. Cecil catheter removed . No further HD scheduled 5. Syncope. ? etiology. Nl EF. No . Could be due to atrial flutter with RVR 6. High PSA Fu Dr Alvarez 7. Sepsis, source most likely tract , may need also to rule out GI malignancy. On daptomycin. Repeated blood culture x2 on 11/26 is NTD . HD catheter was removed tip sent for culture , FU Dr Fisher 8. Anemia, getting PBC. DW RN DC tele Subjective Subjective No CP or SOB. Scheduled for transfusion today. No events Objective Last 24 Hour Vital Signs Date Time Temp Pulse Resp B/P (MAP) Pulse Ox O2 Delivery O2 Flow Rate FiO2 12/01/18 12:00 97.2 80 16 102/65 (77) 98 12/01/18 10:08 82 124/61 12/01/18 08:23 Room Air 12/01/18 08:00 97.5 82 18 124/61 (82) 98 12/01/18 08:00 75 12/01/18 04:00 97.0 74 20 122/76 (91) 98 12/01/18 04:00 69 12/01/18 01:13 98.0 12/01/18 00:00 63 12/01/18 00:00 98.0 62 20 119/68 (85) 98 11/30/18 21:53 74 113/59 11/30/18 21:00 Room Air 11/30/18 20:00 97.5 74 20 113/59 (77) 98 Intake and Output 11/30/18 12/01/18 18:59 06:59 Intake Total 1250 ml Output Total 1700 ml 2100 ml Balance -450 ml -2100 ml Intake Oral 720 ml IV Total 530 ml Output Urine Total 1700 ml 2100 ml # Voids 1 # Bowel Movements 1 1 Laboratory Tests Test 11/30/18 21:30 12/01/18 06:15 12/01/18 14:43 Stool Occult Blood Negative (NEGATIVE) Pending White Blood Count 9.8 K/UL (4.8-10.8) Red Blood Count 2.53 M/UL (4.70-6.10) L Hemoglobin 7.9 G/DL (14.2-18.0) L Hematocrit 23.3 % (42.0-52.0) L Mean Corpuscular Volume 92 FL (80-99) Mean Corpuscular Hemoglobin 31.2 PG (27.0-31.0) H Mean Corpuscular Hemoglobin Concent 33.8 G/DL (32.0-36.0) Red Cell Distribution Width 10.5 % (11.6-14.8) L Platelet Count 373 K/UL (150-450) Mean Platelet Volume 5.2 FL (6.5-10.1) L Neutrophils (%) (Auto) % (45.0-75.0) Lymphocytes (%) (Auto) % (20.0-45.0) Monocytes (%) (Auto) % (1.0-10.0) Eosinophils (%) (Auto) % (0.0-3.0) Basophils (%) (Auto) % (0.0-2.0) Differential Total Cells Counted 100 Neutrophils % (Manual) 77 % (45-75) H Lymphocytes % (Manual) 11 % (20-45) L Monocytes % (Manual) 8 % (1-10) Eosinophils % (Manual) 4 % (0-3) H Basophils % (Manual) 0 % (0-2) Band Neutrophils 0 % (0-8) Platelet Estimate Adequate Platelet Morphology Normal Anisocytosis 1+ Sodium Level 138 MMOL/L (136-145) Potassium Level 4.0 MMOL/L (3.5-5.1) Chloride Level 103 MMOL/L (98-107) Carbon Dioxide Level 25 MMOL/L (21-32) Anion Gap 10 mmol/L (5-15) Blood Urea Nitrogen 67 mg/dL (7-18) H Creatinine 4.2 MG/DL (0.55-1.30) H Estimat Glomerular Filtration Rate mL/min (>60) Glucose Level 90 MG/DL (74-106) Calcium Level 9.0 MG/DL (8.5-10.1) Iron Level 58 ug/dL (50-175) Total Iron Binding Capacity 165 ug/dL (250-450) L Percent Iron Saturation 35 % (15-50) Unsaturated Iron Binding 107 ug/dL (112-346) L Ferritin 561 NG/ML (8-388) H Total Bilirubin 0.2 MG/DL (0.2-1.0) Aspartate Amino Transf (AST/SGOT) 26 U/L (15-37) Alanine Aminotransferase (ALT/SGPT) 56 U/L (12-78) Alkaline Phosphatase 118 U/L (46-116) H Total Protein 6.3 G/DL (6.4-8.2) L Albumin 2.1 G/DL (3.4-5.0) L Globulin 4.2 g/dL Albumin/Globulin Ratio 0.5 (1.0-2.7) L Objective HEAD AND NECK: No JVD. LUNGS: Clear. CARDIOVASCULAR: Regular S1 and S2 with no gallop or murmur. ABDOMEN: Soft. EXTREMITIES: 2+ pitting edema. David Guerra MD Dec 01, 2018 16:21
--- NOTE | 2018-12-01 16:23 | Infectious Diseases Prog Note ---
Assessment/Plan Problems: (1) Sepsis due to Enterococcus with acute renal failure and metabolic encephalopathy Assessment & Plan: source most likely tract with obstruction , may need also to rule out GI malignancy (colon CA) . continue daptomycin renally dosed as per pharmacy for now to avoid nephrotoxicity . repeated blood culture on 11/26 is still positive since he was just started on vancomycin on that day . his HD catheter was removed on 11/29 since it was placed after he was bacteremic with enterococcus. await repeated blood culture on 11/30 to confirm clearance since his catheter was removed . will monitor CK level weekly while on daptomycin . will need two weeks of iv antibiotics for his bacteremia starting from the clearance date. (2) Hydronephrosis Assessment & Plan: most likely the source of his bacteremia with enterococcus faecalis , with worsening renal failure , suspect enlarged prostate , with elevated PSA rule out prostate CA , recommend oncology work up with rectal US to rule out prostatic mass , and possible prostatectomy once clinically stable (3) Acute on chronic renal failure Assessment & Plan: improving, now making good urine , previously required HD , his HD catheter was removed since it was placed while bacteremic . will wait for 48 hours on antibiotics before placing any new catheter if he needs any in the future, and if his repeated blood culture on 11/30 remains negative . (4) Acute encephalopathy Assessment & Plan: improving, suspect metabolic and toxic , monitor mental status, avoid nephrotoxics , neurology is following (5) Prostate enlargement Assessment & Plan: with elevated PSA, rule out malignant process, recommend rectal US to evaluate the prostate and for possible biopsy to rule out malignancy . (6) Generalized weakness Assessment & Plan: recommend rehabilitation and PT Subjective Constitutional: Reports: fatigue HEENT: Reports: no symptoms Respiratory: Reports: no symptoms Breasts: Reports: no symptoms Cardiovascular: Reports: no symptoms Gastrointestinal/Abdominal: Reports: no symptoms Genitourinary: Reports: no symptoms Neurologic: Reports: weakness Psychiatric: Reports: no symptoms Skin: Reports: no symptoms Endocrine: Reports: no symptoms Hematologic: Reports: no symptoms Musculoskeletal: Reports: no symptoms Allergies: Coded Allergies: No Known Allergies (Unverified , 11/21/18) Subjective He was feeling better , has mild discomfort at the right IJ HD catheter site which was removed , and less jaw pain . no cough or SOB, no neck pain or hematoma, no fever or chills , no diarrhea Objective Vital Signs Last 24 Hour Vital Signs Date Time Temp Pulse Resp B/P (MAP) Pulse Ox O2 Delivery O2 Flow Rate FiO2 12/01/18 12:00 97.2 80 16 102/65 (77) 98 12/01/18 10:08 82 124/61 12/01/18 08:23 Room Air 12/01/18 08:00 97.5 82 18 124/61 (82) 98 12/01/18 08:00 75 12/01/18 04:00 97.0 74 20 122/76 (91) 98 12/01/18 04:00 69 12/01/18 01:13 98.0 12/01/18 00:00 63 12/01/18 00:00 98.0 62 20 119/68 (85) 98 11/30/18 21:53 74 113/59 11/30/18 21:00 Room Air 11/30/18 20:00 97.5 74 20 113/59 (77) 98 Height (Feet): 5 Height (Inches): 8.00 Weight (Pounds): 159 General Appearance: no acute distress, cachetic HEENT: normocephalic, atraumatic, anicteric, mucous membranes moist, PERRL, EOMI, pharynx normal, supple, no JVD Respiratory/Chest: chest wall non-tender, lungs clear, normal breath sounds, no respiratory distress, no accessory muscle use Cardiovascular: normal peripheral pulses, normal rate, regular rhythm, no gallop/murmur, no JVD Abdomen: normal bowel sounds, soft, non tender, no organomegaly, non distended , no mass, no scars Genitourinary: normal external genitalia Extremities: no cyanosis, no clubbing Skin: no rash, no lesions, no ulcers Neurologic/Psychiatric: alert, oriented x 3, responsive Lymphatic: no neck adenopathy, no groin adenopathy Musculoskeletal: normal muscle bulk, no effusion Laboratory Tests Test 11/30/18 21:30 12/01/18 06:15 12/01/18 14:43 Stool Occult Blood Negative (NEGATIVE) Pending White Blood Count 9.8 K/UL (4.8-10.8) Red Blood Count 2.53 M/UL (4.70-6.10) L Hemoglobin 7.9 G/DL (14.2-18.0) L Hematocrit 23.3 % (42.0-52.0) L Mean Corpuscular Volume 92 FL (80-99) Mean Corpuscular Hemoglobin 31.2 PG (27.0-31.0) H Mean Corpuscular Hemoglobin Concent 33.8 G/DL (32.0-36.0) Red Cell Distribution Width 10.5 % (11.6-14.8) L Platelet Count 373 K/UL (150-450) Mean Platelet Volume 5.2 FL (6.5-10.1) L Neutrophils (%) (Auto) % (45.0-75.0) Lymphocytes (%) (Auto) % (20.0-45.0) Monocytes (%) (Auto) % (1.0-10.0) Eosinophils (%) (Auto) % (0.0-3.0) Basophils (%) (Auto) % (0.0-2.0) Differential Total Cells Counted 100 Neutrophils % (Manual) 77 % (45-75) H Lymphocytes % (Manual) 11 % (20-45) L Monocytes % (Manual) 8 % (1-10) Eosinophils % (Manual) 4 % (0-3) H Basophils % (Manual) 0 % (0-2) Band Neutrophils 0 % (0-8) Platelet Estimate Adequate Platelet Morphology Normal Anisocytosis 1+ Sodium Level 138 MMOL/L (136-145) Potassium Level 4.0 MMOL/L (3.5-5.1) Chloride Level 103 MMOL/L (98-107) Carbon Dioxide Level 25 MMOL/L (21-32) Anion Gap 10 mmol/L (5-15) Blood Urea Nitrogen 67 mg/dL (7-18) H Creatinine 4.2 MG/DL (0.55-1.30) H Estimat Glomerular Filtration Rate mL/min (>60) Glucose Level 90 MG/DL (74-106) Calcium Level 9.0 MG/DL (8.5-10.1) Iron Level 58 ug/dL (50-175) Total Iron Binding Capacity 165 ug/dL (250-450) L Percent Iron Saturation 35 % (15-50) Unsaturated Iron Binding 107 ug/dL (112-346) L Ferritin 561 NG/ML (8-388) H Total Bilirubin 0.2 MG/DL (0.2-1.0) Aspartate Amino Transf (AST/SGOT) 26 U/L (15-37) Alanine Aminotransferase (ALT/SGPT) 56 U/L (12-78) Alkaline Phosphatase 118 U/L (46-116) H Total Protein 6.3 G/DL (6.4-8.2) L Albumin 2.1 G/DL (3.4-5.0) L Globulin 4.2 g/dL Albumin/Globulin Ratio 0.5 (1.0-2.7) L Current Medications Medications (Trade) Dose Ordered Sig/Debbie Route PRN Reason Start Time Stop Time Status Last Admin Dose Admin Acetaminophen (Tylenol) 650 mg Q6H PRN ORAL Mild Pain/Temp > 100.5 11/22/18 03:15 12/22/18 03:14 12/01/18 07:01 Al Hydroxide/Mg Hydroxide (Mylanta) 30 ml Q6H PRN ORAL GERD 11/22/18 03:15 12/22/18 03:14 Bisacodyl (Dulcolax) 10 mg DAILYPRN PRN RECTAL Constipation 11/30/18 14:30 12/30/18 14:29 11/30/18 14:29 Bisacodyl (Dulcolax) 10 mg ONCE RECTAL 12/01/18 18:00 12/01/18 19:00 Cyclobenzaprine HCl (Flexeril) 10 mg BEDTIME ORAL 11/30/18 21:00 12/30/18 20:59 11/30/18 21:54 Daptomycin 700 mg/ Sodium Chloride 55 ml @ 100 mls/hr Q48H IV 11/27/18 14:00 12/04/18 13:59 12/01/18 14:02 Docusate Sodium (Colace) 100 mg TWICE A DAY ORAL 11/25/18 09:00 12/25/18 08:59 12/01/18 10:08 Epoetin Tommy (Epoetin Tommy(ESRD on dialysis)) 2,000 unit -WED SUBQ 11/23/18 21:00 12/23/18 20:59 11/30/18 21:54 Epoetin Tommy (Epoetin Tommy(ESRD on dialysis)) 3,000 unit SUBQ 11/23/18 21:00 12/23/18 20:59 11/30/18 21:54 Finasteride (Proscar) 5 mg DAILY ORAL 11/25/18 09:00 12/25/18 08:59 12/01/18 10:10 Heparin Sodium (Porcine) (Heparin 5000 units/ml) 5,000 units EVERY 12 HOURS SUBQ 11/22/18 09:00 12/22/18 08:59 11/30/18 22:01 Iron Sucrose 100 mg/Sodium Chloride 60 ml @ 240 mls/hr BEDTIME IV 11/29/18 21:00 12/03/18 21:14 11/30/18 21:54 Magnesium Hydroxide (Mom) 30 ml BIDPRN PRN ORAL Constipation 11/26/18 12:45 12/26/18 12:44 11/29/18 18:50 Meclizine HCl (Antivert) 25 mg TIDPRN PRN ORAL for dizziness 11/23/18 18:15 12/23/18 18:14 Metoprolol Tartrate (Lopressor) 25 mg Q12HR ORAL 11/22/18 21:00 12/22/18 20:59 12/01/18 10:08 Ondansetron HCl (Zofran) 4 mg Q6H PRN IVP Nausea & Vomiting 11/24/18 09:30 12/24/18 09:29 11/26/18 23:02 Pantoprazole (Protonix) 40 mg DAILY ORAL 11/26/18 09:00 12/26/18 08:59 12/01/18 10:08 Tamsulosin HCl (Flomax) 0.4 mg BEDTIME ORAL 11/24/18 23:00 12/24/18 22:59 11/30/18 21:52 Zolpidem Tartrate (Ambien) 5 mg HSPRN PRN ORAL Insomnia 11/30/18 21:00 12/07/18 20:59 11/30/18 22:02 Mckinley Fisher M.D. Dec 01, 2018 16:23
--- NOTE | 2018-12-01 16:30 | NUR ---
NURSE NOTES: blood transfusion started. premedication benadryl and tylenol given per order by dr zarco. 123/74 hr 68 97.3 temp. patient is stable.
--- NOTE | 2018-12-01 18:40 | NUR ---
NURSE NOTES: blood transfusion of 1 PRBC was done. no allergic reaction. patient is stable.
--- NOTE | 2018-12-01 19:14 | NUR ---
NURSE NOTES: Report received from Jennifer PARRA. Pt is resting in bed in stable condition. Pt is awake, alert, and oriented x4. Pt is on room air and breathing is even and unlabored. No acute distress noted. Pt is c/o positional "lightheadedness." Refusing antivert. VSS, afebrile. No complaints of any other s/sx. Will notify MD Vasquez. IV site noted to be asymptomatic, patent, and intact. Morfin patent and draining to gravity. Bed is placed in lowest position with brake engaged, side rails up x3, and bed alarm on. Call light and side table are placed within reach. Will continue to monitor.
--- NOTE | 2018-12-01 19:15 | NUR ---
NURSE NOTES: Pt c/o positional "lightheadedness." VSS, afebrile. Pt A+Ox4. No s/sx of acute distress noted. Pt offered antivert but is refusing at this time. Will notify MD Vasquez and continue to monitor patient.
--- NOTE | 2018-12-01 19:36 | General Progress Note ---
Assessment/Plan Assessment/Plan Assessment - Anemia - Renal failure - Obstructive uropathy - b/l edema - Duplex negative - PSA =10, ? CAP - abnormal LFT --> now normal Recommendations - Renal diet - Zofran PRN - follow labs - check OB --> (+) - EGD/Colon in am Subjective Allergies: Coded Allergies: No Known Allergies (Unverified , 11/21/18) Subjective Feels OK no abdominal complaints order for RBC transfusion noted EGD/Colon scheduled for am d/w IM and Cardiology Objective Last 24 Hour Vital Signs Date Time Temp Pulse Resp B/P (MAP) Pulse Ox O2 Delivery O2 Flow Rate FiO2 12/01/18 16:00 97.2 81 18 122/76 (91) 100 12/01/18 12:00 97.2 80 16 102/65 (77) 98 12/01/18 10:08 82 124/61 12/01/18 08:23 Room Air 12/01/18 08:00 97.5 82 18 124/61 (82) 98 12/01/18 08:00 75 12/01/18 04:00 97.0 74 20 122/76 (91) 98 12/01/18 04:00 69 12/01/18 01:13 98.0 12/01/18 00:00 63 12/01/18 00:00 98.0 62 20 119/68 (85) 98 11/30/18 21:53 74 113/59 11/30/18 21:00 Room Air 11/30/18 20:00 97.5 74 20 113/59 (77) 98 Intake and Output 11/30/18 12/01/18 18:59 06:59 Intake Total 1250 ml Output Total 1700 ml 2100 ml Balance -450 ml -2100 ml Intake Oral 720 ml IV Total 530 ml Output Urine Total 1700 ml 2100 ml # Voids 1 # Bowel Movements 1 1 Laboratory Tests 11/30/18 21:30: Stool Occult Blood Negative 12/01/18 06:15: White Blood Count 9.8, Red Blood Count 2.53L, Hemoglobin 7.9L, Hematocrit 23.3L , Mean Corpuscular Volume 92, Mean Corpuscular Hemoglobin 31.2H, Mean Corpuscular Hemoglobin Concent 33.8, Red Cell Distribution Width 10.5L, Platelet Count 373, Mean Platelet Volume 5.2L, Neutrophils (%) (Auto) , Lymphocytes (%) (Auto) , Monocytes (%) (Auto) , Eosinophils (%) (Auto) , Basophils (%) (Auto) , Differential Total Cells Counted 100, Neutrophils % ( Manual) 77H, Lymphocytes % (Manual) 11L, Monocytes % (Manual) 8, Eosinophils % ( Manual) 4H, Basophils % (Manual) 0, Band Neutrophils 0, Platelet Estimate Adequate, Platelet Morphology Normal, Anisocytosis 1+, Sodium Level 138, Potassium Level 4.0, Chloride Level 103, Carbon Dioxide Level 25, Anion Gap 10, Blood Urea Nitrogen 67H, Creatinine 4.2H, Estimat Glomerular Filtration Rate , Glucose Level 90, Calcium Level 9.0, Iron Level 58, Total Iron Binding Capacity 165L, Percent Iron Saturation 35, Unsaturated Iron Binding 107L, Ferritin 561H, Total Bilirubin 0.2, Aspartate Amino Transf (AST/SGOT) 26, Alanine Aminotransferase (ALT/SGPT) 56, Alkaline Phosphatase 118H, Total Protein 6.3L, Albumin 2.1L, Globulin 4.2, Albumin/Globulin Ratio 0.5L 12/01/18 14:43: Stool Occult Blood [Pending] Height (Feet): 5 Height (Inches): 8.00 Weight (Pounds): 159 Objective WDWN NCAT supple CTA RRR Abd soft (+) edema Yasir Alexandra MD Dec 01, 2018 19:36
--- NOTE | 2018-12-01 19:38 | NUR ---
NURSE NOTES: Voicemail left for MD Vasquez to notify of pt c/o positional "lightheadedness." Awaiting call back for further instructions. Will continue to monitor.
[2018-12-01 20:00] VITALS: BP 130/70
--- NOTE | 2018-12-01 20:01 | NUR ---
NURSE NOTES: MD Vasquez return call and informed of change in patient condition. Per MD, cancel transfer request to med-surg and keep patient on telemetry unit. Orders noted and carried out.
--- NOTE | 2018-12-01 20:02 | NUR ---
NURSE NOTES: Spoke with Aziza in pharmacy. Per pharmacist, do not give venofer as scheduled tonight d/t pt receiving PRBCs today.
[2018-12-01] MEDS: Tamsulosin 0.4mg cap ORAL SCH (20:33)
[2018-12-01] MEDS: Cyclobenzaprine 10mg Tab ORAL SCH (20:34)
[2018-12-01] MEDS: Iron Sucrose 100 MG in NS 55 ML IV SCH (20:35)
--- NOTE | 2018-12-01 22:41 | General Progress Note ---
Assessment/Plan Assessment/Plan sepsis acute renal failure hyperkalemia obstructive uropathy bph elevated troponin ho htn anemia confusion encephalopathy likiely secondary to uremia resolved vomiting likely secondary to uremia short syncopal episode leukocytosis constiaption abx per ID has johnson, urology fup making good urine infoley, monitor renal parameters echo noted ct of head noted neurolgy evaluation appreciated monitor labs dw patient hgb 7.9 agrees to blood trasnfusion dw Dr Stokes, planning on colonoscopy tomorrow if cleared by Dr Guerra dvt and ulcer prophylaxis ambulate PT stool softners and laxatives ambulate dw patient sinurance plan, they have denied CRI will likely then need snf when ready for discharge Subjective Allergies: Coded Allergies: No Known Allergies (Unverified , 11/21/18) Subjective seen in am doin ok feels weak no chest pain or sob pos bm no n/v Objective Last 24 Hour Vital Signs Date Time Temp Pulse Resp B/P (MAP) Pulse Ox O2 Delivery O2 Flow Rate FiO2 12/01/18 21:00 Room Air 12/01/18 20:42 75 130/70 12/01/18 20:00 97.9 75 18 130/70 (90) 99 12/01/18 20:00 69 12/01/18 16:00 97.2 81 18 122/76 (91) 100 12/01/18 12:00 97.2 80 16 102/65 (77) 98 12/01/18 10:08 82 124/61 12/01/18 08:23 Room Air 12/01/18 08:00 97.5 82 18 124/61 (82) 98 12/01/18 08:00 75 12/01/18 04:00 97.0 74 20 122/76 (91) 98 12/01/18 04:00 69 12/01/18 01:13 98.0 12/01/18 00:00 63 12/01/18 00:00 98.0 62 20 119/68 (85) 98 Intake and Output 11/30/18 12/01/18 18:59 06:59 Intake Total 1250 ml Output Total 1700 ml 2100 ml Balance -450 ml -2100 ml Intake Oral 720 ml IV Total 530 ml Output Urine Total 1700 ml 2100 ml # Voids 1 # Bowel Movements 1 1 Laboratory Tests 12/01/18 06:15: White Blood Count 9.8, Red Blood Count 2.53L, Hemoglobin 7.9L, Hematocrit 23.3L , Mean Corpuscular Volume 92, Mean Corpuscular Hemoglobin 31.2H, Mean Corpuscular Hemoglobin Concent 33.8, Red Cell Distribution Width 10.5L, Platelet Count 373, Mean Platelet Volume 5.2L, Neutrophils (%) (Auto) , Lymphocytes (%) (Auto) , Monocytes (%) (Auto) , Eosinophils (%) (Auto) , Basophils (%) (Auto) , Differential Total Cells Counted 100, Neutrophils % ( Manual) 77H, Lymphocytes % (Manual) 11L, Monocytes % (Manual) 8, Eosinophils % ( Manual) 4H, Basophils % (Manual) 0, Band Neutrophils 0, Platelet Estimate Adequate, Platelet Morphology Normal, Anisocytosis 1+, Sodium Level 138, Potassium Level 4.0, Chloride Level 103, Carbon Dioxide Level 25, Anion Gap 10, Blood Urea Nitrogen 67H, Creatinine 4.2H, Estimat Glomerular Filtration Rate , Glucose Level 90, Calcium Level 9.0, Iron Level 58, Total Iron Binding Capacity 165L, Percent Iron Saturation 35, Unsaturated Iron Binding 107L, Ferritin 561H, Total Bilirubin 0.2, Aspartate Amino Transf (AST/SGOT) 26, Alanine Aminotransferase (ALT/SGPT) 56, Alkaline Phosphatase 118H, Total Protein 6.3L, Albumin 2.1L, Globulin 4.2, Albumin/Globulin Ratio 0.5L 12/01/18 14:43: Stool Occult Blood [Pending] Height (Feet): 5 Height (Inches): 8.00 Weight (Pounds): 159 General Appearance: WD/WN, no apparent distress Cardiovascular: normal rate Respiratory/Chest: lungs clear Dane Vasquez MD Dec 01, 2018 22:41
[2018-12-02] VITALS (10 sets, daily range): BP systolic 107–135; BP diastolic 64–97
--- NOTE | 2018-12-02 00:45 | NUR ---
NURSE NOTES: Pt c/o 06/06 "aching, throbbing" headache unrelieved by Tylenol. Tylenol last given per PRN order about 4 hours ago. MD Vasquez contacted regarding change in patient condition. Per , order Bruce 5/325 Q4HR PRN for moderate pain and also order STAT Head CT. Orders noted and carried out. Will continue to monitor patient.
[2018-12-02] MEDS: HYDROcodone/Acetamin 5/325 tab ORAL PRN (01:01)
--- NOTE | 2018-12-02 01:09 | NUR ---
NURSE NOTES: Spoke with Zak in imaging and he reports that he will be at bedside in less than 10 minutes to take patient down for STAT head CT.
--- NOTE | 2018-12-02 06:43 | NUR ---
NURSE NOTES: GI lab [facility] Meredith and at bedside to transport patient for scheduled EGD and colonoscopy this AM. Pt in stable condition upon transport. No acute distress noted. Bowel prep and GI pre-procedure check list complete. Pt has been NPO since midnight.
[2018-12-02] MEDS ORDERED: NS 500ML IVPB ONE (06:55)
[2018-12-02 06:58] LABS: BASOPHILS % (AUTO) 0.9 % (0.0-2.0); EOSINOPHILS % (AUTO) 3.7 % (0.0-3.0); HEMATOCRIT 26.8 % (42.0-52.0); HEMOGLOBIN 9.2 G/DL (14.2-18.0); LYMPHOCYTES % (AUTO) 6.3 % (20.0-45.0); MEAN CORPUSCULAR VOLUME 92 FL (80-99); MONOCYTES % (AUTO) 8.6 % (1.0-10.0); NEUTROPHILS % (AUTO) 80.5 % (45.0-75.0); PLATELET COUNT 384 K/UL (150-450); RED BLOOD COUNT 2.91 M/UL (4.70-6.10); RED CELL DISTRIBUTION WIDTH 10.7 % (11.6-14.8)
[2018-12-02] MEDS ORDERED: Propofol 200mg/20ml IV ONE (07:00)
[2018-12-02] MEDS ORDERED: Midazolam 2mg/2ml Inj ONE ×2 (07:00→19:48)
[2018-12-02 07:04] LABS: ANION GAP 8 mmol/L (5-15); BLOOD UREA NITROGEN 56 mg/dL (7-18); CARBON DIOXIDE 27 MMOL/L (21-32); CHLORIDE 104 MMOL/L (98-107); CREATININE 3.9 MG/DL (0.55-1.30); POTASSIUM 4.5 MMOL/L (3.5-5.1); SODIUM 139 MMOL/L (136-145)
--- NOTE | 2018-12-02 07:14 | Pre-Procedure Note/Attestation ---
Pre-Procedure Note/Attestation Complete Prior to Procedure Planned Procedure: not applicable Procedure Narrative: EGD/Colon Indications for Procedure Pre-Operative Diagnosis: Anemia Attestation I attest that I discussed the nature of the procedure; its benefits; risks and complications; and alternatives (and the risks and benefits of such alternatives ), prior to the procedure, with the patient (or the patient's legal traveling sales representative). I attest that, if there was a reasonable possibility of needing a blood transfusion, the patient (or the patient's legal traveling sales representative) was given the [facility] standardized written summary, pursuant to the [place] Blood Safety Act ([place] Health and Safety Code # 1645, as amended). I attest that I re-evaluated the patient just prior to the surgery and that there has been no change in the patient's H&P, except as documented below: Yasir Alexandra MD Dec 02, 2018 07:14
--- NOTE | 2018-12-02 07:14 | General Progress Note ---
Assessment/Plan Assessment/Plan Assessment - Anemia, OB(+) - Renal failure - Obstructive uropathy - b/l edema - Duplex negative - PSA =10, ? CAP - abnormal LFT --> now normal Recommendations - Renal diet - Zofran PRN - follow CBC/LFT - EGD/Colon today POST PROCEDURE ADDENDUM - EGD: Incidental small hiatal hernia and mild duodenitis, biopsied antrum for H Pylori Colon: Ulcers and erosions in hepatic flexure, typical for ischemic colitis ( biopsied) Diminutive prox ascending colon and sigmoid polyp at 20 - biopsied - Rec: Resume PO f/u path Avoid volume depletion Subjective Allergies: Coded Allergies: No Known Allergies (Unverified , 11/21/18) Subjective Feels OK NPO for GI procedure no rectal bleeding s/p transfusion Objective Last 24 Hour Vital Signs Date Time Temp Pulse Resp B/P (MAP) Pulse Ox O2 Delivery O2 Flow Rate FiO2 12/02/18 04:00 97.7 82 18 131/79 (96) 97 12/02/18 04:00 69 12/02/18 00:00 97.2 71 18 128/97 (107) 97 12/02/18 00:00 70 12/01/18 21:00 Room Air 12/01/18 20:42 75 130/70 12/01/18 20:00 97.9 75 18 130/70 (90) 99 12/01/18 20:00 69 12/01/18 16:00 97.2 81 18 122/76 (91) 100 12/01/18 12:00 97.2 80 16 102/65 (77) 98 12/01/18 10:08 82 124/61 12/01/18 08:23 Room Air 12/01/18 08:00 97.5 82 18 124/61 (82) 98 12/01/18 08:00 75 Intake and Output 12/01/18 12/02/18 19:00 07:00 Intake Total 700 ml 600 ml Output Total 2000 ml 2000 ml Balance -1300 ml -1400 ml Intake Oral 600 ml 600 ml IV Total 100 ml Output Urine Total 2000 ml 2000 ml # Bowel Movements 3 4 Laboratory Tests 12/01/18 14:43: Stool Occult Blood [Pending] 12/02/18 06:25: White Blood Count 9.0, Red Blood Count 2.91L, Hemoglobin 9.2L, Hematocrit 26.8L , Mean Corpuscular Volume 92, Mean Corpuscular Hemoglobin 31.5H, Mean Corpuscular Hemoglobin Concent 34.2, Red Cell Distribution Width 10.7L, Platelet Count 384, Mean Platelet Volume 4.7L, Neutrophils (%) (Auto) 80.5H, Lymphocytes (%) (Auto) 6.3L, Monocytes (%) (Auto) 8.6, Eosinophils (%) (Auto) 3.7H, Basophils (%) (Auto) 0.9, Prothrombin Time 10.3, Prothromb Time International Ratio 1.0, Activated Partial Thromboplast Time 29, Sodium Level 139, Potassium Level 4.5, Chloride Level 104, Carbon Dioxide Level 27, Anion Gap 8, Blood Urea Nitrogen 56H, Creatinine 3.9H, Estimat Glomerular Filtration Rate , Glucose Level 92, Calcium Level 9.0, Vitamin B12 Level [Pending], Folate [Pending] Height (Feet): 5 Height (Inches): 7.00 Weight (Pounds): 154 Objective WDWN NCAT supple CTA RRR Abd soft (+) edema Yasir Alexandra MD Dec 02, 2018 07:14
--- NOTE | 2018-12-02 07:34 | NUR ---
NURSE NOTES: Received report from Kim PARRA. Pt. is off unit.
--- NOTE | 2018-12-02 07:34 | NUR ---
HAND-OFF: Report given to Mala PARRA. Pt is off the unit for planned endoscopy and colonoscopy this AM. Endorsed plan of care.
--- NOTE | 2018-12-02 07:37 | Anethesia Preoperative Eval ---
Anesthesia Pre-op PMH/ROS General Date of Evaluation: Dec 02, 2018 Time of Evaluation: 06:55 Anesthesiologist: Kanwal ASA Score: ASA 3 Mallampati Score Class I : Soft palate, uvula, fauces, pillars visible Class II: Soft palate, uvula, fauces visible Class III: Soft palate, base of uvula visible Class IV: Only hard plate visible Mallampati Classification: Class III Surgeon: Nasrin Diagnosis: Anemia Surgical Procedure: EGD/Colonoscopy Anesthesia History: none Family History: no anesthesia problems Allergies: Coded Allergies: No Known Allergies (Unverified , 11/21/18) Medications: see eMAR Patient NPO?: Yes NPO Date: Dec 01, 2018 NPO Time: 23:30 Past Medical History Cardiovascular: Reports: HTN Pulmonary: Denies: asthma, COPD, KATERIN, other Gastrointestinal/Genitourinary: Reports: other - actue renal faliure Neurologic/Psychiatric: Reports: CVA, other - vertigo/dizziness in the past Endocrine: Denies: DM, hypothyroidism, steroids, other HEENT: Denies: cataract (L), cataract (R), glaucoma, KOTLIK (L), KOTLIK (R), other Hematology/Immune: Reports: anemia Musculoskeletal/Integumentary: Reports: other - generalized muscle weakness PSxH Narrative: colonoscopy Anesthesia Pre-op Phys. Exam Physician Exam Last Vital Signs Date Time Temp Pulse Resp B/P (MAP) Pulse Ox O2 Delivery O2 Flow Rate FiO2 12/02/18 04:00 97.7 82 18 131/79 (96) 97 12/01/18 21:00 Room Air Constitutional: NAD Neurologic: CN 2-12 intact Cardiovascular: RRR Respiratory: CTA, other - diminised at bases Gastrointestinal: S/NT/ND Airway Exam Mallampati Score: Class III MO: limited - mouth opening limited due to right side jaw pain ROM: limited - mouth opening limited, jaws are in pain Teeth: intact Dentures: no upper, no lower Anesthesia Pre-op A/P Labs Hematology Test 12/02/18 06:25 White Blood Count 9.0 K/UL (4.8-10.8) Red Blood Count 2.91 M/UL (4.70-6.10) L Hemoglobin 9.2 G/DL (14.2-18.0) L Hematocrit 26.8 % (42.0-52.0) L Mean Corpuscular Volume 92 FL (80-99) Mean Corpuscular Hemoglobin 31.5 PG (27.0-31.0) H Mean Corpuscular Hemoglobin Concent 34.2 G/DL (32.0-36.0) Red Cell Distribution Width 10.7 % (11.6-14.8) L Platelet Count 384 K/UL (150-450) Mean Platelet Volume 4.7 FL (6.5-10.1) L Neutrophils (%) (Auto) 80.5 % (45.0-75.0) H Lymphocytes (%) (Auto) 6.3 % (20.0-45.0) L Monocytes (%) (Auto) 8.6 % (1.0-10.0) Eosinophils (%) (Auto) 3.7 % (0.0-3.0) H Basophils (%) (Auto) 0.9 % (0.0-2.0) Coagulation Test 12/02/18 06:25 Prothrombin Time 10.3 SEC (9.30-11.50) Prothromb Time International Ratio 1.0 (0.9-1.1) Activated Partial Thromboplast Time 29 SEC (23-33) Chemistry Test 12/02/18 06:25 Sodium Level 139 MMOL/L (136-145) Potassium Level 4.5 MMOL/L (3.5-5.1) Chloride Level 104 MMOL/L (98-107) Carbon Dioxide Level 27 MMOL/L (21-32) Anion Gap 8 mmol/L (5-15) Blood Urea Nitrogen 56 mg/dL (7-18) H Creatinine 3.9 MG/DL (0.55-1.30) H Estimat Glomerular Filtration Rate mL/min (>60) Glucose Level 92 MG/DL (74-106) Calcium Level 9.0 MG/DL (8.5-10.1) Vitamin B12 Level Pending Folate Pending Studies Pre-op Studies: EKG - NSR 77bpm, echo - ef 65% Risk Assessment & Plan Assessment: A&Ox3 Plan: MAC Status Change Before Surgery: No Pre-Antibiotics Given Within 1 Hr of Incision: No - none per surgeon Nani Schofield CRNA Dec 02, 2018 07:37
--- NOTE | 2018-12-02 07:39 | Immediate Post-Op Evaluation ---
Immediate Post-Op Evalulation Immediate Post-Op Evalulation Procedure: EGD/Colonoscopy Date of Evaluation: Dec 02, 2018 Time of Evaluation: 08:12 IV Fluids: NSS 350 ml Blood Products: 0 Estimated Blood Loss: 0 Urinary Output: johnson drained 150ml Blood Pressure Systolic: 130 Blood Pressure Diastolic: 77 Pulse Rate: 70 Respiratory Rate: 16 O2 Sat by Pulse Oximetry: 100 Temperature (Fahrenheit): 97 Pain Score (1-10): 0 Nausea: No Vomiting: No Complications none noted Patient Status: awake, reacts, patent Hydration Status: adequate Given Within 1 Hr of Incision: Nani Benson CRNA Dec 02, 2018 07:39
--- NOTE | 2018-12-02 07:40 | 48 Hour Post Anesthesia Eval ---
Post Anesthesia Evaluation Procedure: EGD/Colonoscopy Date of Evaluation: Dec 02, 2018 Time of Evaluation: 08:40 Blood Pressure Systolic: 129 0: 77 Pulse Rate: 66 Respiratory Rate: 17 Temperature (Fahrenheit): 97 O2 Sat by Pulse Oximetry: 98 Airway: patent Nausea: No Vomiting: No Pain Intensity: 0 Hydration Status: adequate Cardiopulmonary Status: WNL Mental Status/LOC: patient returned to baseline Follow-up care needed: patient intructions given Nani Schofield CRNA Dec 02, 2018 07:40
--- NOTE | 2018-12-02 08:09 | Endoscopy Procedure Note ---
Endoscopy Procedure Note General Indication for Procedure: anemia Procedures Performed: EGD, colonoscopy Operative Findings/Diagnosis: ischemic colitis Specimen: yes Pt Tolerated Procedure Well: Yes Estimated Blood Loss: minimal Anesthesia Anesthesiologist: see report Anesthesia: MAC Inserted Devices Implant(s) used?: No GI Core Measures 50 yrs or older w/o bx or poly: Not Applicable 10yrs. F/U not recommended: Not Applicable If not recommended, why?: Yasir Alexandra MD Dec 02, 2018 08:09
--- NOTE | 2018-12-02 08:10 | Brief Operative Note ---
Immediate Post Operative Note Operative Note Chief Complaint: anemia Pre-op Diagnosis: Anemia Procedure: esophagogastroduodenoscopy colon Surgeon: samson Anesthesiologist: see report Specimen: yes Complications: none Condition: stable Fluids: recorded Estimated Blood Loss: none Drains: none Implant(s) used?: No Yasir Alexandra MD Dec 02, 2018 08:10
--- NOTE | 2018-12-02 08:40 | NUR ---
NURSE NOTES: Pt. back on the unit s/p EGD/colonoscopy with biopsy. Pt. awake, a/o x 4. No sign of distress. Denies pain at present. IV at right FA #20g. in placed SL. Call light within reach. Will cont. to monitor. V/S WNL.
[2018-12-02] MEDS: Heparin 5000 units/ml inj SUBQ SCH ×4 (09:00→21:00)
[2018-12-02] MEDS: Docusate 100mg cap ORAL SCH ×2 (09:38→18:22)
[2018-12-02] MEDS: Metoprolol 25mg tab ORAL SCH ×2 (09:39→20:58)
--- NOTE | 2018-12-02 09:56 | Diagnostic Imaging Report ---
Indications: Headache for 4 hours Technique: Spiral acquisitions obtained through the brain. Angled axial and coronal 5 x 5 mm slices were reconstructed. Total dose length product 1474.61 mGycm. CTDI vol(s) 70.38 mGy. Dose reduction achieved using automated exposure control Comparison: None. Findings: No acute intracranial hemorrhage or edema. No mass effect or midline shift. Normal moore-white differentiation. There is mild age-related enlargement of the ventricles and extra-axial CSF spaces. There is evidence of prior bilateral cataract surgery. The included sinuses are clear. The mastoids are clear. Impression: Mild age-related volume loss Negative for acute intracranial bleed or mass effect The CT scanner at [facility] is accredited by the [employer] and the scans are performed using protocols designed to limit radiation exposure to as low as reasonably achievable to attain images of sufficient resolution adequate for diagnostic evaluation.
--- NOTE | 2018-12-02 10:05 | Urology Progress Note ---
Assessment/Plan Assessment/Plan 1. Urinary retention history. 2. Benign prostatic hypertrophy. 3. Possible neurogenic bladder. 4. Hematuria. 5. Renal failure, which appears to be acute on chronic, improved. 6. Hydronephrosis, improved with Johnson. 7. Proteinuria. 8. Meatal stenosis and stricture history. 9. Inguinal hernia. monitor clinically johnson hand irrigated and do PRN secured to pt's leg off HD for now monitor renal fxn closely, seems to have stabilized flomax and proscar added cysto later voiding trial at some point? f/u on blood cx Subjective Allergies: Coded Allergies: No Known Allergies (Unverified , 11/21/18) Subjective all noted, s/p EGD/colonoscopy, feels fair Objective Last 24 Hour Vital Signs Date Time Temp Pulse Resp B/P (MAP) Pulse Ox O2 Delivery O2 Flow Rate FiO2 12/02/18 09:39 66 129/77 12/02/18 08:44 66 17 98 12/02/18 08:42 70 16 100 12/02/18 08:40 98.0 77 20 135/72 (93) 99 12/02/18 08:30 97.0 66 17 129/77 98 Room Air 12/02/18 08:20 64 14 135/75 98 Room Air 12/02/18 08:15 63 18 131/70 100 Nasal Cannula 3 12/02/18 08:11 97.0 70 16 130/77 100 Nasal Cannula 3 12/02/18 04:00 97.7 82 18 131/79 (96) 97 12/02/18 04:00 69 12/02/18 00:00 97.2 71 18 128/97 (107) 97 12/02/18 00:00 70 12/01/18 21:00 Room Air 12/01/18 20:42 75 130/70 12/01/18 20:00 97.9 75 18 130/70 (90) 99 12/01/18 20:00 69 12/01/18 16:00 97.2 81 18 122/76 (91) 100 12/01/18 12:00 97.2 80 16 102/65 (77) 98 12/01/18 10:08 82 124/61 Intake and Output 12/01/18 12/02/18 19:00 07:00 Intake Total 700 ml 600 ml Output Total 2000 ml 2000 ml Balance -1300 ml -1400 ml Intake Oral 600 ml 600 ml IV Total 100 ml Output Urine Total 2000 ml 2000 ml # Bowel Movements 3 4 Microbiology Date/Time Source Procedure Growth Status 11/30/18 21:00 Blood Blood Culture - Preliminary NO GROWTH AFTER 24 HOURS Resulted 11/23/18 15:00 Stool Ova and Parasites - Final Complete 11/23/18 15:00 Stool Ova and Parasite Result 1 - Final Complete Current Medications Medications (Trade) Dose Ordered Sig/Debbie Route PRN Reason Start Time Stop Time Status Last Admin Dose Admin Acetaminophen (Tylenol) 650 mg Q6H PRN ORAL Mild Pain/Temp > 100.5 11/22/18 03:15 12/22/18 03:14 12/01/18 19:53 Acetaminophen/ Hydrocodone Bitart ([place] 5/325) 1 tab Q4H PRN ORAL Moderate Pain (Pain Scale 4-6) 12/02/18 00:45 12/09/18 00:44 12/02/18 01:01 Al Hydroxide/Mg Hydroxide (Mylanta) 30 ml Q6H PRN ORAL GERD 11/22/18 03:15 12/22/18 03:14 Bisacodyl (Dulcolax) 10 mg DAILYPRN PRN RECTAL Constipation 11/30/18 14:30 12/30/18 14:29 11/30/18 14:29 Cyclobenzaprine HCl (Flexeril) 10 mg BEDTIME ORAL 11/30/18 21:00 12/30/18 20:59 12/01/18 20:34 Daptomycin 700 mg/ Sodium Chloride 55 ml @ 100 mls/hr Q48H IV 11/27/18 14:00 12/04/18 13:59 12/01/18 14:02 Docusate Sodium (Colace) 100 mg TWICE A DAY ORAL 11/25/18 09:00 12/25/18 08:59 12/02/18 09:38 Epoetin Tommy (Epoetin Tommy(ESRD on dialysis)) 2,000 unit WED-WED-WED SUBQ 11/23/18 21:00 12/23/18 20:59 11/30/18 21:54 Epoetin Tommy (Epoetin Tommy(ESRD on dialysis)) 3,000 unit WED-WED-WED SUBQ 11/23/18 21:00 12/23/18 20:59 11/30/18 21:54 Finasteride (Proscar) 5 mg DAILY ORAL 11/25/18 09:00 12/25/18 08:59 12/02/18 09:38 Heparin Sodium (Porcine) (Heparin 5000 units/ml) 5,000 units EVERY 12 HOURS SUBQ 11/22/18 09:00 12/22/18 08:59 11/30/18 22:01 Iron Sucrose 100 mg/Sodium Chloride 60 ml @ 240 mls/hr BEDTIME IV 11/29/18 21:00 12/03/18 21:14 11/30/18 21:54 Magnesium Hydroxide (Mom) 30 ml BIDPRN PRN ORAL Constipation 11/26/18 12:45 12/26/18 12:44 11/29/18 18:50 Meclizine HCl (Antivert) 25 mg TIDPRN PRN ORAL for dizziness 11/23/18 18:15 12/23/18 18:14 Metoprolol Tartrate (Lopressor) 25 mg Q12HR ORAL 11/22/18 21:00 12/22/18 20:59 12/02/18 09:39 Ondansetron HCl (Zofran) 4 mg Q6H PRN IVP Nausea & Vomiting 11/24/18 09:30 12/24/18 09:29 11/26/18 23:02 Pantoprazole (Protonix) 40 mg DAILY ORAL 11/26/18 09:00 12/26/18 08:59 12/02/18 09:38 Tamsulosin HCl (Flomax) 0.4 mg BEDTIME ORAL 11/24/18 23:00 12/24/18 22:59 12/01/18 20:33 Zolpidem Tartrate (Ambien) 5 mg HSPRN PRN ORAL Insomnia 11/30/18 21:00 12/07/18 20:59 11/30/18 22:02 Laboratory Tests 12/01/18 14:43: Stool Occult Blood Negative 12/02/18 06:25: White Blood Count 9.0, Red Blood Count 2.91L, Hemoglobin 9.2L, Hematocrit 26.8L , Mean Corpuscular Volume 92, Mean Corpuscular Hemoglobin 31.5H, Mean Corpuscular Hemoglobin Concent 34.2, Red Cell Distribution Width 10.7L, Platelet Count 384, Mean Platelet Volume 4.7L, Neutrophils (%) (Auto) 80.5H, Lymphocytes (%) (Auto) 6.3L, Monocytes (%) (Auto) 8.6, Eosinophils (%) (Auto) 3.7H, Basophils (%) (Auto) 0.9, Prothrombin Time 10.3, Prothromb Time International Ratio 1.0, Activated Partial Thromboplast Time 29, Sodium Level 139, Potassium Level 4.5, Chloride Level 104, Carbon Dioxide Level 27, Anion Gap 8, Blood Urea Nitrogen 56H, Creatinine 3.9H, Estimat Glomerular Filtration Rate , Glucose Level 92, Calcium Level 9.0, Vitamin B12 Level 1206H, Folate 13.1 Height (Feet): 5 Height (Inches): 7.00 Weight (Pounds): 154 Objective exam stable, urine clearing, has some debris abdominal u/s (11/29) noted Geraldo Wise MD Dec 02, 2018 10:05
--- NOTE | 2018-12-02 11:34 | NUR ---
CASE MANAGEMENT:REVIEW 12/02/18 SI: ACUTE RENAL FAILURE. BACTEREMIA 97.0 66 17 129/77 98% ON RA H/H-9.2/26.8 H/H-56/3.9 IS;IV VENOFER QHS IV DAPTOMYCIN Q48 PROTONIX PO QD PROSCAR PO QD FLOMAX PO QHS NORCO PO Q4HRS PRN PROCRIT SQ MWF LOPRESSOR PO Q12 HEPARIN SQ Q12 : TELEMETRY UNIT Addendum: 12/02/18 at 1211 by QUIN CORONADO, CLERK TRAVEL RESERVATIONS CLERK TRAVEL RESERVATIONS CORRECTION BUN/CR+56/3.9
--- NOTE | 2018-12-02 12:11 | NUR ---
DISCHARGE PLANNING [facility] PLAN MD DR NATHAN DID NOT APPROVE DISCHARGE TO [facility] DR NATHAN DID APPROVE FOR PATIENT TO GO TO SNF FOR SHORT STAY AT TIME OF DISCHARGE CONTRACTED FACILITIES ARE: 1) [facility] (DR KNIGHT GOES TO THIS FACILITY) 2) [facility] 3) [facility] AT TIME OF DISCHARGE PATIENT WILL BE REFERRED TO ONE OF THE ABOVE FACILITIES
[2018-12-02 12:19] LABS: IRON 29 ug/dL (50-175)
[2018-12-02 12:37] LABS: FERRITIN 641 NG/ML (8-388)
--- NOTE | 2018-12-02 14:26 | Nephrology Progress Note ---
Assessment/Plan Problem List: (1) Acute on chronic renal failure Assessment: S creatinine better. off HD (2) Urinary retention (3) Hyperkalemia Assessment: ok (4) Metabolic acidosis (5) Uremia (6) Bacteremia due to Enterococcus (7) Anemia Assessment: better. post transfusion (8) Iron deficiency (9) Secondary hyperparathyroidism of renal origin Plan start Zemplar follow labs off HD IV Iron cont Epogen Subjective Subjective feels ok Objective Objective Last 24 Hour Vital Signs Date Time Temp Pulse Resp B/P (MAP) Pulse Ox O2 Delivery O2 Flow Rate FiO2 12/02/18 11:54 98.3 71 20 114/69 (84) 99 12/02/18 09:40 Room Air 12/02/18 09:39 66 129/77 12/02/18 08:44 66 17 98 12/02/18 08:42 70 16 100 12/02/18 08:40 98.0 77 20 135/72 (93) 99 12/02/18 08:30 97.0 66 17 129/77 98 Room Air 12/02/18 08:20 64 14 135/75 98 Room Air 12/02/18 08:15 63 18 131/70 100 Nasal Cannula 3 12/02/18 08:11 97.0 70 16 130/77 100 Nasal Cannula 3 12/02/18 07:52 76 12/02/18 04:00 97.7 82 18 131/79 (96) 97 12/02/18 04:00 69 12/02/18 00:00 97.2 71 18 128/97 (107) 97 12/02/18 00:00 70 12/01/18 21:00 Room Air 12/01/18 20:42 75 130/70 12/01/18 20:00 97.9 75 18 130/70 (90) 99 12/01/18 20:00 69 12/01/18 16:00 97.2 81 18 122/76 (91) 100 Intake and Output 12/01/18 12/02/18 19:00 07:00 Intake Total 700 ml 600 ml Output Total 2000 ml 2000 ml Balance -1300 ml -1400 ml Intake Oral 600 ml 600 ml IV Total 100 ml Output Urine Total 2000 ml 2000 ml # Bowel Movements 3 4 Laboratory Tests 12/01/18 14:43: Stool Occult Blood Negative 12/02/18 06:25: White Blood Count 9.0, Red Blood Count 2.91L, Hemoglobin 9.2L, Hematocrit 26.8L , Mean Corpuscular Volume 92, Mean Corpuscular Hemoglobin 31.5H, Mean Corpuscular Hemoglobin Concent 34.2, Red Cell Distribution Width 10.7L, Platelet Count 384, Mean Platelet Volume 4.7L, Neutrophils (%) (Auto) 80.5H, Lymphocytes (%) (Auto) 6.3L, Monocytes (%) (Auto) 8.6, Eosinophils (%) (Auto) 3.7H, Basophils (%) (Auto) 0.9, Differential Total Cells Counted 100, Neutrophils % (Manual) 82H, Lymphocytes % (Manual) 9L, Monocytes % (Manual) 7, Eosinophils % (Manual) 2, Basophils % (Manual) 0, Band Neutrophils 0, Other Cell Type Pathologist comment, Platelet Estimate Adequate, Platelet Morphology Normal, Red Blood Cell Morphology Normal, Prothrombin Time 10.3, Prothromb Time International Ratio 1.0, Activated Partial Thromboplast Time 29, Sodium Level 139, Potassium Level 4.5, Chloride Level 104, Carbon Dioxide Level 27, Anion Gap 8, Blood Urea Nitrogen 56H, Creatinine 3.9H, Estimat Glomerular Filtration Rate , Glucose Level 92, Calcium Level 9.0, Iron Level 29L, Ferritin 641H, Total Protein (PEP) [Pending], Albumin (PEP) [Pending], Globulin (PEP) [Pending] , Albumin/Globulin Ratio [Pending], [id number]-[id number] [Pending], Alpha-2- Globulins [Pending], Beta Globulins [Pending], Beta Gamma Globulin [Pending], PEP Abnormal Protein Bands [Pending], Protein Electrophoresis Interpret [Pending ], Vitamin B12 Level 1206H, Folate 13.1, Immunoglobulin [place]/Lambda Ratio [ Pending], [place] Light Chain Analysis [Pending], Lambda Light Chain Analysis [ Pending], Hepatitis B Surface Antigen [Pending], Hepatitis C Antibody [Pending] , HIV (1&2) Antibody Rapid Negative Height (Feet): 5 Height (Inches): 7.00 Weight (Pounds): 154 Cardiovascular: normal rate Respiratory/Chest: lungs clear Extremities: moderate edema Michael Sosa MD Dec 02, 2018 14:26
--- NOTE | 2018-12-02 14:52 | Neurology Progress Note ---
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 He had a colonoscopy this morning. He was in bed when I went to see him. He walked with PT yesterday and felt unsteady on his feet. His appetite is better. The mind continues to be clearer - but is still not normal. He has had no further episodes of loss of consciousness. His cognitive function has improved. His motor function is also better. He denies any new neurological symptoms. He specifically denies any weakness on one side or the other, numbness on one side or the other, problems with speech problems with language problems with vision problems with memory. Review of Systems Neuro Review of Systems Benign. Objective Physical Exam Last Vital Signs Date Time Temp Pulse Resp B/P (MAP) Pulse Ox O2 Delivery O2 Flow Rate FiO2 12/02/18 11:54 98.3 71 20 114/69 (84) 99 12/02/18 09:40 Room Air 12/02/18 08:15 3 Laboratory Tests Test 12/02/18 06:25 White Blood Count 9.0 K/UL (4.8-10.8) Red Blood Count 2.91 M/UL (4.70-6.10) L Hemoglobin 9.2 G/DL (14.2-18.0) L Hematocrit 26.8 % (42.0-52.0) L Mean Corpuscular Volume 92 FL (80-99) Mean Corpuscular Hemoglobin 31.5 PG (27.0-31.0) H Mean Corpuscular Hemoglobin Concent 34.2 G/DL (32.0-36.0) Red Cell Distribution Width 10.7 % (11.6-14.8) L Platelet Count 384 K/UL (150-450) Mean Platelet Volume 4.7 FL (6.5-10.1) L Neutrophils (%) (Auto) 80.5 % (45.0-75.0) H Lymphocytes (%) (Auto) 6.3 % (20.0-45.0) L Monocytes (%) (Auto) 8.6 % (1.0-10.0) Eosinophils (%) (Auto) 3.7 % (0.0-3.0) H Basophils (%) (Auto) 0.9 % (0.0-2.0) Differential Total Cells Counted 100 Neutrophils % (Manual) 82 % (45-75) H Lymphocytes % (Manual) 9 % (20-45) L Monocytes % (Manual) 7 % (1-10) Eosinophils % (Manual) 2 % (0-3) Basophils % (Manual) 0 % (0-2) Band Neutrophils 0 % (0-8) Other Cell Type Pathologist comment Platelet Estimate Adequate Platelet Morphology Normal Red Blood Cell Morphology Normal Prothrombin Time 10.3 SEC (9.30-11.50) Prothromb Time International Ratio 1.0 (0.9-1.1) Activated Partial Thromboplast Time 29 SEC (23-33) Sodium Level 139 MMOL/L (136-145) Potassium Level 4.5 MMOL/L (3.5-5.1) Chloride Level 104 MMOL/L (98-107) Carbon Dioxide Level 27 MMOL/L (21-32) Anion Gap 8 mmol/L (5-15) Blood Urea Nitrogen 56 mg/dL (7-18) H Creatinine 3.9 MG/DL (0.55-1.30) H Estimat Glomerular Filtration Rate mL/min (>60) Glucose Level 92 MG/DL (74-106) Calcium Level 9.0 MG/DL (8.5-10.1) Iron Level 29 ug/dL (50-175) L Ferritin 641 NG/ML (8-388) H Total Protein (PEP) Pending Albumin (PEP) Pending Globulin (PEP) Pending Albumin/Globulin Ratio Pending [id number] Pending [id number]-[id number] Pending Beta Globulins Pending Beta Gamma Globulin Pending PEP Abnormal Protein Bands Pending Protein Electrophoresis Interpret Pending Vitamin B12 Level 1206 PG/ML (193-986) H Folate 13.1 NG/ML (8.6-58.9) Immunoglobulin [place]/Lambda Ratio Pending [place] Light Chain Analysis Pending Lambda Light Chain Analysis Pending Hepatitis B Surface Antigen Pending Hepatitis C Antibody Pending HIV (1&2) Antibody Rapid Negative (NEGATIVE) Neurologic Exam Objective PHYSICAL EXAMINATION: GENERAL: He is a well-developed, well-nourished, pleasant gentleman, lying in bed, in no acute distress. HEAD: Normocephalic and atraumatic. EENT: Examination benign. NECK: No neck rigidity was observed. NEUROLOGIC EXAMINATION: MENTAL STATUS EXAMINATION: He was awake and alert. He was oriented to person, place, and time, except for the day of the week. He was able to recall 3/3 words immediately after 1 minute and after 3 minutes. He was able to remember presidents, Trump through Trujillo senior. His mathematical skills were good. His visuospatial function was preserved. SPEECH: He had no dysarthria. LANGUAGE: He had no aphasia. CRANIAL NERVE EXAMINATION: II: The visual caal were intact on confrontation testing. III, IV & : The external ocular movements were full and the pupils 3 mm in diameter, equal, round, regular, and reactive to light. V: He had normal facial sensations, and the temporales, masseters, and pterygoids functioned normally. VII: He had normal facial expressions and no facial asymmetry. VIII: He was able to hear well bilaterally and had no nystagmus. IX: The palate moved symmetrically on phonation. X: He had no hoarseness of voice. XI: The sternocleidomastoids and trapezii functioned normally. XII: The tongue was in the midline without any fasciculations or atrophy. MOTOR SYSTEM: The tone was normal in all four extremities. Examination of muscle mass revealed no focal wasting. Examination of power revealed G 5/5 power in all muscle groups tested. SENSORY EXAMINATION: He had intact sensations to pinprick, light touch, and graphesthesia. COORDINATION: He performed well on atzmcs-[id number]-nkec and weto-my-dzpt testing. REFLEXES: 2+ and bilaterally symmetrical at the biceps, triceps, and brachioradialis. 2++ at both knees, Trace+ at both ankles. The plantar responses were flexor bilaterally. STANCE: He stood up with contact guard. GAIT: He walked well with contact guard. Impression/Recommendations Diagnostic Impression 1. Dane Jc is a 72-year-old, right-handed, gentleman, who does have a past history of hypertension, motion sickness, paroxysmal positional vertigo, and a near syncopal episode approximately a year ago who has been feeling unwell for the last 1 to 2 months and was thus hospitalized on 11/22/2018 when laboratory data revealed that he was in renal failure. 2. Since he has been in the hospital, he has continued to feel unwell and has had lightheadedness whenever he tries to sit up, stand, and walk. On 1 occasion on 11/23/18, he started to feel lightheaded while sitting up, then passed out for brief period of time, and had some generalized body jerking movements. He rapidly regained consciousness following that. 3. He feels better. He had a colonoscopy this morning. He was in bed when I went to see him. He walked with PT yesterday and felt unsteady on his feet. His appetite is better. The mind continues to be clearer - but is still not normal. He has had no further episodes of loss of consciousness. His cognitive function has improved. His motor function is also better. He denies any new neurological symptoms. 4. On neurological examination, at this time, he has mild slowing of cerebration. He has brisk deep tendon reflexes at the knees and trace ankle jerks, and needs contact guard to stand and walk. 5. Laboratory data on my initial evaluation revealed that his WBC count was elevated to 15,300. He was significantly anemic with a hemoglobin of 8.7 G. His chemistry panel revealed that his potassium was low at 3.1. His BUN was elevated at 173 with a creatinine of 10.1. His proBNP was elevated to 1278. His vitamin B12 level was normal at 1394. His folate level was normal at 25.3. His TSH was normal at 1.42. His INR was normal at 1.0. His urinalysis revealed 1+ leukocyte esterase with 2 red blood cells, and 2 white blood cells per high-power field. 6. The CT of the brain reveals no acute pathology. 7. EEG done on 11/24/2018 revealed triphasic waveforms with an anterior to posterior gradient but normal background and no interictal or ictal phenomena. These findings are consistent with a mild metabolic encephalopathy. 8. The patient's history, neurological examination, laboratory data, imaging studies and EEG are most consistent with lightheadedness due to fluid and electrolyte imbalance. 9. The episode that the patient had on 11/23/18 where he felt lightheaded, then passed out, and had some abnormal body jerking movements was most probably a Matias-Anthony attack. 10. The patient does have mild cognitive dysfunction, which is due to an ongoing metabolic encephalopathic process. 11. The right sided neck pain, discomfort and spasm with right temporalis pain has improved. 12. He is still unsteady on his feet. Recommendations 1. Continue present management. 2. Continue Flexeril 10 mg q HS of a few more days. 3. Continue to correct the patient's fluid and electrolyte imbalances. 4. Frequent range of motion exercises - patient instructed. 5. Out of bed in chair for all meals. 6. Mobilize with PT and multiple daily walks. 7. The patient will benefit significantly from a brief course of acute rehabilitation so that he can regain his independence. 8. Observe. Janak Chandra M.D., M.S.P.H. Janak Chandra MD Dec 02, 2018 14:52
[2018-12-02] MEDS ORDERED: Tubing IV Secondary IV ONE (15:06)
[2018-12-02] MEDS ORDERED: NS 500ML ONE (15:06)
--- NOTE | 2018-12-02 16:17 | Infectious Diseases Prog Note ---
Assessment/Plan Problems: (1) Sepsis due to Enterococcus with acute renal failure and metabolic encephalopathy Assessment & Plan: source most likely tract with obstruction , with no GI mass but polyps which were removed . continue daptomycin renally dosed as per pharmacy for his bacteremia . his HD catheter was removed on 11/29 since it was placed after he was bacteremic with enterococcus. repeated blood culture on 11/30 is negative so far which confirm clearance . monitor CK level weekly while on daptomycin . will need two weeks of iv antibiotics for his bacteremia starting from the clearance date. EOT 12/14/18 (2) Hydronephrosis Assessment & Plan: most likely the source of his bacteremia with enterococcus faecalis , complicated with renal failure , suspect enlarged prostate , with elevated PSA rule out prostate CA , recommend oncology work up with rectal US to rule out prostatic mass , and possible prostatectomy once clinically stable (3) Acute on chronic renal failure Assessment & Plan: improving, now making good urine , previously required HD , his HD catheter was removed since it was placed while bacteremic . will wait for 48 hours on antibiotics before placing any new catheter if he needs any in the future, and if his repeated blood culture on 11/30 remains negative . (4) Acute encephalopathy Assessment & Plan: improving, suspect metabolic and toxic , monitor mental status, avoid nephrotoxics , neurology is following (5) Prostate enlargement Assessment & Plan: with elevated PSA, rule out malignant process, recommend rectal US to evaluate the prostate and for possible biopsy to rule out malignancy . (6) Generalized weakness Assessment & Plan: recommend rehabilitation and PT Subjective Constitutional: Reports: no symptoms HEENT: Reports: no symptoms Respiratory: Reports: no symptoms Breasts: Reports: no symptoms Cardiovascular: Reports: no symptoms Gastrointestinal/Abdominal: Reports: no symptoms Genitourinary: Reports: no symptoms Neurologic: Reports: no symptoms Psychiatric: Reports: no symptoms Skin: Reports: no symptoms Endocrine: Reports: no symptoms Hematologic: Reports: no symptoms Musculoskeletal: Reports: no symptoms Allergies: Coded Allergies: No Known Allergies (Unverified , 11/21/18) Subjective He was feeling ok, had colonoscopy earlier and EGD, his jaw pain resolved after he had mouth guard placed in GI lab for EGD . no cough or SOB, no neck pain or hematoma, no fever or chills , no diarrhea , feels more energetic Objective Vital Signs Last 24 Hour Vital Signs Date Time Temp Pulse Resp B/P (MAP) Pulse Ox O2 Delivery O2 Flow Rate FiO2 12/02/18 11:54 98.3 71 20 114/69 (84) 99 12/02/18 11:50 68 12/02/18 09:40 Room Air 12/02/18 09:39 66 129/77 12/02/18 08:44 66 17 98 12/02/18 08:42 70 16 100 12/02/18 08:40 98.0 77 20 135/72 (93) 99 12/02/18 08:30 97.0 66 17 129/77 98 Room Air 12/02/18 08:20 64 14 135/75 98 Room Air 12/02/18 08:15 63 18 131/70 100 Nasal Cannula 3 12/02/18 08:11 97.0 70 16 130/77 100 Nasal Cannula 3 12/02/18 07:52 76 12/02/18 04:00 97.7 82 18 131/79 (96) 97 12/02/18 04:00 69 12/02/18 00:00 97.2 71 18 128/97 (107) 97 12/02/18 00:00 70 12/01/18 21:00 Room Air 12/01/18 20:42 75 130/70 12/01/18 20:00 97.9 75 18 130/70 (90) 99 12/01/18 20:00 69 Height (Feet): 5 Height (Inches): 7.00 Weight (Pounds): 154 General Appearance: WD/WN, no acute distress HEENT: normocephalic, atraumatic, anicteric, mucous membranes moist Respiratory/Chest: chest wall non-tender, lungs clear, normal breath sounds, no respiratory distress, no accessory muscle use Cardiovascular: normal peripheral pulses, normal rate, regular rhythm, no gallop/murmur, no JVD Abdomen: normal bowel sounds, soft, non tender, no organomegaly, non distended , no mass Genitourinary: normal external genitalia Extremities: no cyanosis, no clubbing Skin: no rash, no lesions, no ulcers Neurologic/Psychiatric: alert, oriented x 3, responsive Lymphatic: no neck adenopathy, no groin adenopathy Musculoskeletal: normal muscle bulk, no effusion Microbiology Date/Time Source Procedure Growth Status 11/30/18 21:00 Blood Blood Culture - Preliminary NO GROWTH AFTER 24 HOURS Resulted 11/30/18 20:45 Blood Blood Culture - Preliminary NO GROWTH AFTER 24 HOURS Resulted Laboratory Tests Test 12/02/18 06:25 White Blood Count 9.0 K/UL (4.8-10.8) Red Blood Count 2.91 M/UL (4.70-6.10) L Hemoglobin 9.2 G/DL (14.2-18.0) L Hematocrit 26.8 % (42.0-52.0) L Mean Corpuscular Volume 92 FL (80-99) Mean Corpuscular Hemoglobin 31.5 PG (27.0-31.0) H Mean Corpuscular Hemoglobin Concent 34.2 G/DL (32.0-36.0) Red Cell Distribution Width 10.7 % (11.6-14.8) L Platelet Count 384 K/UL (150-450) Mean Platelet Volume 4.7 FL (6.5-10.1) L Neutrophils (%) (Auto) 80.5 % (45.0-75.0) H Lymphocytes (%) (Auto) 6.3 % (20.0-45.0) L Monocytes (%) (Auto) 8.6 % (1.0-10.0) Eosinophils (%) (Auto) 3.7 % (0.0-3.0) H Basophils (%) (Auto) 0.9 % (0.0-2.0) Differential Total Cells Counted 100 Neutrophils % (Manual) 82 % (45-75) H Lymphocytes % (Manual) 9 % (20-45) L Monocytes % (Manual) 7 % (1-10) Eosinophils % (Manual) 2 % (0-3) Basophils % (Manual) 0 % (0-2) Band Neutrophils 0 % (0-8) Other Cell Type Pathologist comment Platelet Estimate Adequate Platelet Morphology Normal Red Blood Cell Morphology Normal Prothrombin Time 10.3 SEC (9.30-11.50) Prothromb Time International Ratio 1.0 (0.9-1.1) Activated Partial Thromboplast Time 29 SEC (23-33) Sodium Level 139 MMOL/L (136-145) Potassium Level 4.5 MMOL/L (3.5-5.1) Chloride Level 104 MMOL/L (98-107) Carbon Dioxide Level 27 MMOL/L (21-32) Anion Gap 8 mmol/L (5-15) Blood Urea Nitrogen 56 mg/dL (7-18) H Creatinine 3.9 MG/DL (0.55-1.30) H Estimat Glomerular Filtration Rate mL/min (>60) Glucose Level 92 MG/DL (74-106) Calcium Level 9.0 MG/DL (8.5-10.1) Iron Level 29 ug/dL (50-175) L Ferritin 641 NG/ML (8-388) H Total Protein (PEP) Pending Albumin (PEP) Pending Globulin (PEP) Pending Albumin/Globulin Ratio Pending Badbs-3-Snazxgpmj Pending Wdkac-0-Eycipzqvs Pending Beta Globulins Pending Beta Gamma Globulin Pending PEP Abnormal Protein Bands Pending Protein Electrophoresis Interpret Pending Vitamin B12 Level 1206 PG/ML (193-986) H Folate 13.1 NG/ML (8.6-58.9) Immunoglobulin [place]/Lambda Ratio Pending [place] Light Chain Analysis Pending Lambda Light Chain Analysis Pending Hepatitis B Surface Antigen Pending Hepatitis C Antibody Pending HIV (1&2) Antibody Rapid Negative (NEGATIVE) Current Medications Medications (Trade) Dose Ordered Sig/Debbie Route PRN Reason Start Time Stop Time Status Last Admin Dose Admin Acetaminophen (Tylenol) 650 mg Q6H PRN ORAL Mild Pain/Temp > 100.5 11/22/18 03:15 12/22/18 03:14 12/01/18 19:53 Acetaminophen/ Hydrocodone Bitart ([place] 5/325) 1 tab Q4H PRN ORAL Moderate Pain (Pain Scale 4-6) 12/02/18 00:45 12/09/18 00:44 12/02/18 01:01 Al Hydroxide/Mg Hydroxide (Mylanta) 30 ml Q6H PRN ORAL GERD 11/22/18 03:15 12/22/18 03:14 Bisacodyl (Dulcolax) 10 mg DAILYPRN PRN RECTAL Constipation 11/30/18 14:30 12/30/18 14:29 11/30/18 14:29 Cyclobenzaprine HCl (Flexeril) 10 mg BEDTIME ORAL 11/30/18 21:00 12/30/18 20:59 12/01/18 20:34 Daptomycin 700 mg/ Sodium Chloride 55 ml @ 100 mls/hr Q48H IV 11/27/18 14:00 12/04/18 13:59 12/01/18 14:02 Docusate Sodium (Colace) 100 mg TWICE A DAY ORAL 11/25/18 09:00 12/25/18 08:59 12/02/18 09:38 Epoetin Tommy (Epoetin Tommy(ESRD on dialysis)) 2,000 unit WED-WED-WED SUBQ 11/23/18 21:00 12/23/18 20:59 11/30/18 21:54 Epoetin Tommy (Epoetin Tommy(ESRD on dialysis)) 3,000 unit WED- SUBQ 11/23/18 21:00 12/23/18 20:59 11/30/18 21:54 Finasteride (Proscar) 5 mg DAILY ORAL 11/25/18 09:00 12/25/18 08:59 12/02/18 09:38 Heparin Sodium (Porcine) (Heparin 5000 units/ml) 5,000 units EVERY 12 HOURS SUBQ 11/22/18 09:00 12/22/18 08:59 11/30/18 22:01 Iron Sucrose 100 mg/Sodium Chloride 60 ml @ 240 mls/hr BEDTIME IV 11/29/18 21:00 12/03/18 21:14 11/30/18 21:54 Magnesium Hydroxide (Mom) 30 ml BIDPRN PRN ORAL Constipation 11/26/18 12:45 12/26/18 12:44 11/29/18 18:50 Meclizine HCl (Antivert) 25 mg TIDPRN PRN ORAL for dizziness 11/23/18 18:15 12/23/18 18:14 Metoprolol Tartrate (Lopressor) 25 mg Q12HR ORAL 11/22/18 21:00 12/22/18 20:59 12/02/18 09:39 Ondansetron HCl (Zofran) 4 mg Q1H PRN IVP Nausea & Vomiting 12/02/18 11:45 12/02/18 17:00 Ondansetron HCl (Zofran) 4 mg Q6H PRN IVP Nausea & Vomiting 11/24/18 09:30 12/24/18 09:29 11/26/18 23:02 Pantoprazole (Protonix) 40 mg DAILY ORAL 11/26/18 09:00 12/26/18 08:59 12/02/18 09:38 Paricalcitol (Zemplar) 1 mcg THREE TIMES A WEEK ORAL 12/02/18 16:00 01/01/19 15:59 Tamsulosin HCl (Flomax) 0.4 mg BEDTIME ORAL 11/24/18 23:00 12/24/18 22:59 12/01/18 20:33 Zolpidem Tartrate (Ambien) 5 mg HSPRN PRN ORAL Insomnia 11/30/18 21:00 12/07/18 20:59 11/30/18 22:02 Mckinley Fisher M.D. Dec 02, 2018 16:17
--- NOTE | 2018-12-02 16:21 | NUR ---
*-* INSURANCE *-* UPDATED CLINICALS AND REVIEW FAXED TO: ANATOLIY HENDRICKS:NORMA P:[phone] F:[phone] REF# [id number]
[2018-12-02] MEDS: Paricalcitol 1mcg cap ORAL SCH (16:26)
--- NOTE | 2018-12-02 16:54 | Cardiac Electrophysiology PN ---
Assessment/Plan Assessment/Plan 1. Troponin leak. The levels are nonspecific and flat 0.5, 0.5, 0.2. Denies any chest pain. This is due to the patient's renal failure EKG shows sinus rhythm with no acute ST-T wave abnormalities. Echocardiogram EF 65%. On aspirin and Lopressor 2. Recurrent atrial flutter on 11/24 and 11/25/18. Both terminated spontaneously On Metoprolol 25 bid. ? terminal operator anticoagulation if recurs Has remained in SR 70S 3. Hyperkalemia. Potassium was 7 and is down to 4.1. S/P sodium bicarbonate and Kayexalate. Had HD 4. Acute on chronic renal failure. Further evaluation by Dr. Sosa. Cecil catheter removed . No further HD scheduled 5. Syncope. ? etiology. Nl EF. No . Could be due to atrial flutter with RVR 6. High PSA Fu Dr Alvarez 7. Sepsis, source most likely tract , may need also to rule out GI malignancy. On daptomycin. Repeated blood culture x2 on 11/26 is NTD . HD catheter was removed tip sent for culture per Dr Fisher 8. Anemia,S/P PRBC.S/P EGD and colonoscopy that showed ischemic colitis DW RN Subjective Subjective No CP or SOB. Had EGD and colonoscopy that showed ischemic Colitis Objective Last 24 Hour Vital Signs Date Time Temp Pulse Resp B/P (MAP) Pulse Ox O2 Delivery O2 Flow Rate FiO2 12/02/18 16:00 98.0 72 20 135/72 (93) 99 12/02/18 15:39 77 12/02/18 11:54 98.3 71 20 114/69 (84) 99 12/02/18 11:50 68 12/02/18 09:40 Room Air 12/02/18 09:39 66 129/77 12/02/18 08:44 66 17 98 12/02/18 08:42 70 16 100 12/02/18 08:40 98.0 77 20 135/72 (93) 99 12/02/18 08:30 97.0 66 17 129/77 98 Room Air 12/02/18 08:20 64 14 135/75 98 Room Air 12/02/18 08:15 63 18 131/70 100 Nasal Cannula 3 12/02/18 08:11 97.0 70 16 130/77 100 Nasal Cannula 3 12/02/18 07:52 76 12/02/18 04:00 97.7 82 18 131/79 (96) 97 12/02/18 04:00 69 12/02/18 00:00 97.2 71 18 128/97 (107) 97 12/02/18 00:00 70 12/01/18 21:00 Room Air 12/01/18 20:42 75 130/70 12/01/18 20:00 97.9 75 18 130/70 (90) 99 12/01/18 20:00 69 Intake and Output 12/01/18 12/02/18 19:00 07:00 Intake Total 700 ml 600 ml Output Total 2000 ml 2000 ml Balance -1300 ml -1400 ml Intake Oral 600 ml 600 ml IV Total 100 ml Output Urine Total 2000 ml 2000 ml # Bowel Movements 3 4 Laboratory Tests Test 12/02/18 06:25 White Blood Count 9.0 K/UL (4.8-10.8) Red Blood Count 2.91 M/UL (4.70-6.10) L Hemoglobin 9.2 G/DL (14.2-18.0) L Hematocrit 26.8 % (42.0-52.0) L Mean Corpuscular Volume 92 FL (80-99) Mean Corpuscular Hemoglobin 31.5 PG (27.0-31.0) H Mean Corpuscular Hemoglobin Concent 34.2 G/DL (32.0-36.0) Red Cell Distribution Width 10.7 % (11.6-14.8) L Platelet Count 384 K/UL (150-450) Mean Platelet Volume 4.7 FL (6.5-10.1) L Neutrophils (%) (Auto) 80.5 % (45.0-75.0) H Lymphocytes (%) (Auto) 6.3 % (20.0-45.0) L Monocytes (%) (Auto) 8.6 % (1.0-10.0) Eosinophils (%) (Auto) 3.7 % (0.0-3.0) H Basophils (%) (Auto) 0.9 % (0.0-2.0) Differential Total Cells Counted 100 Neutrophils % (Manual) 82 % (45-75) H Lymphocytes % (Manual) 9 % (20-45) L Monocytes % (Manual) 7 % (1-10) Eosinophils % (Manual) 2 % (0-3) Basophils % (Manual) 0 % (0-2) Band Neutrophils 0 % (0-8) Other Cell Type Pathologist comment Platelet Estimate Adequate Platelet Morphology Normal Red Blood Cell Morphology Normal Prothrombin Time 10.3 SEC (9.30-11.50) Prothromb Time International Ratio 1.0 (0.9-1.1) Activated Partial Thromboplast Time 29 SEC (23-33) Sodium Level 139 MMOL/L (136-145) Potassium Level 4.5 MMOL/L (3.5-5.1) Chloride Level 104 MMOL/L (98-107) Carbon Dioxide Level 27 MMOL/L (21-32) Anion Gap 8 mmol/L (5-15) Blood Urea Nitrogen 56 mg/dL (7-18) H Creatinine 3.9 MG/DL (0.55-1.30) H Estimat Glomerular Filtration Rate mL/min (>60) Glucose Level 92 MG/DL (74-106) Calcium Level 9.0 MG/DL (8.5-10.1) Iron Level 29 ug/dL (50-175) L Ferritin 641 NG/ML (8-388) H Total Protein (PEP) Pending Albumin (PEP) Pending Globulin (PEP) Pending Albumin/Globulin Ratio Pending Ciy[place]-8-Ptsxavtfh Pending Zziqe-4-Glnuwzpgf Pending Beta Globulins Pending Beta Gamma Globulin Pending PEP Abnormal Protein Bands Pending Protein Electrophoresis Interpret Pending Vitamin B12 Level 1206 PG/ML (193-986) H Folate 13.1 NG/ML (8.6-58.9) Immunoglobulin [place]/Lambda Ratio Pending [place] Light Chain Analysis Pending Lambda Light Chain Analysis Pending Hepatitis B Surface Antigen Pending Hepatitis C Antibody Pending HIV (1&2) Antibody Rapid Negative (NEGATIVE) Microbiology Date/Time Source Procedure Growth Status 11/30/18 21:00 Blood Blood Culture - Preliminary NO GROWTH AFTER 24 HOURS Resulted 11/30/18 20:45 Blood Blood Culture - Preliminary NO GROWTH AFTER 24 HOURS Resulted Objective HEAD AND NECK: No JVD. LUNGS: Clear. CARDIOVASCULAR: Regular S1 and S2 with no gallop or murmur. ABDOMEN: Soft. EXTREMITIES: 2+ pitting edema. David Guerra MD Dec 02, 2018 16:54
--- NOTE | 2018-12-02 19:38 | NUR ---
NURSE NOTES: Received report from Fermin John RN. Patient is awake in bed, A/O x4. Sinus rhythm on cardiac rehabilitation program director. Saturating well on room air. Morfin catheter intact and draining well to gravity. Right forearm 20g IV saline lock, intact and patent. Bed locked in lowest position with side rails up x2. Call light left within reach, daughter remains at bedside at this time. Will continue to monitor.
--- NOTE | 2018-12-02 19:38 | NUR ---
HAND-OFF: Report given to Sameer RN. Pt. remain stable.
[2018-12-02] MEDS: Iron Sucrose 100 MG in NS 55 ML IV SCH (20:55)
[2018-12-02] MEDS: Tamsulosin 0.4mg cap ORAL SCH (20:55)
[2018-12-02] MEDS: Epoetin Alfa(ESRD on dialysis)3000 units/ml vial SUBQ SCH (20:57)
[2018-12-02] MEDS: Cyclobenzaprine 10mg Tab ORAL SCH (20:58)
[2018-12-02] MEDS: EPOETIN ALFA 2000 UNIT/ML SUBQ SCH (20:58)
--- NOTE | 2018-12-02 23:12 | General Progress Note ---
Assessment/Plan Assessment/Plan sepsis acute renal failure hyperkalemia obstructive uropathy bph elevated troponin ho htn anemia confusion encephalopathy likiely secondary to uremia resolved vomiting likely secondary to uremia short syncopal episode leukocytosis constiaption abx per ID has johnson, urology fup making good urine infoley, monitor renal parameters echo noted ct of head noted neurolgy evaluation appreciated monitor labs sp trasnfusion colonopsy today dvt and ulcer prophylaxis ambulate PT stool softners and laxatives ambulate dw patient sinurance plan, they have denied CRI will likely then need snf when ready for discharge Subjective Allergies: Coded Allergies: No Known Allergies (Unverified , 11/21/18) Subjective seen in am got colonospy today Objective Last 24 Hour Vital Signs Date Time Temp Pulse Resp B/P (MAP) Pulse Ox O2 Delivery O2 Flow Rate FiO2 12/02/18 21:00 Room Air 12/02/18 20:58 78 100/61 12/02/18 20:00 97.7 79 20 107/64 (78) 97 12/02/18 19:15 87 12/02/18 16:00 98.0 72 20 135/72 (93) 99 12/02/18 15:39 77 12/02/18 11:54 98.3 71 20 114/69 (84) 99 12/02/18 11:50 68 12/02/18 09:40 Room Air 12/02/18 09:39 66 129/77 12/02/18 08:44 66 17 98 12/02/18 08:42 70 16 100 12/02/18 08:40 98.0 77 20 135/72 (93) 99 12/02/18 08:30 97.0 66 17 129/77 98 Room Air 12/02/18 08:20 64 14 135/75 98 Room Air 12/02/18 08:15 63 18 131/70 100 Nasal Cannula 3 12/02/18 08:11 97.0 70 16 130/77 100 Nasal Cannula 3 12/02/18 07:52 76 12/02/18 04:00 97.7 82 18 131/79 (96) 97 12/02/18 04:00 69 12/02/18 00:00 97.2 71 18 128/97 (107) 97 12/02/18 00:00 70 Intake and Output 12/01/18 12/02/18 18:59 06:59 Intake Total 700 ml 600 ml Output Total 2000 ml 2000 ml Balance -1300 ml -1400 ml Intake Oral 600 ml 600 ml IV Total 100 ml Output Urine Total 2000 ml 2000 ml # Bowel Movements 3 4 Laboratory Tests 12/02/18 06:25: White Blood Count 9.0, Red Blood Count 2.91L, Hemoglobin 9.2L, Hematocrit 26.8L , Mean Corpuscular Volume 92, Mean Corpuscular Hemoglobin 31.5H, Mean Corpuscular Hemoglobin Concent 34.2, Red Cell Distribution Width 10.7L, Platelet Count 384, Mean Platelet Volume 4.7L, Neutrophils (%) (Auto) 80.5H, Lymphocytes (%) (Auto) 6.3L, Monocytes (%) (Auto) 8.6, Eosinophils (%) (Auto) 3.7H, Basophils (%) (Auto) 0.9, Differential Total Cells Counted 100, Neutrophils % (Manual) 82H, Lymphocytes % (Manual) 9L, Monocytes % (Manual) 7, Eosinophils % (Manual) 2, Basophils % (Manual) 0, Band Neutrophils 0, Other Cell Type Pathologist comment, Platelet Estimate Adequate, Platelet Morphology Normal, Red Blood Cell Morphology Normal, Prothrombin Time 10.3, Prothromb Time International Ratio 1.0, Activated Partial Thromboplast Time 29, Sodium Level 139, Potassium Level 4.5, Chloride Level 104, Carbon Dioxide Level 27, Anion Gap 8, Blood Urea Nitrogen 56H, Creatinine 3.9H, Estimat Glomerular Filtration Rate , Glucose Level 92, Calcium Level 9.0, Iron Level 29L, Ferritin 641H, Total Protein (PEP) [Pending], Albumin (PEP) [Pending], Globulin (PEP) [Pending] , Albumin/Globulin Ratio [Pending], Urbde-8-Frweymcfr [Pending], Alpha-2- Globulins [Pending], Beta Globulins [Pending], Beta Gamma Globulin [Pending], PEP Abnormal Protein Bands [Pending], Protein Electrophoresis Interpret [Pending ], Vitamin B12 Level 1206H, Folate 13.1, Immunoglobulin [place]/Lambda Ratio [ Pending], [place] Light Chain Analysis [Pending], Lambda Light Chain Analysis [ Pending], Hepatitis B Surface Antigen [Pending], Hepatitis C Antibody [Pending] , HIV (1&2) Antibody Rapid Negative 12/02/18 18:00: Urine Total Protein [Pending], Urine Albumin (%) [Pending], Urine Alpha-1- Globulins (%) [Pending], Urine Qmzbs-6-Cxdswiacd (%) [Pending], Urine Beta- Globulin (%) [Pending], Urine Gamma Globulin (%) [Pending], Ur Protein Electrophoresis M-Cesar [Pending], Urine Protein Electrophoresis Intrp [Pending] Height (Feet): 5 Height (Inches): 7.00 Weight (Pounds): 154 General Appearance: WD/WN, no apparent distress Neck: supple Cardiovascular: normal rate Respiratory/Chest: lungs clear Abdomen: soft Edema: no edema noted Arm (L), no edema noted Arm (R), no edema noted Leg (L), no edema noted Leg (R), no edema noted Pedal (L), no edema noted Pedal (R), no edema noted Generalized Dane Vasquez MD Dec 02, 2018 23:12
--- NOTE | 2018-12-02 23:46 | Consultation ---
DATE OF CONSULTATION: 12/02/2018 HEMATOLOGY/ONCOLOGY CONSULTATION CONSULTING PHYSICIAN: Myranda Luis M.D. REFERRING PHYSICIAN: Dane Vasquez M.D. REASON FOR CONSULTATION: Severe anemia. 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 Alexandra. The patient was evaluated by Dr. Alexandra and was noted to be feeling quite poorly and was also in significant renal failure with potassium of 7. 911 was called. The patient was brought into the ER at [facility]. The patient had syncope and has been evaluated by multiple services including GI, Nephrology, Urology. The patient is status post a short course of dialysis. The patient has a medical history of anemia, hemoglobin 7. Therefore, this hematology/oncology consultation has been requested. PAST MEDICAL HISTORY: Inguinal hernia, history of bifurcated urethra, history of hypertension, basal cell carcinoma post resection. PAST SURGICAL HISTORY: Tonsillectomy, knee surgery, basal cell resection. MEDICATIONS: Per electronic medical record. ALLERGIES: Per the medical record. SOCIAL HISTORY: The patient denies any tobacco, alcohol, or drugs. 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 FAMILY HISTORY: The patient's mother and sister both have history of breast cancer with history of prostate cancer in the family as well. REVIEW OF SYSTEMS: CONSTITUTIONAL: The patient denies any headaches. PULMONARY: The patient denies shortness of breath. CARDIAC: The patient denies chest pain. GASTROINTESTINAL: The patient has abdominal pain. NEUROLOGIC: The patient has no focal weakness or numbness. SKIN: The patient denies any bruising or petechiae. The patient has been evaluated post endoscopy. The patient has had a colonoscopy, which has demonstrated evidence of ischemic changes secondary to hypertension. There is a hiatal hernia that has also been noted. LABORATORY AND DIAGNOSTIC DATA: Laboratory as well as investigational studies show white count of 9, hemoglobin of 9.2. The patient is status post packed red blood cell transfusion, 7.9, platelet count 384. The patient is noted to have elevated eosinophils of 3.7. Sodium 139, creatinine 3.9 with BUN of 56. B12 level 1206. Folate 13.1. The patient has undergone a CT scan of the abdomen and pelvis on 11/21/2018 during initial hospitalization. This study demonstrated evidence of bilateral hydronephrosis extending to the ureterovesical junction. No definite obstructive bladder outlet obstruction, inguinal hernia, subcutaneous tissues, renal cysts. PHYSICAL EXAMINATION: GENERAL: The patient is post anesthesia, however alert, answered all my questions. VITAL SIGNS: Temperature 97 degrees, pulse 66, breathing at 20, blood pressure 129/77. HEAD AND NECK: Sclerae anicteric. CHEST: Some rhonchi at the bases. CARDIAC: Regular rhythm. S1 and S2. ABDOMEN: Nontender, nondistended. EXTREMITIES: Trace edema noted bilaterally. NEUROLOGIC: Nonfocal. ASSESSMENT AND PLAN: 1. Anemia. The patient needs to have full anemia workup. 2. Renal failure. Per Nephrology. 3. . Per GI. 4. History of basal cell carcinoma. Family history of cancer. Consideration for myRisk evaluation as . 5. Hydronephrosis. Etiology unclear. Myranda Luis M.D. DR: ELYSE JOB#: [id number] CC:
[2018-12-03] VITALS: BP 130/78
[2018-12-03] MEDS: HYDROcodone/Acetamin 5/325 tab ORAL PRN (00:39)
[2018-12-03 04:00] VITALS: BP 131/76
--- NOTE | 2018-12-03 07:05 | NUR ---
HAND-OFF: Report given to Fermin John RN.
--- NOTE | 2018-12-03 07:30 | NUR ---
NURSE NOTES: Received from Cassandra PARRA at bedside. Patient in bed alert and oriented. Awake and eating breakfast. No c/o pain. Bed in low position. F/C in place intact patent with draining yellow colored urine. IV RFA 20G SL. Call light within easy reach. Will continue to monitor with plan of care.
[2018-12-03 08:00] VITALS: BP 124/69
--- NOTE | 2018-12-03 08:36 | Urology Progress Note ---
Assessment/Plan Assessment/Plan 1. Urinary retention history. 2. Benign prostatic hypertrophy. 3. Possible neurogenic bladder. 4. Hematuria. 5. Renal failure, which appears to be acute on chronic, improved. 6. Hydronephrosis, improved with Johnson. 7. Proteinuria. 8. Meatal stenosis and stricture history. 9. Inguinal hernia. monitor clinically johnson hand irrigated and do PRN secured to pt's leg off HD for now monitor renal fxn closely, seems to have stabilized flomax and proscar added cysto later voiding trial at some point? prob as outpt most likely will need TURP f/u on blood cx Subjective Allergies: Coded Allergies: No Known Allergies (Unverified , 11/21/18) Subjective all noted, feels fair Objective Last 24 Hour Vital Signs Date Time Temp Pulse Resp B/P (MAP) Pulse Ox O2 Delivery O2 Flow Rate FiO2 12/03/18 04:00 98.1 71 18 131/76 (94) 97 12/03/18 03:55 68 12/03/18 00:01 73 12/03/18 00:00 97.8 72 18 130/78 (95) 98 12/02/18 21:00 Room Air 12/02/18 20:58 78 100/61 12/02/18 20:00 97.7 79 20 107/64 (78) 97 12/02/18 19:15 87 12/02/18 16:00 98.0 72 20 135/72 (93) 99 12/02/18 15:39 77 12/02/18 11:54 98.3 71 20 114/69 (84) 99 12/02/18 11:50 68 12/02/18 09:40 Room Air 12/02/18 09:39 66 129/77 12/02/18 08:44 66 17 98 12/02/18 08:42 70 16 100 12/02/18 08:40 98.0 77 20 135/72 (93) 99 Intake and Output 12/02/18 12/03/18 19:00 07:00 Intake Total 1350 ml 300 ml Output Total 1200 ml 1500 ml Balance 150 ml -1200 ml Intake Oral 900 ml 240 ml IV Total 450 ml 60 ml Output Urine Total 1200 ml 1500 ml Estimated Blood Loss 0 ml # Bowel Movements 1 Microbiology Date/Time Source Procedure Growth Status 11/30/18 21:00 Blood Blood Culture - Preliminary NO GROWTH AFTER 48 HOURS Resulted 11/23/18 15:00 Stool Ova and Parasites - Final Complete 11/23/18 15:00 Stool Ova and Parasite Result 1 - Final Complete Current Medications Medications (Trade) Dose Ordered Sig/Debbie Route PRN Reason Start Time Stop Time Status Last Admin Dose Admin Acetaminophen (Tylenol) 650 mg Q6H PRN ORAL Mild Pain/Temp > 100.5 11/22/18 03:15 12/22/18 03:14 12/02/18 18:22 Acetaminophen/ Hydrocodone Bitart ([place] 5/325) 1 tab Q4H PRN ORAL Moderate Pain (Pain Scale 4-6) 12/02/18 00:45 12/09/18 00:44 12/03/18 00:39 Al Hydroxide/Mg Hydroxide (Mylanta) 30 ml Q6H PRN ORAL GERD 11/22/18 03:15 12/22/18 03:14 Bisacodyl (Dulcolax) 10 mg DAILYPRN PRN RECTAL Constipation 11/30/18 14:30 12/30/18 14:29 11/30/18 14:29 Cyclobenzaprine HCl (Flexeril) 10 mg BEDTIME ORAL 11/30/18 21:00 12/30/18 20:59 12/01/18 20:34 Daptomycin 700 mg/ Sodium Chloride 55 ml @ 100 mls/hr Q48H IV 11/27/18 14:00 12/04/18 13:59 12/01/18 14:02 Docusate Sodium (Colace) 100 mg TWICE A DAY ORAL 11/25/18 09:00 12/25/18 08:59 12/02/18 18:22 Epoetin Tommy (Epoetin Tommy(ESRD on dialysis)) 2,000 unit WED-WED-WED SUBQ 11/23/18 21:00 12/23/18 20:59 11/30/18 21:54 Epoetin Tommy (Epoetin Tommy(ESRD on dialysis)) 3,000 unit WED-WED-WED SUBQ 11/23/18 21:00 12/23/18 20:59 11/30/18 21:54 Finasteride (Proscar) 5 mg DAILY ORAL 11/25/18 09:00 12/25/18 08:59 12/02/18 09:38 Heparin Sodium (Porcine) (Heparin 5000 units/ml) 5,000 units EVERY 12 HOURS SUBQ 11/22/18 09:00 12/22/18 08:59 11/30/18 22:01 Iron Sucrose 100 mg/Sodium Chloride 60 ml @ 240 mls/hr BEDTIME IV 11/29/18 21:00 12/03/18 21:14 12/02/18 20:55 Magnesium Hydroxide (Mom) 30 ml BIDPRN PRN ORAL Constipation 11/26/18 12:45 12/26/18 12:44 11/29/18 18:50 Meclizine HCl (Antivert) 25 mg TIDPRN PRN ORAL for dizziness 11/23/18 18:15 12/23/18 18:14 Metoprolol Tartrate (Lopressor) 25 mg Q12HR ORAL 11/22/18 21:00 12/22/18 20:59 12/02/18 09:39 Ondansetron HCl (Zofran) 4 mg Q6H PRN IVP Nausea & Vomiting 11/24/18 09:30 12/24/18 09:29 11/26/18 23:02 Pantoprazole (Protonix) 40 mg DAILY ORAL 11/26/18 09:00 12/26/18 08:59 12/02/18 09:38 Paricalcitol (Zemplar) 1 mcg THREE TIMES A WEEK ORAL 12/02/18 16:00 01/01/19 15:59 12/02/18 16:26 Tamsulosin HCl (Flomax) 0.4 mg BEDTIME ORAL 11/24/18 23:00 12/24/18 22:59 12/02/18 20:55 Zolpidem Tartrate (Ambien) 5 mg HSPRN PRN ORAL Insomnia 11/30/18 21:00 12/07/18 20:59 11/30/18 22:02 Laboratory Tests 12/02/18 18:00: Urine Total Protein [Pending], Urine Albumin (%) [Pending], Urine Alpha-1- Globulins (%) [Pending], Urine Xslpz-4-Mfxonnnmq (%) [Pending], Urine Beta- Globulin (%) [Pending], Urine Gamma Globulin (%) [Pending], Ur Protein Electrophoresis M-Cesar [Pending], Urine Protein Electrophoresis Intrp [Pending] Height (Feet): 5 Height (Inches): 7.00 Weight (Pounds): 154 Objective exam stable, urine clearing, has some debris abdominal u/s (11/29) noted Geraldo Wise MD Dec 03, 2018 08:36
[2018-12-03] MEDS: Docusate 100mg cap ORAL SCH ×2 (08:58→18:07)
[2018-12-03] MEDS: Metoprolol 25mg tab ORAL SCH ×2 (08:58→20:36)
[2018-12-03] MEDS: Heparin 5000 units/ml inj SUBQ SCH ×2 (09:00→20:42)
[2018-12-03 12:00] VITALS: BP 118/74
--- NOTE | 2018-12-03 13:14 | Neurology Progress Note ---
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 He was in bed when I went to see him. His appetite is good and he has had most of his lunch. He walked with PT yesterday and still feels unsteady on his feet. The mind continues to be clearer - but is still not normal. He has had no further episodes of loss of consciousness. His cognitive function has improved. His motor function is also better. He denies any new neurological symptoms. He specifically denies any weakness on one side or the other, numbness on one side or the other, problems with speech problems with language problems with vision problems with memory. Review of Systems Neuro Review of Systems Benign. Objective Physical Exam Last Vital Signs Date Time Temp Pulse Resp B/P (MAP) Pulse Ox O2 Delivery O2 Flow Rate FiO2 12/03/18 09:00 Room Air 12/03/18 08:58 80 124/69 12/03/18 08:00 97.8 18 97 12/02/18 08:15 3 Laboratory Tests Test 12/02/18 18:00 Urine Total Protein Pending Urine Albumin (%) Pending Urine Pjbet-3-Tholcdnwz (%) Pending Urine Ycbfv-9-Uotkclelj (%) Pending Urine Beta-Globulin (%) Pending Urine Gamma Globulin (%) Pending Ur Protein Electrophoresis M-Cesar Pending Urine Protein Electrophoresis Intrp Pending Neurologic Exam Objective PHYSICAL EXAMINATION: GENERAL: He is a well-developed, well-nourished, pleasant gentleman, lying in bed, in no acute distress. HEAD: Normocephalic and atraumatic. EENT: Examination benign. NECK: No neck rigidity was observed. NEUROLOGIC EXAMINATION: MENTAL STATUS EXAMINATION: He was awake and alert. He was oriented to person, place, and time, except for the day of the week. He was able to recall 3/3 words immediately after 1 minute and after 3 minutes. He was able to remember presidents, Trump through Trujillo senior. His mathematical skills were good. His visuospatial function was preserved. SPEECH: He had no dysarthria. LANGUAGE: He had no aphasia. CRANIAL NERVE EXAMINATION: II: The visual caal were intact on confrontation testing. III, IV & : The external ocular movements were full and the pupils 3 mm in diameter, equal, round, regular, and reactive to light. V: He had normal facial sensations, and the temporales, masseters, and pterygoids functioned normally. VII: He had normal facial expressions and no facial asymmetry. VIII: He was able to hear well bilaterally and had no nystagmus. IX: The palate moved symmetrically on phonation. X: He had no hoarseness of voice. XI: The sternocleidomastoids and trapezii functioned normally. XII: The tongue was in the midline without any fasciculations or atrophy. MOTOR SYSTEM: The tone was normal in all four extremities. Examination of muscle mass revealed no focal wasting. Examination of power revealed G 5/5 power in all muscle groups tested. SENSORY EXAMINATION: He had intact sensations to pinprick, light touch, and graphesthesia. COORDINATION: He performed well on sxkaou-ia-lcda and gjnb-it-jndq testing. REFLEXES: 2+ and bilaterally symmetrical at the biceps, triceps, and brachioradialis. 2++ at both knees, Trace+ at both ankles. The plantar responses were flexor bilaterally. STANCE: He stood up with contact guard. GAIT: He walked well with contact guard. Impression/Recommendations Diagnostic Impression 1. Dane Altoona is a 72-year-old, right-handed, gentleman, who does have a past history of hypertension, motion sickness, paroxysmal positional vertigo, and a near syncopal episode approximately a year ago who has been feeling unwell for the last 1 to 2 months and was thus hospitalized on 11/22/2018 when laboratory data revealed that he was in renal failure. 2. Since he has been in the hospital, he has continued to feel unwell and has had lightheadedness whenever he tries to sit up, stand, and walk. On 1 occasion on 11/23/18, he started to feel lightheaded while sitting up, then passed out for brief period of time, and had some generalized body jerking movements. He rapidly regained consciousness following that. 3. He feels better. He was in bed when I went to see him. His appetite is good and he has had most of his lunch. He walked with PT yesterday and still feels unsteady on his feet. The mind continues to be clearer - but is still not normal. He has had no further episodes of loss of consciousness. His cognitive function has improved. His motor function is also better. He denies any new neurological symptoms. 4. On neurological examination, at this time, he has mild slowing of cerebration. He has brisk deep tendon reflexes at the knees and trace ankle jerks, and needs contact guard to stand and walk. 5. Laboratory data on my initial evaluation revealed that his WBC count was elevated to 15,300. He was significantly anemic with a hemoglobin of 8.7 G. His chemistry panel revealed that his potassium was low at 3.1. His BUN was elevated at 173 with a creatinine of 10.1. His proBNP was elevated to 1278. His vitamin B12 level was normal at 1394. His folate level was normal at 25.3. His TSH was normal at 1.42. His INR was normal at 1.0. His urinalysis revealed 1+ leukocyte esterase with 2 red blood cells, and 2 white blood cells per high-power field. 6. The CT of the brain reveals no acute pathology. 7. EEG done on 11/24/2018 revealed triphasic waveforms with an anterior to posterior gradient but normal background and no interictal or ictal phenomena. These findings are consistent with a mild metabolic encephalopathy. 8. The patient's history, neurological examination, laboratory data, imaging studies and EEG are most consistent with lightheadedness due to fluid and electrolyte imbalance. 9. The episode that the patient had on 11/23/18 where he felt lightheaded, then passed out, and had some abnormal body jerking movements was most probably a Matias-Anthony attack. 10. The patient does have mild cognitive dysfunction, which is due to an ongoing metabolic encephalopathic process. 11. The right sided neck pain, discomfort and spasm with right temporalis pain has resolved. 12. He is still unsteady on his feet. Recommendations 1. Continue present management. 2. Continue Flexeril 10 mg q HS of a few more days. 3. Continue to correct the patient's fluid and electrolyte imbalances. 4. Frequent range of motion exercises - patient instructed. 5. Out of bed in chair for all meals. 6. Mobilize with PT and multiple daily walks. 7. The patient will benefit significantly from a brief course of acute rehabilitation so that he can regain his independence. 8. Observe. Janak Chandra M.D., M.S.P.H. Janak Chandra MD Dec 03, 2018 13:14
--- NOTE | 2018-12-03 13:52 | NUR ---
CASE MANAGEMENT: REVIEW SI: ARF . ANEMIA EGD/COLON w/BIOPSY 12/02 RIGHT IJV JOANNA 11/24 T 97.6 HR 66 RR 18 BP 118/74 SAT 98% ROOM AIR IS: PARICALCITOL PO VENOFER IV QHS DAPTOMYCIN IV Q48HR EPOETIN SQ MWF FLOMAX PO QHS HD PRN / DIALYZED 11/26 TELEMETRY UNIT STATUS DCP: PATIENT IS FROM HOME
--- NOTE | 2018-12-03 14:01 | Infectious Diseases Prog Note ---
Assessment/Plan Problems: (1) Sepsis due to Enterococcus with acute renal failure and metabolic encephalopathy Assessment & Plan: source most likely tract due to obstruction , with no GI mass but polyps which were removed . continue daptomycin renally dosed as per pharmacy for his bacteremia . his HD catheter was removed on 11/29 since it was placed after he was bacteremic with enterococcus. repeated blood culture on 11/30 is negative so far which confirm clearance . monitor CK level weekly while on daptomycin . will need two weeks of iv antibiotics for his bacteremia starting from the clearance date. EOT 12/14/18 (2) Hydronephrosis Assessment & Plan: most likely the source of his bacteremia with enterococcus faecalis , complicated with renal failure , suspect enlarged prostate , with elevated PSA rule out prostate CA , recommend oncology work up with rectal US to rule out prostatic mass and for biopsy , and possible prostatectomy once clinically stable in the future (3) Acute on chronic renal failure Assessment & Plan: improving, now making good urine , previously required HD , his HD catheter was removed since it was placed while bacteremic . will wait for 48 hours on antibiotics before placing any new catheter if he needs any in the future, and if his repeated blood culture on 11/30 remains negative . (4) Acute encephalopathy Assessment & Plan: improving, suspect metabolic and toxic , monitor mental status, avoid nephrotoxics , neurology is following (5) Prostate enlargement Assessment & Plan: with elevated PSA, rule out malignant process, recommend rectal US to evaluate the prostate and for possible biopsy to rule out malignancy . (6) Generalized weakness Assessment & Plan: recommend rehabilitation and PT Subjective Constitutional: Reports: no symptoms HEENT: Reports: no symptoms Respiratory: Reports: no symptoms Breasts: Reports: no symptoms Cardiovascular: Reports: no symptoms Gastrointestinal/Abdominal: Reports: no symptoms Genitourinary: Reports: no symptoms Neurologic: Reports: no symptoms Psychiatric: Reports: no symptoms Skin: Reports: no symptoms Endocrine: Reports: no symptoms Hematologic: Reports: no symptoms Musculoskeletal: Reports: no symptoms Allergies: Coded Allergies: No Known Allergies (Unverified , 11/21/18) Subjective He was feeling good , eating his lunch , denied any fever or chills, no cough or SOB , his jaw pain almost resolved after he had mouth guard placed in GI lab for EGD . no cough or SOB, no neck pain or hematoma, no fever or chills , no diarrhea , feels more energetic Objective Vital Signs Last 24 Hour Vital Signs Date Time Temp Pulse Resp B/P (MAP) Pulse Ox O2 Delivery O2 Flow Rate FiO2 12/03/18 12:00 97.6 66 18 118/74 (89) 98 12/03/18 11:34 72 12/03/18 09:00 Room Air 12/03/18 08:58 80 124/69 12/03/18 08:00 97.8 80 18 124/69 (87) 97 12/03/18 07:38 81 12/03/18 04:00 98.1 71 18 131/76 (94) 97 12/03/18 03:55 68 12/03/18 00:01 73 12/03/18 00:00 97.8 72 18 130/78 (95) 98 12/02/18 21:00 Room Air 12/02/18 20:58 78 100/61 12/02/18 20:00 97.7 79 20 107/64 (78) 97 12/02/18 19:15 87 12/02/18 16:00 98.0 72 20 135/72 (93) 99 12/02/18 15:39 77 Height (Feet): 5 Height (Inches): 7.00 Weight (Pounds): 154 General Appearance: no acute distress, cachetic HEENT: normocephalic, atraumatic, anicteric, mucous membranes moist, PERRL Respiratory/Chest: chest wall non-tender, lungs clear, normal breath sounds, no respiratory distress, no accessory muscle use Breasts: no masses Cardiovascular: normal peripheral pulses, normal rate, regular rhythm, no gallop/murmur, no JVD Abdomen: normal bowel sounds, soft, non tender, no organomegaly, non distended , no mass, no scars Genitourinary: normal external genitalia Extremities: no cyanosis, no clubbing Skin: no rash, no lesions, no ulcers 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, no motor/sensory deficits, alert, oriented x 3, responsive Microbiology Date/Time Source Procedure Growth Status 11/30/18 21:00 Blood Blood Culture - Preliminary NO GROWTH AFTER 48 HOURS Resulted 11/30/18 20:45 Blood Blood Culture - Preliminary NO GROWTH AFTER 48 HOURS Resulted Laboratory Tests Test 12/02/18 18:00 Urine Total Protein Pending Urine Albumin (%) Pending Urine Ajavu-4-Wbtkeoihq (%) Pending Urine Rkscc-1-Ypoqrljtx (%) Pending Urine Beta-Globulin (%) Pending Urine Gamma Globulin (%) Pending Ur Protein Electrophoresis M-Cesar Pending Urine Protein Electrophoresis Intrp Pending Current Medications Medications (Trade) Dose Ordered Sig/Debbie Route PRN Reason Start Time Stop Time Status Last Admin Dose Admin Acetaminophen (Tylenol) 650 mg Q6H PRN ORAL Mild Pain/Temp > 100.5 11/22/18 03:15 12/22/18 03:14 12/02/18 18:22 Acetaminophen/ Hydrocodone Bitart ([place] 5/325) 1 tab Q4H PRN ORAL Moderate Pain (Pain Scale 4-6) 12/02/18 00:45 12/09/18 00:44 12/03/18 00:39 Al Hydroxide/Mg Hydroxide (Mylanta) 30 ml Q6H PRN ORAL GERD 11/22/18 03:15 12/22/18 03:14 Bisacodyl (Dulcolax) 10 mg DAILYPRN PRN RECTAL Constipation 11/30/18 14:30 12/30/18 14:29 11/30/18 14:29 Cyclobenzaprine HCl (Flexeril) 10 mg BEDTIME ORAL 11/30/18 21:00 12/30/18 20:59 12/01/18 20:34 Daptomycin 700 mg/ Sodium Chloride 55 ml @ 100 mls/hr Q48H IV 11/27/18 14:00 12/14/18 13:59 12/01/18 14:02 Docusate Sodium (Colace) 100 mg TWICE A DAY ORAL 11/25/18 09:00 12/25/18 08:59 12/03/18 08:58 Epoetin Tommy (Epoetin Tommy(ESRD on dialysis)) 2,000 unit WED-WED-WED SUBQ 11/23/18 21:00 12/23/18 20:59 11/30/18 21:54 Epoetin Tommy (Epoetin Tommy(ESRD on dialysis)) 3,000 unit WED-WED-WED SUBQ 11/23/18 21:00 12/23/18 20:59 11/30/18 21:54 Finasteride (Proscar) 5 mg DAILY ORAL 11/25/18 09:00 12/25/18 08:59 12/03/18 08:58 Heparin Sodium (Porcine) (Heparin 5000 units/ml) 5,000 units EVERY 12 HOURS SUBQ 11/22/18 09:00 12/22/18 08:59 11/30/18 22:01 Iron Sucrose 100 mg/Sodium Chloride 60 ml @ 240 mls/hr BEDTIME IV 11/29/18 21:00 12/03/18 21:14 12/02/18 20:55 Magnesium Hydroxide (Mom) 30 ml BIDPRN PRN ORAL Constipation 11/26/18 12:45 12/26/18 12:44 11/29/18 18:50 Meclizine HCl (Antivert) 25 mg TIDPRN PRN ORAL for dizziness 11/23/18 18:15 12/23/18 18:14 Metoprolol Tartrate (Lopressor) 25 mg Q12HR ORAL 11/22/18 21:00 12/22/18 20:59 12/03/18 08:58 Ondansetron HCl (Zofran) 4 mg Q6H PRN IVP Nausea & Vomiting 11/24/18 09:30 12/24/18 09:29 11/26/18 23:02 Pantoprazole (Protonix) 40 mg DAILY ORAL 11/26/18 09:00 12/26/18 08:59 12/03/18 08:58 Paricalcitol (Zemplar) 1 mcg THREE TIMES A WEEK ORAL 12/02/18 16:00 01/01/19 15:59 12/02/18 16:26 Tamsulosin HCl (Flomax) 0.4 mg BEDTIME ORAL 11/24/18 23:00 12/24/18 22:59 12/02/18 20:55 Zolpidem Tartrate (Ambien) 5 mg HSPRN PRN ORAL Insomnia 11/30/18 21:00 12/07/18 20:59 11/30/18 22:02 Mckinley Fisher M.D. Dec 03, 2018 14:01
[2018-12-03] MEDS: DAPTOmycin 700 MG in NS 55 ML IV SCH (14:15)
--- NOTE | 2018-12-03 15:18 | Cardiac Electrophysiology PN ---
Assessment/Plan Assessment/Plan 1. Troponin leak. The levels are nonspecific and flat 0.5, 0.5, 0.2. Denies any chest pain. This is due to the patient's renal failure EKG shows sinus rhythm with no acute ST-T wave abnormalities. Echocardiogram EF 65%. On aspirin and Lopressor 2. Recurrent atrial flutter on 11/24 and 11/25/18. Both terminated spontaneously On Metoprolol 25 bid. ? 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 Hyperkalemia. Potassium was 7 and is down to 4.1. S/P sodium bicarbonate and Kayexalate. Had HD 4. Acute on chronic renal failure. Further evaluation by Dr. Sosa. Cecil catheter removed . No further HD scheduled 5. Syncope. ? etiology. Nl EF. No . Could be due to atrial flutter with RVR 6. High PSA Fu Dr Alvarez 7. Sepsis, source most likely tract , may need also to rule out GI malignancy. On daptomycin. Repeated blood culture x2 on 11/26 is NTD . HD catheter was removed 8. Anemia,S/P PRBC. S/P EGD and colonoscopy that showed ischemic colitis FU DR Luis with new lab works DW RN Subjective Subjective No CP or SOB.In SR 70s. No CP or SOB Objective Last 24 Hour Vital Signs Date Time Temp Pulse Resp B/P (MAP) Pulse Ox O2 Delivery O2 Flow Rate FiO2 12/03/18 12:00 97.6 66 18 118/74 (89) 98 12/03/18 11:34 72 12/03/18 09:00 Room Air 12/03/18 08:58 80 124/69 12/03/18 08:00 97.8 80 18 124/69 (87) 97 12/03/18 07:38 81 12/03/18 04:00 98.1 71 18 131/76 (94) 97 12/03/18 03:55 68 12/03/18 00:01 73 12/03/18 00:00 97.8 72 18 130/78 (95) 98 12/02/18 21:00 Room Air 12/02/18 20:58 78 100/61 12/02/18 20:00 97.7 79 20 107/64 (78) 97 12/02/18 19:15 87 12/02/18 16:00 98.0 72 20 135/72 (93) 99 12/02/18 15:39 77 Intake and Output 12/02/18 12/03/18 19:00 07:00 Intake Total 1350 ml 300 ml Output Total 1200 ml 1500 ml Balance 150 ml -1200 ml Intake Oral 900 ml 240 ml IV Total 450 ml 60 ml Output Urine Total 1200 ml 1500 ml Estimated Blood Loss 0 ml # Bowel Movements 1 Laboratory Tests Test 12/02/18 18:00 Urine Total Protein Pending Urine Albumin (%) Pending Urine Xgoty-0-Camtxvxss (%) Pending Urine Ywvbs-2-Yvsjwhqpo (%) Pending Urine Beta-Globulin (%) Pending Urine Gamma Globulin (%) Pending Ur Protein Electrophoresis M-Cesar Pending Urine Protein Electrophoresis Intrp Pending Microbiology Date/Time Source Procedure Growth Status 11/30/18 21:00 Blood Blood Culture - Preliminary NO GROWTH AFTER 48 HOURS Resulted 11/30/18 20:45 Blood Blood Culture - Preliminary NO GROWTH AFTER 48 HOURS Resulted Objective HEAD AND NECK: No JVD. LUNGS: Clear. CARDIOVASCULAR: Regular S1 and S2 with no gallop or murmur. ABDOMEN: Soft. EXTREMITIES: 1+ pitting edema. David Guerra MD Dec 03, 2018 15:18
--- NOTE | 2018-12-03 15:40 | Nephrology Progress Note ---
Assessment/Plan Problem List: (1) Acute on chronic renal failure Assessment: S creatinine better. off HD (2) Urinary retention (3) Hyperkalemia Assessment: ok (4) Metabolic acidosis (5) Uremia (6) Bacteremia due to Enterococcus (7) Anemia Assessment: better. post transfusion (8) Iron deficiency (9) Secondary hyperparathyroidism of renal origin Assessment no labs today Plan cont Zemplar follow labs ( ordered) IV Iron cont Epogen Subjective Subjective feels better Objective Objective Last 24 Hour Vital Signs Date Time Temp Pulse Resp B/P (MAP) Pulse Ox O2 Delivery O2 Flow Rate FiO2 12/03/18 12:00 97.6 66 18 118/74 (89) 98 12/03/18 11:34 72 12/03/18 09:00 Room Air 12/03/18 08:58 80 124/69 12/03/18 08:00 97.8 80 18 124/69 (87) 97 12/03/18 07:38 81 12/03/18 04:00 98.1 71 18 131/76 (94) 97 12/03/18 03:55 68 12/03/18 00:01 73 12/03/18 00:00 97.8 72 18 130/78 (95) 98 12/02/18 21:00 Room Air 12/02/18 20:58 78 100/61 12/02/18 20:00 97.7 79 20 107/64 (78) 97 12/02/18 19:15 87 12/02/18 16:00 98.0 72 20 135/72 (93) 99 Intake and Output 12/02/18 12/03/18 19:00 07:00 Intake Total 1350 ml 300 ml Output Total 1200 ml 1500 ml Balance 150 ml -1200 ml Intake Oral 900 ml 240 ml IV Total 450 ml 60 ml Output Urine Total 1200 ml 1500 ml Estimated Blood Loss 0 ml # Bowel Movements 1 Laboratory Tests 12/02/18 18:00: Urine Total Protein [Pending], Urine Albumin (%) [Pending], Urine Alpha-1- Globulins (%) [Pending], Urine Pmaws-0-Fospenody (%) [Pending], Urine Beta- Globulin (%) [Pending], Urine Gamma Globulin (%) [Pending], Ur Protein Electrophoresis M-Cesar [Pending], Urine Protein Electrophoresis Intrp [Pending] Height (Feet): 5 Height (Inches): 7.00 Weight (Pounds): 154 Cardiovascular: normal rate Respiratory/Chest: lungs clear Extremities: trace edema Michael Sosa MD Dec 03, 2018 15:40
[2018-12-03 16:00] VITALS: BP 119/74
--- NOTE | 2018-12-03 16:20 | NUR ---
NURSE NOTES: Patient ambulated with FWW with RN assist. Pt tolerated well with ambulation with approximately 200fts
--- NOTE | 2018-12-03 19:43 | NUR ---
HAND-OFF: Report given to Sarahy PARRA. Pt. remain stable.
--- NOTE | 2018-12-03 19:45 | NUR ---
NURSE NOTES: Received report from AIDA Medeiros. Patient awake, alert and verbally responsive. Denies any pain nor any discomfort at this time. IV site on R FA #20, patent and intact. F/C intact and patent with yellow-colored output. Bed at lowest position, call light within reach. Daughter present at bedside. Will continue plan of care.
[2018-12-03 20:00] VITALS: BP 113/69
[2018-12-03] MEDS: Cyclobenzaprine 10mg Tab ORAL SCH ×2 (20:37→20:42)
[2018-12-03] MEDS: Tamsulosin 0.4mg cap ORAL SCH (20:37)
[2018-12-03] MEDS: Iron Sucrose 100 MG in NS 55 ML IV SCH (20:37)
--- NOTE | 2018-12-03 21:44 | General Progress Note ---
Assessment/Plan Assessment/Plan Assessment - Anemia, OB(+) - Renal failure - Obstructive uropathy - b/l edema - Duplex negative - PSA =10, ? CAP - abnormal LFT --> now normal - EGD: Incidental small hiatal hernia and mild duodenitis, biopsied antrum for H Pylori Colon: Ulcers and erosions in hepatic flexure, typical for ischemic colitis ( biopsied) Diminutive prox ascending colon and sigmoid polyp at 20 - biopsied Recommendations - Renal diet - Zofran PRN - follow CBC/LFT - f/u path - Avoid volume depletion Subjective Allergies: Coded Allergies: No Known Allergies (Unverified , 11/21/18) Subjective Feels OK tolerating PO d/w pt re GI procedure Objective Last 24 Hour Vital Signs Date Time Temp Pulse Resp B/P (MAP) Pulse Ox O2 Delivery O2 Flow Rate FiO2 12/03/18 20:36 79 113/69 12/03/18 20:00 81 12/03/18 20:00 97.7 81 18 113/69 (84) 97 12/03/18 16:00 98.4 70 18 119/74 (89) 98 12/03/18 15:56 77 12/03/18 12:00 97.6 66 18 118/74 (89) 98 12/03/18 11:34 72 12/03/18 09:00 Room Air 12/03/18 08:58 80 124/69 12/03/18 08:00 97.8 80 18 124/69 (87) 97 12/03/18 07:38 81 12/03/18 04:00 98.1 71 18 131/76 (94) 97 12/03/18 03:55 68 12/03/18 00:01 73 12/03/18 00:00 97.8 72 18 130/78 (95) 98 Intake and Output 12/02/18 12/03/18 19:00 07:00 Intake Total 1350 ml 300 ml Output Total 1200 ml 1500 ml Balance 150 ml -1200 ml Intake Oral 900 ml 240 ml IV Total 450 ml 60 ml Output Urine Total 1200 ml 1500 ml Estimated Blood Loss 0 ml # Bowel Movements 1 Height (Feet): 5 Height (Inches): 7.00 Weight (Pounds): 154 Objective WDWN NCAT supple CTA RRR Abd soft (+) edema Yasir Alexandra MD Dec 03, 2018:44
--- NOTE | 2018-12-03 23:09 | General Progress Note ---
Assessment/Plan Assessment/Plan sepsis acute renal failure hyperkalemia obstructive uropathy bph elevated troponin ho htn anemia confusion encephalopathy likiely secondary to uremia resolved vomiting likely secondary to uremia short syncopal episode leukocytosis constiaption abx per ID has johnson, urology fup making good urine infoley, monitor renal parameters echo noted ct of head noted neurolgy evaluation appreciated monitor labs colonopsy noted dw Dr Stokes dvt and ulcer prophylaxis ambulate PT stool softners and laxatives ambulate dw patient snurance plan, they have denied CRI will likely then need snf when ready for discharge Subjective Allergies: Coded Allergies: No Known Allergies (Unverified , 11/21/18) Subjective seen in am comfotable, feels stronger Objective Last 24 Hour Vital Signs Date Time Temp Pulse Resp B/P (MAP) Pulse Ox O2 Delivery O2 Flow Rate FiO2 12/03/18 21:00 Room Air 12/03/18 20:36 79 113/69 12/03/18 20:00 81 12/03/18 20:00 97.7 81 18 113/69 (84) 97 12/03/18 16:00 98.4 70 18 119/74 (89) 98 12/03/18 15:56 77 12/03/18 12:00 97.6 66 18 118/74 (89) 98 12/03/18 11:34 72 12/03/18 09:00 Room Air 12/03/18 08:58 80 124/69 12/03/18 08:00 97.8 80 18 124/69 (87) 97 12/03/18 07:38 81 12/03/18 04:00 98.1 71 18 131/76 (94) 97 12/03/18 03:55 68 12/03/18 00:01 73 12/03/18 00:00 97.8 72 18 130/78 (95) 98 Intake and Output 12/02/18 12/03/18 19:00 07:00 Intake Total 1350 ml 300 ml Output Total 1200 ml 1500 ml Balance 150 ml -1200 ml Intake Oral 900 ml 240 ml IV Total 450 ml 60 ml Output Urine Total 1200 ml 1500 ml Estimated Blood Loss 0 ml # Bowel Movements 1 Height (Feet): 5 Height (Inches): 7.00 Weight (Pounds): 154 General Appearance: WD/WN, no apparent distress Neck: supple Cardiovascular: normal rate Respiratory/Chest: lungs clear Abdomen: soft Dane Vasquez MD Dec 03, 2018 23:09
[2018-12-04] VITALS (7 sets, daily range): BP systolic 108–120; BP diastolic 54–74
--- NOTE | 2018-12-04 03:02 | NUR ---
NURSE NOTES: Patient asleep, breathing even and unlabored, no s/sx of pain nor any discomfort at this time. Bed at lowest position, call light within reach. Will continue to monitor.
--- NOTE | 2018-12-04 07:08 | NUR ---
HAND-OFF: Report given to AIDA Locke. Endorsed paln of care.
--- NOTE | 2018-12-04 07:30 | NUR ---
NURSE NOTES: Received report from AIDA Ramey. Pt is sitting up in bed having breakfast. Bed is in lowest position, side rails up X2, and call light is within reach. Will continue to monitor.
[2018-12-04 08:28] LABS: BASOPHILS % (AUTO) 1.2 % (0.0-2.0); HEMATOCRIT 28.3 % (42.0-52.0); HEMOGLOBIN 9.4 G/DL (14.2-18.0); LYMPHOCYTES % (AUTO) 8.3 % (20.0-45.0); MEAN CORPUSCULAR VOLUME 94 FL (80-99); MONOCYTES % (AUTO) 8.7 % (1.0-10.0); NEUTROPHILS % (AUTO) 78.8 % (45.0-75.0); PLATELET COUNT 408 K/UL (150-450); RED BLOOD COUNT 3.03 M/UL (4.70-6.10); RED CELL DISTRIBUTION WIDTH 11.7 % (11.6-14.8); WHITE BLOOD COUNT 9.3 K/UL (4.8-10.8)
[2018-12-04] MEDS: Docusate 100mg cap ORAL SCH ×2 (08:41→18:00)
[2018-12-04] MEDS: Metoprolol 25mg tab ORAL SCH ×2 (08:41→20:46)
[2018-12-04] MEDS: Heparin 5000 units/ml inj SUBQ SCH ×2 (08:41→20:47)
[2018-12-04 08:44] LABS: ANION GAP 9 mmol/L (5-15); BLOOD UREA NITROGEN 60 mg/dL (7-18); CALCIUM 9.1 MG/DL (8.5-10.1); CARBON DIOXIDE 25 MMOL/L (21-32); CHLORIDE 101 MMOL/L (98-107); CREATININE 4.1 MG/DL (0.55-1.30); POTASSIUM 4.7 MMOL/L (3.5-5.1); SODIUM 135 MMOL/L (136-145)
--- NOTE | 2018-12-04 14:22 | Urology Progress Note ---
Assessment/Plan Assessment/Plan 1. Urinary retention history. 2. Benign prostatic hypertrophy. 3. Possible neurogenic bladder. 4. Hematuria. 5. Renal failure, which appears to be acute on chronic, improved. 6. Hydronephrosis, improved with Johnson. 7. Proteinuria. 8. Meatal stenosis and stricture history. 9. Inguinal hernia. monitor clinically johnson hand irrigated and do PRN secured to pt's leg off HD for now monitor renal fxn closely, seems to have stabilized flomax and proscar added cysto later voiding trial at some point? prob as outpt most likely will need TURP f/u on blood cx Subjective Allergies: Coded Allergies: No Known Allergies (Unverified , 11/21/18) Subjective all noted, feels fair Objective Last 24 Hour Vital Signs Date Time Temp Pulse Resp B/P (MAP) Pulse Ox O2 Delivery O2 Flow Rate FiO2 12/04/18 12:00 74 12/04/18 12:00 97.7 79 16 118/70 (86) 97 12/04/18 09:00 Room Air 12/04/18 08:41 76 120/76 12/04/18 08:00 79 12/04/18 08:00 98.1 77 18 120/72 (88) 98 12/04/18 06:00 98.1 71 17 118/74 (89) 96 12/04/18 04:00 65 12/04/18 04:00 98.1 71 17 118/74 (89) 96 12/04/18 00:00 68 12/04/18 00:00 98.6 68 17 119/73 (88) 96 12/03/18 21:00 Room Air 12/03/18 20:36 79 113/69 12/03/18 20:00 81 12/03/18 20:00 97.7 81 18 113/69 (84) 97 12/03/18 16:00 98.4 70 18 119/74 (89) 98 12/03/18 15:56 77 Intake and Output 12/03/18 12/04/18 19:00 07:00 Intake Total 600 ml 300 ml Output Total 1550 ml 1500 ml Balance -950 ml -1200 ml Intake Oral 600 ml 240 ml IV Total 60 ml Output Urine Total 1550 ml 1500 ml Microbiology Date/Time Source Procedure Growth Status 11/30/18 21:00 Blood Blood Culture - Preliminary NO GROWTH AFTER 72 HOURS Resulted 11/23/18 15:00 Stool Ova and Parasites - Final Complete 11/23/18 15:00 Stool Ova and Parasite Result 1 - Final Complete Current Medications Medications (Trade) Dose Ordered Sig/Debbie Route PRN Reason Start Time Stop Time Status Last Admin Dose Admin Acetaminophen (Tylenol) 650 mg Q6H PRN ORAL Mild Pain/Temp > 100.5 11/22/18 03:15 12/22/18 03:14 12/02/18 18:22 Acetaminophen/ Hydrocodone Bitart ([place] 5/325) 1 tab Q4H PRN ORAL Moderate Pain (Pain Scale 4-6) 12/02/18 00:45 12/09/18 00:44 12/03/18 00:39 Al Hydroxide/Mg Hydroxide (Mylanta) 30 ml Q6H PRN ORAL GERD 11/22/18 03:15 12/22/18 03:14 Bisacodyl (Dulcolax) 10 mg DAILYPRN PRN RECTAL Constipation 11/30/18 14:30 12/30/18 14:29 11/30/18 14:29 Cyclobenzaprine HCl (Flexeril) 10 mg BEDTIME ORAL 11/30/18 21:00 12/30/18 20:59 12/01/18 20:34 Daptomycin 700 mg/ Sodium Chloride 55 ml @ 100 mls/hr Q48H IV 11/27/18 14:00 12/14/18 13:59 12/03/18 14:15 Docusate Sodium (Colace) 100 mg TWICE A DAY ORAL 11/25/18 09:00 12/25/18 08:59 12/04/18 08:41 Epoetin Tommy (Epoetin Tommy(ESRD on dialysis)) 2,000 unit WED-WED-WED SUBQ 11/23/18 21:00 12/23/18 20:59 11/30/18 21:54 Epoetin Tommy (Epoetin Tommy(ESRD on dialysis)) 3,000 unit WED-WED-WED SUBQ 11/23/18 21:00 12/23/18 20:59 11/30/18 21:54 Finasteride (Proscar) 5 mg DAILY ORAL 11/25/18 09:00 12/25/18 08:59 12/04/18 08:41 Heparin Sodium (Porcine) (Heparin 5000 units/ml) 5,000 units EVERY 12 HOURS SUBQ 11/22/18 09:00 12/22/18 08:59 11/30/18 22:01 Magnesium Hydroxide (Mom) 30 ml BIDPRN PRN ORAL Constipation 11/26/18 12:45 12/26/18 12:44 11/29/18 18:50 Meclizine HCl (Antivert) 25 mg TIDPRN PRN ORAL for dizziness 11/23/18 18:15 12/23/18 18:14 Metoprolol Tartrate (Lopressor) 25 mg Q12HR ORAL 11/22/18 21:00 12/22/18 20:59 12/04/18 08:41 Ondansetron HCl (Zofran) 4 mg Q6H PRN IVP Nausea & Vomiting 11/24/18 09:30 12/24/18 09:29 11/26/18 23:02 Pantoprazole (Protonix) 40 mg DAILY ORAL 11/26/18 09:00 12/26/18 08:59 12/04/18 08:41 Paricalcitol (Zemplar) 1 mcg THREE TIMES A WEEK ORAL 12/02/18 16:00 01/01/19 15:59 12/02/18 16:26 Tamsulosin HCl (Flomax) 0.4 mg BEDTIME ORAL 11/24/18 23:00 12/24/18 22:59 12/03/18 20:37 Zolpidem Tartrate (Ambien) 5 mg HSPRN PRN ORAL Insomnia 11/30/18 21:00 12/07/18 20:59 11/30/18 22:02 Laboratory Tests 12/04/18 07:42: White Blood Count 9.3, Red Blood Count 3.03L, Hemoglobin 9.4L, Hematocrit 28.3L , Mean Corpuscular Volume 94, Mean Corpuscular Hemoglobin 31.2H, Mean Corpuscular Hemoglobin Concent 33.3, Red Cell Distribution Width 11.7, Platelet Count 408, Mean Platelet Volume 4.9L, Neutrophils (%) (Auto) 78.8H, Lymphocytes (%) (Auto) 8.3L, Monocytes (%) (Auto) 8.7, Eosinophils (%) (Auto) 3.0, Basophils (%) (Auto) 1.2, Sodium Level 135L, Potassium Level 4.7, Chloride Level 101, Carbon Dioxide Level 25, Anion Gap 9, Blood Urea Nitrogen 60H, Creatinine 4.1H, Estimat Glomerular Filtration Rate , Glucose Level 96, Calcium Level 9.1 Height (Feet): 5 Height (Inches): 7.00 Weight (Pounds): 154 Objective exam stable, urine clearing, has some debris abdominal u/s (11/29) noted Geraldo Wise MD Dec 04, 2018 14:22
--- NOTE | 2018-12-04 14:25 | Neurology Progress Note ---
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 He was sitting up in a chair when I went to see him. He has been able to write again. His appetite is good. He walked a few times yesterday. He felt steadier on his feet. The mind continues to be clearer - but is still not normal. He has had no further episodes of loss of consciousness. His cognitive function has improved. His motor function is also better. He denies any new neurological symptoms. He specifically denies any weakness on one side or the other, numbness on one side or the other, problems with speech problems with language problems with vision problems with memory. Review of Systems Neuro Review of Systems Benign. Objective Physical Exam Last Vital Signs Date Time Temp Pulse Resp B/P (MAP) Pulse Ox O2 Delivery O2 Flow Rate FiO2 12/04/18 12:00 74 12/04/18 12:00 97.7 16 118/70 (86) 97 12/04/18 09:00 Room Air 12/02/18 08:15 3 Laboratory Tests Test 12/04/18 07:42 White Blood Count 9.3 K/UL (4.8-10.8) Red Blood Count 3.03 M/UL (4.70-6.10) L Hemoglobin 9.4 G/DL (14.2-18.0) L Hematocrit 28.3 % (42.0-52.0) L Mean Corpuscular Volume 94 FL (80-99) Mean Corpuscular Hemoglobin 31.2 PG (27.0-31.0) H Mean Corpuscular Hemoglobin Concent 33.3 G/DL (32.0-36.0) Red Cell Distribution Width 11.7 % (11.6-14.8) Platelet Count 408 K/UL (150-450) Mean Platelet Volume 4.9 FL (6.5-10.1) L Neutrophils (%) (Auto) 78.8 % (45.0-75.0) H Lymphocytes (%) (Auto) 8.3 % (20.0-45.0) L Monocytes (%) (Auto) 8.7 % (1.0-10.0) Eosinophils (%) (Auto) 3.0 % (0.0-3.0) Basophils (%) (Auto) 1.2 % (0.0-2.0) Sodium Level 135 MMOL/L (136-145) L Potassium Level 4.7 MMOL/L (3.5-5.1) Chloride Level 101 MMOL/L (98-107) Carbon Dioxide Level 25 MMOL/L (21-32) Anion Gap 9 mmol/L (5-15) Blood Urea Nitrogen 60 mg/dL (7-18) H Creatinine 4.1 MG/DL (0.55-1.30) H Estimat Glomerular Filtration Rate mL/min (>60) Glucose Level 96 MG/DL (74-106) Calcium Level 9.1 MG/DL (8.5-10.1) Neurologic Exam Objective PHYSICAL EXAMINATION: GENERAL: He is a well-developed, well-nourished, pleasant gentleman, sitting up in a chair, in no acute distress. HEAD: Normocephalic and atraumatic. EENT: Examination benign. NECK: No neck rigidity was observed. NEUROLOGIC EXAMINATION: MENTAL STATUS EXAMINATION: He was awake and alert. He was oriented to person, place, and time. He was able to recall 3/3 words immediately after 1 minute and after 3 minutes. He was able to remember presidents, Trump through Trujillo senior. His mathematical skills were good. His visuospatial function was preserved. SPEECH: He had no dysarthria. LANGUAGE: He had no aphasia. CRANIAL NERVE EXAMINATION: II: The visual caal were intact on confrontation testing. III, IV & : The external ocular movements were full and the pupils 3 mm in diameter, equal, round, regular, and reactive to light. V: He had normal facial sensations, and the temporales, masseters, and pterygoids functioned normally. VII: He had normal facial expressions and no facial asymmetry. VIII: He was able to hear well bilaterally and had no nystagmus. IX: The palate moved symmetrically on phonation. X: He had no hoarseness of voice. XI: The sternocleidomastoids and trapezii functioned normally. XII: The tongue was in the midline without any fasciculations or atrophy. MOTOR SYSTEM: The tone was normal in all four extremities. Examination of muscle mass revealed no focal wasting. Examination of power revealed G 5/5 power in all muscle groups tested. SENSORY EXAMINATION: He had intact sensations to pinprick, light touch, and graphesthesia. COORDINATION: He performed well on [id number]-[id number] and [id number]-[id number] testing. REFLEXES: 2+ and bilaterally symmetrical at the biceps, triceps, and brachioradialis. 2++ at both knees, Trace+ at both ankles. The plantar responses were flexor bilaterally. STANCE: He stood up with contact guard. GAIT: He walked well with contact guard. Impression/Recommendations Diagnostic Impression 1. 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 2. Since he has been in the hospital, he has continued to feel unwell and has had lightheadedness whenever he tries to sit up, stand, and walk. On 1 occasion on 11/23/18, he started to feel lightheaded while sitting up, then passed out for brief period of time, and had some generalized body jerking movements. He rapidly regained consciousness following that. 3. He feels better. He was sitting up in a chair when I went to see him. He has been able to write again. His appetite is good. He walked a few times yesterday. He felt steadier on his feet. The mind continues to be clearer - but is still not normal. He has had no further episodes of loss of consciousness. His cognitive function has improved. His motor function is also better. He denies any new neurological symptoms. 4. On neurological examination, at this time, he has minimal slowing of cerebration. He has brisk deep tendon reflexes at the knees and trace ankle jerks, and needs contact guard to stand and walk. 5. Laboratory data on my initial evaluation revealed that his WBC count was elevated to 15,300. He was significantly anemic with a hemoglobin of 8.7 G. His chemistry panel revealed that his potassium was low at 3.1. His BUN was elevated at 173 with a creatinine of 10.1. His proBNP was elevated to 1278. His vitamin B12 level was normal at 1394. His folate level was normal at 25.3. His TSH was normal at 1.42. His INR was normal at 1.0. His urinalysis revealed 1+ leukocyte esterase with 2 red blood cells, and 2 white blood cells per high-power field. 6. The CT of the brain reveals no acute pathology. 7. EEG done on 11/24/2018 revealed triphasic waveforms with an anterior to posterior gradient but normal background and no interictal or ictal phenomena. These findings are consistent with a mild metabolic encephalopathy. 8. The patient's history, neurological examination, laboratory data, imaging studies and EEG are most consistent with lightheadedness due to fluid and electrolyte imbalance. 9. The episode that the patient had on 11/23/18 where he felt lightheaded, then passed out, and had some abnormal body jerking movements was most probably a Matias-Anthony attack. 10. The patient does have mild cognitive dysfunction, which is due to an ongoing metabolic encephalopathic process. 11. He is still minimally unsteady on his feet. Recommendations 1. Continue present management. 2. Discontinue Flexeril. 3. Continue to correct the patient's fluid and electrolyte imbalances. 4. Frequent range of motion exercises - patient instructed. 5. Out of bed in chair for all meals. 6. Mobilize with PT and multiple daily walks. 7. The patient will benefit significantly from a brief course of acute rehabilitation so that he can regain his independence. 8. Observe. Janak Chandra M.D., M.S.P.H. Janak Chandra MD Dec 04, 2018 14:25
[2018-12-04] MEDS ORDERED: NS 275ml ONE (16:32)
--- NOTE | 2018-12-04 17:52 | Nephrology Progress Note ---
Assessment/Plan Problem List: (1) Acute on chronic renal failure Assessment: S creatinine no sig change (2) Urinary retention (3) Hyperkalemia Assessment: ok (4) Metabolic acidosis (5) Uremia (6) Bacteremia due to Enterococcus (7) Anemia Assessment: better (8) Iron deficiency (9) Secondary hyperparathyroidism of renal origin Plan watch BP cont Zemplar IV Iron cont Epogen Subjective Subjective was dizzy earlier while sitting Objective Objective Last 24 Hour Vital Signs Date Time Temp Pulse Resp B/P (MAP) Pulse Ox O2 Delivery O2 Flow Rate FiO2 12/04/18 12:00 74 12/04/18 12:00 97.7 79 16 118/70 (86) 97 12/04/18 09:00 Room Air 12/04/18 08:41 76 120/76 12/04/18 08:00 79 12/04/18 08:00 98.1 77 18 120/72 (88) 98 12/04/18 06:00 98.1 71 17 118/74 (89) 96 12/04/18 04:00 65 12/04/18 04:00 98.1 71 17 118/74 (89) 96 12/04/18 00:00 68 12/04/18 00:00 98.6 68 17 119/73 (88) 96 12/03/18 21:00 Room Air 12/03/18 20:36 79 113/69 12/03/18 20:00 81 12/03/18 20:00 97.7 81 18 113/69 (84) 97 Intake and Output 12/03/18 12/04/18 19:00 07:00 Intake Total 600 ml 300 ml Output Total 1550 ml 1500 ml Balance -950 ml -1200 ml Intake Oral 600 ml 240 ml IV Total 60 ml Output Urine Total 1550 ml 1500 ml Laboratory Tests 12/04/18 07:42: White Blood Count 9.3, Red Blood Count 3.03L, Hemoglobin 9.4L, Hematocrit 28.3L , Mean Corpuscular Volume 94, Mean Corpuscular Hemoglobin 31.2H, Mean Corpuscular Hemoglobin Concent 33.3, Red Cell Distribution Width 11.7, Platelet Count 408, Mean Platelet Volume 4.9L, Neutrophils (%) (Auto) 78.8H, Lymphocytes (%) (Auto) 8.3L, Monocytes (%) (Auto) 8.7, Eosinophils (%) (Auto) 3.0, Basophils (%) (Auto) 1.2, Sodium Level 135L, Potassium Level 4.7, Chloride Level 101, Carbon Dioxide Level 25, Anion Gap 9, Blood Urea Nitrogen 60H, Creatinine 4.1H, Estimat Glomerular Filtration Rate , Glucose Level 96, Calcium Level 9.1 Height (Feet): 5 Height (Inches): 7.00 Weight (Pounds): 154 Cardiovascular: normal rate Respiratory/Chest: lungs clear Extremities: trace edema Michael Sosa MD Dec 04, 2018 17:52
--- NOTE | 2018-12-04 19:20 | General Progress Note ---
Assessment/Plan Assessment/Plan Assessment - Anemia, OB(+) - Renal failure - Obstructive uropathy - b/l edema - Duplex negative - PSA =10, ? CAP - abnormal LFT --> now normal - EGD: Incidental small hiatal hernia and mild duodenitis, biopsied antrum for H Pylori Colon: Ulcers and erosions in hepatic flexure, typical for ischemic colitis ( biopsied) Diminutive prox ascending colon and sigmoid polyp at 20 - biopsied Recommendations - Renal diet - Zofran PRN - follow CBC/LFT - f/u path - Avoid volume depletion Subjective Allergies: Coded Allergies: No Known Allergies (Unverified , 11/21/18) Subjective Feels OK tolerating PO Objective Last 24 Hour Vital Signs Date Time Temp Pulse Resp B/P (MAP) Pulse Ox O2 Delivery O2 Flow Rate FiO2 12/04/18 16:00 97.5 67 18 113/54 (73) 97 12/04/18 16:00 70 12/04/18 12:00 74 12/04/18 12:00 97.7 79 16 118/70 (86) 97 12/04/18 09:00 Room Air 12/04/18 08:41 76 120/76 12/04/18 08:00 79 12/04/18 08:00 98.1 77 18 120/72 (88) 98 12/04/18 06:00 98.1 71 17 118/74 (89) 96 12/04/18 04:00 65 12/04/18 04:00 98.1 71 17 118/74 (89) 96 12/04/18 00:00 68 12/04/18 00:00 98.6 68 17 119/73 (88) 96 12/03/18 21:00 Room Air 12/03/18 20:36 79 113/69 12/03/18 20:00 81 12/03/18 20:00 97.7 81 18 113/69 (84) 97 Intake and Output 12/03/18 12/04/18 19:00 07:00 Intake Total 600 ml 300 ml Output Total 1550 ml 1500 ml Balance -950 ml -1200 ml Intake Oral 600 ml 240 ml IV Total 60 ml Output Urine Total 1550 ml 1500 ml Laboratory Tests 12/04/18 07:42: White Blood Count 9.3, Red Blood Count 3.03L, Hemoglobin 9.4L, Hematocrit 28.3L , Mean Corpuscular Volume 94, Mean Corpuscular Hemoglobin 31.2H, Mean Corpuscular Hemoglobin Concent 33.3, Red Cell Distribution Width 11.7, Platelet Count 408, Mean Platelet Volume 4.9L, Neutrophils (%) (Auto) 78.8H, Lymphocytes (%) (Auto) 8.3L, Monocytes (%) (Auto) 8.7, Eosinophils (%) (Auto) 3.0, Basophils (%) (Auto) 1.2, Sodium Level 135L, Potassium Level 4.7, Chloride Level 101, Carbon Dioxide Level 25, Anion Gap 9, Blood Urea Nitrogen 60H, Creatinine 4.1H, Estimat Glomerular Filtration Rate , Glucose Level 96, Calcium Level 9.1 Height (Feet): 5 Height (Inches): 7.00 Weight (Pounds): 154 Objective WDWN NCAT supple CTA RRR Abd soft (+) edema Yasir Alexandra MD Dec 04, 2018 19:20
--- NOTE | 2018-12-04 19:30 | NUR ---
NURSE NOTES: pt aaox4, sitting in the chair reading, no acute distress noted, no c/o pain safety precaution in place will continue to monitor.
--- NOTE | 2018-12-04 19:31 | NUR ---
HAND-OFF: Report given to AIDA Luna. Plan of care endorsed.
--- NOTE | 2018-12-04 19:44 | General Progress Note ---
Assessment/Plan Assessment/Plan sepsis acute renal failure hyperkalemia obstructive uropathy bph elevated troponin ho htn anemia confusion encephalopathy likiely secondary to uremia resolved vomiting likely secondary to uremia short syncopal episode leukocytosis constiaption abx per ID has johnson, urology fup making good urine infoley, monitor renal parameters echo noted ct of head noted neurolgy evaluation appreciated monitor labs colonopsy noted dw Dr Stokes dvt and ulcer prophylaxis ambulate PT stool softners and laxatives ambulate dw patient snurance plan, they have denied CRI will likely then need snf when ready for discharge Subjective Allergies: Coded Allergies: No Known Allergies (Unverified , 11/21/18) Subjective seen in am comfotable, feels stronger no chest painor sob Objective Last 24 Hour Vital Signs Date Time Temp Pulse Resp B/P (MAP) Pulse Ox O2 Delivery O2 Flow Rate FiO2 12/04/18 16:00 97.5 67 18 113/54 (73) 97 12/04/18 16:00 70 12/04/18 12:00 74 12/04/18 12:00 97.7 79 16 118/70 (86) 97 12/04/18 09:00 Room Air 12/04/18 08:41 76 120/76 12/04/18 08:00 79 12/04/18 08:00 98.1 77 18 120/72 (88) 98 12/04/18 06:00 98.1 71 17 118/74 (89) 96 12/04/18 04:00 65 12/04/18 04:00 98.1 71 17 118/74 (89) 96 12/04/18 00:00 68 12/04/18 00:00 98.6 68 17 119/73 (88) 96 12/03/18 21:00 Room Air 12/03/18 20:36 79 113/69 12/03/18 20:00 81 12/03/18 20:00 97.7 81 18 113/69 (84) 97 Intake and Output 12/03/18 12/04/18 19:00 07:00 Intake Total 600 ml 300 ml Output Total 1550 ml 1500 ml Balance -950 ml -1200 ml Intake Oral 600 ml 240 ml IV Total 60 ml Output Urine Total 1550 ml 1500 ml Laboratory Tests 12/04/18 07:42: White Blood Count 9.3, Red Blood Count 3.03L, Hemoglobin 9.4L, Hematocrit 28.3L , Mean Corpuscular Volume 94, Mean Corpuscular Hemoglobin 31.2H, Mean Corpuscular Hemoglobin Concent 33.3, Red Cell Distribution Width 11.7, Platelet Count 408, Mean Platelet Volume 4.9L, Neutrophils (%) (Auto) 78.8H, Lymphocytes (%) (Auto) 8.3L, Monocytes (%) (Auto) 8.7, Eosinophils (%) (Auto) 3.0, Basophils (%) (Auto) 1.2, Sodium Level 135L, Potassium Level 4.7, Chloride Level 101, Carbon Dioxide Level 25, Anion Gap 9, Blood Urea Nitrogen 60H, Creatinine 4.1H, Estimat Glomerular Filtration Rate , Glucose Level 96, Calcium Level 9.1 Height (Feet): 5 Height (Inches): 7.00 Weight (Pounds): 154 General Appearance: WD/WN, no apparent distress Neck: supple Cardiovascular: normal rate Respiratory/Chest: lungs clear Abdomen: soft Dane Vasquez MD Dec 04, 2018 19:44
[2018-12-04] MEDS: Tamsulosin 0.4mg cap ORAL SCH (20:45)
[2018-12-04] MEDS: Zolpidem 5mg tab ORAL PRN (22:07)
[2018-12-05] VITALS (7 sets, daily range): BP systolic 91–121; BP diastolic 60–74
--- NOTE | 2018-12-05 02:00 | NUR ---
NURSE NOTES: pt in bed sleeping, no acute distress noted will continue to monitor
--- NOTE | 2018-12-05 06:54 | NUR ---
NURSE NOTES: pt sleeping in bed, pt refused insulin during my shift. no acute distress or change in condition, needs met during my shift will endorse to incoming nurse.
--- NOTE | 2018-12-05 07:20 | NUR ---
NURSE NOTES: I received the patient awake and eating breakfast in bed. Patient alert and oriented x4. Patient does not display any signs of distress or SOB. Bed in the lowest position and call light within reach.
--- NOTE | 2018-12-05 07:25 | NUR ---
HAND-OFF: Report given to AIDA Valencia.
--- NOTE | 2018-12-05 08:30 | NUR ---
CASE MANAGEMENT:REVIEW 12/04/18 SI: ACUTE RENAL FAILURE. BACTEREMIA ANEMIA...S/P 1 UNIT PRBC'S S/P EGD/COLONOSCOPY (+) ISCHEMIC COLITIS 98.1 77 18 120/72 98% ON RA H/H-9.4/28.3 BUN+60 CR+4.1 IS: ZEMPLAR PO TID IV DAPTOMYCIN Q48 PROTONIX PO QD PROSCARE PO QD COLACE PO BID PROCRIT SQ MWF LOPRESSOR PO Q12 HEPARIN SQ Q12 : TELEMETRY STATUS 12/05/18 SI: ACUTE RENAL FAILURE. BACTEREMIA ANEMIA...S/P 1 UNIT PRBC'S S/P EGD/COLONOSCOPY (+) ISCHEMIC COLITIS 98.2 80 20 91/60 98% ON RA IS: ZEMPLAR PO TID IV DAPTOMYCIN Q48 PROTONIX PO QD PROSCAR PO QD COLACE PO BID PROCRIT SQ MWF LOPRESSOR PO Q12 HEPARIN SQ Q12 : TELEMETRY STATUS PLAN: DR KNIGHT AND DR ARCE RECOMMENDED ACUTE REHAB AT [facility] FOR THIS PATIENT HOWEVER [facility] PHYSICIAN, DR ALLEN DECLINED THE REQUEST FOR ACUTE REHAB
[2018-12-05] MEDS: Paricalcitol 1mcg cap ORAL SCH (08:50)
[2018-12-05] MEDS: Metoprolol 25mg tab ORAL SCH ×2 (08:51→21:00)
[2018-12-05] MEDS: Heparin 5000 units/ml inj SUBQ SCH ×2 (08:51→21:00)
[2018-12-05] MEDS: Docusate 100mg cap ORAL SCH ×2 (09:02→18:07)
--- NOTE | 2018-12-05 10:31 | NUR ---
*-* INSURANCE *-* UPDATED CLINICALS AND REVIEWS HAVE BEEN FAXED TO: ANATOLIY HENDRICKS:NORMA P:[phone] F:[phone] REF# [id number]
--- NOTE | 2018-12-05 11:17 | Urology Progress Note ---
Assessment/Plan Assessment/Plan 1. Urinary retention history. 2. Benign prostatic hypertrophy. 3. Possible neurogenic bladder. 4. Hematuria. 5. Renal failure, which appears to be acute on chronic, improved. 6. Hydronephrosis, improved with Johnson. 7. Proteinuria. 8. Meatal stenosis and stricture history. 9. Inguinal hernia. monitor clinically johnson hand irrigated and do PRN secured to pt's leg off HD for now monitor renal fxn closely, seems to have stabilized flomax and proscar added cysto later voiding trial at some point? prob as outpt most likely will need TURP f/u on blood cx plan exchange johnson to larger size d/w pt fully Subjective Allergies: Coded Allergies: No Known Allergies (Unverified , 11/21/18) Subjective all noted, feels fair Objective Last 24 Hour Vital Signs Date Time Temp Pulse Resp B/P (MAP) Pulse Ox O2 Delivery O2 Flow Rate FiO2 12/05/18 09:00 Room Air 12/05/18 08:51 88 101/71 12/05/18 08:48 88 101/71 (81) 12/05/18 08:28 67 12/05/18 08:00 98.2 80 20 91/60 (70) 98 12/05/18 04:00 64 12/05/18 04:00 96.9 70 18 119/74 (89) 98 12/05/18 00:00 63 12/05/18 00:00 97.5 68 18 113/74 (87) 96 12/04/18 21:00 Room Air 12/04/18 20:46 80 118/66 12/04/18 20:00 98.2 80 18 108/63 (78) 97 12/04/18 20:00 75 12/04/18 16:00 97.5 67 18 113/54 (73) 97 12/04/18 16:00 70 12/04/18 12:00 74 12/04/18 12:00 97.7 79 16 118/70 (86) 97 Intake and Output 12/04/18 12/05/18 18:59 06:59 Intake Total 720 ml Output Total 1500 ml Balance -780 ml Intake Oral 720 ml Output Urine Total 1500 ml Microbiology Date/Time Source Procedure Growth Status 11/30/18 21:00 Blood Blood Culture - Preliminary NO GROWTH AFTER 4 DAYS Resulted 11/23/18 15:00 Stool Ova and Parasites - Final Complete 11/23/18 15:00 Stool Ova and Parasite Result 1 - Final Complete Current Medications Medications (Trade) Dose Ordered Sig/Debbie Route PRN Reason Start Time Stop Time Status Last Admin Dose Admin Acetaminophen (Tylenol) 650 mg Q6H PRN ORAL Mild Pain/Temp > 100.5 11/22/18 03:15 12/22/18 03:14 12/02/18 18:22 Acetaminophen/ Hydrocodone Bitart ([place] 5/325) 1 tab Q4H PRN ORAL Moderate Pain (Pain Scale 4-6) 12/02/18 00:45 12/09/18 00:44 12/03/18 00:39 Al Hydroxide/Mg Hydroxide (Mylanta) 30 ml Q6H PRN ORAL GERD 11/22/18 03:15 12/22/18 03:14 Bisacodyl (Dulcolax) 10 mg DAILYPRN PRN RECTAL Constipation 11/30/18 14:30 12/30/18 14:29 11/30/18 14:29 Daptomycin 700 mg/ Sodium Chloride 55 ml @ 100 mls/hr Q48H IV 11/27/18 14:00 12/14/18 13:59 12/03/18 14:15 Docusate Sodium (Colace) 100 mg TWICE A DAY ORAL 11/25/18 09:00 12/25/18 08:59 12/05/18 09:02 Epoetin Tommy (Epoetin Tommy(ESRD on dialysis)) 2,000 unit WED-WED-WED SUBQ 11/23/18 21:00 12/23/18 20:59 11/30/18 21:54 Epoetin Tommy (Epoetin Tommy(ESRD on dialysis)) 3,000 unit WED-WED-WED SUBQ 11/23/18 21:00 12/23/18 20:59 11/30/18 21:54 Finasteride (Proscar) 5 mg DAILY ORAL 11/25/18 09:00 12/25/18 08:59 12/05/18 08:50 Heparin Sodium (Porcine) (Heparin 5000 units/ml) 5,000 units EVERY 12 HOURS SUBQ 11/22/18 09:00 12/22/18 08:59 11/30/18 22:01 Magnesium Hydroxide (Mom) 30 ml BIDPRN PRN ORAL Constipation 11/26/18 12:45 12/26/18 12:44 11/29/18 18:50 Meclizine HCl (Antivert) 25 mg TIDPRN PRN ORAL for dizziness 11/23/18 18:15 12/23/18 18:14 Metoprolol Tartrate (Lopressor) 25 mg Q12HR ORAL 11/22/18 21:00 12/22/18 20:59 12/04/18 20:46 Ondansetron HCl (Zofran) 4 mg Q6H PRN IVP Nausea & Vomiting 11/24/18 09:30 12/24/18 09:29 11/26/18 23:02 Pantoprazole (Protonix) 40 mg DAILY ORAL 11/26/18 09:00 12/26/18 08:59 12/05/18 08:50 Paricalcitol (Zemplar) 1 mcg THREE TIMES A WEEK ORAL 12/02/18 16:00 01/01/19 15:59 12/05/18 08:50 Tamsulosin HCl (Flomax) 0.4 mg BEDTIME ORAL 11/24/18 23:00 12/24/18 22:59 12/04/18 20:45 Zolpidem Tartrate (Ambien) 10 mg HSPRN PRN ORAL Insomnia 12/05/18 21:00 12/07/18 20:59 Height (Feet): 5 Height (Inches): 7.00 Weight (Pounds): 154 Objective exam stable, urine clearing, has some debris abdominal u/s (3/5) noted Geraldo Wise MD Dec 05, 2018 11:17
--- NOTE | 2018-12-05 11:31 | Neurology Progress Note ---
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 He was sitting up in a chair when I went to see him. He has been able to write better. The mind continues to be clearer - close to normal. His cognitive function has improved. He has had no further episodes of loss of consciousness. His appetite is good. He walked a few times yesterday. He felt steadier on his feet. His motor function is also close to normal. He denies any new neurological symptoms. He specifically denies any weakness on one side or the other, numbness on one side or the other, problems with speech problems with language problems with vision problems with memory. Plans are to go to a SNF in [facility] for a few days. Review of Systems Neuro Review of Systems Benign. Objective Physical Exam Last Vital Signs Date Time Temp Pulse Resp B/P (MAP) Pulse Ox O2 Delivery O2 Flow Rate FiO2 12/05/18 09:00 Room Air 12/05/18 08:51 88 101/71 12/05/18 08:00 98.2 20 98 12/02/18 08:15 3 Neurologic Exam Objective PHYSICAL EXAMINATION: GENERAL: He is a well-developed, well-nourished, pleasant gentleman, sitting up in a chair, in no acute distress. HEAD: Normocephalic and atraumatic. EENT: Examination benign. NECK: No neck rigidity was observed. NEUROLOGIC EXAMINATION: MENTAL STATUS EXAMINATION: He was awake and alert. He was oriented to person, place, and time. He was able to recall 3/3 words immediately after 1 minute and after 3 minutes. He was able to remember presidents, Trump through Trujillo senior. His mathematical skills were good. His visuospatial function was preserved. SPEECH: He had no dysarthria. LANGUAGE: He had no aphasia. CRANIAL NERVE EXAMINATION: II: The visual caal were intact on confrontation testing. III, IV & : The external ocular movements were full and the pupils 3 mm in diameter, equal, round, regular, and reactive to light. V: He had normal facial sensations, and the temporales, masseters, and pterygoids functioned normally. VII: He had normal facial expressions and no facial asymmetry. VIII: He was able to hear well bilaterally and had no nystagmus. IX: The palate moved symmetrically on phonation. X: He had no hoarseness of voice. XI: The sternocleidomastoids and trapezii functioned normally. XII: The tongue was in the midline without any fasciculations or atrophy. MOTOR SYSTEM: The tone was normal in all four extremities. Examination of muscle mass revealed no focal wasting. Examination of power revealed G 5/5 power in all muscle groups tested. SENSORY EXAMINATION: He had intact sensations to pinprick, light touch, and graphesthesia. COORDINATION: He performed well on [id number] and xfoh-hy-lyhw testing. REFLEXES: 2+ and bilaterally symmetrical at the biceps, triceps, brachioradialis, and knees, Trace+ at both ankles. The plantar responses were flexor bilaterally. STANCE: He stood up with contact guard. GAIT: He walked well with contact guard. Impression/Recommendations Diagnostic Impression 1. 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 2. Since he has been in the hospital, he has continued to feel unwell and has had lightheadedness whenever he tries to sit up, stand, and walk. On 1 occasion on 11/23/18, he started to feel lightheaded while sitting up, then passed out for brief period of time, and had some generalized body jerking movements. He rapidly regained consciousness following that. 3. He feels better. He was sitting up in a chair when I went to see him. He has been able to write better. The mind continues to be clearer - close to normal. His cognitive function has improved. He has had no further episodes of loss of consciousness. His appetite is good. He walked a few times yesterday. He felt steadier on his feet. His motor function is also close to normal. He denies any new neurological symptoms. Plans are to go to a SNF in [facility] for a few days. 4. On neurological examination, at this time, his cerebration has normalized. His deep tendon reflexes are also normal except for trace ankle jerks. She still needs contact guard to stand and walk. 5. Laboratory data on my initial evaluation revealed that his WBC count was elevated to 15,300. He was significantly anemic with a hemoglobin of 8.7 G. His chemistry panel revealed that his potassium was low at 3.1. His BUN was elevated at 173 with a creatinine of 10.1. His proBNP was elevated to 1278. His vitamin B12 level was normal at 1394. His folate level was normal at 25.3. His TSH was normal at 1.42. His INR was normal at 1.0. His urinalysis revealed 1+ leukocyte esterase with 2 red blood cells, and 2 white blood cells per high-power field. 6. The CT of the brain reveals no acute pathology. 7. EEG done on 11/24/2018 revealed triphasic waveforms with an anterior to posterior gradient but normal background and no interictal or ictal phenomena. These findings are consistent with a mild metabolic encephalopathy. 8. The patient's history, neurological examination, laboratory data, imaging studies and EEG are most consistent with lightheadedness due to fluid and electrolyte imbalance. 9. The episode that the patient had on 11/23/18 where he felt lightheaded, then passed out, and had some abnormal body jerking movements was most probably a Matias-Anthony attack. 10. The patient's cognitive dysfunction has resolved. It was due to an ongoing metabolic encephalopathic process. 11. He is still minimally unsteady on his feet. Recommendations 1. Continue present management. 2. Continue to correct the patient's fluid and electrolyte imbalances. 3. Frequent range of motion exercises - patient instructed. 4. Out of bed in chair for all meals. 5. Mobilize with PT and multiple daily walks. 6. Urologic management for removal of Morfin. 7. If discharged - follow up in office in ~ 2 months. Janak Chandra M.D., M.S.P.H. Janak Chandra MD Dec 05, 2018 11:31
--- NOTE | 2018-12-05 11:57 | NUR ---
DISCHARGE PLANNING FAXED CLINICALS TO: [facility] T: [phone] F: [phone] PATIENT REQUESTED [facility]
--- NOTE | 2018-12-05 12:25 | Nephrology Progress Note ---
Assessment/Plan Problem List: (1) Acute on chronic renal failure Assessment: no labs today (2) Urinary retention (3) Hyperkalemia (4) Metabolic acidosis (5) Uremia (6) Bacteremia due to Enterococcus (7) Anemia Assessment: better (8) Iron deficiency (9) Secondary hyperparathyroidism of renal origin Plan check CBC BMP in AM cont Zemplar IV Iron+ Epogen Subjective Subjective feels ok Objective Objective Last 24 Hour Vital Signs Date Time Temp Pulse Resp B/P (MAP) Pulse Ox O2 Delivery O2 Flow Rate FiO2 12/05/18 09:00 Room Air 12/05/18 08:51 88 101/71 12/05/18 08:48 88 101/71 (81) 12/05/18 08:28 67 12/05/18 08:00 98.2 80 20 91/60 (70) 98 12/05/18 04:00 64 12/05/18 04:00 96.9 70 18 119/74 (89) 98 12/05/18 00:00 63 12/05/18 00:00 97.5 68 18 113/74 (87) 96 12/04/18 21:00 Room Air 12/04/18 20:46 80 118/66 12/04/18 20:00 98.2 80 18 108/63 (78) 97 12/04/18 20:00 75 12/04/18 16:00 97.5 67 18 113/54 (73) 97 12/04/18 16:00 70 Intake and Output 12/04/18 12/05/18 19:00 07:00 Intake Total 720 ml Output Total 1500 ml Balance -780 ml Intake Oral 720 ml Output Urine Total 1500 ml Height (Feet): 5 Height (Inches): 7.00 Weight (Pounds): 154 Cardiovascular: normal rate Respiratory/Chest: lungs clear, normal breath sounds Extremities: other - no edema Michael Sosa MD Dec 05, 2018 12:25
[2018-12-05] MEDS: DAPTOmycin 700 MG in NS 55 ML IV SCH (13:47)
--- NOTE | 2018-12-05 15:34 | Cardiac Electrophysiology PN ---
Assessment/Plan Assessment/Plan 1. Troponin leak. The levels are nonspecific and flat 0.5, 0.5, 0.2. Denies any chest pain. This is due to the patient's renal failure EKG shows sinus rhythm with no acute ST-T wave abnormalities. EF 65%. On aspirin and Lopressor 2. Recurrent atrial flutter on 11/24 and 11/25/18. Both terminated spontaneously On Metoprolol 25 bid. ? 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 Hyperkalemia. Potassium was 7 and is down to 4.1. S/P sodium bicarbonate and Kayexalate. Had HD 4. Acute on chronic renal failure. Further evaluation by Dr. Sosa. Cecil catheter removed . No further HD scheduled 5. Syncope. ? etiology. Nl EF. No . Could be due to atrial flutter with RVR 6. High PSA Fu Dr Alvarez 7. Sepsis, source most likely tract , may need also to rule out GI malignancy. On daptomycin. Repeated blood culture x2 on 11/26 is NTD . HD catheter was removed 8. Anemia,S/P PRBC. S/P EGD and colonoscopy that showed ischemic colitis FU DR Toby PETERSON RN Subjective Subjective n SR 70s. No CP or SOB in NAD Objective Last 24 Hour Vital Signs Date Time Temp Pulse Resp B/P (MAP) Pulse Ox O2 Delivery O2 Flow Rate FiO2 12/05/18 12:02 71 12/05/18 12:00 98.0 77 20 121/72 (88) 99 12/05/18 09:00 Room Air 12/05/18 08:51 88 101/71 12/05/18 08:48 88 101/71 (81) 12/05/18 08:28 67 12/05/18 08:00 98.2 80 20 91/60 (70) 98 12/05/18 04:00 64 12/05/18 04:00 96.9 70 18 119/74 (89) 98 12/05/18 00:00 63 12/05/18 00:00 97.5 68 18 113/74 (87) 96 12/04/18 21:00 Room Air 12/04/18 20:46 80 118/66 12/04/18 20:00 98.2 80 18 108/63 (78) 97 12/04/18 20:00 75 12/04/18 16:00 97.5 67 18 113/54 (73) 97 12/04/18 16:00 70 Intake and Output 12/04/18 12/05/18 19:00 07:00 Intake Total 720 ml Output Total 1500 ml Balance -780 ml Intake Oral 720 ml Output Urine Total 1500 ml Objective HEAD AND NECK: No JVD. LUNGS: Clear. CARDIOVASCULAR: Regular S1 and S2 with no gallop or murmur. ABDOMEN: Soft. EXTREMITIES: 1+ pitting edema. David Guerra MD Dec 05, 2018 15:34
--- NOTE | 2018-12-05 16:22 | Infectious Diseases Prog Note ---
Assessment/Plan Problems: (1) Sepsis due to Enterococcus with acute renal failure and metabolic encephalopathy Assessment & Plan: source most likely tract due to obstruction , with no GI mass but polyps which were removed . continue daptomycin renally dosed as per pharmacy for his bacteremia . his HD catheter was removed on 11/29 since it was placed after he was bacteremic with enterococcus. repeated blood culture on 11/30 is negative so far which confirm clearance . monitor CK level weekly while on daptomycin . will need two weeks of iv antibiotics for his bacteremia starting from the clearance date. EOT 12/14/18 (2) Hydronephrosis Assessment & Plan: most likely the source of his bacteremia with enterococcus faecalis , complicated with renal failure , suspect enlarged prostate , with elevated PSA rule out prostate CA , recommend oncology work up with rectal US to rule out prostatic mass and for biopsy , and possible prostatectomy once clinically stable in the future (3) Acute on chronic renal failure Assessment & Plan: improving, now making good urine , previously required HD , his HD catheter was removed since it was placed while bacteremic . will wait for 48 hours on antibiotics before placing any new catheter if he needs any in the future, and if his repeated blood culture on 11/30 remains negative . (4) Acute encephalopathy Assessment & Plan: improving, suspect metabolic and toxic , monitor mental status, avoid nephrotoxics , neurology is following (5) Prostate enlargement Assessment & Plan: with elevated PSA, rule out malignant process, recommend rectal US to evaluate the prostate and for possible biopsy to rule out malignancy . (6) Generalized weakness Assessment & Plan: recommend rehabilitation and PT Subjective Constitutional: Reports: no symptoms HEENT: Reports: no symptoms Respiratory: Reports: no symptoms Breasts: Reports: no symptoms Cardiovascular: Reports: no symptoms Gastrointestinal/Abdominal: Reports: no symptoms Genitourinary: Reports: no symptoms Neurologic: Reports: no symptoms Psychiatric: Reports: no symptoms Skin: Reports: no symptoms Endocrine: Reports: no symptoms Hematologic: Reports: no symptoms Musculoskeletal: Reports: no symptoms Allergies: Coded Allergies: No Known Allergies (Unverified , 11/21/18) Subjective He was feeling better everyday , denied any fever or chills, no cough or SOB , no cough or SOB, no neck pain or hematoma, no diarrhea , feels more energetic Objective Vital Signs Last 24 Hour Vital Signs Date Time Temp Pulse Resp B/P (MAP) Pulse Ox O2 Delivery O2 Flow Rate FiO2 12/05/18 16:00 98.5 77 18 112/73 (86) 99 12/05/18 12:02 71 12/05/18 12:00 98.0 77 20 121/72 (88) 99 12/05/18 09:00 Room Air 12/05/18 08:51 88 101/71 12/05/18 08:48 88 101/71 (81) 12/05/18 08:28 67 12/05/18 08:00 98.2 80 20 91/60 (70) 98 12/05/18 04:00 64 12/05/18 04:00 96.9 70 18 119/74 (89) 98 12/05/18 00:00 63 12/05/18 00:00 97.5 68 18 113/74 (87) 96 12/04/18 21:00 Room Air 12/04/18 20:46 80 118/66 12/04/18 20:00 98.2 80 18 108/63 (78) 97 12/04/18 20:00 75 Height (Feet): 5 Height (Inches): 7.00 Weight (Pounds): 154 General Appearance: WD/WN, no acute distress HEENT: normocephalic, atraumatic, anicteric, mucous membranes moist Respiratory/Chest: chest wall non-tender, lungs clear, normal breath sounds, no respiratory distress, no accessory muscle use Cardiovascular: normal peripheral pulses, normal rate, regular rhythm, no gallop/murmur, no JVD Abdomen: normal bowel sounds, soft, non tender, no organomegaly, non distended , no mass, no scars Extremities: no cyanosis, no clubbing Skin: no rash, no lesions, no ulcers Neurologic/Psychiatric: alert, oriented x 3, responsive Lymphatic: no neck adenopathy, no groin adenopathy Musculoskeletal: normal muscle bulk Current Medications Medications (Trade) Dose Ordered Sig/Debbie Route PRN Reason Start Time Stop Time Status Last Admin Dose Admin Acetaminophen (Tylenol) 650 mg Q6H PRN ORAL Mild Pain/Temp > 100.5 11/22/18 03:15 12/22/18 03:14 12/02/18 18:22 Acetaminophen/ Hydrocodone Bitart ([place] 5/325) 1 tab Q4H PRN ORAL Moderate Pain (Pain Scale 4-6) 12/02/18 00:45 12/09/18 00:44 12/03/18 00:39 Al Hydroxide/Mg Hydroxide (Mylanta) 30 ml Q6H PRN ORAL GERD 11/22/18 03:15 12/22/18 03:14 Bisacodyl (Dulcolax) 10 mg DAILYPRN PRN RECTAL Constipation 11/30/18 14:30 12/30/18 14:29 11/30/18 14:29 Daptomycin 700 mg/ Sodium Chloride 55 ml @ 100 mls/hr Q48H IV 11/27/18 14:00 12/14/18 13:59 12/05/18 13:47 Docusate Sodium (Colace) 100 mg TWICE A DAY ORAL 11/25/18 09:00 12/25/18 08:59 12/05/18 09:02 Epoetin Tommy (Epoetin Tommy(ESRD on dialysis)) 2,000 unit WED-WED-WED SUBQ 11/23/18 21:00 12/23/18 20:59 11/30/18 21:54 Epoetin Tommy (Epoetin Tommy(ESRD on dialysis)) 3,000 unit WED-WED-WED SUBQ 11/23/18 21:00 12/23/18 20:59 11/30/18 21:54 Finasteride (Proscar) 5 mg DAILY ORAL 11/25/18 09:00 12/25/18 08:59 12/05/18 08:50 Heparin Sodium (Porcine) (Heparin 5000 units/ml) 5,000 units EVERY 12 HOURS SUBQ 11/22/18 09:00 12/22/18 08:59 11/30/18 22:01 Magnesium Hydroxide (Mom) 30 ml BIDPRN PRN ORAL Constipation 11/26/18 12:45 12/26/18 12:44 11/29/18 18:50 Meclizine HCl (Antivert) 25 mg TIDPRN PRN ORAL for dizziness 11/23/18 18:15 12/23/18 18:14 Metoprolol Tartrate (Lopressor) 25 mg Q12HR ORAL 11/22/18 21:00 12/22/18 20:59 12/04/18 20:46 Ondansetron HCl (Zofran) 4 mg Q6H PRN IVP Nausea & Vomiting 11/24/18 09:30 12/24/18 09:29 11/26/18 23:02 Pantoprazole (Protonix) 40 mg DAILY ORAL 11/26/18 09:00 12/26/18 08:59 12/05/18 08:50 Paricalcitol (Zemplar) 1 mcg THREE TIMES A WEEK ORAL 12/02/18 16:00 01/01/19 15:59 12/05/18 08:50 Tamsulosin HCl (Flomax) 0.4 mg BEDTIME ORAL 11/24/18 23:00 12/24/18 22:59 12/04/18 20:45 Zolpidem Tartrate (Ambien) 10 mg HSPRN PRN ORAL Insomnia 12/05/18 21:00 12/07/18 20:59 Mckinley Fisher M.D. Dec 05, 2018 16:22
--- NOTE | 2018-12-05 16:25 | General Progress Note ---
Progress Note Progress Note Assessment/Plan Problems: (1) Sepsis due to Enterococcus with acute renal failure and metabolic encephalopathy Assessment & Plan: source most likely tract due to obstruction , with no GI mass but polyps which were removed . continue daptomycin renally dosed as per pharmacy for his bacteremia . his HD catheter was removed on 11/29 since it was placed after he was bacteremic with enterococcus. repeated blood culture on 11/30 is negative so far which confirm clearance . monitor CK level weekly while on daptomycin . will need two weeks of iv antibiotics for his bacteremia starting from the clearance date. EOT 12/14/18 (2) Hydronephrosis Assessment & Plan: most likely the source of his bacteremia with enterococcus faecalis , complicated with renal failure , suspect enlarged prostate , with elevated PSA rule out prostate CA , recommend oncology work up with rectal US to rule out prostatic mass and for biopsy , and possible prostatectomy once clinically stable in the future (3) Acute on chronic renal failure Assessment & Plan: improving, now making good urine , previously required HD , his HD catheter was removed since it was placed while bacteremic . will wait for 48 hours on antibiotics before placing any new catheter if he needs any in the future, and if his repeated blood culture on 11/30 remains negative . (4) Acute encephalopathy Assessment & Plan: improving, suspect metabolic and toxic , monitor mental status, avoid nephrotoxics , neurology is following (5) Prostate enlargement Assessment & Plan: with elevated PSA, rule out malignant process, recommend rectal US to evaluate the prostate and for possible biopsy to rule out malignancy . (6) Generalized weakness Assessment & Plan: recommend rehabilitation and PT Subjective Subjective Constitutional: Reports: no symptoms HEENT: Reports: no symptoms Respiratory: Reports: no symptoms Breasts: Reports: no symptoms Cardiovascular: Reports: no symptoms Gastrointestinal/Abdominal: Reports: no symptoms Genitourinary: Reports: no symptoms Neurologic: Reports: no symptoms Psychiatric: Reports: no symptoms Skin: Reports: no symptoms Endocrine: Reports: no symptoms Hematologic: Reports: no symptoms Musculoskeletal: Reports: no symptoms Allergies: Coded Allergies: No Known Allergies (Unverified , 11/21/18) Subjective He was feeling better , up in bed, comfortable, denied any fever or chills, no cough or SOB , no cough or SOB, no neck pain or hematoma, no diarrhea , feels more energetic Objective Objective Vital Signs reviewed and stable Height (Feet): 5 Height (Inches): 7.00 Weight (Pounds): 154 General Appearance: WD/WN, no acute distress HEENT: normocephalic, atraumatic, anicteric, mucous membranes moist Respiratory/Chest: chest wall non-tender, lungs clear, normal breath sounds, no respiratory distress, no accessory muscle use Cardiovascular: normal peripheral pulses, normal rate, regular rhythm, no gallop/murmur, no JVD Abdomen: normal bowel sounds, soft, non tender, no organomegaly, non distended , no mass, no scars Extremities: no cyanosis, no clubbing Skin: no rash, no lesions, no ulcers Neurologic/Psychiatric: alert, oriented x 3, responsive Lymphatic: no neck adenopathy, no groin adenopathy Musculoskeletal: normal muscle bulk Current Medications Medications (Trade) Dose Ordered Sig/Debbie Route PRN Reason Start Time Stop Time Status Last Admin Dose Admin Acetaminophen (Tylenol) 650 mg Q6H PRN ORAL Mild Pain/Temp > 100.5 11/22/18 03:15 12/22/18 03:14 12/02/18 18:22 Acetaminophen/ Hydrocodone Bitart ([place] 5/325) 1 tab Q4H PRN ORAL Moderate Pain (Pain Scale 4-6) 12/02/18 00:45 12/09/18 00:44 12/03/18 00:39 Al Hydroxide/Mg Hydroxide (Mylanta) 30 ml Q6H PRN ORAL GERD 11/22/18 03:15 12/22/18 03:14 Bisacodyl (Dulcolax) 10 mg DAILYPRN PRN RECTAL Constipation 11/30/18 14:30 12/30/18 14:29 11/30/18 14:29 Daptomycin 700 mg/ Sodium Chloride 55 ml @ 100 mls/hr Q48H IV 11/27/18 14:00 12/14/18 13:59 12/05/18 13:47 Docusate Sodium (Colace) 100 mg TWICE A DAY ORAL 11/25/18 09:00 12/25/18 08:59 12/05/18 09:02 Epoetin Tommy (Epoetin Tommy(ESRD on dialysis)) 2,000 unit WED-WED-WED SUBQ 11/23/18 21:00 12/23/18 20:59 11/30/18 21:54 Epoetin Tommy (Epoetin Tommy(ESRD on dialysis)) 3,000 unit WED-WED-WED SUBQ 11/23/18 21:00 12/23/18 20:59 11/30/18 21:54 Finasteride (Proscar) 5 mg DAILY ORAL 11/25/18 09:00 12/25/18 08:59 12/05/18 08:50 Heparin Sodium (Porcine) (Heparin 5000 units/ml) 5,000 units EVERY 12 HOURS SUBQ 11/22/18 09:00 12/22/18 08:59 11/30/18 22:01 Magnesium Hydroxide (Mom) 30 ml BIDPRN PRN ORAL Constipation 11/26/18 12:45 12/26/18 12:44 11/29/18 18:50 Meclizine HCl (Antivert) 25 mg TIDPRN PRN ORAL for dizziness 11/23/18 18:15 12/23/18 18:14 Metoprolol Tartrate (Lopressor) 25 mg Q12HR ORAL 11/22/18 21:00 12/22/18 20:59 12/04/18 20:46 Ondansetron HCl (Zofran) 4 mg Q6H PRN IVP Nausea & Vomiting 11/24/18 09:30 12/24/18 09:29 11/26/18 23:02 Pantoprazole (Protonix) 40 mg DAILY ORAL 11/26/18 09:00 12/26/18 08:59 12/05/18 08:50 Paricalcitol (Zemplar) 1 mcg THREE TIMES A WEEK ORAL 12/02/18 16:00 01/01/19 15:59 12/05/18 08:50 Tamsulosin HCl (Flomax) 0.4 mg BEDTIME ORAL 11/24/18 23:00 12/24/18 22:59 12/04/18 20:45 Zolpidem Tartrate (Ambien) 10 mg HSPRN PRN ORAL Insomnia 12/05/18 21:00 12/07/18 20:59 Mckinley Fisher M.D. Dec 04, 2018 17:22 Mckinley Fisher M.D. Dec 05, 2018 16:25
--- NOTE | 2018-12-05 18:24 | General Progress Note ---
Assessment/Plan Assessment/Plan Assessment - Anemia, OB(+) - Renal failure - Obstructive uropathy - b/l edema - Duplex negative - PSA =10, ? CAP - abnormal LFT --> now normal - EGD: Incidental small hiatal hernia and mild duodenitis, biopsied antrum for H Pylori Colon: Ulcers and erosions in hepatic flexure, typical for ischemic colitis ( biopsied) Diminutive prox ascending colon and sigmoid polyp at 20 - biopsied Recommendations - Renal diet - Zofran PRN - follow CBC/LFT - f/u path - Avoid volume depletion Subjective Allergies: Coded Allergies: No Known Allergies (Unverified , 11/21/18) Subjective Feels OK tolerating PO await placement Objective Last 24 Hour Vital Signs Date Time Temp Pulse Resp B/P (MAP) Pulse Ox O2 Delivery O2 Flow Rate FiO2 12/05/18 16:00 68 12/05/18 16:00 98.5 77 18 112/73 (86) 99 12/05/18 12:02 71 12/05/18 12:00 98.0 77 20 121/72 (88) 99 12/05/18 09:00 Room Air 12/05/18 08:51 88 101/71 12/05/18 08:48 88 101/71 (81) 12/05/18 08:28 67 12/05/18 08:00 98.2 80 20 91/60 (70) 98 12/05/18 04:00 64 12/05/18 04:00 96.9 70 18 119/74 (89) 98 12/05/18 00:00 63 12/05/18 00:00 97.5 68 18 113/74 (87) 96 12/04/18 21:00 Room Air 12/04/18 20:46 80 118/66 12/04/18 20:00 98.2 80 18 108/63 (78) 97 12/04/18 20:00 75 Intake and Output 12/04/18 12/05/18 19:00 07:00 Intake Total 720 ml Output Total 1500 ml Balance -780 ml Intake Oral 720 ml Output Urine Total 1500 ml Height (Feet): 5 Height (Inches): 7.00 Weight (Pounds): 154 Objective WDWN NCAT supple CTA RRR Abd soft (+) edema Yasir Alexandra MD Dec 05, 2018 18:24
--- NOTE | 2018-12-05 19:10 | NUR ---
NURSE NOTES: Received report from Evy Hicks RN. Pt is resting in the bed in RA w/o distress. Iv is at RFA 20G, asymptomatic. A&O x4, endorsed that pt is ambulatory with steady gait. Pt was instructed to have BM in the BSC to collect OBS and call for the help, pt verbalized the understadning. Call light and side table are w/in reach. Will follow plans of care.
--- NOTE | 2018-12-05 19:29 | NUR ---
HAND-OFF: Report given to AIDA Powell.
[2018-12-05] MEDS: Tamsulosin 0.4mg cap ORAL SCH (21:14)
[2018-12-05] MEDS: Epoetin Alfa(ESRD on dialysis)3000 units/ml vial SUBQ SCH (21:14)
[2018-12-05] MEDS: EPOETIN ALFA 2000 UNIT/ML SUBQ SCH (21:14)
[2018-12-05] MEDS: Zolpidem 5mg tab ORAL PRN (21:15)
--- NOTE | 2018-12-05 22:14 | General Progress Note ---
Assessment/Plan Assessment/Plan sepsis acute renal failure hyperkalemia obstructive uropathy bph elevated troponin ho htn anemia confusion encephalopathy likiely secondary to uremia resolved vomiting likely secondary to uremia short syncopal episode leukocytosis constiaption abx per ID has johnson, urology fup making good urine infoley, monitor renal parameters echo noted ct of head noted neurolgy evaluation appreciated monitor labs colonopsy noted dw Dr Stokes dvt and ulcer prophylaxis ambulate PT stool softners and laxatives ambulate will likely then need snf when ready for discharge Subjective Allergies: Coded Allergies: No Known Allergies (Unverified , 11/21/18) Subjective seen in am comfotable, feels stronger no chest pain or sob Objective Last 24 Hour Vital Signs Date Time Temp Pulse Resp B/P (MAP) Pulse Ox O2 Delivery O2 Flow Rate FiO2 12/05/18 21:00 70 104/66 12/05/18 20:00 98.4 70 18 104/66 (79) 96 12/05/18 16:00 68 12/05/18 16:00 98.5 77 18 112/73 (86) 99 12/05/18 12:02 71 12/05/18 12:00 98.0 77 20 121/72 (88) 99 12/05/18 09:00 Room Air 12/05/18 08:51 88 101/71 12/05/18 08:48 88 101/71 (81) 12/05/18 08:28 67 12/05/18 08:00 98.2 80 20 91/60 (70) 98 12/05/18 04:00 64 12/05/18 04:00 96.9 70 18 119/74 (89) 98 12/05/18 00:00 63 12/05/18 00:00 97.5 68 18 113/74 (87) 96 Intake and Output 12/04/18 12/05/18 18:59 06:59 Intake Total 720 ml Output Total 1500 ml Balance -780 ml Intake Oral 720 ml Output Urine Total 1500 ml Height (Feet): 5 Height (Inches): 7.00 Weight (Pounds): 154 General Appearance: WD/WN, no apparent distress Neck: supple Cardiovascular: normal rate Respiratory/Chest: lungs clear Abdomen: soft Dane Vasquez MD Dec 05, 2018 22:14
--- NOTE | 2018-12-06 00:29 | NUR ---
NURSE NOTES: Pt is sleeping w/o distress in RA. SR in the monitor. Pt refused to take Heparin and BP med for his BP was not high, BP 104/66 at 2100, 12/05. Pt refused to take minight VS check to sleep w/o disturbance. Dr. Wise called for Urology cart w/ 2% Lidocaine jelly ready early in the morning. It will be ready in the room.
[2018-12-06] MEDS ORDERED: Lidocaine HCl 2% Jelly 6ml Tube TOPIC ONE (02:33)
[2018-12-06] MEDS ORDERED: Hydromorphone 0.5mg/0.5ml inj IVP SCH (07:15)
--- NOTE | 2018-12-06 07:30 | NUR ---
HAND-OFF: Report given to Aaron Kapoor RN. Dr. Wise came and changed johnson cath.
[2018-12-06 07:32] LABS: BASOPHILS % (AUTO) 1.5 % (0.0-2.0); EOSINOPHILS % (AUTO) 4.1 % (0.0-3.0); HEMOGLOBIN 9.7 G/DL (14.2-18.0); LYMPHOCYTES % (AUTO) 6.9 % (20.0-45.0); MEAN CORPUSCULAR VOLUME 94 FL (80-99); MONOCYTES % (AUTO) 9.4 % (1.0-10.0); NEUTROPHILS % (AUTO) 78.1 % (45.0-75.0); PLATELET COUNT 415 K/UL (150-450); RED CELL DISTRIBUTION WIDTH 11.6 % (11.6-14.8); WHITE BLOOD COUNT 7.8 K/UL (4.8-10.8)
--- NOTE | 2018-12-06 07:40 | NUR ---
Received pt from AIDA Cole in stable condition on RA with no cardiopulmonary distress noted. Pt is AAOx4 and awake in bed with no c/o pain at this time. F/C noted draining yellow urine. Skin intact. R 20g FA IV noted and patent. Bed in lowest position. Side rails up x 2. Call light within reach. Will continue to monitor pt.
[2018-12-06 07:56] LABS: ALANINE AMINOTRANSFERASE 49 U/L (12-78); ALBUMIN 2.4 G/DL (3.4-5.0); ALBUMIN/GLOBULIN RATIO 0.5 (1.0-2.7); ALKALINE PHOSPHATASE 127 U/L (46-116); ANION GAP 13 mmol/L (5-15); ASPARTATE AMINO TRANSFERASE 25 U/L (15-37); BILIRUBIN,TOTAL 0.3 MG/DL (0.2-1.0); BLOOD UREA NITROGEN 71 mg/dL (7-18); CALCIUM 9.4 MG/DL (8.5-10.1); CARBON DIOXIDE 23 MMOL/L (21-32); CHLORIDE 102 MMOL/L (98-107); CREATININE 4.3 MG/DL (0.55-1.30); POTASSIUM 4.1 MMOL/L (3.5-5.1); SODIUM 138 MMOL/L (136-145)
--- NOTE | 2018-12-06 07:57 | Urology Progress Note ---
Assessment/Plan Assessment/Plan 1. Urinary retention history. 2. Benign prostatic hypertrophy. 3. Possible neurogenic bladder. 4. Hematuria. 5. Renal failure, which appears to be acute on chronic, improved. 6. Hydronephrosis, improved with Johnson. 7. Proteinuria. 8. Meatal stenosis and stricture history. 9. Inguinal hernia. 10. Elevated serum PSA. monitor clinically johnson hand irrigated and do PRN secured to pt's leg off HD for now monitor renal fxn closely, seems to have stabilized flomax and proscar added cysto later voiding trial at some point? prob as outpt most likely will need TURP pt given dilaudid and 2% xylocaine jelly urethral meatus gently dilated johnson exchanged to larger size, 16f coude cath placed hand irrigated and position is satisfactory poss prostate bx later d/w Dr. Alexandra Subjective Allergies: Coded Allergies: No Known Allergies (Unverified , 11/21/18) Subjective all noted, feels fair Objective Last 24 Hour Vital Signs Date Time Temp Pulse Resp B/P (MAP) Pulse Ox O2 Delivery O2 Flow Rate FiO2 12/06/18 03:57 69 12/05/18 23:42 66 12/05/18 21:00 Room Air 12/05/18 21:00 70 104/66 12/05/18 20:00 98.4 70 18 104/66 (79) 96 12/05/18 19:41 70 12/05/18 16:00 68 12/05/18 16:00 98.5 77 18 112/73 (86) 99 12/05/18 12:02 71 12/05/18 12:00 98.0 77 20 121/72 (88) 99 12/05/18 09:00 Room Air 12/05/18 08:51 88 101/71 12/05/18 08:48 88 101/71 (81) 12/05/18 08:28 67 12/05/18 08:00 98.2 80 20 91/60 (70) 98 Intake and Output 12/05/18 12/06/18 19:00 07:00 Intake Total 540 ml 1000 ml Output Total 3100 ml 2000 ml Balance -2560 ml -1000 ml Intake Oral 540 ml 1000 ml Output Urine Total 3100 ml 2000 ml Microbiology Date/Time Source Procedure Growth Status 11/30/18 21:00 Blood Blood Culture - Final NO GROWTH AFTER 5 DAYS Complete 11/23/18 15:00 Stool Ova and Parasites - Final Complete 11/23/18 15:00 Stool Ova and Parasite Result 1 - Final Complete Current Medications Medications (Trade) Dose Ordered Sig/Debbie Route PRN Reason Start Time Stop Time Status Last Admin Dose Admin Acetaminophen (Tylenol) 650 mg Q6H PRN ORAL Mild Pain/Temp > 100.5 11/22/18 03:15 12/22/18 03:14 12/02/18 18:22 Acetaminophen/ Hydrocodone Bitart ([place] 5/325) 1 tab Q4H PRN ORAL Moderate Pain (Pain Scale 4-6) 12/02/18 00:45 12/09/18 00:44 12/03/18 00:39 Al Hydroxide/Mg Hydroxide (Mylanta) 30 ml Q6H PRN ORAL GERD 11/22/18 03:15 12/22/18 03:14 Bisacodyl (Dulcolax) 10 mg DAILYPRN PRN RECTAL Constipation 11/30/18 14:30 12/30/18 14:29 11/30/18 14:29 Daptomycin 700 mg/ Sodium Chloride 55 ml @ 100 mls/hr Q48H IV 11/27/18 14:00 12/14/18 13:59 12/05/18 13:47 Docusate Sodium (Colace) 100 mg TWICE A DAY ORAL 11/25/18 09:00 12/25/18 08:59 12/05/18 18:07 Epoetin Tommy (Epoetin Tommy(ESRD on dialysis)) 2,000 unit WED-WED-WED SUBQ 11/23/18 21:00 12/23/18 20:59 12/05/18 21:14 Epoetin Tommy (Epoetin Tommy(ESRD on dialysis)) 3,000 unit WED-WED-WED SUBQ 11/23/18 21:00 12/23/18 20:59 12/05/18 21:14 Finasteride (Proscar) 5 mg DAILY ORAL 11/25/18 09:00 12/25/18 08:59 12/05/18 08:50 Heparin Sodium (Porcine) (Heparin 5000 units/ml) 5,000 units EVERY 12 HOURS SUBQ 11/22/18 09:00 12/22/18 08:59 11/30/18 22:01 Hydromorphone HCl (Dilaudid) 0.5 mg ONCE IVP 12/06/18 07:15 12/06/18 08:15 12/06/18 07:26 Magnesium Hydroxide (Mom) 30 ml BIDPRN PRN ORAL Constipation 11/26/18 12:45 12/26/18 12:44 11/29/18 18:50 Meclizine HCl (Antivert) 25 mg TIDPRN PRN ORAL for dizziness 11/23/18 18:15 12/23/18 18:14 Metoprolol Tartrate (Lopressor) 25 mg Q12HR ORAL 11/22/18 21:00 12/22/18 20:59 12/04/18 20:46 Ondansetron HCl (Zofran) 4 mg Q6H PRN IVP Nausea & Vomiting 11/24/18 09:30 12/24/18 09:29 11/26/18 23:02 Pantoprazole (Protonix) 40 mg DAILY ORAL 11/26/18 09:00 12/26/18 08:59 12/05/18 08:50 Paricalcitol (Zemplar) 1 mcg THREE TIMES A WEEK ORAL 12/02/18 16:00 01/01/19 15:59 12/05/18 08:50 Tamsulosin HCl (Flomax) 0.4 mg BEDTIME ORAL 11/24/18 23:00 12/24/18 22:59 12/05/18 21:14 Zolpidem Tartrate (Ambien) 10 mg HSPRN PRN ORAL Insomnia 12/05/18 21:00 12/07/18 20:59 12/05/18 21:15 Laboratory Tests 12/06/18 06:26: White Blood Count 7.8, Red Blood Count 3.10L, Hemoglobin 9.7L, Hematocrit 29.0L , Mean Corpuscular Volume 94, Mean Corpuscular Hemoglobin 31.5H, Mean Corpuscular Hemoglobin Concent 33.6, Red Cell Distribution Width 11.6, Platelet Count 415, Mean Platelet Volume 4.8L, Neutrophils (%) (Auto) 78.1H, Lymphocytes (%) (Auto) 6.9L, Monocytes (%) (Auto) 9.4, Eosinophils (%) (Auto) 4.1H, Basophils (%) (Auto) 1.5, Sodium Level [Pending], Potassium Level [Pending], Chloride Level [Pending], Carbon Dioxide Level [Pending], Blood Urea Nitrogen [ Pending], Creatinine [Pending], Estimat Glomerular Filtration Rate [Pending], Glucose Level [Pending], Calcium Level [Pending], Total Bilirubin [Pending], Aspartate Amino Transf (AST/SGOT) [Pending], Alanine Aminotransferase (ALT/SGPT ) [Pending], Alkaline Phosphatase [Pending], Total Protein [Pending], Albumin [ Pending], Globulin [Pending] Height (Feet): 5 Height (Inches): 7.00 Weight (Pounds): 154 Objective exam stable, urine clearing, has some debris serum PSA 10.09 abdominal u/s (11/29) noted Geraldo Wise MD Dec 06, 2018 07:57
[2018-12-06 08:00] VITALS: BP 113/64
[2018-12-06] MEDS: Metoprolol 25mg tab ORAL SCH ×2 (08:48→20:45)
[2018-12-06] MEDS: Docusate 100mg cap ORAL SCH ×2 (08:50→17:45)
[2018-12-06] MEDS: Heparin 5000 units/ml inj SUBQ SCH ×2 (08:51→20:46)
--- NOTE | 2018-12-06 10:27 | Diagnostic Imaging Report ---
APPROVED REPORT CPT Code: 90021 Present Symptoms Comments: BILATERAL LEGS PAIN. BILATERAL: Imaging reveals a patent deep venous system bilaterally. There is no evidence of thrombus within the femoral, popliteal or tibial segments. The greater saphenous veins are also within normal limits. Doppler indicates normal spontaneous flow within these segments.
[2018-12-06 12:00] VITALS: BP 109/64
--- NOTE | 2018-12-06 12:18 | NUR ---
RD ASSESSMENT & RECOMMENDATIONS SEE CARE ACTIVITY FOR COMPLETE ASSESSMENT DAILY ESTIMATED NEEDS: Needs based on ARF on CKD, now off HD/ 72.7kg 25-30 kcals/kg 9703-5125 total kcals 0.7-0.9 g protein/kg 50-65 g total protein 20-22 mL/kg 0137-3406 total fluid mLs NUTRITION DIAGNOSIS: Altered nutrition related lab values R/T ARF on CKD as evidenced by elev BUN (231->71), elev creat (14->4.3), critically elev K upon adm (7.0*-> now wnl), elev phos upon adm (9.2) not updated, elev BNP (1278->745). CURRENT DIET:RENAL DIET PO DIET RECOMMENDATIONS: CONTINUE RENAL DIET/ + 60g protein restriction ADDITIONAL RECOMMENDATIONS: * Standing wt for accurate CBW * Renal diet education provided on 11/24/18. * Rec check f/up phos level (9.2 upon adm) * Monitor BGs closely, need for carb controlled diet- A1C=6.1 * Monitor renal fxn and lytes closely- now off HD
--- NOTE | 2018-12-06 14:34 | NUR ---
CASE MANAGEMENT:REVIEW 12/06/18 SI: SEPSIS. ACUTE RENAL FAILURE 97.9 68 18 109/64 98% ON RA BUN+71 CR+4.3 IS: zemplar po tid iv daptomycin q48hrs PROTONIX PO QD PROSCAR PO QD FLOMAX PO QHS PROCRIT SQ MWF LOPRESSOR PO Q12 HEPARIN SQ Q12 : TELEMETRY STATUS
--- NOTE | 2018-12-06 14:57 | NUR ---
*-* INSURANCE *-* REVIEWS HAVE BEEN FAXED TO: ANATOLIY HENDRICKS:NORMA P:[phone] F:[phone] REF# [id number]
--- NOTE | 2018-12-06 15:14 | Cardiac Electrophysiology PN ---
Assessment/Plan Assessment/Plan 1. Type 2 NSTEMI. The levels are nonspecific and flat 0.5, 0.5, 0.2. Denies any chest pain. This is due to the patient's renal failure EKG shows sinus rhythm with no acute ST-T wave abnormalities. EF 65%. On aspirin and Lopressor 2. Recurrent atrial flutter on 11/24 and 11/25/18. Both terminated spontaneously On Metoprolol 25 bid. Consider nursing home anticoagulation if recurs Has remained in SR 70S 3. Hyperkalemia. Potassium was 7 and is down to 4.1. S/P sodium bicarbonate and Kayexalate. Had HD 4. Acute on chronic renal failure. Further evaluation by Dr. Sosa. Cecil catheter removed. No further HD scheduled 5. Syncope. ? etiology. Nl EF. No . Could be due to atrial flutter with RVR 6. High PSA Fu Dr Alvarez 7. Sepsis, source most likely tract , may need also to rule out GI malignancy. On daptomycin. Repeated blood culture x2 on 11/26 is NTD . HD catheter was removed 8. Anemia,S/P PRBC. GD and colonoscopy showed ischemic colitis FU DR Toby PETERSON RN Subjective Subjective In SR 70s. No CP or SOB. Had vagal episode after BM today Objective Last 24 Hour Vital Signs Date Time Temp Pulse Resp B/P (MAP) Pulse Ox O2 Delivery O2 Flow Rate FiO2 12/06/18 12:00 69 12/06/18 12:00 97.9 68 18 109/64 (79) 98 12/06/18 09:00 Room Air 12/06/18 08:48 75 113/64 12/06/18 08:00 75 12/06/18 08:00 96.2 75 18 113/64 (80) 99 12/06/18 03:57 69 12/05/18 23:42 66 12/05/18 21:00 Room Air 12/05/18 21:00 70 104/66 12/05/18 20:00 98.4 70 18 104/66 (79) 96 12/05/18 19:41 70 12/05/18 16:00 68 12/05/18 16:00 98.5 77 18 112/73 (86) 99 Intake and Output 12/05/18 12/06/18 18:59 06:59 Intake Total 540 ml 1000 ml Output Total 3100 ml 2000 ml Balance -2560 ml -1000 ml Intake Oral 540 ml 1000 ml Output Urine Total 3100 ml 2000 ml Laboratory Tests Test 12/06/18 06:26 12/06/18 10:00 White Blood Count 7.8 K/UL (4.8-10.8) Red Blood Count 3.10 M/UL (4.70-6.10) L Hemoglobin 9.7 G/DL (14.2-18.0) L Hematocrit 29.0 % (42.0-52.0) L Mean Corpuscular Volume 94 FL (80-99) Mean Corpuscular Hemoglobin 31.5 PG (27.0-31.0) H Mean Corpuscular Hemoglobin Concent 33.6 G/DL (32.0-36.0) Red Cell Distribution Width 11.6 % (11.6-14.8) Platelet Count 415 K/UL (150-450) Mean Platelet Volume 4.8 FL (6.5-10.1) L Neutrophils (%) (Auto) 78.1 % (45.0-75.0) H Lymphocytes (%) (Auto) 6.9 % (20.0-45.0) L Monocytes (%) (Auto) 9.4 % (1.0-10.0) Eosinophils (%) (Auto) 4.1 % (0.0-3.0) H Basophils (%) (Auto) 1.5 % (0.0-2.0) Sodium Level 138 MMOL/L (136-145) Potassium Level 4.1 MMOL/L (3.5-5.1) Chloride Level 102 MMOL/L (98-107) Carbon Dioxide Level 23 MMOL/L (21-32) Anion Gap 13 mmol/L (5-15) Blood Urea Nitrogen 71 mg/dL (7-18) H Creatinine 4.3 MG/DL (0.55-1.30) H Estimat Glomerular Filtration Rate mL/min (>60) Glucose Level 85 MG/DL (74-106) Calcium Level 9.4 MG/DL (8.5-10.1) Total Bilirubin 0.3 MG/DL (0.2-1.0) Aspartate Amino Transf (AST/SGOT) 25 U/L (15-37) Alanine Aminotransferase (ALT/SGPT) 49 U/L (12-78) Alkaline Phosphatase 127 U/L (46-116) H Total Protein 6.9 G/DL (6.4-8.2) Albumin 2.4 G/DL (3.4-5.0) L Globulin 4.5 g/dL Albumin/Globulin Ratio 0.5 (1.0-2.7) L Stool Occult Blood Pending Objective HEAD AND NECK: No JVD. LUNGS: Clear. CARDIOVASCULAR: Regular S1 and S2 with no gallop or murmur. ABDOMEN: Soft. EXTREMITIES: 1+ pitting edema. David Guerra MD Dec 06, 2018 15:14
--- NOTE | 2018-12-06 15:16 | Nephrology Progress Note ---
Assessment/Plan Problem List: (1) Acute on chronic renal failure Assessment: worse (2) Urinary retention (3) Hyperkalemia (4) Metabolic acidosis (5) Uremia (6) Bacteremia due to Enterococcus (7) Anemia Assessment: better (8) Iron deficiency (9) Secondary hyperparathyroidism of renal origin Assessment still polyuric Plan follow BMP cont Zemplar IV Iron+ Epogen check orthostatics Subjective Subjective feels ok Objective Objective Last 24 Hour Vital Signs Date Time Temp Pulse Resp B/P (MAP) Pulse Ox O2 Delivery O2 Flow Rate FiO2 12/06/18 12:00 69 12/06/18 12:00 97.9 68 18 109/64 (79) 98 12/06/18 09:00 Room Air 12/06/18 08:48 75 113/64 12/06/18 08:00 75 12/06/18 08:00 96.2 75 18 113/64 (80) 99 12/06/18 03:57 69 12/05/18 23:42 66 12/05/18 21:00 Room Air 12/05/18 21:00 70 104/66 12/05/18 20:00 98.4 70 18 104/66 (79) 96 12/05/18 19:41 70 12/05/18 16:00 68 12/05/18 16:00 98.5 77 18 112/73 (86) 99 Intake and Output 12/05/18 12/06/18 18:59 06:59 Intake Total 540 ml 1000 ml Output Total 3100 ml 2000 ml Balance -2560 ml -1000 ml Intake Oral 540 ml 1000 ml Output Urine Total 3100 ml 2000 ml Laboratory Tests 12/06/18 06:26: White Blood Count 7.8, Red Blood Count 3.10L, Hemoglobin 9.7L, Hematocrit 29.0L , Mean Corpuscular Volume 94, Mean Corpuscular Hemoglobin 31.5H, Mean Corpuscular Hemoglobin Concent 33.6, Red Cell Distribution Width 11.6, Platelet Count 415, Mean Platelet Volume 4.8L, Neutrophils (%) (Auto) 78.1H, Lymphocytes (%) (Auto) 6.9L, Monocytes (%) (Auto) 9.4, Eosinophils (%) (Auto) 4.1H, Basophils (%) (Auto) 1.5, Sodium Level 138, Potassium Level 4.1, Chloride Level 102, Carbon Dioxide Level 23, Anion Gap 13, Blood Urea Nitrogen 71H, Creatinine 4.3H, Estimat Glomerular Filtration Rate , Glucose Level 85, Calcium Level 9.4, Total Bilirubin 0.3, Aspartate Amino Transf (AST/SGOT) 25, Alanine Aminotransferase (ALT/SGPT) 49, Alkaline Phosphatase 127H, Total Protein 6.9, Albumin 2.4L, Globulin 4.5, Albumin/Globulin Ratio 0.5L 12/06/18 10:00: Stool Occult Blood [Pending] Height (Feet): 5 Height (Inches): 7.00 Weight (Pounds): 154 Cardiovascular: normal rate Respiratory/Chest: lungs clear Extremities: trace edema Michael Sosa MD Dec 06, 2018 15:16
[2018-12-06 16:00] VITALS: BP 104/63
--- NOTE | 2018-12-06 17:23 | Infectious Diseases Prog Note ---
Assessment/Plan Problems: (1) Sepsis due to Enterococcus with acute renal failure and metabolic encephalopathy Assessment & Plan: source most likely tract due to obstruction , with no GI mass but polyps which were removed . continue daptomycin renally dosed as per pharmacy for his bacteremia . his HD catheter was removed on 11/29 since it was placed after he was bacteremic with enterococcus. repeated blood culture on 11/30 is negative so far which confirm clearance . monitor CK level weekly while on daptomycin . will need two weeks of iv antibiotics for his bacteremia starting from the clearance date. EOT 12/14/18 (2) Hydronephrosis Assessment & Plan: most likely the source of his bacteremia with enterococcus faecalis , complicated with renal failure , suspect enlarged prostate , with elevated PSA rule out prostate CA , recommend oncology work up with rectal US to rule out prostatic mass and for biopsy , and possible prostatectomy once clinically stable in the future (3) Acute on chronic renal failure Assessment & Plan: improving, now making good urine , previously required HD , his HD catheter was removed since it was placed while bacteremic . S/P Morfin catheter change (4) Acute encephalopathy Assessment & Plan: improving, suspect metabolic and toxic , monitor mental status, avoid nephrotoxics , neurology is following (5) Prostate enlargement Assessment & Plan: with elevated PSA, rule out malignant process, recommend rectal US to evaluate the prostate and for possible biopsy to rule out malignancy . (6) Generalized weakness Assessment & Plan: recommend rehabilitation and PT Subjective Constitutional: Reports: no symptoms HEENT: Reports: no symptoms Respiratory: Reports: no symptoms Breasts: Reports: no symptoms Cardiovascular: Reports: no symptoms Gastrointestinal/Abdominal: Reports: no symptoms Genitourinary: Reports: no symptoms Neurologic: Reports: no symptoms Psychiatric: Reports: no symptoms Skin: Reports: no symptoms Endocrine: Reports: no symptoms Hematologic: Reports: no symptoms Musculoskeletal: Reports: no symptoms Allergies: Coded Allergies: No Known Allergies (Unverified , 11/21/18) Subjective He was feeling better everyday , denied any fever or chills, no cough or SOB , no cough or SOB, no neck pain or hematoma, no diarrhea , feels more energetic Objective Vital Signs Last 24 Hour Vital Signs Date Time Temp Pulse Resp B/P (MAP) Pulse Ox O2 Delivery O2 Flow Rate FiO2 12/06/18 16:00 98.7 91 18 104/63 (77) 99 12/06/18 16:00 70 12/06/18 15:24 91 12/06/18 15:19 86 12/06/18 15:14 76 12/06/18 12:00 69 12/06/18 12:00 97.9 68 18 109/64 (79) 98 12/06/18 09:00 Room Air 12/06/18 08:48 75 113/64 12/06/18 08:00 75 12/06/18 08:00 96.2 75 18 113/64 (80) 99 12/06/18 03:57 69 12/05/18 23:42 66 12/05/18 21:00 Room Air 12/05/18 21:00 70 104/66 12/05/18 20:00 98.4 70 18 104/66 (79) 96 12/05/18 19:41 70 Height (Feet): 5 Height (Inches): 7.00 Weight (Pounds): 154 General Appearance: WD/WN, no acute distress HEENT: normocephalic, atraumatic, anicteric, mucous membranes moist, PERRL, EOMI, pharynx normal, supple, no JVD Respiratory/Chest: chest wall non-tender, lungs clear, normal breath sounds, no respiratory distress, no accessory muscle use, decreased breath sounds Cardiovascular: normal peripheral pulses, normal rate, regular rhythm, no gallop/murmur, no JVD Abdomen: normal bowel sounds, soft, non tender, no organomegaly, non distended , no mass, no scars Genitourinary: normal external genitalia Extremities: no cyanosis, no clubbing Skin: no rash, no lesions, no ulcers Neurologic/Psychiatric: alert, oriented x 3, responsive Lymphatic: no neck adenopathy, no groin adenopathy Musculoskeletal: normal muscle bulk, no effusion Laboratory Tests Test 12/06/18 06:26 12/06/18 10:00 White Blood Count 7.8 K/UL (4.8-10.8) Red Blood Count 3.10 M/UL (4.70-6.10) L Hemoglobin 9.7 G/DL (14.2-18.0) L Hematocrit 29.0 % (42.0-52.0) L Mean Corpuscular Volume 94 FL (80-99) Mean Corpuscular Hemoglobin 31.5 PG (27.0-31.0) H Mean Corpuscular Hemoglobin Concent 33.6 G/DL (32.0-36.0) Red Cell Distribution Width 11.6 % (11.6-14.8) Platelet Count 415 K/UL (150-450) Mean Platelet Volume 4.8 FL (6.5-10.1) L Neutrophils (%) (Auto) 78.1 % (45.0-75.0) H Lymphocytes (%) (Auto) 6.9 % (20.0-45.0) L Monocytes (%) (Auto) 9.4 % (1.0-10.0) Eosinophils (%) (Auto) 4.1 % (0.0-3.0) H Basophils (%) (Auto) 1.5 % (0.0-2.0) Sodium Level 138 MMOL/L (136-145) Potassium Level 4.1 MMOL/L (3.5-5.1) Chloride Level 102 MMOL/L (98-107) Carbon Dioxide Level 23 MMOL/L (21-32) Anion Gap 13 mmol/L (5-15) Blood Urea Nitrogen 71 mg/dL (7-18) H Creatinine 4.3 MG/DL (0.55-1.30) H Estimat Glomerular Filtration Rate mL/min (>60) Glucose Level 85 MG/DL (74-106) Calcium Level 9.4 MG/DL (8.5-10.1) Total Bilirubin 0.3 MG/DL (0.2-1.0) Aspartate Amino Transf (AST/SGOT) 25 U/L (15-37) Alanine Aminotransferase (ALT/SGPT) 49 U/L (12-78) Alkaline Phosphatase 127 U/L (46-116) H Total Protein 6.9 G/DL (6.4-8.2) Albumin 2.4 G/DL (3.4-5.0) L Globulin 4.5 g/dL Albumin/Globulin Ratio 0.5 (1.0-2.7) L Stool Occult Blood Pending Current Medications Medications (Trade) Dose Ordered Sig/Debbie Route PRN Reason Start Time Stop Time Status Last Admin Dose Admin Acetaminophen (Tylenol) 650 mg Q6H PRN ORAL Mild Pain/Temp > 100.5 11/22/18 03:15 12/22/18 03:14 12/02/18 18:22 Acetaminophen/ Hydrocodone Bitart (Brandon 5/325) 1 tab Q4H PRN ORAL Moderate Pain (Pain Scale 4-6) 12/02/18 00:45 12/09/18 00:44 12/03/18 00:39 Al Hydroxide/Mg Hydroxide (Mylanta) 30 ml Q6H PRN ORAL GERD 11/22/18 03:15 12/22/18 03:14 Bisacodyl (Dulcolax) 10 mg DAILYPRN PRN RECTAL Constipation 11/30/18 14:30 12/30/18 14:29 12/06/18 08:56 Daptomycin 700 mg/ Sodium Chloride 55 ml @ 100 mls/hr Q48H IV 11/27/18 14:00 12/14/18 13:59 12/05/18 13:47 Docusate Sodium (Colace) 100 mg TWICE A DAY ORAL 11/25/18 09:00 12/25/18 08:59 12/06/18 08:50 Epoetin Tommy (Epoetin Tommy(ESRD on dialysis)) 2,000 unit WED-WED-WED SUBQ 11/23/18 21:00 12/23/18 20:59 12/05/18 21:14 Epoetin Tommy (Epoetin Tommy(ESRD on dialysis)) 3,000 unit WED-WED-WED SUBQ 11/23/18 21:00 12/23/18 20:59 12/05/18 21:14 Finasteride (Proscar) 5 mg DAILY ORAL 11/25/18 09:00 12/25/18 08:59 12/06/18 08:49 Heparin Sodium (Porcine) (Heparin 5000 units/ml) 5,000 units EVERY 12 HOURS SUBQ 11/22/18 09:00 12/22/18 08:59 11/30/18 22:01 Magnesium Hydroxide (Mom) 30 ml BIDPRN PRN ORAL Constipation 11/26/18 12:45 12/26/18 12:44 11/29/18 18:50 Meclizine HCl (Antivert) 25 mg TIDPRN PRN ORAL for dizziness 11/23/18 18:15 12/23/18 18:14 Metoprolol Tartrate (Lopressor) 25 mg Q12HR ORAL 11/22/18 21:00 12/22/18 20:59 12/06/18 08:48 Ondansetron HCl (Zofran) 4 mg Q6H PRN IVP Nausea & Vomiting 11/24/18 09:30 12/24/18 09:29 11/26/18 23:02 Pantoprazole (Protonix) 40 mg DAILY ORAL 11/26/18 09:00 12/26/18 08:59 12/06/18 08:49 Paricalcitol (Zemplar) 1 mcg THREE TIMES A WEEK ORAL 12/02/18 16:00 01/01/19 15:59 12/05/18 08:50 Tamsulosin HCl (Flomax) 0.4 mg BEDTIME ORAL 11/24/18 23:00 12/24/18 22:59 12/05/18 21:14 Zolpidem Tartrate (Ambien) 10 mg HSPRN PRN ORAL Insomnia 12/05/18 21:00 12/07/18 20:59 12/05/18 21:15 Mckinley Fisher M.D. Dec 06, 2018 17:23
--- NOTE | 2018-12-06 17:30 | Operative Note - Dictated ---
DATE OF OPERATION: 12/05/2018 GASTROLOGY PROCEDURE SURGEON: Yasir Alexandra M.D. ANESTHESIA: Please see the separate anesthesiologist notes for details. PRE-ENDOSCOPIC DIAGNOSIS: Anemia. POST-ENDOSCOPIC DIAGNOSES: 1. Incidental small hiatal hernia and mild duodenitis. 2. Status post random biopsies of the antrum for H. pylori. 3. Ulcers and erosions in the hepatic flexure, possibly representing ischemic colitis and biopsy. 4. Diminutive proximal ascending colon and sigmoid polyp at 20 cm, status post biopsy removal. DESCRIPTION OF PROCEDURE: The procedure, its risks, indications, alternatives, and possible complications were explained to the patient and informed consent was obtained. The patient was then sedated. A diagnostic upper endoscope was introduced through the oropharynx and advanced to the duodenum. It was gradually withdrawn and then the colonoscope was introduced into the rectum and advanced into the terminal ileum without difficulty. The colonoscope was then gradually withdrawn. Biopsies and procedures and findings were as listed above. Retroflexed view of the rectum was unremarkable. The colonoscope was removed and the patient was sent to recovery in good condition. COMPLICATIONS: None. RECOMMENDATIONS: 1. Follow up biopsy results. 2. Check and treat Helicobacter pylori if positive. 3. Follow CBC. 4. Hydration. Yasir Alexandra M.D. DR: REJI JOB#: [id number] CC:
--- NOTE | 2018-12-06 19:15 | NUR ---
NURSE NOTES: Received report from Aaron Kapoor RN. Pt is resting in the room no distress in RA. SR in the monitor. IV is removed d/t more than 5 days old and pt c/o irritation on the site. Bed in the lowest position w/ 2 side rails up, and breaks are engaged. Pt refused to take midnight VS check up to sleep better. Call light and side table are w/in reach. Will follow plans of care.
--- NOTE | 2018-12-06 19:30 | NUR ---
HAND-OFF: Report given to AIDA Kapoor. Pt in stable condition.
[2018-12-06 20:00] VITALS: BP 115/57
--- NOTE | 2018-12-06 20:10 | Neurology Progress Note ---
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 He was in bed when I went to see him. He has been able to read and write better. The mind continues to be clearer - close to normal. His cognitive function has improved. He has had no further episodes of loss of consciousness. His appetite is good. He walked a few times but not much today. He felt steadier on his feet. His motor function is close to normal. He denies any new neurological symptoms. He specifically denies any weakness on one side or the other, numbness on one side or the other, problems with speech problems with language problems with vision problems with memory. Plans are to go to a SNF in [facility] for a few days. Review of Systems Neuro Review of Systems Benign. Objective Physical Exam Last Vital Signs Date Time Temp Pulse Resp B/P (MAP) Pulse Ox O2 Delivery O2 Flow Rate FiO2 12/06/18 16:00 98.7 91 18 104/63 (77) 99 12/06/18 09:00 Room Air 12/02/18 08:15 3 Laboratory Tests Test 12/06/18 06:26 12/06/18 10:00 White Blood Count 7.8 K/UL (4.8-10.8) Red Blood Count 3.10 M/UL (4.70-6.10) L Hemoglobin 9.7 G/DL (14.2-18.0) L Hematocrit 29.0 % (42.0-52.0) L Mean Corpuscular Volume 94 FL (80-99) Mean Corpuscular Hemoglobin 31.5 PG (27.0-31.0) H Mean Corpuscular Hemoglobin Concent 33.6 G/DL (32.0-36.0) Red Cell Distribution Width 11.6 % (11.6-14.8) Platelet Count 415 K/UL (150-450) Mean Platelet Volume 4.8 FL (6.5-10.1) L Neutrophils (%) (Auto) 78.1 % (45.0-75.0) H Lymphocytes (%) (Auto) 6.9 % (20.0-45.0) L Monocytes (%) (Auto) 9.4 % (1.0-10.0) Eosinophils (%) (Auto) 4.1 % (0.0-3.0) H Basophils (%) (Auto) 1.5 % (0.0-2.0) Sodium Level 138 MMOL/L (136-145) Potassium Level 4.1 MMOL/L (3.5-5.1) Chloride Level 102 MMOL/L (98-107) Carbon Dioxide Level 23 MMOL/L (21-32) Anion Gap 13 mmol/L (5-15) Blood Urea Nitrogen 71 mg/dL (7-18) H Creatinine 4.3 MG/DL (0.55-1.30) H Estimat Glomerular Filtration Rate mL/min (>60) Glucose Level 85 MG/DL (74-106) Calcium Level 9.4 MG/DL (8.5-10.1) Total Bilirubin 0.3 MG/DL (0.2-1.0) Aspartate Amino Transf (AST/SGOT) 25 U/L (15-37) Alanine Aminotransferase (ALT/SGPT) 49 U/L (12-78) Alkaline Phosphatase 127 U/L (46-116) H Total Protein 6.9 G/DL (6.4-8.2) Albumin 2.4 G/DL (3.4-5.0) L Globulin 4.5 g/dL Albumin/Globulin Ratio 0.5 (1.0-2.7) L Stool Occult Blood Pending Neurologic Exam Objective PHYSICAL EXAMINATION: GENERAL: He is a well-developed, well-nourished, pleasant gentleman, lying in bed, in no acute distress. HEAD: Normocephalic and atraumatic. EENT: Examination benign. NECK: No neck rigidity was observed. NEUROLOGIC EXAMINATION: MENTAL STATUS EXAMINATION: He was awake and alert. He was oriented to person, place, and time. He was able to recall 3/3 words immediately after 1 minute and after 3 minutes. He was able to remember presidents, Trump through Trujillo senior. His mathematical skills were good. His visuospatial function was preserved. SPEECH: He had no dysarthria. LANGUAGE: He had no aphasia. CRANIAL NERVE EXAMINATION: II: The visual caal were intact on confrontation testing. III, IV & : The external ocular movements were full and the pupils 3 mm in diameter, equal, round, regular, and reactive to light. V: He had normal facial sensations, and the temporales, masseters, and pterygoids functioned normally. VII: He had normal facial expressions and no facial asymmetry. VIII: He was able to hear well bilaterally and had no nystagmus. IX: The palate moved symmetrically on phonation. X: He had no hoarseness of voice. XI: The sternocleidomastoids and trapezii functioned normally. XII: The tongue was in the midline without any fasciculations or atrophy. MOTOR SYSTEM: The tone was normal in all four extremities. Examination of muscle mass revealed no focal wasting. Examination of power revealed G 5/5 power in all muscle groups tested. SENSORY EXAMINATION: He had intact sensations to pinprick, light touch, and graphesthesia. COORDINATION: He performed well on [id number] and [id number] testing. REFLEXES: 2+ and bilaterally symmetrical at the biceps, triceps, brachioradialis, and knees, Trace+ at both ankles. The plantar responses were flexor bilaterally. STANCE: He stood up with contact guard. GAIT: He walked well with contact guard. Impression/Recommendations Diagnostic Impression 1. 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 2. Since he has been in the hospital, he has continued to feel unwell and has had lightheadedness whenever he tries to sit up, stand, and walk. On 1 occasion on 11/23/18, he started to feel lightheaded while sitting up, then passed out for brief period of time, and had some generalized body jerking movements. He rapidly regained consciousness following that. 3. He feels relatively well. He was in bed when I went to see him. He has been able to read and write better. The mind continues to be clearer - close to normal. His cognitive function has improved. He has had no further episodes of loss of consciousness. His appetite is good. He walked a few times but not much today. He felt steadier on his feet. His motor function is close to normal. He denies any new neurological symptoms. Plans are to go to a SNF in [facility] for a few days. 4. On neurological examination, at this time, his cerebration has normalized. His deep tendon reflexes are also normal except for trace ankle jerks. She still needs contact guard to stand and walk. 5. Laboratory data on my initial evaluation revealed that his WBC count was elevated to 15,300. He was significantly anemic with a hemoglobin of 8.7 G. His chemistry panel revealed that his potassium was low at 3.1. His BUN was elevated at 173 with a creatinine of 10.1. His proBNP was elevated to 1278. His vitamin B12 level was normal at 1394. His folate level was normal at 25.3. His TSH was normal at 1.42. His INR was normal at 1.0. His urinalysis revealed 1+ leukocyte esterase with 2 red blood cells, and 2 white blood cells per high-power field. 6. The CT of the brain reveals no acute pathology. 7. EEG done on 11/24/2018 revealed triphasic waveforms with an anterior to posterior gradient but normal background and no interictal or ictal phenomena. These findings are consistent with a mild metabolic encephalopathy. 8. The patient's history, neurological examination, laboratory data, imaging studies and EEG are most consistent with lightheadedness due to fluid and electrolyte imbalance. 9. The episode that the patient had on 11/23/18 where he felt lightheaded, then passed out, and had some abnormal body jerking movements was most probably a Matias-Anthony attack. 10. The patient's cognitive dysfunction has resolved. It was due to an ongoing metabolic encephalopathic process. 11. He is still minimally unsteady on his feet. Recommendations 1. Continue present management. 2. Continue to correct the patient's fluid and electrolyte imbalances. 3. Frequent range of motion exercises - patient instructed. 4. Out of bed in chair for all meals. 5. Mobilize with PT and multiple daily walks. 6. Urologic management for removal of Morfin. 7. If discharged - follow up in office in ~ 2 months. Janak Chandra M.D., M.S.P.H. Janak Chandra MD Dec 06, 2018 20:09
[2018-12-06] MEDS: Tamsulosin 0.4mg cap ORAL SCH (20:45)
[2018-12-06] MEDS: Zolpidem 5mg tab ORAL PRN (20:46)
--- NOTE | 2018-12-06 21:04 | General Progress Note ---
Assessment/Plan Assessment/Plan Assessment - Anemia, OB(+) - Renal failure - Obstructive uropathy - b/l edema - Duplex negative - PSA =10, ? CAP - abnormal LFT --> now normal - EGD: Incidental small hiatal hernia and mild duodenitis, biopsied antrum for H Pylori Colon: Ulcers and erosions in hepatic flexure, typical for ischemic colitis ( biopsied) Diminutive prox ascending colon and sigmoid polyp at 20 - biopsied Recommendations - Renal diet - Zofran PRN - follow CBC/LFT - f/u path - will call in am - Avoid volume depletion Subjective Allergies: Coded Allergies: No Known Allergies (Unverified , 11/21/18) Subjective Feels OK tolerating PO pathology still pending Objective Last 24 Hour Vital Signs Date Time Temp Pulse Resp B/P (MAP) Pulse Ox O2 Delivery O2 Flow Rate FiO2 12/06/18 20:45 73 115/57 12/06/18 20:00 98.6 73 18 115/57 (76) 98 12/06/18 16:00 98.7 91 18 104/63 (77) 99 12/06/18 16:00 70 12/06/18 15:24 91 12/06/18 15:19 86 12/06/18 15:14 76 12/06/18 12:00 69 12/06/18 12:00 97.9 68 18 109/64 (79) 98 12/06/18 09:00 Room Air 12/06/18 08:48 75 113/64 12/06/18 08:00 75 12/06/18 08:00 96.2 75 18 113/64 (80) 99 12/06/18 03:57 69 12/05/18 23:42 66 12/05/18 21:00 Room Air 12/05/18 21:00 70 104/66 Intake and Output 12/05/18 12/06/18 19:00 07:00 Intake Total 540 ml 1000 ml Output Total 3100 ml 2000 ml Balance -2560 ml -1000 ml Intake Oral 540 ml 1000 ml Output Urine Total 3100 ml 2000 ml Laboratory Tests 12/06/18 06:26: White Blood Count 7.8, Red Blood Count 3.10L, Hemoglobin 9.7L, Hematocrit 29.0L , Mean Corpuscular Volume 94, Mean Corpuscular Hemoglobin 31.5H, Mean Corpuscular Hemoglobin Concent 33.6, Red Cell Distribution Width 11.6, Platelet Count 415, Mean Platelet Volume 4.8L, Neutrophils (%) (Auto) 78.1H, Lymphocytes (%) (Auto) 6.9L, Monocytes (%) (Auto) 9.4, Eosinophils (%) (Auto) 4.1H, Basophils (%) (Auto) 1.5, Sodium Level 138, Potassium Level 4.1, Chloride Level 102, Carbon Dioxide Level 23, Anion Gap 13, Blood Urea Nitrogen 71H, Creatinine 4.3H, Estimat Glomerular Filtration Rate , Glucose Level 85, Calcium Level 9.4, Total Bilirubin 0.3, Aspartate Amino Transf (AST/SGOT) 25, Alanine Aminotransferase (ALT/SGPT) 49, Alkaline Phosphatase 127H, Total Protein 6.9, Albumin 2.4L, Globulin 4.5, Albumin/Globulin Ratio 0.5L 12/06/18 10:00: Stool Occult Blood [Pending] Height (Feet): 5 Height (Inches): 7.00 Weight (Pounds): 154 Objective WDWN NCAT supple CTA RRR Abd soft (+) edema Yasir Alexandra MD Dec 06, 2018 21:04
--- NOTE | 2018-12-06 21:10 | General Progress Note ---
Assessment/Plan Assessment/Plan sepsis acute renal failure hyperkalemia obstructive uropathy bph elevated troponin ho htn anemia confusion encephalopathy likiely secondary to uremia resolved vomiting likely secondary to uremia short syncopal episode leukocytosis constiaption abx per ID has johnson, urology fup making good urine infoley, monitor renal parameters echo noted ct of head noted neurolgy evaluation appreciated monitor labs colonopsy noted dw Dr Stokes dvt and ulcer prophylaxis ambulate PT stool softners and laxatives ambulate will likely then need snf when ready for discharge dc when ok with renal and ID Subjective Allergies: Coded Allergies: No Known Allergies (Unverified , 11/21/18) Subjective seen in am comfotable, feels stronger no chest pain or sob Objective Last 24 Hour Vital Signs Date Time Temp Pulse Resp B/P (MAP) Pulse Ox O2 Delivery O2 Flow Rate FiO2 12/06/18 20:45 73 115/57 12/06/18 20:00 98.6 73 18 115/57 (76) 98 12/06/18 16:00 98.7 91 18 104/63 (77) 99 12/06/18 16:00 70 12/06/18 15:24 91 12/06/18 15:19 86 12/06/18 15:14 76 12/06/18 12:00 69 12/06/18 12:00 97.9 68 18 109/64 (79) 98 12/06/18 09:00 Room Air 12/06/18 08:48 75 113/64 12/06/18 08:00 75 12/06/18 08:00 96.2 75 18 113/64 (80) 99 12/06/18 03:57 69 12/05/18 23:42 66 Intake and Output 12/05/18 12/06/18 19:00 07:00 Intake Total 540 ml 1000 ml Output Total 3100 ml 2000 ml Balance -2560 ml -1000 ml Intake Oral 540 ml 1000 ml Output Urine Total 3100 ml 2000 ml Laboratory Tests 12/06/18 06:26: White Blood Count 7.8, Red Blood Count 3.10L, Hemoglobin 9.7L, Hematocrit 29.0L , Mean Corpuscular Volume 94, Mean Corpuscular Hemoglobin 31.5H, Mean Corpuscular Hemoglobin Concent 33.6, Red Cell Distribution Width 11.6, Platelet Count 415, Mean Platelet Volume 4.8L, Neutrophils (%) (Auto) 78.1H, Lymphocytes (%) (Auto) 6.9L, Monocytes (%) (Auto) 9.4, Eosinophils (%) (Auto) 4.1H, Basophils (%) (Auto) 1.5, Sodium Level 138, Potassium Level 4.1, Chloride Level 102, Carbon Dioxide Level 23, Anion Gap 13, Blood Urea Nitrogen 71H, Creatinine 4.3H, Estimat Glomerular Filtration Rate , Glucose Level 85, Calcium Level 9.4, Total Bilirubin 0.3, Aspartate Amino Transf (AST/SGOT) 25, Alanine Aminotransferase (ALT/SGPT) 49, Alkaline Phosphatase 127H, Total Protein 6.9, Albumin 2.4L, Globulin 4.5, Albumin/Globulin Ratio 0.5L 12/06/18 10:00: Stool Occult Blood [Pending] Height (Feet): 5 Height (Inches): 7.00 Weight (Pounds): 154 General Appearance: WD/WN, no apparent distress Neck: supple Cardiovascular: normal rate Respiratory/Chest: lungs clear Abdomen: soft Dane Vasquez MD Dec 06, 2018 21:10
--- NOTE | 2018-12-06 21:35 | NUR ---
NURSE NOTES: Dr. Vasquez called and ordered CBC, BMP in the morning. Order carried out.
--- NOTE | 2018-12-06 23:09 | NUR ---
NURSE NOTES: Pt is sleeping in the RA, w/o distress. SR in the monitor. Will continue to monitor.
[2018-12-07 04:00] VITALS: BP 121/70
--- NOTE | 2018-12-07 07:27 | NUR ---
HAND-OFF: Report given to AIDA Perez.Pt is eating breakfast. Nvajot is applied, patent and draining to gravity. No distress in RA.
[2018-12-07 07:33] LABS: ANION GAP 9 mmol/L (5-15); BLOOD UREA NITROGEN 73 mg/dL (7-18); CALCIUM 9.4 MG/DL (8.5-10.1); CARBON DIOXIDE 25 MMOL/L (21-32); CHLORIDE 103 MMOL/L (98-107); CREATININE 4.2 MG/DL (0.55-1.30); POTASSIUM 4.3 MMOL/L (3.5-5.1); SODIUM 137 MMOL/L (136-145)
--- NOTE | 2018-12-07 07:46 | Urology Progress Note ---
Assessment/Plan Assessment/Plan 1. Urinary retention history. 2. Benign prostatic hypertrophy. 3. Possible neurogenic bladder. 4. Hematuria. 5. Renal failure, which appears to be acute on chronic, improved. 6. Hydronephrosis, improved with Johnson. 7. Proteinuria. 8. Meatal stenosis and stricture history. 9. Inguinal hernia. 10. Elevated serum PSA. monitor clinically johnson indwelling, last exchanged 12/06 hand irrigated and do PRN secured to pt's leg off HD for now monitor renal fxn closely, seems to have stabilized flomax and proscar added cysto later voiding trial at some point? prob as outpt most likely will need TURP poss prostate bx later Subjective Allergies: Coded Allergies: No Known Allergies (Unverified , 11/21/18) Subjective all noted, feels fair, new johnson draining well Objective Last 24 Hour Vital Signs Date Time Temp Pulse Resp B/P (MAP) Pulse Ox O2 Delivery O2 Flow Rate FiO2 12/07/18 04:15 93 12/07/18 04:05 90 12/07/18 04:00 97.6 68 18 121/70 (87) 97 12/07/18 04:00 68 12/07/18 03:22 63 12/06/18 23:23 67 12/06/18 21:00 Room Air 12/06/18 21:00 0 12/06/18 20:45 73 115/57 12/06/18 20:03 67 12/06/18 20:00 98.6 73 18 115/57 (76) 98 12/06/18 16:00 98.7 91 18 104/63 (77) 99 12/06/18 16:00 70 12/06/18 15:24 91 12/06/18 15:19 86 12/06/18 15:14 76 12/06/18 12:00 69 12/06/18 12:00 97.9 68 18 109/64 (79) 98 12/06/18 09:00 Room Air 12/06/18 08:48 75 113/64 12/06/18 08:00 75 12/06/18 08:00 96.2 75 18 113/64 (80) 99 Intake and Output 12/06/18 12/07/18 19:00 07:00 Intake Total 840 ml 300 ml Output Total 1200 ml 1400 ml Balance -360 ml -1100 ml Intake Oral 840 ml 300 ml Output Urine Total 1200 ml 1400 ml # Bowel Movements 1 Microbiology Date/Time Source Procedure Growth Status 11/30/18 21:00 Blood Blood Culture - Final NO GROWTH AFTER 5 DAYS Complete 11/23/18 15:00 Stool Ova and Parasites - Final Complete 11/23/18 15:00 Stool Ova and Parasite Result 1 - Final Complete Current Medications Medications (Trade) Dose Ordered Sig/Debbie Route PRN Reason Start Time Stop Time Status Last Admin Dose Admin Acetaminophen (Tylenol) 650 mg Q6H PRN ORAL Mild Pain/Temp > 100.5 11/22/18 03:15 12/22/18 03:14 12/02/18 18:22 Acetaminophen/ Hydrocodone Bitart ([place] 5/325) 1 tab Q4H PRN ORAL Moderate Pain (Pain Scale 4-6) 12/02/18 00:45 12/09/18 00:44 12/03/18 00:39 Al Hydroxide/Mg Hydroxide (Mylanta) 30 ml Q6H PRN ORAL GERD 11/22/18 03:15 12/22/18 03:14 Bisacodyl (Dulcolax) 10 mg DAILYPRN PRN RECTAL Constipation 11/30/18 14:30 12/30/18 14:29 12/06/18 08:56 Daptomycin 700 mg/ Sodium Chloride 55 ml @ 100 mls/hr Q48H IV 11/27/18 14:00 12/14/18 13:59 12/05/18 13:47 Docusate Sodium (Colace) 100 mg TWICE A DAY ORAL 11/25/18 09:00 12/25/18 08:59 12/06/18 17:45 Epoetin Tommy (Epoetin Tommy(ESRD on dialysis)) 2,000 unit WED-WED-WED SUBQ 11/23/18 21:00 12/23/18 20:59 12/05/18 21:14 Epoetin Tommy (Epoetin Tommy(ESRD on dialysis)) 3,000 unit WED-WED-WED SUBQ 11/23/18 21:00 12/23/18 20:59 12/05/18 21:14 Finasteride (Proscar) 5 mg DAILY ORAL 11/25/18 09:00 12/25/18 08:59 12/06/18 08:49 Heparin Sodium (Porcine) (Heparin 5000 units/ml) 5,000 units EVERY 12 HOURS SUBQ 11/22/18 09:00 12/22/18 08:59 11/30/18 22:01 Magnesium Hydroxide (Mom) 30 ml BIDPRN PRN ORAL Constipation 11/26/18 12:45 12/26/18 12:44 11/29/18 18:50 Meclizine HCl (Antivert) 25 mg TIDPRN PRN ORAL for dizziness 11/23/18 18:15 12/23/18 18:14 Metoprolol Tartrate (Lopressor) 25 mg Q12HR ORAL 11/22/18 21:00 12/22/18 20:59 12/06/18 20:45 Ondansetron HCl (Zofran) 4 mg Q6H PRN IVP Nausea & Vomiting 11/24/18 09:30 12/24/18 09:29 11/26/18 23:02 Pantoprazole (Protonix) 40 mg DAILY ORAL 11/26/18 09:00 12/26/18 08:59 12/06/18 08:49 Paricalcitol (Zemplar) 1 mcg THREE TIMES A WEEK ORAL 12/02/18 16:00 01/01/19 15:59 12/05/18 08:50 Tamsulosin HCl (Flomax) 0.4 mg BEDTIME ORAL 11/24/18 23:00 12/24/18 22:59 12/06/18 20:45 Zolpidem Tartrate (Ambien) 10 mg HSPRN PRN ORAL Insomnia 12/05/18 21:00 12/07/18 20:59 12/06/18 20:46 Laboratory Tests 12/06/18 10:00: Stool Occult Blood [Pending] 12/07/18 05:50: White Blood Count [Pending], Red Blood Count [Pending], Hemoglobin [Pending], Hematocrit [Pending], Mean Corpuscular Volume [Pending], Mean Corpuscular Hemoglobin [Pending], Mean Corpuscular Hemoglobin Concent [Pending], Red Cell Distribution Width [Pending], Platelet Count [Pending], Mean Platelet Volume [ Pending], Neutrophils (%) (Auto) [Pending], Lymphocytes (%) (Auto) [Pending], Monocytes (%) (Auto) [Pending], Eosinophils (%) (Auto) [Pending], Basophils (%) (Auto) [Pending], Sodium Level 137, Potassium Level 4.3, Chloride Level 103, Carbon Dioxide Level 25, Anion Gap 9, Blood Urea Nitrogen 73H, Creatinine 4.2H, Estimat Glomerular Filtration Rate , Glucose Level 87, Calcium Level 9.4 Height (Feet): 5 Height (Inches): 7.00 Weight (Pounds): 143 Objective exam stable, urine clearing, has some debris serum PSA 10.09 abdominal u/s (3/) noted Geraldo Wise MD Dec 07, 2018 07:46
[2018-12-07 07:47] LABS: BASOPHILS % (AUTO) 1.3 % (0.0-2.0); EOSINOPHILS % (AUTO) 4.1 % (0.0-3.0); HEMOGLOBIN 9.5 G/DL (14.2-18.0); LYMPHOCYTES % (AUTO) 8.9 % (20.0-45.0); MEAN CORPUSCULAR VOLUME 93 FL (80-99); MONOCYTES % (AUTO) 8.5 % (1.0-10.0); NEUTROPHILS % (AUTO) 77.2 % (45.0-75.0); PLATELET COUNT 381 K/UL (150-450); RED BLOOD COUNT 3.01 M/UL (4.70-6.10); RED CELL DISTRIBUTION WIDTH 11.6 % (11.6-14.8); WHITE BLOOD COUNT 8.1 K/UL (4.8-10.8)
--- NOTE | 2018-12-07 07:54 | NUR ---
NURSE NOTES: Received report from Tarun Pt in bed eating breakfast Aox4. Pt on night monitor. Addendum: 12/07/18 at 0757 by Michela Perez RN Received report from Ivonne Powell. Pt in bed eating breakfast Aox4. Pt on night monitor under no acute distress. Bed locked and lowest position, call light within reach. Will continue plan of care.
[2018-12-07 08:00] VITALS: BP 105/63
[2018-12-07] MEDS: Docusate 100mg cap ORAL SCH ×2 (08:35→18:10)
[2018-12-07] MEDS: Paricalcitol 1mcg cap ORAL SCH (08:36)
[2018-12-07] MEDS: Metoprolol 25mg tab ORAL SCH ×3 (08:37→21:26)
[2018-12-07] MEDS: Heparin 5000 units/ml inj SUBQ SCH ×2 (08:38→21:00)
--- NOTE | 2018-12-07 14:29 | Nephrology Progress Note ---
Assessment/Plan Problem List: (1) Acute on chronic renal failure Assessment: stable (2) Urinary retention (3) Hyperkalemia (4) Metabolic acidosis (5) Uremia (6) Bacteremia due to Enterococcus (7) Anemia Assessment: better (8) Iron deficiency (9) Secondary hyperparathyroidism of renal origin Assessment still polyuric Plan follow BMP cont Zemplar cont Epogen Ok to DC Subjective Subjective feels ok Objective Objective Last 24 Hour Vital Signs Date Time Temp Pulse Resp B/P (MAP) Pulse Ox O2 Delivery O2 Flow Rate FiO2 12/07/18 09:00 Room Air 12/07/18 08:37 78 110/72 12/07/18 08:00 98.1 83 21 105/63 (77) 97 12/07/18 07:26 77 12/07/18 04:15 93 12/07/18 04:05 90 12/07/18 04:00 97.6 68 18 121/70 (87) 97 12/07/18 04:00 68 12/07/18 03:22 63 12/06/18 23:23 67 12/06/18 21:00 Room Air 12/06/18 21:00 0 12/06/18 20:45 73 115/57 12/06/18 20:03 67 12/06/18 20:00 98.6 73 18 115/57 (76) 98 12/06/18 16:00 98.7 91 18 104/63 (77) 99 12/06/18 16:00 70 12/06/18 15:24 91 12/06/18 15:19 86 12/06/18 15:14 76 Intake and Output 12/06/18 12/07/18 18:59 06:59 Intake Total 840 ml 300 ml Output Total 1200 ml 1400 ml Balance -360 ml -1100 ml Intake Oral 840 ml 300 ml Output Urine Total 1200 ml 1400 ml # Bowel Movements 1 Laboratory Tests 12/07/18 05:50: White Blood Count 8.1, Red Blood Count 3.01L, Hemoglobin 9.5L, Hematocrit 28.0L , Mean Corpuscular Volume 93, Mean Corpuscular Hemoglobin 31.6H, Mean Corpuscular Hemoglobin Concent 33.9, Red Cell Distribution Width 11.6, Platelet Count 381, Mean Platelet Volume 4.6L, Neutrophils (%) (Auto) 77.2H, Lymphocytes (%) (Auto) 8.9L, Monocytes (%) (Auto) 8.5, Eosinophils (%) (Auto) 4.1H, Basophils (%) (Auto) 1.3, Sodium Level 137, Potassium Level 4.3, Chloride Level 103, Carbon Dioxide Level 25, Anion Gap 9, Blood Urea Nitrogen 73H, Creatinine 4.2H, Estimat Glomerular Filtration Rate , Glucose Level 87, Calcium Level 9.4 Height (Feet): 5 Height (Inches): 7.00 Weight (Pounds): 143 Cardiovascular: normal rate Respiratory/Chest: lungs clear Extremities: other - no edema Michael Sosa MD Dec 07, 2018 14:29
[2018-12-07] MEDS: DAPTOmycin 700 MG in NS 55 ML IV SCH (15:32)
[2018-12-07 16:00] VITALS: BP 117/71
--- NOTE | 2018-12-07 16:25 | Neurology Progress Note ---
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 He was sitting at the edge of his bed doing some writing. He has been able to read and write better. The mind continues to be clear - close to normal. His cognitive function he feels has normalized. He has had no further episodes of loss of consciousness. His appetite is good. He walked a few times today. He felt steadier on his feet. His motor function is close to normal. He denies any new neurological symptoms. He specifically denies any weakness on one side or the other, numbness on one side or the other, problems with speech problems with language problems with vision problems with memory. His Morfin Catheter was exchanged for a new one yesterday. Plans are to go to a SNF in [facility] for a few days. Review of Systems Neuro Review of Systems Benign. Objective Physical Exam Last Vital Signs Date Time Temp Pulse Resp B/P (MAP) Pulse Ox O2 Delivery O2 Flow Rate FiO2 12/07/18 09:00 Room Air 12/07/18 08:37 78 110/72 12/07/18 08:00 98.1 21 97 12/02/18 08:15 3 Laboratory Tests Test 12/07/18 05:50 White Blood Count 8.1 K/UL (4.8-10.8) Red Blood Count 3.01 M/UL (4.70-6.10) L Hemoglobin 9.5 G/DL (14.2-18.0) L Hematocrit 28.0 % (42.0-52.0) L Mean Corpuscular Volume 93 FL (80-99) Mean Corpuscular Hemoglobin 31.6 PG (27.0-31.0) H Mean Corpuscular Hemoglobin Concent 33.9 G/DL (32.0-36.0) Red Cell Distribution Width 11.6 % (11.6-14.8) Platelet Count 381 K/UL (150-450) Mean Platelet Volume 4.6 FL (6.5-10.1) L Neutrophils (%) (Auto) 77.2 % (45.0-75.0) H Lymphocytes (%) (Auto) 8.9 % (20.0-45.0) L Monocytes (%) (Auto) 8.5 % (1.0-10.0) Eosinophils (%) (Auto) 4.1 % (0.0-3.0) H Basophils (%) (Auto) 1.3 % (0.0-2.0) Sodium Level 137 MMOL/L (136-145) Potassium Level 4.3 MMOL/L (3.5-5.1) Chloride Level 103 MMOL/L (98-107) Carbon Dioxide Level 25 MMOL/L (21-32) Anion Gap 9 mmol/L (5-15) Blood Urea Nitrogen 73 mg/dL (7-18) H Creatinine 4.2 MG/DL (0.55-1.30) H Estimat Glomerular Filtration Rate mL/min (>60) Glucose Level 87 MG/DL (74-106) Calcium Level 9.4 MG/DL (8.5-10.1) Neurologic Exam Objective PHYSICAL EXAMINATION: GENERAL: He is a well-developed, well-nourished, pleasant gentleman, lying in bed, in no acute distress. HEAD: Normocephalic and atraumatic. EENT: Examination benign. NECK: No neck rigidity was observed. NEUROLOGIC EXAMINATION: MENTAL STATUS EXAMINATION: He was awake and alert. He was oriented to person, place, and time. He was able to recall 3/3 words immediately after 1 minute and after 3 minutes. He was able to remember presidents, Trump through Trujillo senior. His mathematical skills were good. His visuospatial function was preserved. SPEECH: He had no dysarthria. LANGUAGE: He had no aphasia. CRANIAL NERVE EXAMINATION: II: The visual caal were intact on confrontation testing. III, IV & : The external ocular movements were full and the pupils 3 mm in diameter, equal, round, regular, and reactive to light. V: He had normal facial sensations, and the temporales, masseters, and pterygoids functioned normally. VII: He had normal facial expressions and no facial asymmetry. VIII: He was able to hear well bilaterally and had no nystagmus. IX: The palate moved symmetrically on phonation. X: He had no hoarseness of voice. XI: The sternocleidomastoids and trapezii functioned normally. XII: The tongue was in the midline without any fasciculations or atrophy. MOTOR SYSTEM: The tone was normal in all four extremities. Examination of muscle mass revealed no focal wasting. Examination of power revealed G 5/5 power in all muscle groups tested. SENSORY EXAMINATION: He had intact sensations to pinprick, light touch, and graphesthesia. COORDINATION: He performed well on [id number]-[id number] and sgvb-[id number] testing. REFLEXES: 2+ and bilaterally symmetrical at the biceps, triceps, brachioradialis, and knees, Trace+ at both ankles. The plantar responses were flexor bilaterally. STANCE: He stood up with contact guard. GAIT: He walked well with contact guard. Impression/Recommendations Diagnostic Impression 1. 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 2. Since he has been in the hospital, he has continued to feel unwell and has had lightheadedness whenever he tries to sit up, stand, and walk. On 1 occasion on 11/23/18, he started to feel lightheaded while sitting up, then passed out for brief period of time, and had some generalized body jerking movements. He rapidly regained consciousness following that. 3. He feels feels well. He was sitting at the edge of his bed doing some writing. He has been able to read and write better. The mind continues to be clear - close to normal. His cognitive function he feels has normalized. He has had no further episodes of loss of consciousness. His appetite is good. He walked a few times today. He felt steadier on his feet. His motor function is close to normal. He denies any new neurological symptoms. His Morfin catheter was exchanged for a new one yesterday. Plans are to go to a SNF in [facility] for a few days. 4. On neurological examination, at this time, his cerebration has normalized. His mantal staus examination has also normalized. His deep tendon reflexes are also normal except for trace ankle jerks. He still needs contact guard to stand and walk. 5. Laboratory data on my initial evaluation revealed that his WBC count was elevated to 15,300. He was significantly anemic with a hemoglobin of 8.7 G. His chemistry panel revealed that his potassium was low at 3.1. His BUN was elevated at 173 with a creatinine of 10.1. His proBNP was elevated to 1278. His vitamin B12 level was normal at 1394. His folate level was normal at 25.3. His TSH was normal at 1.42. His INR was normal at 1.0. His urinalysis revealed 1+ leukocyte esterase with 2 red blood cells, and 2 white blood cells per high-power field. 6. The CT of the brain reveals no acute pathology. 7. EEG done on 11/24/2018 revealed triphasic waveforms with an anterior to posterior gradient but normal background and no interictal or ictal phenomena. These findings are consistent with a mild metabolic encephalopathy. 8. The patient's history, neurological examination, laboratory data, imaging studies and EEG are most consistent with lightheadedness due to fluid and electrolyte imbalance. 9. The episode that the patient had on 11/23/18 where he felt lightheaded, then passed out, and had some abnormal body jerking movements was most probably a Matias-Anthony attack. 10. The patient's cognitive dysfunction has resolved. It was due to an ongoing metabolic encephalopathic process. 11. He is still minimally unsteady on his feet. Recommendations 1. Continue present management. 2. Continue to correct the patient's fluid and electrolyte imbalances. 3. Frequent range of motion exercises - patient instructed. 4. Out of bed in chair for all meals. 5. Mobilize with PT and multiple daily walks. 6. Urologic management for removal of Morfin. 7. If discharged - follow up in office in ~ 2 months. Janak Chandra M.D., M.S.P.H. Janak Chandra MD Dec 07, 2018 16:25
--- NOTE | 2018-12-07 16:41 | Cardiology Progress Note ---
Assessment/Plan Status: stable Assessment/Plan Assessment/Plan Assessment/Plan 1. Type 2 NSTEMI. The levels are nonspecific and flat 0.5, 0.5, 0.2. Denies any chest pain. This is due to the patient's renal failure EKG shows sinus rhythm with no acute ST-T wave abnormalities. EF 65%. On aspirin and Lopressor 2. Recurrent atrial flutter on 11/24 and 11/25/18. Both terminated spontaneously On Metoprolol 25 bid. Consider long term care pharmacist anticoagulation if recurs Has remained in SR 70S 3. Hyperkalemia. Potassium was 7 and is down to 4.1. S/P sodium bicarbonate and Kayexalate. Had HD 4. Acute on chronic renal failure. Further evaluation by Dr. Sosa. Cecil catheter removed. No further HD scheduled 5. Syncope. ? etiology. Nl EF. No . Could be due to atrial flutter with RVR 6. High PSA Fu Dr Alvarez 7. Sepsis, source most likely tract , may need also to rule out GI malignancy. On daptomycin. Repeated blood culture x2 on 11/26 is NTD . HD catheter was removed 8. Anemia,S/P PRBC. GD and colonoscopy showed ischemic colitis FU DR Luis Subjective Cardiovascular: Reports: no symptoms Respiratory: Reports: no symptoms Gastrointestinal/Abdominal: Reports: no symptoms Genitourinary: Reports: no symptoms Subjective Coverage for [place] Objective Last 24 Hour Vital Signs Date Time Temp Pulse Resp B/P (MAP) Pulse Ox O2 Delivery O2 Flow Rate FiO2 12/07/18 09:00 Room Air 12/07/18 08:37 78 110/72 12/07/18 08:00 98.1 83 21 105/63 (77) 97 12/07/18 07:26 77 12/07/18 04:15 93 12/07/18 04:05 90 12/07/18 04:00 97.6 68 18 121/70 (87) 97 12/07/18 04:00 68 12/07/18 03:22 63 12/06/18 23:23 67 12/06/18 21:00 Room Air 12/06/18 21:00 0 12/06/18 20:45 73 115/57 12/06/18 20:03 67 12/06/18 20:00 98.6 73 18 115/57 (76) 98 General Appearance: no apparent distress, alert EENT: PERRL/EOMI, normal ENT inspection Neck: non-tender, normal alignment, supple, normal inspection, no JVD Rhythm: NSR Cardiovascular: normal peripheral pulses, normal rate, regular rhythm Respiratory/Chest: chest wall non-tender, lungs clear, normal breath sounds, no respiratory distress, no accessory muscle use Abdomen: normal bowel sounds, non tender, soft, no organomegaly, no mass Extremities: normal range of motion, non-tender, normal inspection, no calf tenderness, no swelling Neurologic: manager of pharmacy II-XII grossly normal, no motor/sensory deficits Intake and Output 12/06/18 12/07/18 18:59 06:59 Intake Total 840 ml 300 ml Output Total 1200 ml 1400 ml Balance -360 ml -1100 ml Intake Oral 840 ml 300 ml Output Urine Total 1200 ml 1400 ml # Bowel Movements 1 Laboratory Tests Test 12/07/18 05:50 White Blood Count 8.1 K/UL (4.8-10.8) Red Blood Count 3.01 M/UL (4.70-6.10) L Hemoglobin 9.5 G/DL (14.2-18.0) L Hematocrit 28.0 % (42.0-52.0) L Mean Corpuscular Volume 93 FL (80-99) Mean Corpuscular Hemoglobin 31.6 PG (27.0-31.0) H Mean Corpuscular Hemoglobin Concent 33.9 G/DL (32.0-36.0) Red Cell Distribution Width 11.6 % (11.6-14.8) Platelet Count 381 K/UL (150-450) Mean Platelet Volume 4.6 FL (6.5-10.1) L Neutrophils (%) (Auto) 77.2 % (45.0-75.0) H Lymphocytes (%) (Auto) 8.9 % (20.0-45.0) L Monocytes (%) (Auto) 8.5 % (1.0-10.0) Eosinophils (%) (Auto) 4.1 % (0.0-3.0) H Basophils (%) (Auto) 1.3 % (0.0-2.0) Sodium Level 137 MMOL/L (136-145) Potassium Level 4.3 MMOL/L (3.5-5.1) Chloride Level 103 MMOL/L (98-107) Carbon Dioxide Level 25 MMOL/L (21-32) Anion Gap 9 mmol/L (5-15) Blood Urea Nitrogen 73 mg/dL (7-18) H Creatinine 4.2 MG/DL (0.55-1.30) H Estimat Glomerular Filtration Rate mL/min (>60) Glucose Level 87 MG/DL (74-106) Calcium Level 9.4 MG/DL (8.5-10.1) Marcell Ba MD Dec 07, 2018 16:41
--- NOTE | 2018-12-07 17:05 | Infectious Diseases Prog Note ---
Assessment/Plan Problems: (1) Sepsis due to Enterococcus with acute renal failure and metabolic encephalopathy Assessment & Plan: source most likely tract due to obstruction , with no GI mass but polyps which were removed . continue daptomycin renally dosed as per pharmacy for his bacteremia for two weeks . repeated blood culture on 11/30 is negative so far which confirm clearance . monitor CK level weekly while on daptomycin . will need two weeks of iv antibiotics for his bacteremia starting from the clearance date. EOT 12/14/18 (2) Hydronephrosis Assessment & Plan: most likely the source of his bacteremia with enterococcus faecalis , complicated with renal failure , suspect enlarged prostate , with elevated PSA rule out prostate CA , recommend oncology work up with rectal US to rule out prostatic mass and for biopsy , and possible prostatectomy once clinically stable in the future (3) Acute on chronic renal failure Assessment & Plan: improving, now making good urine , previously required HD , his HD catheter was removed since it was placed while bacteremic . S/P Morfin catheter change (4) Acute encephalopathy Assessment & Plan: improving, suspect metabolic and toxic , monitor mental status, avoid nephrotoxics , neurology is following (5) Prostate enlargement Assessment & Plan: with elevated PSA, rule out malignant process, recommend rectal US to evaluate the prostate and for possible biopsy to rule out malignancy . (6) Generalized weakness Assessment & Plan: recommend rehabilitation and PT Subjective Constitutional: Reports: no symptoms HEENT: Reports: no symptoms Respiratory: Reports: no symptoms Breasts: Reports: no symptoms Cardiovascular: Reports: no symptoms Gastrointestinal/Abdominal: Reports: no symptoms Genitourinary: Reports: no symptoms Neurologic: Reports: no symptoms Psychiatric: Reports: no symptoms Skin: Reports: no symptoms Endocrine: Reports: no symptoms Hematologic: Reports: no symptoms Musculoskeletal: Reports: no symptoms Allergies: Coded Allergies: No Known Allergies (Unverified , 11/21/18) Subjective He was feeling good , denied any fever or chills, no cough or SOB , no cough or SOB, no neck pain or hematoma, no diarrhea , feels more energetic Objective Vital Signs Last 24 Hour Vital Signs Date Time Temp Pulse Resp B/P (MAP) Pulse Ox O2 Delivery O2 Flow Rate FiO2 12/07/18 09:00 Room Air 12/07/18 08:37 78 110/72 12/07/18 08:00 98.1 83 21 105/63 (77) 97 12/07/18 07:26 77 12/07/18 04:15 93 12/07/18 04:05 90 12/07/18 04:00 97.6 68 18 121/70 (87) 97 12/07/18 04:00 68 12/07/18 03:22 63 12/06/18 23:23 67 12/06/18 21:00 Room Air 12/06/18 21:00 0 12/06/18 20:45 73 115/57 12/06/18 20:03 67 12/06/18 20:00 98.6 73 18 115/57 (76) 98 Height (Feet): 5 Height (Inches): 7.00 Weight (Pounds): 143 General Appearance: WD/WN, no acute distress HEENT: normocephalic, atraumatic, anicteric, mucous membranes moist, PERRL Respiratory/Chest: chest wall non-tender, lungs clear, normal breath sounds, no respiratory distress, no accessory muscle use Cardiovascular: normal peripheral pulses, normal rate, regular rhythm, no gallop/murmur, no JVD Abdomen: normal bowel sounds, soft, non tender, no organomegaly, non distended , no mass, no scars Genitourinary: normal external genitalia Extremities: no cyanosis, no clubbing Skin: no rash, no lesions, no ulcers Neurologic/Psychiatric: publicity consultant II-XII grossly normal, no motor/sensory deficits, alert, oriented x 3, responsive Lymphatic: no neck adenopathy, no groin adenopathy Musculoskeletal: normal muscle bulk, no effusion Laboratory Tests Test 12/07/18 05:50 White Blood Count 8.1 K/UL (4.8-10.8) Red Blood Count 3.01 M/UL (4.70-6.10) L Hemoglobin 9.5 G/DL (14.2-18.0) L Hematocrit 28.0 % (42.0-52.0) L Mean Corpuscular Volume 93 FL (80-99) Mean Corpuscular Hemoglobin 31.6 PG (27.0-31.0) H Mean Corpuscular Hemoglobin Concent 33.9 G/DL (32.0-36.0) Red Cell Distribution Width 11.6 % (11.6-14.8) Platelet Count 381 K/UL (150-450) Mean Platelet Volume 4.6 FL (6.5-10.1) L Neutrophils (%) (Auto) 77.2 % (45.0-75.0) H Lymphocytes (%) (Auto) 8.9 % (20.0-45.0) L Monocytes (%) (Auto) 8.5 % (1.0-10.0) Eosinophils (%) (Auto) 4.1 % (0.0-3.0) H Basophils (%) (Auto) 1.3 % (0.0-2.0) Sodium Level 137 MMOL/L (136-145) Potassium Level 4.3 MMOL/L (3.5-5.1) Chloride Level 103 MMOL/L (98-107) Carbon Dioxide Level 25 MMOL/L (21-32) Anion Gap 9 mmol/L (5-15) Blood Urea Nitrogen 73 mg/dL (7-18) H Creatinine 4.2 MG/DL (0.55-1.30) H Estimat Glomerular Filtration Rate mL/min (>60) Glucose Level 87 MG/DL (74-106) Calcium Level 9.4 MG/DL (8.5-10.1) Current Medications Medications (Trade) Dose Ordered Sig/Debbie Route PRN Reason Start Time Stop Time Status Last Admin Dose Admin Acetaminophen (Tylenol) 650 mg Q6H PRN ORAL Mild Pain/Temp > 100.5 11/22/18 03:15 12/22/18 03:14 12/02/18 18:22 Acetaminophen/ Hydrocodone Bitart ([place] 5/325) 1 tab Q4H PRN ORAL Moderate Pain (Pain Scale 4-6) 12/02/18 00:45 12/09/18 00:44 12/03/18 00:39 Al Hydroxide/Mg Hydroxide (Mylanta) 30 ml Q6H PRN ORAL GERD 11/22/18 03:15 12/22/18 03:14 Bisacodyl (Dulcolax) 10 mg DAILYPRN PRN RECTAL Constipation 11/30/18 14:30 12/30/18 14:29 12/06/18 08:56 Daptomycin 700 mg/ Sodium Chloride 55 ml @ 100 mls/hr Q48H IV 11/27/18 14:00 12/14/18 13:59 12/07/18 15:32 Docusate Sodium (Colace) 100 mg TWICE A DAY ORAL 11/25/18 09:00 12/25/18 08:59 12/07/18 08:35 Epoetin Tommy (Epoetin Tommy(ESRD on dialysis)) 2,000 unit SUBQ 11/23/18 21:00 12/23/18 20:59 12/05/18 21:14 Epoetin Tommy (Epoetin Tommy(ESRD on dialysis)) 3,000 unit SUBQ 11/23/18 21:00 12/23/18 20:59 12/05/18 21:14 Finasteride (Proscar) 5 mg DAILY ORAL 11/25/18 09:00 12/25/18 08:59 12/07/18 08:36 Heparin Sodium (Porcine) (Heparin 5000 units/ml) 5,000 units EVERY 12 HOURS SUBQ 11/22/18 09:00 12/22/18 08:59 11/30/18 22:01 Magnesium Hydroxide (Mom) 30 ml BIDPRN PRN ORAL Constipation 11/26/18 12:45 12/26/18 12:44 11/29/18 18:50 Meclizine HCl (Antivert) 25 mg TIDPRN PRN ORAL for dizziness 11/23/18 18:15 12/23/18 18:14 Metoprolol Tartrate (Lopressor) 25 mg Q12HR ORAL 11/22/18 21:00 12/22/18 20:59 12/07/18 08:37 Ondansetron HCl (Zofran) 4 mg Q6H PRN IVP Nausea & Vomiting 11/24/18 09:30 12/24/18 09:29 11/26/18 23:02 Pantoprazole (Protonix) 40 mg DAILY ORAL 11/26/18 09:00 12/26/18 08:59 12/07/18 08:36 Paricalcitol (Zemplar) 1 mcg THREE TIMES A WEEK ORAL 12/02/18 16:00 01/01/19 15:59 12/07/18 08:36 Tamsulosin HCl (Flomax) 0.4 mg BEDTIME ORAL 11/24/18 23:00 12/24/18 22:59 12/06/18 20:45 Zolpidem Tartrate (Ambien) 10 mg HSPRN PRN ORAL Insomnia 12/05/18 21:00 12/07/18 20:59 12/06/18 20:46 Mckinley Fisher M.D. Dec 07, 2018 17:05
[2018-12-07] MEDS ORDERED: Sterile Water Irrig 1000ml IRRIG ONE (17:24)
--- NOTE | 2018-12-07 19:30 | NUR ---
NURSE NOTES: Report received from Michela Perez RN. Pt is resting in bed in stable condition. Pt is awake, alert, and oriented x4. Pt is on room air and breathing is even and unlabored. IV site is L FA #20g and is asymptomatic, patent, and intact. Morfin is patent and draining to gravity. Bed placed in lowest position with brake engaged, side rails up x3, and bed alarm on. Call light and side table placed within reach. Will continue to monitor.
[2018-12-07 20:00] VITALS: BP 110/73
--- NOTE | 2018-12-07 20:11 | General Progress Note ---
Assessment/Plan Assessment/Plan Assessment - Anemia, OB(+) - Renal failure - Obstructive uropathy - b/l edema - Duplex negative - PSA =10, ? CAP - abnormal LFT --> now normal - EGD: Incidental small hiatal hernia and mild duodenitis, biopsied antrum for H Pylori Colon: Ulcers and erosions in hepatic flexure, typical for ischemic colitis ( biopsied) Diminutive prox ascending colon and sigmoid polyp at 20 - biopsied Recommendations - Renal diet - Zofran PRN - follow CBC/LFT - Avoid volume depletion Subjective Allergies: Coded Allergies: No Known Allergies (Unverified , 11/21/18) Subjective Feels OK tolerating PO pathology reviewed: two adenomatous polyps and a benign colon ulcer Objective Last 24 Hour Vital Signs Date Time Temp Pulse Resp B/P (MAP) Pulse Ox O2 Delivery O2 Flow Rate FiO2 12/07/18 17:22 67 69 82 12/07/18 16:03 68 12/07/18 16:00 98.0 82 20 117/71 (86) 97 12/07/18 13:37 73 12/07/18 09:00 Room Air 12/07/18 09:00 67 69 82 12/07/18 08:37 78 110/72 12/07/18 08:00 98.1 83 21 105/63 (77) 97 12/07/18 07:26 77 12/07/18 04:15 93 12/07/18 04:05 90 12/07/18 04:00 97.6 68 18 121/70 (87) 97 12/07/18 04:00 68 12/07/18 03:22 63 12/06/18 23:23 67 12/06/18 21:00 Room Air 12/06/18 21:00 0 12/06/18 20:45 73 115/57 Intake and Output 12/06/18 12/07/18 19:00 07:00 Intake Total 840 ml 300 ml Output Total 1200 ml 1400 ml Balance -360 ml -1100 ml Intake Oral 840 ml 300 ml Output Urine Total 1200 ml 1400 ml # Bowel Movements 1 Laboratory Tests 12/07/18 05:50: White Blood Count 8.1, Red Blood Count 3.01L, Hemoglobin 9.5L, Hematocrit 28.0L , Mean Corpuscular Volume 93, Mean Corpuscular Hemoglobin 31.6H, Mean Corpuscular Hemoglobin Concent 33.9, Red Cell Distribution Width 11.6, Platelet Count 381, Mean Platelet Volume 4.6L, Neutrophils (%) (Auto) 77.2H, Lymphocytes (%) (Auto) 8.9L, Monocytes (%) (Auto) 8.5, Eosinophils (%) (Auto) 4.1H, Basophils (%) (Auto) 1.3, Sodium Level 137, Potassium Level 4.3, Chloride Level 103, Carbon Dioxide Level 25, Anion Gap 9, Blood Urea Nitrogen 73H, Creatinine 4.2H, Estimat Glomerular Filtration Rate , Glucose Level 87, Calcium Level 9.4 Height (Feet): 5 Height (Inches): 7.00 Weight (Pounds): 143 Objective WDWN NCAT supple CTA RRR Abd soft (+) edema Yasir Alexandra MD Dec 07, 2018 20:11
--- NOTE | 2018-12-07 21:18 | NUR ---
NURSE NOTES: Voicemail left for MD Vasquez requesting renewal of Ambien 10mg PO QHS for insomnia because order was discontinued and pt is requesting medication for bedtime. Awaiting call back for further instructions.
[2018-12-07] MEDS: EPOETIN ALFA 2000 UNIT/ML SUBQ SCH (21:26)
[2018-12-07] MEDS: Tamsulosin 0.4mg cap ORAL SCH (21:26)
[2018-12-07] MEDS: Epoetin Alfa(ESRD on dialysis)3000 units/ml vial SUBQ SCH (21:26)
--- NOTE | 2018-12-07 21:42 | NUR ---
NURSE NOTES: MD Vasquez return call and state okay to place order for Ambien 10mg PO QHS PRN for insomnia. Dosage verified okay per . Orders noted and carried out.
[2018-12-07] MEDS ORDERED: Zolpidem 5mg tab ORAL PRN ×2 (21:45→22:00)
--- NOTE | 2018-12-07 22:07 | General Progress Note ---
Assessment/Plan Assessment/Plan sepsis acute renal failure hyperkalemia obstructive uropathy bph elevated troponin ho htn anemia confusion encephalopathy likiely secondary to uremia resolved vomiting likely secondary to uremia short syncopal episode leukocytosis constiaption abx per ID has johnson, urology fup making good urine infoley, monitor renal parameters echo noted ct of head noted neurolgy evaluation appreciated monitor labs colonopsy noted dw Dr Stokes dvt and ulcer prophylaxis ambulate PT stool softners and laxatives ambulate dc plans to snf when cleared by ID, renal and cardiology socialow worker to arrange Subjective Allergies: Coded Allergies: No Known Allergies (Unverified , 11/21/18) Subjective seen in am comfotable, feels stronger no chest pain or sob Objective Last 24 Hour Vital Signs Date Time Temp Pulse Resp B/P (MAP) Pulse Ox O2 Delivery O2 Flow Rate FiO2 12/07/18 21:00 73 75 95 12/07/18 21:00 74 110/73 12/07/18 17:22 67 69 82 12/07/18 16:03 68 12/07/18 16:00 98.0 82 20 117/71 (86) 97 12/07/18 13:37 73 12/07/18 09:00 Room Air 12/07/18 09:00 67 69 82 12/07/18 08:37 78 110/72 12/07/18 08:00 98.1 83 21 105/63 (77) 97 12/07/18 07:26 77 12/07/18 04:15 93 12/07/18 04:05 90 12/07/18 04:00 97.6 68 18 121/70 (87) 97 12/07/18 04:00 68 12/07/18 03:22 63 12/06/18 23:23 67 Intake and Output 12/06/18 12/07/18 19:00 07:00 Intake Total 840 ml 300 ml Output Total 1200 ml 1400 ml Balance -360 ml -1100 ml Intake Oral 840 ml 300 ml Output Urine Total 1200 ml 1400 ml # Bowel Movements 1 Laboratory Tests 12/07/18 05:50: White Blood Count 8.1, Red Blood Count 3.01L, Hemoglobin 9.5L, Hematocrit 28.0L , Mean Corpuscular Volume 93, Mean Corpuscular Hemoglobin 31.6H, Mean Corpuscular Hemoglobin Concent 33.9, Red Cell Distribution Width 11.6, Platelet Count 381, Mean Platelet Volume 4.6L, Neutrophils (%) (Auto) 77.2H, Lymphocytes (%) (Auto) 8.9L, Monocytes (%) (Auto) 8.5, Eosinophils (%) (Auto) 4.1H, Basophils (%) (Auto) 1.3, Sodium Level 137, Potassium Level 4.3, Chloride Level 103, Carbon Dioxide Level 25, Anion Gap 9, Blood Urea Nitrogen 73H, Creatinine 4.2H, Estimat Glomerular Filtration Rate , Glucose Level 87, Calcium Level 9.4 Height (Feet): 5 Height (Inches): 7.00 Weight (Pounds): 143 Dane Vasquez MD Dec 07, 2018 22:07
[2018-12-07] MEDS: Zolpidem 5mg tab ORAL PRN (22:21)
[2018-12-07 23:50] VITALS: BP 112/71
[2018-12-08 04:00] VITALS: BP 108/70
--- NOTE | 2018-12-08 07:36 | NUR ---
HAND-OFF: Report given to Modesta PARRA and Jeff PARRA. Pt is resting in bed in stable condition. No acute distress noted. Endorsed plan of care.
--- NOTE | 2018-12-08 07:37 | NUR ---
NURSE NOTES: Received report from Kim PARRA, Patient awake, alert and oriented x4. No distress/SOB noted at this time. Bed in low position, call light and belonging within reach. Will continue plan of care.
[2018-12-08 07:41] LABS: CREATINE KINASE 55 U/L (26-308)
[2018-12-08 08:00] VITALS: BP 112/64
[2018-12-08] MEDS: Heparin 5000 units/ml inj SUBQ SCH ×2 (09:00→20:40)
[2018-12-08] MEDS: Docusate 100mg cap ORAL SCH ×2 (09:28→18:25)
[2018-12-08] MEDS: Metoprolol 25mg tab ORAL SCH ×2 (09:28→20:40)
--- NOTE | 2018-12-08 10:05 | Urology Progress Note ---
Assessment/Plan Assessment/Plan 1. Urinary retention history. 2. Benign prostatic hypertrophy. 3. Possible neurogenic bladder. 4. Hematuria. 5. Renal failure, which appears to be acute on chronic, improved. 6. Hydronephrosis, improved with Johnson. 7. Proteinuria. 8. Meatal stenosis and stricture history. 9. Inguinal hernia. 10. Elevated serum PSA. monitor clinically johnson indwelling, last exchanged 12/06 hand irrigated and do PRN secured to pt's leg off HD for now monitor renal fxn closely, seems to have stabilized flomax and proscar added cysto later voiding trial at some point? prob as outpt most likely will need TURP poss prostate bx later d/w nursing staff Subjective Allergies: Coded Allergies: No Known Allergies (Unverified , 11/21/18) Subjective all noted, feels fair, new johnson draining well Objective Last 24 Hour Vital Signs Date Time Temp Pulse Resp B/P (MAP) Pulse Ox O2 Delivery O2 Flow Rate FiO2 12/08/18 09:28 77 112/64 12/08/18 08:00 97.3 77 18 112/64 (80) 96 12/08/18 04:00 98.5 73 20 108/70 (83) 96 12/08/18 04:00 66 12/08/18 00:00 68 12/07/18 23:50 98.3 73 20 112/71 (85) 99 12/07/18 21:00 73 75 95 12/07/18 21:00 74 110/73 12/07/18 21:00 Room Air 12/07/18 20:00 70 12/07/18 20:00 98.6 73 20 110/73 (85) 97 12/07/18 17:22 67 69 82 12/07/18 16:03 68 12/07/18 16:00 98.0 82 20 117/71 (86) 97 12/07/18 13:37 73 Intake and Output 12/07/18 12/08/18 19:00 07:00 Output Total 800 ml Balance -800 ml Output Urine Total 800 ml Microbiology Date/Time Source Procedure Growth Status 11/30/18 21:00 Blood Blood Culture - Final NO GROWTH AFTER 5 DAYS Complete 11/23/18 15:00 Stool Ova and Parasites - Final Complete 11/23/18 15:00 Stool Ova and Parasite Result 1 - Final Complete Current Medications Medications (Trade) Dose Ordered Sig/Debbie Route PRN Reason Start Time Stop Time Status Last Admin Dose Admin Acetaminophen (Tylenol) 650 mg Q6H PRN ORAL Mild Pain/Temp > 100.5 11/22/18 03:15 12/22/18 03:14 12/02/18 18:22 Acetaminophen/ Hydrocodone Bitart ([place] 5/325) 1 tab Q4H PRN ORAL Moderate Pain (Pain Scale 4-6) 12/02/18 00:45 12/09/18 00:44 12/03/18 00:39 Al Hydroxide/Mg Hydroxide (Mylanta) 30 ml Q6H PRN ORAL GERD 11/22/18 03:15 12/22/18 03:14 Bisacodyl (Dulcolax) 10 mg DAILYPRN PRN RECTAL Constipation 11/30/18 14:30 12/30/18 14:29 12/06/18 08:56 Daptomycin 700 mg/ Sodium Chloride 55 ml @ 100 mls/hr Q48H IV 11/27/18 14:00 12/14/18 13:59 12/07/18 15:32 Docusate Sodium (Colace) 100 mg TWICE A DAY ORAL 11/25/18 09:00 12/25/18 08:59 12/08/18 09:28 Epoetin Tommy (Epoetin Tommy(ESRD on dialysis)) 2,000 unit SUBQ 11/23/18 21:00 12/23/18 20:59 12/07/18 21:26 Epoetin Tommy (Epoetin Tommy(ESRD on dialysis)) 3,000 unit SUBQ 11/23/18 21:00 12/23/18 20:59 12/07/18 21:26 Finasteride (Proscar) 5 mg DAILY ORAL 11/25/18 09:00 12/25/18 08:59 12/08/18 09:28 Heparin Sodium (Porcine) (Heparin 5000 units/ml) 5,000 units EVERY 12 HOURS SUBQ 11/22/18 09:00 12/22/18 08:59 11/30/18 22:01 Magnesium Hydroxide (Mom) 30 ml BIDPRN PRN ORAL Constipation 11/26/18 12:45 12/26/18 12:44 11/29/18 18:50 Meclizine HCl (Antivert) 25 mg TIDPRN PRN ORAL for dizziness 11/23/18 18:15 12/23/18 18:14 Metoprolol Tartrate (Lopressor) 25 mg Q12HR ORAL 11/22/18 21:00 12/22/18 20:59 12/08/18 09:28 Ondansetron HCl (Zofran) 4 mg Q6H PRN IVP Nausea & Vomiting 11/24/18 09:30 12/24/18 09:29 11/26/18 23:02 Pantoprazole (Protonix) 40 mg DAILY ORAL 11/26/18 09:00 12/26/18 08:59 12/08/18 09:28 Paricalcitol (Zemplar) 1 mcg THREE TIMES A WEEK ORAL 12/02/18 16:00 01/01/19 15:59 12/07/18 08:36 Sodium Chloride 1,000 ml @ 75 mls/hr [id number] IV 12/08/18 08:45 01/07/19 08:44 12/08/18 09:29 Tamsulosin HCl (Flomax) 0.4 mg BEDTIME ORAL 11/24/18 23:00 12/24/18 22:59 12/07/18 21:26 Zolpidem Tartrate (Ambien) 10 mg HSPRN PRN ORAL Insomnia 12/07/18 22:00 12/14/18 21:59 12/07/18 22:21 Laboratory Tests 12/08/18 06:34: Total Creatine Kinase 55 Height (Feet): 5 Height (Inches): 7.00 Weight (Pounds): 147 Objective exam stable, urine clearing, has some debris serum PSA 10.09 abdominal u/s (11/29) noted Geraldo Wise MD Dec 08, 2018 10:05
[2018-12-08 12:00] VITALS: BP 112/73
--- NOTE | 2018-12-08 12:16 | Nephrology Progress Note ---
Assessment/Plan Problem List: (1) Acute on chronic renal failure Assessment: stable (2) Urinary retention (3) Hyperkalemia (4) Metabolic acidosis (5) Uremia (6) Bacteremia due to Enterococcus (7) Anemia Assessment: better (8) Iron deficiency (9) Secondary hyperparathyroidism of renal origin Assessment still polyuric Plan Patient was orthostatic today. Patient was started on IV normal saline by Dr. Vasquez at 75 mL/h Discussed case with RN Patient is cleared for discharge Discussed with nurse case manager Patient can be off Epogen in retirement Subjective Subjective feels ok Objective Objective Last 24 Hour Vital Signs Date Time Temp Pulse Resp B/P (MAP) Pulse Ox O2 Delivery O2 Flow Rate FiO2 12/08/18 09:28 77 112/64 12/08/18 09:00 Room Air 12/08/18 08:00 78 12/08/18 08:00 97.3 77 18 112/64 (80) 96 12/08/18 04:00 98.5 73 20 108/70 (83) 96 12/08/18 04:00 66 12/08/18 00:00 68 12/07/18 23:50 98.3 73 20 112/71 (85) 99 12/07/18 21:00 73 75 95 12/07/18 21:00 74 110/73 12/07/18 21:00 Room Air 12/07/18 20:00 70 12/07/18 20:00 98.6 73 20 110/73 (85) 97 12/07/18 17:22 67 69 82 12/07/18 16:03 68 12/07/18 16:00 98.0 82 20 117/71 (86) 97 12/07/18 13:37 73 Intake and Output 12/07/18 12/08/18 19:00 07:00 Output Total 800 ml Balance -800 ml Output Urine Total 800 ml Laboratory Tests 12/08/18 06:34: Total Creatine Kinase 55 Height (Feet): 5 Height (Inches): 7.00 Weight (Pounds): 147 Cardiovascular: normal rate Respiratory/Chest: lungs clear Extremities: other - No edema Michael Sosa MD Dec 08, 2018 12:16
--- NOTE | 2018-12-08 12:36 | NUR ---
CASE MANAGEMENT:REVIEW 12/07/18 SI: SEPSIS. ACUTE RENAL FAILURE 98.1 83 21 110/72 97% ON RA BUN+73 CR+.2 IS: IVF@75/HR ZEMPLAR PO TID IV DAPTOMYCIN Q48HR PROTONIX PO QD PROSCAR PO QD COLACE PO BID FLOMAX PO QHS EPOETIN SQ MWF LOPRESSOR PO Q12 HEPARIN SQ Q12 : TELEMETRY STATUS 12/08/18 DISCHARGE TO SNF TODAY
--- NOTE | 2018-12-08 12:48 | NUR ---
INSURANCE FAXED TO: ANATOLIY HENRDICKS:NORMA P:[phone] F:[phone] REF# [id number]
[2018-12-08 16:00] VITALS: BP 122/75
--- NOTE | 2018-12-08 16:18 | Infectious Diseases Prog Note ---
Assessment/Plan Problems: (1) Sepsis due to Enterococcus with acute renal failure and metabolic encephalopathy Assessment & Plan: source most likely tract due to obstruction , with no GI mass but polyps which were removed . continue daptomycin renally dosed as per pharmacy for his bacteremia for two weeks . repeated blood culture on 11/30 is negative so far which confirm clearance . monitor CK level weekly while on daptomycin . will need two weeks of iv antibiotics for his bacteremia starting from the clearance date. EOT 12/14/18 (2) Hydronephrosis Assessment & Plan: most likely the source of his bacteremia with enterococcus faecalis , complicated with renal failure , suspect enlarged prostate , with elevated PSA rule out prostate CA , recommend oncology work up with rectal US to rule out prostatic mass and for biopsy , and possible prostatectomy once clinically stable in the future (3) Acute on chronic renal failure Assessment & Plan: improving, now making good urine , previously required HD , his HD catheter was removed since it was placed while bacteremic . S/P Morfin catheter change (4) Acute encephalopathy Assessment & Plan: improving, suspect metabolic and toxic , monitor mental status, avoid nephrotoxics , neurology is following (5) Prostate enlargement Assessment & Plan: with elevated PSA, rule out malignant process, recommend rectal US to evaluate the prostate and for possible biopsy to rule out malignancy . (6) Generalized weakness Assessment & Plan: recommend rehabilitation and PT Subjective Constitutional: Reports: no symptoms HEENT: Reports: no symptoms Respiratory: Reports: no symptoms Breasts: Reports: no symptoms Cardiovascular: Reports: no symptoms Gastrointestinal/Abdominal: Reports: no symptoms Genitourinary: Reports: no symptoms Neurologic: Reports: no symptoms Psychiatric: Reports: no symptoms Skin: Reports: no symptoms Endocrine: Reports: no symptoms Hematologic: Reports: no symptoms Musculoskeletal: Reports: no symptoms Allergies: Coded Allergies: No Known Allergies (Unverified , 11/21/18) Subjective He was feeling good , denied any fever or chills, no cough or SOB , no cough or SOB, no neck pain or hematoma, no diarrhea , feels more energetic Objective Vital Signs Last 24 Hour Vital Signs Date Time Temp Pulse Resp B/P (MAP) Pulse Ox O2 Delivery O2 Flow Rate FiO2 12/08/18 12:00 72 12/08/18 12:00 98.7 74 23 112/73 (86) 98 12/08/18 12:00 74 69 89 12/08/18 09:28 77 112/64 3/14/19 09:00 Room Air 12/08/18 08:00 78 12/08/18 08:00 97.3 77 18 112/64 (80) 96 12/08/18 04:00 98.5 73 20 108/70 (83) 96 12/08/18 04:00 66 12/08/18 00:00 68 12/07/18 23:50 98.3 73 20 112/71 (85) 99 12/07/18 21:00 73 75 95 12/07/18 21:00 74 110/73 12/07/18 21:00 Room Air 12/07/18 20:00 70 12/07/18 20:00 98.6 73 20 110/73 (85) 97 12/07/18 17:22 67 69 82 Height (Feet): 5 Height (Inches): 7.00 Weight (Pounds): 147 General Appearance: WD/WN, no acute distress HEENT: normocephalic, atraumatic, anicteric, mucous membranes moist Respiratory/Chest: chest wall non-tender, lungs clear, normal breath sounds, no respiratory distress, no accessory muscle use Cardiovascular: normal peripheral pulses, normal rate, regular rhythm, no gallop/murmur, no JVD Abdomen: normal bowel sounds, soft, non tender, no organomegaly, non distended , no mass, no scars Genitourinary: normal external genitalia Extremities: no cyanosis, no clubbing Skin: no rash, no lesions, no ulcers 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, no motor/sensory deficits, alert, oriented x 3, responsive, normal mood/affect Lymphatic: no neck adenopathy, no groin adenopathy Musculoskeletal: normal muscle bulk, no effusion Laboratory Tests Test 12/08/18 06:34 Total Creatine Kinase 55 U/L (26-308) Current Medications Medications (Trade) Dose Ordered Sig/Debbie Route PRN Reason Start Time Stop Time Status Last Admin Dose Admin Acetaminophen (Tylenol) 650 mg Q6H PRN ORAL Mild Pain/Temp > 100.5 11/22/18 03:15 12/22/18 03:14 12/02/18 18:22 Acetaminophen/ Hydrocodone Bitart (Walton 5/325) 1 tab Q4H PRN ORAL Moderate Pain (Pain Scale 4-6) 12/02/18 00:45 12/09/18 00:44 12/03/18 00:39 Al Hydroxide/Mg Hydroxide (Mylanta) 30 ml Q6H PRN ORAL GERD 11/22/18 03:15 12/22/18 03:14 Bisacodyl (Dulcolax) 10 mg DAILYPRN PRN RECTAL Constipation 11/30/18 14:30 12/30/18 14:29 12/06/18 08:56 Daptomycin 700 mg/ Sodium Chloride 55 ml @ 100 mls/hr Q48H IV 11/27/18 14:00 12/14/18 13:59 12/07/18 15:32 Docusate Sodium (Colace) 100 mg TWICE A DAY ORAL 11/25/18 09:00 12/25/18 08:59 12/08/18 09:28 Epoetin Tommy (Epoetin Tommy(ESRD on dialysis)) 2,000 unit WED-WED-WED SUBQ 11/23/18 21:00 12/23/18 20:59 12/07/18 21:26 Epoetin Tommy (Epoetin Tommy(ESRD on dialysis)) 3,000 unit WED-WED-WED SUBQ 11/23/18 21:00 12/23/18 20:59 12/07/18 21:26 Finasteride (Proscar) 5 mg DAILY ORAL 11/25/18 09:00 12/25/18 08:59 12/08/18 09:28 Heparin Sodium (Porcine) (Heparin 5000 units/ml) 5,000 units EVERY 12 HOURS SUBQ 11/22/18 09:00 12/22/18 08:59 11/30/18 22:01 Magnesium Hydroxide (Mom) 30 ml BIDPRN PRN ORAL Constipation 11/26/18 12:45 12/26/18 12:44 11/29/18 18:50 Meclizine HCl (Antivert) 25 mg TIDPRN PRN ORAL for dizziness 11/23/18 18:15 12/23/18 18:14 Metoprolol Tartrate (Lopressor) 25 mg Q12HR ORAL 11/22/18 21:00 12/22/18 20:59 12/08/18 09:28 Ondansetron HCl (Zofran) 4 mg Q6H PRN IVP Nausea & Vomiting 11/24/18 09:30 12/24/18 09:29 11/26/18 23:02 Pantoprazole (Protonix) 40 mg DAILY ORAL 11/26/18 09:00 12/26/18 08:59 12/08/18 09:28 Paricalcitol (Zemplar) 1 mcg THREE TIMES A WEEK ORAL 12/02/18 16:00 01/01/19 15:59 12/07/18 08:36 Sodium Chloride 1,000 ml @ 75 mls/hr [id number] IV 12/08/18 08:45 01/07/19 08:44 12/08/18 09:29 Tamsulosin HCl (Flomax) 0.4 mg BEDTIME ORAL 11/24/18 23:00 12/24/18 22:59 12/07/18 21:26 Zolpidem Tartrate (Ambien) 10 mg HSPRN PRN ORAL Insomnia 12/07/18 22:00 12/14/18 21:59 12/07/18 22:21 Mckinley Fisher M.D. Dec 08, 2018 16:18
--- NOTE | 2018-12-08 17:11 | Cardiac Electrophysiology PN ---
Assessment/Plan Assessment/Plan 1. Type 2 NSTEMI. The levels are nonspecific and flat 0.5, 0.5, 0.2. Denies any chest pain. This is due to the patient's renal failure EKG shows sinus rhythm with no acute ST-T wave abnormalities. EF 65%. On aspirin and Lopressor 2. Recurrent atrial flutter on 11/24 and 11/25/18. Both terminated spontaneously On Metoprolol 25 bid. Consider intermediate anticoagulation if recurs Has remained in SR 70S 3. Hyperkalemia. Potassium was 7 and is down to 4.1. S/P sodium bicarbonate and Kayexalate. Had HD 4. Acute on chronic renal failure. Further evaluation by Dr. Sosa. Cecil catheter removed. No further HD scheduled 5. Syncope. ? etiology. Nl EF. No . Could be due to atrial flutter with RVR 6. High PSA Fu Dr Alvarez 7. Sepsis, source most likely tract , may need also to rule out GI malignancy. On daptomycin. Repeated blood culture x2 on 11/26 is NTD . HD catheter was removed 8. Anemia,S/P PRBC. GD and colonoscopy showed ischemic colitis FU DR Toby PETERSON RN Subjective Subjective In SR 70s. No CP or SOB. DC to [facility] pending today Objective Last 24 Hour Vital Signs Date Time Temp Pulse Resp B/P (MAP) Pulse Ox O2 Delivery O2 Flow Rate FiO2 12/08/18 16:00 77 12/08/18 16:00 98.2 77 21 122/75 (91) 95 12/08/18 12:00 72 12/08/18 12:00 98.7 74 23 112/73 (86) 98 12/08/18 12:00 74 69 89 12/08/18 09:28 77 112/64 12/08/18 09:00 Room Air 12/08/18 08:00 78 12/08/18 08:00 97.3 77 18 112/64 (80) 96 12/08/18 04:00 98.5 73 20 108/70 (83) 96 12/08/18 04:00 66 12/08/18 00:00 68 12/07/18 23:50 98.3 73 20 112/71 (85) 99 12/07/18 21:00 73 75 95 12/07/18 21:00 74 110/73 3/13/19 21:00 Room Air 12/07/18 20:00 70 12/07/18 20:00 98.6 73 20 110/73 (85) 97 12/07/18 17:22 67 69 82 Intake and Output 12/07/18 12/08/18 18:59 06:59 Output Total 800 ml Balance -800 ml Output Urine Total 800 ml Laboratory Tests Test 12/08/18 06:34 Total Creatine Kinase 55 U/L (26-308) Objective HEAD AND NECK: No JVD. LUNGS: Clear. CARDIOVASCULAR: Regular S1 and S2 with no gallop or murmur. ABDOMEN: Soft. EXTREMITIES: 1+ pitting edema. David Guerra MD Dec 08, 2018 17:11
--- NOTE | 2018-12-08 17:36 | Neurology Progress Note ---
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 However, he is emotionally upset as he was not transferred to the SNF due to insurance issues. He was sitting at the edge of his bed getting ready to have his dinner. He has been able to read and write better. The mind continues to be clear - close to normal. His cognitive function he feels has normalized. He has had no further episodes of loss of consciousness. His appetite is good. He walked a few times today. He felt steadier on his feet. His motor function is close to normal. He denies any new neurological symptoms. He specifically denies any weakness on one side or the other, numbness on one side or the other, problems with speech problems with language problems with vision problems with memory. Review of Systems Neuro Review of Systems Benign. Objective Physical Exam Last Vital Signs Date Time Temp Pulse Resp B/P (MAP) Pulse Ox O2 Delivery O2 Flow Rate FiO2 12/08/18 16:00 77 12/08/18 16:00 98.2 21 122/75 (91) 95 12/08/18 09:00 Room Air 12/02/18 08:15 3 Laboratory Tests Test 12/08/18 06:34 Total Creatine Kinase 55 U/L (26-308) Neurologic Exam Objective PHYSICAL EXAMINATION: GENERAL: He is a well-developed, well-nourished, pleasant gentleman, lying in bed, in no acute distress. HEAD: Normocephalic and atraumatic. EENT: Examination benign. NECK: No neck rigidity was observed. NEUROLOGIC EXAMINATION: MENTAL STATUS EXAMINATION: He was awake and alert. He was oriented to person, place, and time. He was able to recall 3/3 words immediately after 1 minute and after 3 minutes. He was able to remember presidents, Trump through Trujillo senior. His mathematical skills were good. His visuospatial function was preserved. SPEECH: He had no dysarthria. LANGUAGE: He had no aphasia. CRANIAL NERVE EXAMINATION: II: The visual caal were intact on confrontation testing. III, IV & : The external ocular movements were full and the pupils 3 mm in diameter, equal, round, regular, and reactive to light. V: He had normal facial sensations, and the temporales, masseters, and pterygoids functioned normally. VII: He had normal facial expressions and no facial asymmetry. VIII: He was able to hear well bilaterally and had no nystagmus. IX: The palate moved symmetrically on phonation. X: He had no hoarseness of voice. XI: The sternocleidomastoids and trapezii functioned normally. XII: The tongue was in the midline without any fasciculations or atrophy. MOTOR SYSTEM: The tone was normal in all four extremities. Examination of muscle mass revealed no focal wasting. Examination of power revealed G 5/5 power in all muscle groups tested. SENSORY EXAMINATION: He had intact sensations to pinprick, light touch, and graphesthesia. COORDINATION: He performed well on [id number]-[id number] and [id number]-vk-htvb testing. REFLEXES: 2+ and bilaterally symmetrical at the biceps, triceps, brachioradialis, and knees, Trace+ at both ankles. The plantar responses were flexor bilaterally. STANCE: He stood up with contact guard. GAIT: He walked well with contact guard. Impression/Recommendations Diagnostic Impression 1. 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 2. Since he has been in the hospital, he has continued to feel unwell and has had lightheadedness whenever he tries to sit up, stand, and walk. On 1 occasion on 11/23/18, he started to feel lightheaded while sitting up, then passed out for brief period of time, and had some generalized body jerking movements. He rapidly regained consciousness following that. 3. He feels well physically. However, he is emotionally upset as he was not transferred to the SNF due to insurance issues. He was sitting at the edge of his bed getting ready to have his dinner. He has been able to read and write better. The mind continues to be clear - close to normal. His cognitive function he feels has normalized. He has had no further episodes of loss of consciousness. His appetite is good. He walked a few times today. He felt steadier on his feet. His motor function is close to normal. He denies any new neurological symptoms. 4. On neurological examination, at this time, his cerebration has normalized. His mental status examination has also normalized. His deep tendon reflexes are normal except for trace ankle jerks. He still needs contact guard to stand and walk. 5. Laboratory data on my initial evaluation revealed that his WBC count was elevated to 15,300. He was significantly anemic with a hemoglobin of 8.7 G. His chemistry panel revealed that his potassium was low at 3.1. His BUN was elevated at 173 with a creatinine of 10.1. His proBNP was elevated to 1278. His vitamin B12 level was normal at 1394. His folate level was normal at 25.3. His TSH was normal at 1.42. His INR was normal at 1.0. His urinalysis revealed 1+ leukocyte esterase with 2 red blood cells, and 2 white blood cells per high-power field. 6. The CT of the brain reveals no acute pathology. 7. EEG done on 11/24/2018 revealed triphasic waveforms with an anterior to posterior gradient but normal background and no interictal or ictal phenomena. These findings are consistent with a mild metabolic encephalopathy. 8. The patient's history, neurological examination, laboratory data, imaging studies and EEG are most consistent with lightheadedness due to fluid and electrolyte imbalance. 9. The episode that the patient had on 11/23/18 where he felt lightheaded, then passed out, and had some abnormal body jerking movements was most probably a Matias-Anthony attack. 10. The patient's cognitive dysfunction has resolved. It was due to an ongoing metabolic encephalopathic process. 11. He is still minimally unsteady on his feet. Recommendations 1. Continue present management. 2. Continue to correct the patient's fluid and electrolyte imbalances. 3. Frequent range of motion exercises - patient instructed. 4. Out of bed in chair for all meals. 5. Mobilize with PT and multiple daily walks. 6. Urologic management for removal of Morfin. 7. If discharged - follow up in office in ~ 2 months. Janak Chandra M.D., M.S.P.H. Janak Chandra MD Dec 08, 2018 17:36
--- NOTE | 2018-12-08 19:20 | NUR ---
NURSE NOTES: received pt in stable condition. resting on the bed. no acute distress no c/o pain at this time. safety precautions in place. will continue to monitor.
--- NOTE | 2018-12-08 19:35 | NUR ---
HAND-OFF: Report given to AIDA Luna. Patient is in stable condition. Endorsed plan of care.
[2018-12-08 20:00] VITALS: BP 119/69
[2018-12-08] MEDS: Tamsulosin 0.4mg cap ORAL SCH (20:40)
[2018-12-08] MEDS: Zolpidem 5mg tab ORAL PRN (20:45)
--- NOTE | 2018-12-08 22:03 | General Progress Note ---
Assessment/Plan Assessment/Plan sepsis acute renal failure hyperkalemia obstructive uropathy bph elevated troponin ho htn anemia confusion encephalopathy likiely secondary to uremia resolved vomiting likely secondary to uremia short syncopal episode leukocytosis constiaption abx per ID has johnson, urology fup making good urine infoley, monitor renal parameters echo noted ct of head noted neurolgy evaluation appreciated monitor labs colonopsy noted dw Dr Stokes dvt and ulcer prophylaxis ambulate PT stool softners and laxatives ambulate fluids dw Dr Ian Fisher, Dr Guerra ok for discharge today to snf dw Dr Guerra, pateint will need to fup as outpatient for stress test. patient aware dr sosa to coordinate re monitoring renal paramters ok for dc to snf today Subjective Allergies: Coded Allergies: No Known Allergies (Unverified , 11/21/18) Subjective seen in am comfotable, feels stronger no chest pain or sob fluid was dcd yesterday, became orthostatic, janey Sosa restart fluid Objective Last 24 Hour Vital Signs Date Time Temp Pulse Resp B/P (MAP) Pulse Ox O2 Delivery O2 Flow Rate FiO2 12/08/18 21:10 76 12/08/18 21:05 78 12/08/18 21:00 74 12/08/18 20:40 74 119/69 12/08/18 20:00 82 12/08/18 16:00 77 12/08/18 16:00 98.2 77 21 122/75 (91) 95 12/08/18 12:00 72 12/08/18 12:00 98.7 74 23 112/73 (86) 98 12/08/18 12:00 74 69 89 12/08/18 09:28 77 112/64 12/08/18 09:00 Room Air 12/08/18 08:00 78 12/08/18 08:00 97.3 77 18 112/64 (80) 96 12/08/18 04:00 98.5 73 20 108/70 (83) 96 12/08/18 04:00 66 12/08/18 00:00 68 12/07/18 23:50 98.3 73 20 112/71 (85) 99 Intake and Output 12/07/18 12/08/18 18:59 06:59 Output Total 800 ml Balance -800 ml Output Urine Total 800 ml Laboratory Tests 12/08/18 06:34: Total Creatine Kinase 55 Height (Feet): 5 Height (Inches): 7.00 Weight (Pounds): 147 General Appearance: WD/WN, no apparent distress Neck: supple Cardiovascular: normal rate Respiratory/Chest: lungs clear Abdomen: soft Dane Vasquez MD Dec 08, 2018 22:03
--- NOTE | 2018-12-08 22:13 | General Progress Note ---
Assessment/Plan Assessment/Plan Assessment - Anemia, OB(+) - Renal failure - Obstructive uropathy - b/l edema - Duplex negative - PSA =10, ? CAP - abnormal LFT --> now normal - EGD: Incidental small hiatal hernia and mild duodenitis, biopsied antrum for H Pylori Colon: Ulcers and erosions in hepatic flexure, typical for ischemic colitis ( biopsied) Diminutive prox ascending colon and sigmoid polyp at 20 - biopsied Recommendations - Renal diet - Zofran PRN - follow CBC/LFT - Avoid volume depletion - OK for d/c from GI standpoint Subjective Allergies: Coded Allergies: No Known Allergies (Unverified , 11/21/18) Subjective Feels OK tolerating PO pathology reviewed: two adenomatous polyps and a benign colon ulcer Objective Last 24 Hour Vital Signs Date Time Temp Pulse Resp B/P (MAP) Pulse Ox O2 Delivery O2 Flow Rate FiO2 12/08/18 21:10 76 12/08/18 21:05 78 12/08/18 21:00 74 12/08/18 20:40 74 119/69 12/08/18 20:00 99.3 74 18 119/69 (86) 98 12/08/18 20:00 82 12/08/18 16:00 77 12/08/18 16:00 98.2 77 21 122/75 (91) 95 12/08/18 12:00 72 12/08/18 12:00 98.7 74 23 112/73 (86) 98 12/08/18 12:00 74 69 89 12/08/18 09:28 77 112/64 12/08/18 09:00 Room Air 12/08/18 08:00 78 12/08/18 08:00 97.3 77 18 112/64 (80) 96 12/08/18 04:00 98.5 73 20 108/70 (83) 96 12/08/18 04:00 66 12/08/18 00:00 68 12/07/18 23:50 98.3 73 20 112/71 (85) 99 Intake and Output 12/07/18 12/08/18 19:00 07:00 Output Total 800 ml Balance -800 ml Output Urine Total 800 ml Laboratory Tests 12/08/18 06:34: Total Creatine Kinase 55 Height (Feet): 5 Height (Inches): 7.00 Weight (Pounds): 147 Objective WDWN NCAT supple CTA RRR Abd soft (+) edema Yasir Alexandra MD Dec 08, 2018 22:12
[2018-12-09] VITALS: BP 126/74
--- NOTE | 2018-12-09 01:17 | NUR ---
NURSE NOTES: pt sleeping at this time
[2018-12-09 04:00] VITALS: BP 126/77
--- NOTE | 2018-12-09 06:42 | NUR ---
NURSE NOTES: pt in stable condition during my shift. all needs meet during my shift. will endorse to incoming nurse.
--- NOTE | 2018-12-09 07:51 | NUR ---
NURSE NOTES: Patient sitting up in bed, awake and alert x 4, on room air, bed no SOB, no c/o pain, bed in lowest position, call light within reach, Morfin cather in place, patient asking to walk today, patient has history of dizziness/vertigo. I instructed patient that the physical therapist will do appropriate activies with patient..
--- NOTE | 2018-12-09 07:52 | NUR ---
HAND-OFF: Report given to AIDA Morejon. endorsed plan of care
[2018-12-09 08:00] VITALS: BP 117/72
--- NOTE | 2018-12-09 08:31 | NUR ---
CASE MANAGEMENT:REVIEW 12/08/18 SI: SEPSIS. ACUTE RENAL FAILURE 97.3 77 78 18 112/64 96% ON RA IS: IVF@75/HR ZEMPLAR PO TID IV DAPTOMYCIN Q48HR PROTONIX PO QD PROSCAR PO QD COLACE PO BID FLOMAX PO QHS EPOETIN SQ MWF LOPRESSOR PO Q12 HEPARIN SQ Q12 : TELEMETRY STATUS PLAN: PLAN IS TO DISCHARGE TO [facility] SOON THEY OBTAIN AUTHORIZATION FROM [facility] TO DISCHARGE WAS 1) PROCRIT ~ WHICH WAS DC' D 2) IV DAPTOMYCIN Q48HRS 12/09/18 SI: SEPSIS. ACUTE RENAL FAILURE 98.4 64 20 126/77 99% ON RA IS: IVF@75/HR ZEMPLAR PO TID IV DAPTOMYCIN Q48HR PROTONIX PO QD PROSCAR PO QD COLACE PO BID FLOMAX PO QHS EPOETIN SQ MWF LOPRESSOR PO Q12 HEPARIN SQ Q12 : TELEMETRY STATUS PLAN IS TO DISCHARGE TO [facility] SOON THEY OBTAIN AUTHORIZATION FROM [facility] TO DISCHARGE WAS 1) PROCRIT ~ WHICH WAS DC' D 2) IV DAPTOMYCIN Q48HRS
[2018-12-09] MEDS: Paricalcitol 1mcg cap ORAL SCH (08:44)
[2018-12-09] MEDS: Docusate 100mg cap ORAL SCH ×2 (08:45→18:52)
[2018-12-09] MEDS: Metoprolol 25mg tab ORAL SCH (08:45)
[2018-12-09] MEDS: Heparin 5000 units/ml inj SUBQ SCH (09:00)
--- NOTE | 2018-12-09 09:02 | NUR ---
DISCHARGE PLANNING PATIENT HAS BEEN ACCEPTED AT [facility] IS WAITING FOR AUTHORIZATION FROM HEALTH PLAN ALSO ~ MEDICATION RECONCILIATION NEEDS TO REFLECT THE END DATE OF DAPTOMYCIN AND THE DISCONTINUANCE OF PROCRIT *ONCE ALL OF THE ABOVE HAVE BEEN COMPLETED ASSISTANT LOAN PROCESSOR WILL MAKE ARRANGEMENTS TO TRANSFER PATIENT TO [facility]
--- NOTE | 2018-12-09 09:38 | Urology Progress Note ---
Assessment/Plan Assessment/Plan 1. Urinary retention history. 2. Benign prostatic hypertrophy. 3. Possible neurogenic bladder. 4. Hematuria. 5. Renal failure, which appears to be acute on chronic, improved. 6. Hydronephrosis, improved with Johnson. 7. Proteinuria. 8. Meatal stenosis and stricture history. 9. Inguinal hernia. 10. Elevated serum PSA. monitor clinically johnson indwelling, last exchanged 12/06 hand irrigated and do PRN secured to pt's leg off HD for now monitor renal fxn closely, seems to have stabilized flomax and proscar added cysto later voiding trial at some point? prob as outpt most likely will need TURP poss prostate bx later d/w nursing staff Subjective Allergies: Coded Allergies: No Known Allergies (Unverified , 11/21/18) Subjective all noted, feels fair, new johnson draining well Objective Last 24 Hour Vital Signs Date Time Temp Pulse Resp B/P (MAP) Pulse Ox O2 Delivery O2 Flow Rate FiO2 12/09/18 08:45 70 117/72 12/09/18 08:00 97.7 70 18 117/72 (87) 99 12/09/18 04:00 98.4 64 20 126/77 (93) 99 12/09/18 04:00 61 12/09/18 00:00 97.7 66 20 126/74 (91) 99 12/09/18 00:00 69 12/08/18 21:10 76 12/08/18 21:05 78 12/08/18 21:00 Room Air 12/08/18 21:00 74 12/08/18 20:40 74 119/69 12/08/18 20:00 99.3 74 18 119/69 (86) 98 12/08/18 20:00 82 12/08/18 16:00 77 12/08/18 16:00 98.2 77 21 122/75 (91) 95 12/08/18 12:00 72 12/08/18 12:00 98.7 74 23 112/73 (86) 98 12/08/18 12:00 74 69 89 Intake and Output 12/08/18 12/09/18 19:00 07:00 Intake Total 675 ml 825 ml Output Total 2200 ml Balance -1525 ml 825 ml IV Total 675 ml 825 ml Output Urine Total 2200 ml Microbiology Date/Time Source Procedure Growth Status 11/30/18 21:00 Blood Blood Culture - Final NO GROWTH AFTER 5 DAYS Complete 11/23/18 15:00 Stool Ova and Parasites - Final Complete 11/23/18 15:00 Stool Ova and Parasite Result 1 - Final Complete Current Medications Medications (Trade) Dose Ordered Sig/Debbie Route PRN Reason Start Time Stop Time Status Last Admin Dose Admin Acetaminophen (Tylenol) 650 mg Q6H PRN ORAL Mild Pain/Temp > 100.5 11/22/18 03:15 12/22/18 03:14 12/02/18 18:22 Al Hydroxide/Mg Hydroxide (Mylanta) 30 ml Q6H PRN ORAL GERD 11/22/18 03:15 12/22/18 03:14 Bisacodyl (Dulcolax) 10 mg DAILYPRN PRN RECTAL Constipation 11/30/18 14:30 12/30/18 14:29 12/06/18 08:56 Daptomycin 700 mg/ Sodium Chloride 55 ml @ 100 mls/hr Q48H IV 11/27/18 14:00 12/14/18 13:59 12/07/18 15:32 Docusate Sodium (Colace) 100 mg TWICE A DAY ORAL 11/25/18 09:00 12/25/18 08:59 12/09/18 08:45 Epoetin Tommy (Epoetin Tommy(ESRD on dialysis)) 2,000 unit WED-WED-WED SUBQ 11/23/18 21:00 12/23/18 20:59 12/07/18 21:26 Epoetin Tommy (Epoetin Tommy(ESRD on dialysis)) 3,000 unit SUBQ 11/23/18 21:00 12/23/18 20:59 12/07/18 21:26 Finasteride (Proscar) 5 mg DAILY ORAL 11/25/18 09:00 12/25/18 08:59 12/09/18 08:44 Heparin Sodium (Porcine) (Heparin 5000 units/ml) 5,000 units EVERY 12 HOURS SUBQ 11/22/18 09:00 12/22/18 08:59 11/30/18 22:01 Magnesium Hydroxide (Mom) 30 ml BIDPRN PRN ORAL Constipation 11/26/18 12:45 12/26/18 12:44 11/29/18 18:50 Meclizine HCl (Antivert) 25 mg TIDPRN PRN ORAL for dizziness 11/23/18 18:15 12/23/18 18:14 Metoprolol Tartrate (Lopressor) 25 mg Q12HR ORAL 11/22/18 21:00 12/22/18 20:59 12/09/18 08:45 Ondansetron HCl (Zofran) 4 mg Q6H PRN IVP Nausea & Vomiting 11/24/18 09:30 12/24/18 09:29 11/26/18 23:02 Pantoprazole (Protonix) 40 mg DAILY ORAL 11/26/18 09:00 12/26/18 08:59 12/09/18 08:45 Paricalcitol (Zemplar) 1 mcg THREE TIMES A WEEK ORAL 12/02/18 16:00 01/01/19 15:59 12/09/18 08:44 Sodium Chloride 1,000 ml @ 75 mls/hr [id number] IV 12/08/18 08:45 01/07/19 08:44 12/08/18 22:40 Tamsulosin HCl (Flomax) 0.4 mg BEDTIME ORAL 11/24/18 23:00 12/24/18 22:59 12/08/18 20:40 Zolpidem Tartrate (Ambien) 10 mg HSPRN PRN ORAL Insomnia 12/07/18 22:00 12/14/18 21:59 12/08/18 20:45 Height (Feet): 5 Height (Inches): 7.00 Weight (Pounds): 146 Objective exam stable, urine clearing, has some debris serum PSA 10.09 abdominal u/s (3/5) noted Geraldo Wise MD Dec 09, 2018 09:38
--- NOTE | 2018-12-09 11:22 | Nephrology Progress Note ---
Assessment/Plan Problem List: (1) Acute on chronic renal failure Assessment: stable (2) Urinary retention (3) Hyperkalemia (4) Metabolic acidosis (5) Uremia (6) Bacteremia due to Enterococcus (7) Anemia (8) Iron deficiency (9) Secondary hyperparathyroidism of renal origin Plan Cont with IVF Discussed with RN BONILLA to [facility] Subjective Subjective feels ok Objective Objective Last 24 Hour Vital Signs Date Time Temp Pulse Resp B/P (MAP) Pulse Ox O2 Delivery O2 Flow Rate FiO2 12/09/18 08:45 70 117/72 12/09/18 08:00 72 12/09/18 08:00 97.7 70 18 117/72 (87) 99 12/09/18 04:00 98.4 64 20 126/77 (93) 99 12/09/18 04:00 61 12/09/18 00:00 97.7 66 20 126/74 (91) 99 12/09/18 00:00 69 12/08/18 21:10 76 12/08/18 21:05 78 12/08/18 21:00 Room Air 12/08/18 21:00 74 12/08/18 20:40 74 119/69 12/08/18 20:00 99.3 74 18 119/69 (86) 98 12/08/18 20:00 82 12/08/18 16:00 77 12/08/18 16:00 98.2 77 21 122/75 (91) 95 12/08/18 12:00 72 12/08/18 12:00 98.7 74 23 112/73 (86) 98 12/08/18 12:00 74 69 89 Intake and Output 12/08/18 12/09/18 19:00 07:00 Intake Total 675 ml 825 ml Output Total 2200 ml Balance -1525 ml 825 ml IV Total 675 ml 825 ml Output Urine Total 2200 ml Height (Feet): 5 Height (Inches): 7.00 Weight (Pounds): 146 Cardiovascular: normal rate Respiratory/Chest: lungs clear Extremities: other - no edema Michael Sosa MD Dec 09, 2018 11:22
[2018-12-09 12:00] VITALS: BP 108/65
--- NOTE | 2018-12-09 13:36 | Cardiac Electrophysiology PN ---
Assessment/Plan Assessment/Plan 1. Type 2 NSTEMI. The levels are nonspecific and flat 0.5, 0.5, 0.2. Denies any chest pain. This is due to the patient's renal failure EKG shows sinus rhythm with no acute ST-T wave abnormalities. EF 65%. On aspirin and Lopressor 2. Recurrent atrial flutter on 11/24 and 11/25/18. Both terminated spontaneously On Metoprolol 25 bid. Consider long-term anticoagulation if recurs Has remained in SR 3. Hyperkalemia. Potassium was 7 and is down to 4.1. S/P sodium bicarbonate and Kayexalate. Had HD 4. Acute on chronic renal failure. Further evaluation by Dr. Sosa. Cecil catheter removed. No further HD scheduled 5. Syncope. ? etiology. Nl EF. No . Could be due to atrial flutter with RVR 6. High PSA Fu Dr Alvarez 7. Sepsis, source most likely tract , may need also to rule out GI malignancy. On daptomycin. Repeated blood culture x2 on 11/26 is NTD . 8. Anemia,S/P PRBC. GD and colonoscopy showed ischemic colitis FU DR Toby PETERSON RN Subjective Subjective No CP or SOB. DC to [facility] today Objective Last 24 Hour Vital Signs Date Time Temp Pulse Resp B/P (MAP) Pulse Ox O2 Delivery O2 Flow Rate FiO2 12/09/18 12:00 98.0 67 19 108/65 (79) 98 12/09/18 09:00 Room Air 12/09/18 08:45 70 117/72 12/09/18 08:00 72 12/09/18 08:00 97.7 70 18 117/72 (87) 99 12/09/18 04:00 98.4 64 20 126/77 (93) 99 12/09/18 04:00 61 12/09/18 00:00 97.7 66 20 126/74 (91) 99 12/09/18 00:00 69 12/08/18 21:10 76 12/08/18 21:05 78 12/08/18 21:00 Room Air 12/08/18 21:00 74 12/08/18 20:40 74 119/69 12/08/18 20:00 99.3 74 18 119/69 (86) 98 12/08/18 20:00 82 12/08/18 16:00 77 12/08/18 16:00 98.2 77 21 122/75 (91) 95 Intake and Output 12/08/18 12/09/18 19:00 07:00 Intake Total 675 ml 825 ml Output Total 2200 ml Balance -1525 ml 825 ml IV Total 675 ml 825 ml Output Urine Total 2200 ml Objective HEAD AND NECK: No JVD. LUNGS: Clear. CARDIOVASCULAR: Regular S1 and S2 with no gallop or murmur. ABDOMEN: Soft. EXTREMITIES: 1+ pitting edema. David Guerra MD Dec 09, 2018 13:36
[2018-12-09] MEDS: DAPTOmycin 700 MG in NS 55 ML IV SCH (13:45)
--- NOTE | 2018-12-09 15:59 | NUR ---
DISCHARGE PLANNED PATIENT WILL DISCHARGE TO [facility] ROOM [address] SKILLED T: [phone] FOR NURSE TO NURSE REPORT [facility] T [phone] IS THE CONTRACTED AMBULANCE FOR THIS MEMBER SPOKE WITH MELANIE AT [facility]. EARLIEST AVAILABLE GEOLOGIC TECHNICIAN IS 184. AMBULANCE TRIP NUMBER IS [id number]
[2018-12-09 16:00] VITALS: BP 114/68
--- NOTE | 2018-12-09 17:29 | NUR ---
NURSE NOTES: Gave report to Amanda at [facility].
--- NOTE | 2018-12-09 17:55 | Infectious Diseases Prog Note ---
Assessment/Plan Problems: (1) Sepsis due to Enterococcus with acute renal failure and metabolic encephalopathy Assessment & Plan: source most likely tract due to obstruction , with no GI mass but polyps which were removed . continue daptomycin renally dosed as per pharmacy for his bacteremia for two weeks . repeated blood culture on 11/30 is negative so far which confirm clearance . monitor CK level weekly while on daptomycin . will need two weeks of iv antibiotics for his bacteremia starting from the clearance date. EOT 12/14/18 . may switch to oral zyvox 600 mg po q 12 hrs to finish his course of treatment if daptomycin is not available at the rehab facility , D/W director case and PCP (2) Hydronephrosis Assessment & Plan: most likely the source of his bacteremia with enterococcus faecalis , complicated with renal failure , suspect enlarged prostate , with elevated PSA rule out prostate CA , recommend oncology work up with rectal US to rule out prostatic mass and for biopsy , and possible prostatectomy once clinically stable in the future (3) Acute on chronic renal failure Assessment & Plan: improving, now making good urine , previously required HD , his HD catheter was removed since it was placed while bacteremic . S/P Morfin catheter change (4) Acute encephalopathy Assessment & Plan: improving, suspect metabolic and toxic , monitor mental status, avoid nephrotoxics , neurology is following (5) Prostate enlargement Assessment & Plan: with elevated PSA, rule out malignant process, recommend rectal US to evaluate the prostate and for possible biopsy to rule out malignancy . (6) Generalized weakness Assessment & Plan: recommend rehabilitation and PT Subjective Constitutional: Reports: no symptoms HEENT: Reports: no symptoms Respiratory: Reports: no symptoms Breasts: Reports: no symptoms Cardiovascular: Reports: no symptoms Gastrointestinal/Abdominal: Reports: no symptoms Genitourinary: Reports: no symptoms Neurologic: Reports: no symptoms Psychiatric: Reports: no symptoms Skin: Reports: no symptoms Endocrine: Reports: no symptoms Hematologic: Reports: no symptoms Musculoskeletal: Reports: no symptoms Allergies: Coded Allergies: No Known Allergies (Unverified , 11/21/18) Subjective He was feeling good , denied any fever or chills, no cough or SOB , no cough or SOB, no neck pain or hematoma, no diarrhea , feels more energetic Objective Vital Signs Last 24 Hour Vital Signs Date Time Temp Pulse Resp B/P (MAP) Pulse Ox O2 Delivery O2 Flow Rate FiO2 3/15/19 16:00 98.3 63 19 114/68 (83) 100 12/09/18 12:00 98.0 67 19 108/65 (79) 98 12/09/18 12:00 67 12/09/18 09:00 Room Air 12/09/18 08:45 70 117/72 12/09/18 08:00 72 12/09/18 08:00 97.7 70 18 117/72 (87) 99 12/09/18 04:00 98.4 64 20 126/77 (93) 99 12/09/18 04:00 61 12/09/18 00:00 97.7 66 20 126/74 (91) 99 12/09/18 00:00 69 12/08/18 21:10 76 12/08/18 21:05 78 12/08/18 21:00 Room Air 12/08/18 21:00 74 12/08/18 20:40 74 119/69 12/08/18 20:00 99.3 74 18 119/69 (86) 98 12/08/18 20:00 82 Height (Feet): 5 Height (Inches): 7.00 Weight (Pounds): 146 General Appearance: WD/WN, no acute distress HEENT: normocephalic, atraumatic, anicteric, mucous membranes moist, PERRL, EOMI, pharynx normal, supple, no JVD Respiratory/Chest: chest wall non-tender, lungs clear, normal breath sounds, no respiratory distress, no accessory muscle use Cardiovascular: normal peripheral pulses, normal rate, regular rhythm, no gallop/murmur, no JVD Abdomen: normal bowel sounds, soft, non tender, no organomegaly, non distended , no mass, no scars Extremities: no cyanosis, no clubbing Skin: no rash, no lesions, no ulcers Neurologic/Psychiatric: alert, oriented x 3, responsive Lymphatic: no neck adenopathy, no groin adenopathy Musculoskeletal: normal muscle bulk, no effusion Current Medications Medications (Trade) Dose Ordered Sig/Debbie Route PRN Reason Start Time Stop Time Status Last Admin Dose Admin Acetaminophen (Tylenol) 650 mg Q6H PRN ORAL Mild Pain/Temp > 100.5 11/22/18 03:15 12/22/18 03:14 12/02/18 18:22 Al Hydroxide/Mg Hydroxide (Mylanta) 30 ml Q6H PRN ORAL GERD 11/22/18 03:15 12/22/18 03:14 Bisacodyl (Dulcolax) 10 mg DAILYPRN PRN RECTAL Constipation 11/30/18 14:30 12/30/18 14:29 12/06/18 08:56 Docusate Sodium (Colace) 100 mg TWICE A DAY ORAL 11/25/18 09:00 12/25/18 08:59 12/09/18 08:45 Epoetin Tommy (Epoetin Tommy(ESRD on dialysis)) 2,000 unit WED-WED-WED SUBQ 11/23/18 21:00 12/23/18 20:59 12/07/18 21:26 Epoetin Tommy (Epoetin Tommy(ESRD on dialysis)) 3,000 unit WED- SUBQ 11/23/18 21:00 12/23/18 20:59 12/07/18 21:26 Finasteride (Proscar) 5 mg DAILY ORAL 11/25/18 09:00 12/25/18 08:59 12/09/18 08:44 Heparin Sodium (Porcine) (Heparin 5000 units/ml) 5,000 units EVERY 12 HOURS SUBQ 11/22/18 09:00 12/22/18 08:59 11/30/18 22:01 Linezolid (Zyvox) 600 mg EVERY 12 HOURS ORAL 12/09/18 21:00 12/14/18 20:59 Magnesium Hydroxide (Mom) 30 ml BIDPRN PRN ORAL Constipation 11/26/18 12:45 12/26/18 12:44 11/29/18 18:50 Meclizine HCl (Antivert) 25 mg TIDPRN PRN ORAL for dizziness 11/23/18 18:15 12/23/18 18:14 Metoprolol Tartrate (Lopressor) 25 mg Q12HR ORAL 11/22/18 21:00 12/22/18 20:59 12/09/18 08:45 Ondansetron HCl (Zofran) 4 mg Q6H PRN IVP Nausea & Vomiting 11/24/18 09:30 12/24/18 09:29 11/26/18 23:02 Pantoprazole (Protonix) 40 mg DAILY ORAL 11/26/18 09:00 12/26/18 08:59 12/09/18 08:45 Paricalcitol (Zemplar) 1 mcg THREE TIMES A WEEK ORAL 12/02/18 16:00 01/01/19 15:59 12/09/18 08:44 Sodium Chloride 1,000 ml @ 75 mls/hr [id number] IV 12/08/18 08:45 01/07/19 08:44 12/09/18 13:48 Tamsulosin HCl (Flomax) 0.4 mg BEDTIME ORAL 11/24/18 23:00 12/24/18 22:59 12/08/18 20:40 Zolpidem Tartrate (Ambien) 10 mg HSPRN PRN ORAL Insomnia 12/07/18 22:00 12/14/18 21:59 12/08/18 20:45 Mckinley Fisher M.D. Dec 09, 2018 17:55
--- NOTE | 2018-12-09 19:41 | NUR ---
HAND-OFF: Report given to Cheryl Amaro RN. Patient sitting at bedside, awake and alert, ready for discharge, bed in lowest position, call light within reach, in no apparent distress, Morfin catheter in place, IV patent.
--- NOTE | 2018-12-09 19:50 | NUR ---
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 pt in stable condition. VS within normal limits according to pt's vs baseline. iv and condom cath in place. belongings verified and paper sign per pt. pt left the unit in stable condition.
--- NOTE | 2018-12-09 20:01 | General Progress Note ---
Assessment/Plan Assessment/Plan Assessment - Anemia, OB(+) - Renal failure - Obstructive uropathy - b/l edema - Duplex negative - PSA =10, ? CAP - abnormal LFT --> now normal - EGD: Incidental small hiatal hernia and mild duodenitis, biopsied antrum for H Pylori Colon: Ulcers and erosions in hepatic flexure, typical for ischemic colitis ( biopsied) Diminutive prox ascending colon and sigmoid polyp at 20 - biopsied Recommendations - Renal diet - Zofran PRN - follow CBC/LFT - Avoid volume depletion - OK for d/c from GI standpoint Subjective Allergies: Coded Allergies: No Known Allergies (Unverified , 11/21/18) Subjective Feels OK tolerating PO planning for d/c today Objective Last 24 Hour Vital Signs Date Time Temp Pulse Resp B/P (MAP) Pulse Ox O2 Delivery O2 Flow Rate FiO2 12/09/18 16:00 65 12/09/18 16:00 98.3 63 19 114/68 (83) 100 12/09/18 12:00 98.0 67 19 108/65 (79) 98 12/09/18 12:00 67 12/09/18 09:00 Room Air 12/09/18 08:45 70 117/72 12/09/18 08:00 72 12/09/18 08:00 97.7 70 18 117/72 (87) 99 12/09/18 04:00 98.4 64 20 126/77 (93) 99 12/09/18 04:00 61 12/09/18 00:00 97.7 66 20 126/74 (91) 99 12/09/18 00:00 69 12/08/18 21:10 76 12/08/18 21:05 78 12/08/18 21:00 Room Air 12/08/18 21:00 74 12/08/18 20:40 74 119/69 Intake and Output 12/08/18 12/09/18 18:59 06:59 Intake Total 675 ml 825 ml Output Total 2200 ml Balance -1525 ml 825 ml IV Total 675 ml 825 ml Output Urine Total 2200 ml Height (Feet): 5 Height (Inches): 7.00 Weight (Pounds): 146 Objective WDWN NCAT supple CTA RRR Abd soft (+) edema Yasir Alexandra MD Dec 09, 2018 20:01
--- NOTE | 2018-12-09 21:07 | General Progress Note ---
Assessment/Plan Assessment/Plan Assessment - Anemia, OB(+) - Renal failure - Obstructive uropathy - b/l edema - Duplex negative - PSA =10, ? CAP - abnormal LFT --> now normal - EGD: Incidental small hiatal hernia and mild duodenitis, biopsied antrum for H Pylori Colon: Ulcers and erosions in hepatic flexure, typical for ischemic colitis ( biopsied) Diminutive prox ascending colon and sigmoid polyp at 20 - biopsied Recommendations - Renal diet - Zofran PRN - follow CBC/LFT - Avoid volume depletion - OK for d/c from GI standpoint Subjective Allergies: Coded Allergies: No Known Allergies (Unverified , 11/21/18) Subjective Feels OK tolerating PO planning for d/c today Objective Last 24 Hour Vital Signs Date Time Temp Pulse Resp B/P (MAP) Pulse Ox O2 Delivery O2 Flow Rate FiO2 12/09/18 16:00 65 12/09/18 16:00 98.3 63 19 114/68 (83) 100 12/09/18 12:00 98.0 67 19 108/65 (79) 98 12/09/18 12:00 67 12/09/18 09:00 Room Air 12/09/18 08:45 70 117/72 12/09/18 08:00 72 12/09/18 08:00 97.7 70 18 117/72 (87) 99 12/09/18 04:00 98.4 64 20 126/77 (93) 99 12/09/18 04:00 61 12/09/18 00:00 97.7 66 20 126/74 (91) 99 12/09/18 00:00 69 12/08/18 21:10 76 Intake and Output 12/08/18 12/09/18 18:59 06:59 Intake Total 675 ml 825 ml Output Total 2200 ml Balance -1525 ml 825 ml IV Total 675 ml 825 ml Output Urine Total 2200 ml Height (Feet): 5 Height (Inches): 7.00 Weight (Pounds): 146 Objective WDWN NCAT supple CTA RRR Abd soft (+) edema Yasir Alexandra MD Dec 09, 2018 21:07
--- NOTE | 2018-12-12 11:14 | Discharge Summary ---
Discharge Summary Discharge Summary _ DATE OF ADMISSION: 11/21/2018 DATE OF DISCHARGE: 12/09/2018 DISCHARGDr. PedroED BY: Dr. Vasquez REASON FOR ADMISSION: [] 72 years old male with past medical history of hypertension, bifurcated bifurcated urethra, inguinal hernia not requiring repair apparently discovered during routine blood labs in the office to have acute renal failure with potassium 7. Patient was advised to call 911 patient was brought to emergency room for further management. Upon evaluation in emergency department patient undergone CT of the abdomen and pelvis which revealed bilateral hydronephrosis with hydroureter extending to the ureterovesical junction. No definite obstructive lesion. Probably on the basis of chronic bladder outlet obstruction. Direct right inguinal hernia no evidence of obstruction. Urology consult was requested. Patient was admitted for further management CONSULTANTS: room designer Dr. Sánchez neurologist Dr. Chandra pulmonary ID specialist GI specialist newscast director Dr. Sosa boot lace cutter machine/oncologist Dr. Benavides surgery Dr. Worthington psychiatrist Urologist Dr. [facility] [place] COURSE: [] Patient admitted to telemetry floor. Hyperkalemia was treated. Urology consult was requested. Urologist seen and evaluated patient. Patient is a congenital urethral malformation and presented with acute renal failure. Urologist dilated gently urethra it did not appears that there was any distal stricture BUN Ricardo Heart. Subsequently 14 Icelandic catheter was placed with return of clear yellow urine output. [employer] closely follow. Urine studies were done. Renal parameters and electrolytes were closely monitored. Electrolytes corrected as needed. [employer] recommended to hold on hemodialysis for now. Patient started hemoglobin hematocrit were closely monitor his goal to keep hemoglobin above 7. Patient undergone transfusion of 1 unit of packed red blood cells. Prior to discharge hemoglobin 9.5 hematocrit 28. Oncology boot lace cutter machine oncologist follow. Patient will require full anemia workup as outpatient. Patient also has a history of basal cell carcinoma GI specialist followed. Stool for occult blood was negative x4. HIV status was nonreactive. Hepatitis panel was negative RPR was nonreactive. Per GI specialist LFT were closely monitored remained stable. PSA elevated. EGD revealed incidental small hiatal hernia and mild duodenitis biopsy of the antrum revealed no evidence of H. pylori. Mild chronic gastritis with no activity noted. Colon polyp revealed tubular adenoma no high-grade dysplasia hepatic flexure ulcer biopsy revealed no cytomegalovirus inclusions or evidence of CMV by iron IHC. Negative for dysplasia and malignancy. Ulcerated colonic mucosa. Patient undergone colonoscopy and upper endoscopy and colonoscopy and found evidence of ischemic colitis. Infectious disease doctor follow. Stool culture was negative. Stool for ova and parasite was negative. Blood culture revealed Enterococcus faecalis on 227 and 3 2. Repeated blood culture on 3 6 were negative. Antibiotic provided as per ID specialist recommendation. Source most likely tract due to obstruction patient will need to continue antibiotic renally dosed as per pharmacy for bacteremia for 2 weeks. After confirming clearance. Patient may switch to oral Zyvox to finish the course of treatment if daptomycin was not available at rehabilitation facility. Renal ultrasound revealed severe right hydronephrosis and moderate left hydronephrosis likely on the basis of bladder outlet obstruction despite presence of Morfin catheter. Patient undergone placement hemodialysis catheter 228. Right jugular temporary dialysis catheter. Denies any urologic evaluation was requested Morfin catheter was in place easily and irrigated in satisfactory position. No active bleeding. Renal failure appears to be obstructive in nature mostly chronic since it was not improved significantly with Morfin catheter drainage. Urologist recommended Morfin catheter continue with indwelling Morfin catheter and send irrigation as needed. Proscar and Flomax were added empirically. Neurologist recommended to keep Morfin catheter until renal function stabilized. And at that time voiding trial will be considered.. Nephrotoxins were avoided. Creatinine from initial 14 down to 4.2. BUN from 231 down to 73. Electrolytes stable. Patient undergone 312 upper endoscopy and colonoscopy which revealed incidental small hiatal hernia and mild duodenitis. Colonoscopy revealed ulcer and erosion in the hepatic flexure, typical for ischemic colitis. Diminutive proximal ascending colon and sigmoid polyp biopsy biopsy of [place] revealed tubular adenoma and was negative for high-grade dysplasia. Biopsy of hepatic flexure revealed ulcerated colonic mucosa. No evidence of dysplasia or malignancy. No CMV inclusions or evidence of CMV by I HC. Patient slowly started on diet advance as tolerated. Supportive care provided. Antiemetic provided as needed. Recommended to avoid dehydration. LFT were closely monitor and returned to baseline. Hepatitis panel was negative RPR was nonreactive HIV was negative. On 227 patient became lightheaded and passed out. After he had passed out he apparently exhibited some generalized body jerking movements and his daughter was worried that he was having seizure. Subsequently neurology consult was requested. Carotid duplex was essentially unremarkable. Mild degree of stenosis in the external carotid artery on the right side. Neurologist follow. For acute for altered mental status. CT of the head revealed no acute intracranial pathology. EEG demonstrated mild metabolic encephalopathy. Per newscast director per neurologist patient history physical examination and laboratory data imaging studies and EEG were most consistent with lightheadedness of late due to fluid and electrolyte imbalance. Cognitive dysfunction resolved. I was likely due to ongoing metabolic encephalopathy process. Neurologist recommended continue close monitoring of fluid electrolyte balance and conditioning patient is a frequent range of motion exercises and out of bed to chair at all meals. Patient mobilized with the physical therapy. Patient recommended to follow-up with a neurologist in 2 months. Furniture Dipper follow. Echocardiogram revealed preserved ejection fraction 65-70 % with no evidence of wall motion abnormality. Venous duplex initial and repeated were both negative. Lipid panel was stable. Troponin noted to be mildly elevated on admission 0.535. Per room designer patient have type II non- STEMI. Levels nonspecific and flat patient denied chest pain that could be secondary to patient renal failure as per room designer EKG revealed sinus rhythm with no acute ischemic changes. Patient started on antiplatelet therapy with aspirin and beta-agueda/Lopressor. Patient had a recurrent atrial flutter on 228 and 3 1. Was terminated spontaneously. Patient on beta- agueda. If recurs a room designer recommended to consider long-term anticoagulation. Patient remained in sinus rhythm. Syncope was possibly due to atrial flutter with RVR. Repeated CT of the chest of the head revealed no acute intracranial bleeding or mass-effect. Patient undergone placement for hemodialysis catheter and subsequently required few session of hemodialysis. Creatinine trending down. Hemodialysis catheter discontinued. Renal (electrolytes are closely monitor. Electrolytes corrected as needed. PSA elevated 10.0 outpatient follow-up with urologist recommended serum protein electrophoresis noted. Immunology revealed elevated levels of kappa light chain and lambda lab check light chain outpatient follow-up with a boot lace cutter machine oncologist recommended as well. Abdominal ultrasound on 3 5 revealed mild right hydronephrosis persistent by improved but improved from 226. Empty bladder with Morfin catheter. Negative for gallstones and dilated duct. Surgeon placed temporary hemodialysis catheter. Removed hemodialysis catheter. Patient clinically stabilized and was ready for transfer to care home facility for continuation of care. FINAL DIAGNOSES: 1. [] Obstructive uropathy elevated PSA abnormal LFT Sepsis due to enterococcal, with acute renal failure Acute metabolic encephalopathy Acute renal failure acute on chronic renal failure hydronephrosis Acute encephalopathy Urinary retention uremia creatinine from 14.0 down to 4.2 potassium stable BUN from 231 down to 73. Type II non-STEMI likely due to renal failure Recurrent atrial flutter spontaneously converted to sinus rhythm Syncope possibly due to atrial flutter with RVR Anemia status post blood transfusion Anemia stool OB positive Hyperkalemia Metabolic acidosis Iron deficiency anemia Secondary hyperparathyroidism of renal origin Sepsis Acute renal failure Hyperkalemia Obstructive uropathy Elevated troponin Hypertension Anemia Encephalopathy likely secondary to uremia resolved Syncopal episode Constipation DISCHARGE MEDICATIONS: List of medication was sent to accepting facility DISCHARGE INSTRUCTIONS: [] Patient was discharged to the care home facility. Follow up with medical doctor at the facility. I have been assigned to dictate discharge summary for this account. I was not involved in the patient's management. Quyen Zepeda NP Dec 12, 2018 11:14
== END 2018-12-09 19:50 | DRG 871 ==
LOC: EMR 22:45 → 2E 22:59 → EDBEDREQ 23:22 → 2E 11-22 05:25
PROC: 5A1D70Z Performance of Urinary Filtration, Intermittent, Less than 6 Hours Per Day (ICD-10-PCS; principal; 2018-11-24)
PROC: B543ZZA Ultrasonography of Right Jugular Veins, Guidance (ICD-10-PCS; principal; 2018-11-24)
PROC: 05HM33Z Insertion of Infusion Device into Right Internal Jugular Vein, Percutaneous Approach (ICD-10-PCS; principal; 2018-11-24)
PROC: 0DB78ZX Excision of Stomach, Pylorus, Via Natural or Artificial Opening Endoscopic, Diagnostic (ICD-10-PCS; 2018-12-05)
PROC: 0DBN8ZX Excision of Sigmoid Colon, Via Natural or Artificial Opening Endoscopic, Diagnostic (ICD-10-PCS; 2018-12-05)
PROC: 0DBK8ZX Excision of Ascending Colon, Via Natural or Artificial Opening Endoscopic, Diagnostic (ICD-10-PCS; 2018-12-05)
DX: A41.81 Sepsis due to Enterococcus (principal); G93.41 Metabolic encephalopathy; I21.A1 Myocardial infarction type 2; N17.9 Acute kidney failure, unspecified; N13.30 Unspecified hydronephrosis; I48.92 Unspecified atrial flutter; N25.81 Secondary hyperparathyroidism of renal origin; E87.5 Hyperkalemia; N13.9 Obstructive and reflux uropathy, unspecified; D50.9 Iron deficiency anemia, unspecified; Q64.74 Double urethra; I12.9 Hypertensive chronic kidney disease with stage 1 through stage 4 chronic kidney disease, or unspecified chronic kidney disease; N18.9 Chronic kidney disease, unspecified; R19.7 Diarrhea, unspecified; R11.10 Vomiting, unspecified; R63.4 Abnormal weight loss; Z68.22 Body mass index [BMI] 22.0-22.9, adult; H81.10 Benign paroxysmal vertigo, unspecified ear; G31.84 Mild cognitive impairment of uncertain or unknown etiology; I45.9 Conduction disorder, unspecified; N40.1 Benign prostatic hyperplasia with lower urinary tract symptoms; R33.8 Other retention of urine; N31.9 Neuromuscular dysfunction of bladder, unspecified; R31.9 Hematuria, unspecified; K40.90 Unilateral inguinal hernia, without obstruction or gangrene, not specified as recurrent; K59.00 Constipation, unspecified; K44.9 Diaphragmatic hernia without obstruction or gangrene; K29.80 Duodenitis without bleeding; D12.2 Benign neoplasm of ascending colon; D12.5 Benign neoplasm of sigmoid colon
CPT/HCPCS: 36415; 36569; 70450; 71045; 74176; 76700; 76770; 76937; 80048; 80053; 80061; 80076; 80202; 81001; 82270; 82306; 82550; 82607; 82728; 82746; 82962; 83036; 83540; 83550; 83735; 83880; 83883; 83970; 84100; 84153; 84165; 84443; 84484; 85007; 85025; 85060; 85610; 85730; 86592; 86703; 86803; 86850; 86900; 86901; 86920; 87040; 87045; 87181; 87340; 93005; 93306; 93880; 93970; 94003; 94150; 94664; 95819; 96374; 96375; 99285; J2250; J2405; J8499

== ENCOUNTER 2018-12-15 11:08 | Outpatient (CLI) | payer OTHER ==
[~2018-12-15 11:08] MED LIST: AMLODIPINE BESYL5 MG ORAL; ZOFRAN4 M3 ORAL
[2018-12-15 11:41] LABS: BASOPHILS % (AUTO) 0.7 % (0.0-2.0); EOSINOPHILS % (AUTO) 5.3 % (0.0-3.0); HEMATOCRIT 32.5 % (42.0-52.0); HEMOGLOBIN 10.5 G/DL (14.2-18.0); LYMPHOCYTES % (AUTO) 7.7 % (20.0-45.0); MEAN CORPUSCULAR VOLUME 97 FL (80-99); MONOCYTES % (AUTO) 6.1 % (1.0-10.0); NEUTROPHILS % (AUTO) 80.1 % (45.0-75.0); PLATELET COUNT 338 K/UL (150-450); RED BLOOD COUNT 3.35 M/UL (4.70-6.10); WHITE BLOOD COUNT 7.4 K/UL (4.8-10.8)
[2018-12-15 11:53] LABS: APPEARANCE,URINE SLIGHTLY CLOUDY; BILIRUBIN, URINE NEGATIVE (NEGATIVE); COLOR,URINE PALE YELLOW; GLUCOSE, URINE (UA) NEGATIVE (NEGATIVE); KETONES,URINE NEGATIVE (NEGATIVE); LEUKOCYTE ESTERASE ,URINE 3+ (NEGATIVE); NITRITE,URINE NEGATIVE (NEGATIVE); PH,URINE 5 (4.5-8.0); PROTEIN,URINE 2+ (NEGATIVE); UROBILINOGEN,URINE NORMAL MG/DL (0.0-1.0)
[2018-12-15 12:00] LABS: ALANINE AMINOTRANSFERASE 28 U/L (12-78); ALBUMIN 3.2 G/DL (3.4-5.0); ALBUMIN/GLOBULIN RATIO 0.7 (1.0-2.7); ALKALINE PHOSPHATASE 122 U/L (46-116); ANION GAP 11 mmol/L (5-15); ASPARTATE AMINO TRANSFERASE 19 U/L (15-37); BILIRUBIN,TOTAL 0.3 MG/DL (0.2-1.0); BLOOD UREA NITROGEN 78 mg/dL (7-18); CALCIUM 9.4 MG/DL (8.5-10.1); CARBON DIOXIDE 26 MMOL/L (21-32); CHLORIDE 103 MMOL/L (98-107); CREATININE 4.2 MG/DL (0.55-1.30); PHOSPHORUS 4.8 MG/DL (2.5-4.9); POTASSIUM 5.7 MMOL/L (3.5-5.1); SODIUM 140 MMOL/L (136-145)
== END 2018-12-15 13:08 | disposition home or self-care (01) ==
LOC: LAB 11:08
DX: N18.4 Chronic kidney disease, stage 4 (severe) (principal)
CPT/HCPCS: 36415; 80053; 81003; 83970; 84100; 85025; 87086

== ENCOUNTER 2019-02-09 05:42 | Inpatient (IN) | payer OTHER ==
[~2019-02-09] VITALS: Ht 170.2 cm; Wt 70.3 kg
[2019-02-09] VITALS (18 sets, daily range): BP systolic 106–133; BP diastolic 62–76
[2019-02-09] MEDS ORDERED: fentaNYL 100 mcg/2 mL IV ONE (06:27)
[2019-02-09] MEDS ORDERED: Iothalamate Meglumine 60% 30ML INJ ONE (06:34)
[2019-02-09] MEDS ORDERED: Propofol 200mg/20ml IV ONE (06:44)
[2019-02-09] MEDS ORDERED: Lidocaine 1% MPF 10mg/ml 5ml ONE (06:44)
[2019-02-09] MEDS ORDERED: PARICALCITOL1 MCG PO (06:45)
[2019-02-09] MEDS ORDERED: PROSCAR5 MG ORAL (06:45)
[2019-02-09] MEDS ORDERED: STOOL SOFTENER1 EAC3 PO (06:45)
[2019-02-09] MEDS ORDERED: FUROSEMIDE40 MG ORAL (06:45)
[2019-02-09] MEDS ORDERED: cefOXitin 1gm Inj ONE (06:47)
[2019-02-09] MEDS ORDERED: Zemuron 50mg/5ml Inj IV ONE (06:48)
[2019-02-09] MEDS ORDERED: Sterile Water For Irrig 2000ml IRRIG ONE ×2 (07:00→07:10)
[2019-02-09] MEDS ORDERED: Cefepime HCl 1 GM in D5W 55 ML IVPB ONE (07:00)
[2019-02-09] MEDS ORDERED: NS Irrig 1000ml ONE (07:00)
[2019-02-09] MEDS ORDERED: LR 1000ml ONE (07:00)
--- NOTE | 2019-02-09 07:12 | Pre-Procedure Note/Attestation ---
Pre-Procedure Note/Attestation Complete Prior to Procedure Planned Procedure: not applicable Procedure Narrative: cysto, bilat RPG, laser vaporization of prostate Indications for Procedure Pre-Operative Diagnosis: BPH/urinary retention Attestation I attest that I discussed the nature of the procedure; its benefits; risks and complications; and alternatives (and the risks and benefits of such alternatives ), prior to the procedure, with the patient (or the patient's legal promotional representative). I attest that, if there was a reasonable possibility of needing a blood transfusion, the patient (or the patient's legal promotional representative) was given the [facility] standardized written summary, pursuant to the [place] Blood Safety Act ([place] Health and Safety Code # 1645, as amended). I attest that I re-evaluated the patient just prior to the surgery and that there has been no change in the patient's H&P, except as documented below: Geraldo Wise MD February 09, 2019 07:12
--- NOTE | 2019-02-09 07:14 | Urology Progress Note ---
Assessment/Plan Assessment/Plan: BPH/urinary retention CKD hydro hx plan surg today preop labs noted d/w pt risks etc, no guarantees given Subjective Allergies: Coded Allergies: No Known Allergies (Unverified , 11/21/18) Subjective for surg today Objective Last 24 Hour Vital Signs Date Time Temp Pulse Resp B/P (MAP) Pulse Ox O2 Delivery O2 Flow Rate FiO2 02/09/19 06:48 Room Air 02/09/19 06:21 97.0 65 18 133/73 (93) 99 Height (Feet): 5 Height (Inches): 7.00 Weight (Pounds): 155 Objective exam stable Geraldo Wise MD February 09, 2019 07:14
[2019-02-09] MEDS ORDERED: LR 1000ml 1,000 ML IVLG SCH (07:50)
--- NOTE | 2019-02-09 07:50 | Anethesia Preoperative Eval ---
Anesthesia Pre-op PMH/ROS General Date of Evaluation: February 09, 2019 Time of Evaluation: 07:02 Anesthesiologist: Praveen ASA Score: ASA 3 Mallampati Score Class I : Soft palate, uvula, fauces, pillars visible Class II: Soft palate, uvula, fauces visible Class III: Soft palate, base of uvula visible Class IV: Only hard plate visible Mallampati Classification: Class II Surgeon: Billie Diagnosis: BPH, renal failure Surgical Procedure: Cysto, retrograde, prostate resection Anesthesia History: none Social History: smoking - h/o Family History: no anesthesia problems Allergies: Coded Allergies: No Known Allergies (Unverified , 11/21/18) Medications: see eMAR Patient NPO?: Yes NPO Date: February 08, 2019 NPO Time: 1999 Past Medical History Cardiovascular: Reports: HTN; Denies: CAD, AK, valve dz, arrhythmia, other Pulmonary: Denies: asthma, COPD, KATERIN, other Gastrointestinal/Genitourinary: Reports: GERD, CRI; Denies: ESRD, other Neurologic/Psychiatric: Reports: depression/anxiety; Denies: dementia, CVA, TIA, other Endocrine: Denies: DM, hypothyroidism, steroids, other HEENT: Reports: cataract (L), cataract (R) - s/p x Hematology/Immune: Reports: anemia - ofchronic d-s; Denies: DVT, bleeding disorder, other Musculoskeletal/Integumentary: Denies: OA, RA, DJD, DDD, edema, other PMH Narrative: as above PSxH Narrative: Hernia repair, knee scope, bilateral cataracts Anesthesia Pre-op Phys. Exam Physician Exam Last Vital Signs Date Time Temp Pulse Resp B/P (MAP) Pulse Ox O2 Delivery O2 Flow Rate FiO2 02/09/19 06:48 Room Air 02/09/19 06:21 97.0 65 18 133/73 (93) 99 Constitutional: NAD Neurologic: CN 2-12 intact Cardiovascular: RRR, no M/R/G Respiratory: CTA Gastrointestinal: S/NT/ND Airway Exam Mallampati Score: Class II MO: full Neck: stif ROM: limited Teeth: missing Dentures: no upper, no lower Anesthesia Pre-op A/P Labs see chart Risk Assessment & Plan Assessment: ASA 3 Plan: GA with LMA Status Change Before Surgery: No Pre-Antibiotics Drug: Cefoxitin 1gr Given Within 1 Hr of Incision: Yes Time Given: 07:40 Subhash Morton MD February 09, 2019 07:50
[2019-02-09] MEDS ORDERED: fentaNYL 100 mcg/2 mL IV PRN (08:00)
[2019-02-09] MEDS ORDERED: DiphenhydrAMINE 50mg/ml Inj IVP PRN (08:00)
--- NOTE | 2019-02-09 08:56 | Brief Operative Note ---
Immediate Post Operative Note Operative Note Pre-op Diagnosis: BPH/urinary retention Procedure: cysto, bilat RPG, green light laser vap prostate Post-op Diagnosis: same as pre-op Surgeon: genevieve Anesthesiologist: marc Anesthesia: general Specimen: none Complications: none Condition: stable Fluids: water Estimated Blood Loss: minimal Drains: none Implant(s) used?: No Geraldo Wise MD February 09, 2019 08:56
--- NOTE | 2019-02-09 09:11 | Immediate Post-Op Evaluation ---
Immediate Post-Op Evalulation Immediate Post-Op Evalulation Procedure: Cysto, retrograde pyelogram, laser beam resection of prostate Date of Evaluation: February 09, 2019 Time of Evaluation: 09:10 IV Fluids: 600 Blood Products: none Estimated Blood Loss: min Urinary Output: n/a Blood Pressure Systolic: 113 Blood Pressure Diastolic: 65 Pulse Rate: 59 Respiratory Rate: 20 O2 Sat by Pulse Oximetry: 99 Temperature (Fahrenheit): 97.5 Pain Score (1-10): 1 Nausea: No Vomiting: No Complications none Patient Status: reacts, patent, none Hydration Status: adequate Subhash Morton MD February 09, 2019 09:11
--- NOTE | 2019-02-09 10:45 | NUR ---
NURSE NOTES: Patient came to unit by bed in stable condition. Alert and oriented x4. Complain of pain 4/10 and will continue to monitor. Skin intact and dry. IV dressing intact and dry. Morfin catheter patent and draining well. Belonging checked. Bed lowest position. Call light within reach. Will continue to monitor.
[2019-02-09] MEDS ORDERED: Furosemide 40mg tab ORAL SCH (11:45)
[2019-02-09] MEDS ORDERED: HYDROcodone/Acetamin 5/325 tab ORAL PRN (11:45)
[2019-02-09] MEDS ORDERED: Docusate Sod/Senna tab ORAL SCH ×2 (11:45→13:00)
--- NOTE | 2019-02-09 12:24 | Consultation ---
Consult Note Assessment/Plan Renal consult dictated # [id number] Michael Sosa MD February 09, 2019 12:24
--- NOTE | 2019-02-09 14:59 | Diagnostic Imaging Report ---
Indication: Intraoperative imaging Comparison: None Findings: Fluoroscopic imaging showing cannulation of the ureters bilaterally with injection of contrast material. Only the distal aspects of both ureters are seen on this exam. IMPRESSION: Limited intraoperative imaging
--- NOTE | 2019-02-09 15:40 | NUR ---
*-* NO INSRUANCE INFORMATION THE BAR UNABEL TO SEND CLINICALS OR REVIEWS *-*
--- NOTE | 2019-02-09 16:10 | NUR ---
CASE MANAGEMENT:REVIEW 73 YR OLD MALE HERE FOR ELECTIVE SURGERY SI: BPH/URINARY RETENTION 97.1 55 16 121/66 100% on 3l/nc IS: TO SURGERY: CYSTO, JENNY RPG, GREEN LIGHT LASER VAP PROSTATE : TO MED/SURG [facility]
--- NOTE | 2019-02-09 19:30 | NUR ---
HAND-OFF: Report given to Trice PARRA. Patient in stable condition.
--- NOTE | 2019-02-09 20:00 | NUR ---
NURSE NOTES: Received patient awake,alert,verbal,resting in bed,with essentially normal vital signs,with indwelling johnson catheter draining dark cesia urine.
--- NOTE | 2019-02-09 22:00 | Consultation ---
DATE OF CONSULTATION: 02/09/2019 NEPHROLOGY CONSULTATION CONSULTING PHYSICIAN: Michael Sosa M.D. REFERRING PHYSICIAN: Geraldo Wise M.D. REASON FOR CONSULTATION: History of renal failure. HISTORY OF PRESENT ILLNESS: This is a 73-year-old white male, who is known to me from previous admission. The patient has a history of obstructive uropathy, was seen by me in October 2018. At that time, he was found to have obstruction as a result of enlarged prostate. He was also hyperkalemic. After Morfin was inserted, his creatinine started to come down. The patient was followed by Dr. Wise. He was also found to have secondary hyperparathyroidism. He was started on Zemplar. Following that admission, he went to a senior care facility for 5 days and eventually home. During all of this time, he kept his indwelling Morfin catheter. He was admitted by Dr. Wise for prostatectomy. He tells me that his recent serum creatinine was 2.3. The one when I saw here at [place] was 3 on 12/07/2018. PAST MEDICAL HISTORY: History of hypertension. MEDICATIONS: Reviewed in the EMR. ALLERGIES: No known drug allergies. SOCIAL HISTORY: Remote history of smoking. No history of alcohol abuse. 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 REVIEW OF SYSTEMS: Noncontributory. PHYSICAL EXAMINATION: GENERAL: The patient is a 73-year-old male, in no acute distress. VITAL SIGNS: Blood pressure 121/66, pulse 55, temperature 97.1, and respirations 15. HEENT: Pale conjunctivae. Anicteric sclerae. NECK: Supple. LUNGS: Clear to auscultation. HEART: S1, S2. No murmurs or rubs. ABDOMEN: Soft and nontender. EXTREMITIES: No cyanosis or edema. ASSESSMENT: This is a 73-year-old male, who is admitted for prostate surgery by Dr. Wise. He has a history of obstructive uropathy. His serum creatinine has come down over the past few months. His baseline however is not known at this point. He has also secondary hyperparathyroidism and also history of hypertension. PLAN: I will order a vitamin D level and PTH with a.m. labs. Also, chemistry and CBC will be ordered. I would consider to stop the patient's diuretics. Laboratories will be followed and further recommendations will be given based on those results. Thank you very much, Dr. Wise, for this consultation. Michael Sosa M.D. DR: MANDIE JOB#: [id number] CC: AVERY
[2019-02-10] VITALS: BP 115/68
--- NOTE | 2019-02-10 00:15 | Operative Note - Dictated ---
DATE OF OPERATION: 02/09/2019 PREOPERATIVE DIAGNOSES: History of BPH, urinary retention, history of renal failure, and hydronephrosis. POSTOPERATIVE DIAGNOSES: History of BPH, urinary retention, history of renal failure, and hydronephrosis. PROCEDURES PERFORMED: 1. Cystoscopy. 2. Urethral calibration. 3. Bilateral retrograde pyelogram. 4. GreenLight laser vaporization of prostate. OPERATING SURGEON: Geraldo Wise M.D. ANESTHESIOLOGIST: Subhash Morton M.D. ANESTHESIA: General. INDICATION FOR PROCEDURE: This is a pleasant 73-year-old male. He has a history of BPH with urinary retention. He was recently evaluated because of obstructive uropathy secondary to bladder outlet obstruction with evidence of acute kidney injury and bilateral hydronephrosis. He has had a Morfin catheter placed and his renal function did improve and his creatinine stabilized at about a creatinine of 3. The patient also did have a history of elevated PSA which did eventually resolve. He had failed multiple voiding trials, and recommendation was made to proceed with the treatment for his BPH. Multiple options were discussed with the patient including TURP and laser vaporization, and the patient was requested to have laser vaporization of the prostate. The nature of the procedure including possible risks and complication of bleeding, infection, anesthesia, damage to the urethra, bladder, need for further surgery, etc., were discussed. No guarantees were given or implied. FINDINGS: The patient had an obstructed prostate. Vaporization was done and open channel was obtained. Bilateral retrograde pyelograms were done. He had some dilatation of the ureter on the right side. PROCEDURE IN DETAIL: Informed consent was obtained from the patient. The patient was brought to the operating room and then placed in supine position. After successful general anesthesia was induced, the patient was then placed in a modified dorsal lithotomy position, and genital area was then prepped and draped in usual sterile fashion. Preoperative IV antibiotics were administered. Time-out was performed. At this time, the patient's urethral meatus was gently dilated. Cystoscopy was then performed. Urethra showed occasional bands, the prostate was obstructive. He had obstructing lateral lobes with mild elevation of the median lobe. The bladder was inspected carefully, it was severely trabeculated. Both ureteral orifices were identified. They were far away from the prostate. The right one appears to be patulous. At this point, the right ureteral orifice was cannulated with an open-ended catheter. Retrograde pyelogram was done. Contrast was injected and the distal ureter appeared to be dilated and this is probably from chronic obstruction and reflux. On the left side, there was minimal dilatation of the ureter. At this point, using the GreenLight laser side firing probe, the obstructive prostate tissue was sequentially vaporized at variable settings. Care was taken not to injure the ureteral orifices, which were preserved throughout the procedure. The verumontanum was the distal resection margin. A total of close to 178,000 joules were used and the tissue was vaporized. At the end of the procedure prostatic channel was obtained, and there was minimal bleeding if any. Cystoscope was removed and a 20-Albanian Morfin catheter was placed to gravity drainage. The patient was awakened and was taken to the recovery room in stable condition. Blood loss was minimal. No complications. Geraldo Wise M.D. DR: Matthew JOB#: [id number] CC: Yasir Alexandra M.D.; Fax#: [phone] JUMA BECKMAN M.D. ; FAX#: [phone]
[2019-02-10 04:00] VITALS: BP 115/67
--- NOTE | 2019-02-10 05:57 | NUR ---
HAND-OFF: Written Report given to Colleen Neal RN.
[2019-02-10 06:56] LABS: BASOPHILS % (AUTO) 0.4 % (0.0-2.0); EOSINOPHILS % (AUTO) 3.5 % (0.0-3.0); HEMATOCRIT 34.1 % (42.0-52.0); HEMOGLOBIN 11.7 G/DL (14.2-18.0); MEAN CORPUSCULAR VOLUME 93 FL (80-99); MONOCYTES % (AUTO) 7.3 % (1.0-10.0); NEUTROPHILS % (AUTO) 81.8 % (45.0-75.0); PLATELET COUNT 214 K/UL (150-450); RED BLOOD COUNT 3.68 M/UL (4.70-6.10); RED CELL DISTRIBUTION WIDTH 11.7 % (11.6-14.8)
[2019-02-10 07:12] LABS: ANION GAP 8 mmol/L (5-15); BLOOD UREA NITROGEN 45 mg/dL (7-18); CARBON DIOXIDE 27 MMOL/L (21-32); CHLORIDE 107 MMOL/L (98-107); CREATININE 2.9 MG/DL (0.55-1.30); POTASSIUM 4.1 MMOL/L (3.5-5.1); SODIUM 142 MMOL/L (136-145)
--- NOTE | 2019-02-10 07:25 | NUR ---
NURSE NOTES: Written report received from Trice RN, rounds made. Patient sitting in high fowlers position in bed. No SOB on RA, no pain, no NV. Tolerated breakfast well. FC in place, patent to gravity, draining light cesia clear urine. Right hand heplock intact, site asymptomatic. Encouraged IS, patient demonstrated correctly. Call light in reach, bed in lowest position, will continue to monitor
[2019-02-10 08:00] VITALS: BP 108/62
--- NOTE | 2019-02-10 08:36 | Urology Progress Note ---
Assessment/Plan Assessment/Plan: BPH/urinary retention CKD hydro hx POD # 1, laser vap prostate doing well I personally hand irrigated johnson no clots, clear OK to DC home today with indwelling johnson f/u in office next week for voiding trial Rx for abx, colace Subjective Allergies: Coded Allergies: No Known Allergies (Unverified , 11/21/18) Subjective all noted, feels OK Objective Last 24 Hour Vital Signs Date Time Temp Pulse Resp B/P (MAP) Pulse Ox O2 Delivery O2 Flow Rate FiO2 02/10/19 04:00 97.9 64 18 115/67 (83) 98 02/10/19 00:00 98.1 61 14 115/68 (84) 96 02/09/19 20:26 Room Air 02/09/19 20:00 98.1 66 14 108/65 (79) 96 02/09/19 16:00 98.3 60 17 120/67 (84) 98 02/09/19 14:00 98.2 63 17 117/70 (86) 97 02/09/19 13:00 97.8 70 20 106/62 (77) 97 02/09/19 12:00 97.8 63 18 121/69 (86) 97 02/09/19 11:15 97.6 63 17 123/69 (87) 97 02/09/19 10:45 97.1 60 17 122/69 (86) 97 02/09/19 10:30 97.1 02/09/19 10:30 97.1 55 16 121/66 100 Nasal Cannula 3 02/09/19 10:15 54 15 124/68 100 Nasal Cannula 3 02/09/19 10:10 56 17 122/76 100 Nasal Cannula 3 02/09/19 10:00 54 16 120/65 100 Nasal Cannula 3 02/09/19 09:45 56 17 124/71 100 Nasal Cannula 3 02/09/19 09:30 57 15 129/73 100 Simple Mask 6 02/09/19 09:20 58 12 117/69 100 Simple Mask 6 02/09/19 09:15 58 14 107/64 100 Simple Mask 6 02/09/19 09:11 59 20 99 02/09/19 09:10 58 16 113/63 100 Simple Mask 6 02/09/19 09:07 97.1 62 22 113/66 100 Simple Mask 6 Intake and Output 02/09/19 02/10/19 19:00 07:00 Intake Total 3300 ml Output Total 370 ml 1175 ml Balance 2930 ml -1175 ml Intake Oral 1500 ml IV Total 1800 ml Output Urine Total 350 ml 1175 ml Estimated Blood Loss 20 ml # Bowel Movements 1 1 Current Medications Medications (Trade) Dose Ordered Sig/Debbie Route PRN Reason Start Time Stop Time Status Last Admin Dose Admin Acetaminophen/ Hydrocodone Bitart ([place] 5/325) 1 tab Q4H PRN ORAL For Pain 02/09/19 11:45 02/16/19 11:44 Finasteride (Proscar) 5 mg DAILY ORAL 02/09/19 11:45 03/11/19 11:44 02/09/19 13:18 Paricalcitol (Zemplar) 1 mcg 3XW ORAL 02/10/19 09:00 03/12/19 08:59 Senna/Docusate Sodium (Delmy-Colace) 2 tab DAILY ORAL 02/10/19 09:00 03/11/19 11:44 Laboratory Tests 02/10/19 06:24: White Blood Count 8.0, Red Blood Count 3.68L, Hemoglobin 11.7L, Hematocrit 34.1L , Mean Corpuscular Volume 93, Mean Corpuscular Hemoglobin 31.7H, Mean Corpuscular Hemoglobin Concent 34.3, Red Cell Distribution Width 11.7, Platelet Count 214, Mean Platelet Volume 6.0L, Neutrophils (%) (Auto) 81.8H, Lymphocytes (%) (Auto) 7.0L, Monocytes (%) (Auto) 7.3, Eosinophils (%) (Auto) 3.5H, Basophils (%) (Auto) 0.4, Sodium Level 142, Potassium Level 4.1, Chloride Level 107, Carbon Dioxide Level 27, Anion Gap 8, Blood Urea Nitrogen 45H, Creatinine 2.9H, Estimat Glomerular Filtration Rate , Glucose Level 97, Calcium Level 9.0, Calcium (Send out) [Pending], Vitamin D 25-Hydroxy [Pending], 25-Hydroxy Vitamin D2 [Pending], 25-Hydroxy Vitamin D3 [Pending], Parathyroid Hormone ( Intact) [Pending] Height (Feet): 5 Height (Inches): 7.00 Weight (Pounds): 155 Objective exam stable abdomen soft, johnson indwelling, urine is slightly blood-tinged Geraldo Wise MD February 10, 2019 08:36
[2019-02-10] MEDS ORDERED: Paricalcitol 1mcg cap ORAL SCH (09:00)
[2019-02-10] MEDS ORDERED: Docusate Sod/Senna tab ORAL SCH (09:00)
--- NOTE | 2019-02-10 09:08 | NUR ---
CASE MANAGEMENT:REVIEW 02/10/19 SI: POD #1 97.9 64 18 115/67 98% ON RA H/H-11.7/34.1 BUN+45 CR+2.9 IS: ZEMPLAR PO PROSCAR PO QD : MED/SURG STATUS 3 EAST DCP: FROM HOME PLAN: DISCHARGE HOME TODAY
--- NOTE | 2019-02-10 09:33 | NUR ---
*-* NO INSRUANCE INFORMATION THE BAR UNABEL TO SEND CLINICALS OR REVIEWS *-*
[2019-02-10] MEDS ORDERED: NORCO 5-325 TA1 EACH ORAL (10:11)
[2019-02-10] MEDS ORDERED: COLACE100 MG ORAL (10:12)
[2019-02-10] MEDS ORDERED: CIPRO500 MG PO (10:14)
--- NOTE | 2019-02-10 11:30 | NUR ---
NURSE NOTES: Morfin catheter drained 500 light cesia clear urine at 1050 am. Leg bag connected and secured to left mid thigh, with catheter anchor in place. Cesia/yellow urine noted draining in leg bag. Patient denies abdominal pain/pressure/retention. Discharge instructions and prescription x1 reviewed with patient, verbalized understanding. All belongings, home medications (picked up from pharmacy) prescription x1, discharge instructions and supplies (large drainage bag, canister, basin, extra leg bag) given to patient. Patient sent down to lobby via in stable condition. Discharged home at 1130, patient driving self home.
--- NOTE | 2019-02-10 13:52 | 48 Hour Post Anesthesia Eval ---
Post Anesthesia Evaluation Procedure: Cysto, retrograde pyelogram, laser beam resection of prostate Date of Evaluation: February 10, 2019 Time of Evaluation: 06:30 Airway: patent Nausea: No Vomiting: No Pain Intensity: 0 Hydration Status: adequate Cardiopulmonary Status: at baseline Mental Status/LOC: patient returned to baseline Post-Anesthesia Complications: 0 Follow-up care needed: ready to discharge Windy Damon MD February 10, 2019 13:51
--- NOTE | 2019-02-10 21:45 | Consultation ---
DATE OF CONSULTATION: 02/10/2019 GASTROENTEROLOGY CONSULTATION/INTERNAL MEDICINE EVALUATION: CONSULTING PHYSICIAN: Yasir Alexandra M.D. CHIEF COMPLAINT: This patient has been evaluated for medical consultation. 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 The patient has prostate enlargement with bowel obstruction resulting in chronic renal failure. He was recently admitted to the hospital and was briefly dialyzed. Eventually, his condition improved and he has been maintained with a Morfin as an outpatient. He apparently has not returned to normal however. The hope is the current surgery will allow him to be without a chronic bladder catheter. The patient is in the postoperative state and has some mild degree of hematuria. The patient denies any abdominal pain, nausea, or vomiting. PAST MEDICAL HISTORY: History of hypertension, Meniere disease, prostatic hypertrophy with renal failure, history of leg edema, which is improved, history of colonic polyps, anemia, history ischemic colitis. PAST SURGICAL HISTORY: Status post basal cell carcinoma removal, tonsillectomy, undescended testicle surgery at age 9, right knee surgery. ALLERGIES: None. FAMILY HISTORY: Positive for breast cancer in mother and sister. Coronary artery disease in father and maternal uncle. Graves disease in mother. 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 He is . He has 2 children. He was a previous smoker, but he stopped this 30 years ago. He drinks occasionally, but he stopped this a few months ago. REVIEW OF SYSTEMS: Otherwise negative. PHYSICAL EXAMINATION: GENERAL: A pleasant white man, seen in his room. HEENT: Normocephalic, atraumatic. Sclerae anicteric. Oropharynx was clear. NECK: Supple. CHEST: Clear to auscultation. CARDIOVASCULAR: Revealed a regular rate. ABDOMEN: Soft. Good bowel sounds. There is no organomegaly. EXTREMITIES: Revealed trace edema. GENITOURINARY: Morfin catheter was in place. LABORATORY DATA: Noted. ASSESSMENT: This patient has renal failure due to obstructive uropathy. The procedure yesterday was performed to allow him to urinate without obstructive process. The patient will be seen as an outpatient in a week or 2 and his Morfin will be removed. I have advised the patient to see me in about 4 days or 5 days after to check his creatinine to make sure there is no worsening of his renal failure. RECOMMENDATIONS: Per above discussion and per orders from the chart. Thank you for asking me to participate in the care of this patient. Yasir Alexandra M.D. DR: MARCELO JOB#: [id number] CC: AVERY
--- NOTE | 2019-02-12 21:25 | Discharge Summary ---
Discharge Summary Hospital Course Date of Admission February 09, 2019 at 05:42 Date of Discharge February 10, 2019 at 11:30 Admitting Diagnosis BPH, urinary retention, obstructive uropathy, renal failure due to obstructive uropathy Reason for Hospitalization: Elective surgery HPI Dane Greene is a 73 year old male with past medical history of hypertension, renal failure secondary to obstructive uropathy, BPH, urinary retention, secondary hyperparathyroidism, was admitted on February 09, 2019 at 05:42 for [address] surgery. Consultations Dr Sosa-nephro Dr Alexandra - IM Procedures s/p 02/09/[address] Wise 1. Cystoscopy. 2. Urethral calibration. 3. Bilateral retrograde pyelogram. 4. GreenLight laser vaporization of prostate. 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 internal medicine doctor followed creatinine came down to 2.9 center machine operator recommended to stop Lasix and avoid nephrotoxics as possible Proscar was continued blood pressure remained stable bowel regimen instituted patient was able to tolerate diet, ambulated, pain controlled ,Morfin output clear surgeon cleared for discharge home with a Morfin catheter discharge instructions provided follow-up with surgeon next week for voiding trial prescription for antibiotic and stool softener provided Due to rapid improvement in patient condition, patient was discharged in 1 day FINAL DIAGNOSES BPH Urinary retention Chronic kidney disease Hx of renal failure due to obstructive uropathy History of hydronephrosis Secondary hyperparathyroidism, s/p cystoscopy, retrograde pyelogram, laser beam resection of prostate Discharge Medications Continued Medications: Ciprofloxacin* (Cipro*) 500 Mg Tablet 500 MG PO DAILY for 5 Days, #5 TAB (This prescription has been renewed) Docusate Sodium* (Colace*) 100 Mg Capsule 100 MG ORAL TWICE A DAY, #30 CAP (This prescription has been renewed) Finasteride* (Proscar*) 5 Mg Tablet 5 MG ORAL DAILY, #30 TAB 0 Refills (This prescription has been renewed) Furosemide* (Lasix*) 40 Mg Tablet 40 MG ORAL DAILY, TAB (This prescription has been renewed) Hydrocodone Bit/Acetaminophen 5-325* ([place] 5-325*) 1 Each Tablet 1 TAB ORAL Q6H PRN for For Pain, #15 TAB 0 Refills (This prescription has been renewed) Paricalcitol (Paricalcitol) 1 Mcg Capsule 1 MCG PO 3XW, CAP Paricalcitol 1 MCG take 1 cap by mouth 3 times per week on Wednesday, Wednesday, and Wednesday Sennosides/Docusate Sodium (Stool Softener Tablet) 1 Each Tablet 1 EACH PO DAILY, TAB (This prescription has been renewed) Discharge Condition Upon Discharge: stable Discharge Disposition Patient was discharged home Discharge Instructions Discharge Instructions Special Instructions I have been assigned to complete a D/C Summary on this account. I was not involved in the patient management Quyen Zepeda NP February 12, 2019 21:25
== END 2019-02-10 11:30 | disposition home or self-care (01) | DRG 713 ==
LOC: SDSOVERFLO 05:42 → 3E 10:40
PROC: BT14YZZ Fluoroscopy of Kidneys, Ureters and Bladder using Other Contrast (ICD-10-PCS; principal; 2019-02-09 07:00)
PROC: 0V508ZZ Destruction of Prostate, Via Natural or Artificial Opening Endoscopic (ICD-10-PCS; principal; 2019-02-09 07:00)
DX: N40.1 Benign prostatic hyperplasia with lower urinary tract symptoms (principal); N25.81 Secondary hyperparathyroidism of renal origin; N13.8 Other obstructive and reflux uropathy; R33.8 Other retention of urine; I12.9 Hypertensive chronic kidney disease with stage 1 through stage 4 chronic kidney disease, or unspecified chronic kidney disease; N18.9 Chronic kidney disease, unspecified; H81.09 Meniere's disease, unspecified ear; Z87.891 Personal history of nicotine dependence
CPT/HCPCS: 36415; 74420; 76000; 80048; 82306; 83970; 85025; 87081; 94003; 94150; C9399